=== PATIENT | male | born 1950 | race African-American/Black ===

== ENCOUNTER 2017-01-11 11:17 | Inpatient (IN) | payer OTHER ==
[2017-01-11 12:15] VITALS: BMI 34.7
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
[2017-01-11] MEDS ORDERED: diphenhydrAMINE HCL 50 MG CAPSULE PO PRN (15:31)
[2017-01-11] MEDS ORDERED: MAG HYDROX/AL HYDROX/SIMETH 30 ML UNIT-DOSE CUP PO PRN (15:31)
[2017-01-11] MEDS ORDERED: MAGNESIUM CITRATE 300 ML BOTTLE PO PRN (15:31)
[2017-01-11] MEDS ORDERED: MENTHOL/PHENOL 1 EACH UD MM PRN (15:31)
[2017-01-11] MEDS ORDERED: LOPERAMIDE HCL 2 MG CAPSULE PO PRN (15:31)
[2017-01-11] MEDS ORDERED: NICOTINE POLACRILEX 4 MG GUM BC PRN (15:31)
[2017-01-11] MEDS ORDERED: P-EPHED 60MG/TRIPROLIDI 2.5MG TABLET PO PRN (15:31)
[2017-01-11] MEDS ORDERED: METHADONE HCL 10 MG TABLET (FOR DETOX USE ONLY) PO ONE ×2 (15:39→23:00)
[2017-01-11] MEDS ORDERED: FUROSEMIDE 20 MG TABLET (FP) PO ONE (15:47)
[2017-01-11] MEDS ORDERED: INSULIN (NOVOLOG) ASPART 100 UNITS/ML 10ML VIAL ONE (16:39)
[2017-01-11] MEDS: diazePAM 5 MG TABLET PO PRN ×2 (17:03→22:46)
[2017-01-11] MEDS: INSULIN SLIDING SCALE (NOVOLOG) 1 VIAL SQ SCH (17:06)
[2017-01-11] MEDS: FLUOCINONIDE 0.05% GEL (15 GM) TP SCH ×2 (18:45→22:39)
[2017-01-11 19:57] LABS: URINE APPEARANCE CLEAR; URINE BILIRUBIN NEGATIVE (NEGATIVE); URINE BLOOD NEGATIVE (NEGATIVE); URINE COLOR YELLOW; URINE GLUCOSE (UA) 3+ (NEGATIVE); URINE KETONE NEGATIVE (NEGATIVE); URINE LEUK ESTERASE NEGATIVE (NEGATIVE); URINE NITRITE NEGATIVE (NEGATIVE); URINE UROBILINOGEN NEGATIVE E.U./dl (0.2-1.0)
[2017-01-11 20:02] LABS: URINE PROTEIN 2+ (NEGATIVE)
[2017-01-11 20:04] LABS: URINE HYALINE CAST 38 /lpf; URINE MUCUS RARE; URINE RBC 2 /hpf (0-3); URINE WBC 1 /hpf (3-5)
[2017-01-11] MEDS ORDERED: FUROSEMIDE 40 MG TABLET (FP) PO SCH (22:00)
[2017-01-11] MEDS: RALTEGRAVIR POTASSIUM 400 MG TAB PO SCH (22:37)
[2017-01-11] MEDS: DARUNAVIR ETHANOLATE 600 MG TAB PO SCH (22:37)
[2017-01-11] MEDS: CARVEDILOL 25 MG TABLET (FP) PO SCH (22:37)
[2017-01-11] MEDS: THIAMINE HCL 100 MG TABLET (FP) PO SCH (22:37)
[2017-01-11] MEDS: FERROUS SO4 325 MG TABLET (FP) PO SCH (22:37)
[2017-01-11] MEDS: BACITRACIN 0.9 GM PACKET TP SCH (22:37)
[2017-01-11] MEDS: RITONAVIR 100 MG TABLET PO SCH (22:38)
[2017-01-11] MEDS: INSULIN DETEMIR 100 UNITS/ML MDV SQ SCH (22:46)
[2017-01-12] MEDS: IBUPROFEN 400 MG TABLET (FP) PO PRN (05:15)
[2017-01-12] MEDS: diazePAM 5 MG TABLET PO PRN ×2 (05:17→22:22)
[2017-01-12] MEDS: FUROSEMIDE 20 MG TABLET (FP) PO SCH ×2 (06:47→14:35)
[2017-01-12] MEDS ORDERED: METHADONE HCL 10 MG TABLET (FOR DETOX USE ONLY) PO ONE (10:00)
[2017-01-12 10:04] LABS: MCHC 28.6 g/dl (32.0-35.9); MEAN CELL VOLUME 65.4 fl (80-96); MEAN PLT VOLUME 9.3 fl (7.5-11.1); PLATELET COUNT 263 K/MM3 (134-434); RDW 21.5 % (11.9-15.9); WHITE BLOOD COUNT 9.8 K/mm3 (4.0-10.0)
[2017-01-12 10:24] LABS: MCH 18.7 pg (25.7-33.7)
[2017-01-12] MEDS: PRENATAL VITAMINS W/ FOLIC ACID TABLET (FP) PO SCH (10:52)
[2017-01-12] MEDS: ASPIRIN 81 MG CHEWABLE TABLETS PO SCH (10:52)
[2017-01-12] MEDS: RANITIDINE HCL 150 MG TABLET (FP) PO SCH (10:52)
[2017-01-12] MEDS: POTASSIUM CHLORIDE TABS 20 MEQ TABLET.ER (FP) PO SCH (10:53)
[2017-01-12] MEDS: FERROUS SO4 325 MG TABLET (FP) PO SCH ×2 (10:53→22:13)
[2017-01-12] MEDS: RALTEGRAVIR POTASSIUM 400 MG TAB PO SCH ×2 (10:53→22:13)
[2017-01-12] MEDS: CLOPIDOGREL BISULFATE 75 MG TABLET (FP) PO SCH (10:53)
[2017-01-12 10:54] LABS: ALBUMIN 3.3 g/dl (3.4-5.0); BILIRUBIN,TOTAL 0.7 mg/dL (0.2-1.0); CALCIUM 8.8 mg/dL (8.5-10.1); CREATININE 2.1 mg/dL (0.7-1.3); TOT PROT 7.1 g/dl (6.4-8.2)
[2017-01-12] MEDS: CARVEDILOL 25 MG TABLET (FP) PO SCH ×2 (10:54→22:13)
[2017-01-12] MEDS: FLUOCINONIDE 0.05% GEL (15 GM) TP SCH ×4 (10:55→22:24)
[2017-01-12] MEDS: BACITRACIN 0.9 GM PACKET TP SCH ×2 (10:55→22:14)
[2017-01-12] MEDS: RITONAVIR 100 MG TABLET PO SCH ×2 (10:55→22:18)
[2017-01-12] MEDS: FLUCONAZOLE 100 MG TABLET (UD) PO SCH (10:55)
[2017-01-12] MEDS: NICOTINE 21 MG/24 HOURS TOPICAL PATCH TD SCH (10:56)
[2017-01-12] MEDS: DARUNAVIR ETHANOLATE 600 MG TAB PO SCH ×2 (10:56→22:13)
[2017-01-12] MEDS: MARAVIROC 150 MG TAB PO SCH (10:56)
[2017-01-12] MEDS: CHOLECALCIFEROL (VITAMIN D3) 1,000 UNIT TABLET (FP) PO SCH (10:57)
--- NOTE | 2017-01-12 11:07 | PN ---
BHS COWS - Scale Resting Pulse: 0= [place] 80 or Below Sweatin=Flushed/Facial Moisture Restless Observation: 1= Difficult to Sit Still Pupil Size: 0= Normal to Room Light Bone or Joint Aches: 2= Severe Diffuse Aches Runny Nose/ Eye Tearin= Nasal Congestion GI Upset > 30mins: 0= None Tremor Observation of Outstretched Hands: 0= None Yawning Observation: 2= >3x During Session Anxiety or Irritability: 1=Feels Anxious/Irritable Goose Flesh Skin: 3=Piloerection COWS Score: 12 BHS Progress Note (SOAP) Subjective: anxiety sweats sleepy Objective: 01/12/17 11:05 Vital Signs Temperature 98.2 F 01/12/17 09:44 Pulse Rate 74 01/12/17 09:44 Respiratory Rate 20 01/12/17 09:44 Blood Pressure 139/60 01/12/17 09:44 O2 Sat by Pulse Oximetry (%) Laboratory Tests 01/11/17 01/11/17 01/11/17 16:49 19:00 22:42 WBC RBC Hgb Hct MCV MCHC RDW Plt Count MPV POC Glucometer 466 246 Urine Color Yellow Urine Appearance Clear Urine pH 5.0 Ur Specific [place] 1.020 Urine Protein 2+ H Urine Glucose (UA) 3+ H Urine Ketones Negative Urine Blood Negative Urine Nitrite Negative Urine Bilirubin Negative Urine Urobilinogen Negative Ur Leukocyte Esterase Negative Urine RBC 2 Urine WBC 1 Ur Epithelial Cells Rare Hyaline Casts 38 Urine Mucus Rare 01/12/17 06:10 WBC 9.8 RBC 4.36 Hgb 8.1 L Hct 28.5 L MCV 65.4 L MCHC 28.6 L RDW 21.5 H D Plt Count 263 D MPV 9.3 POC Glucometer Urine Color Urine Appearance Urine pH Ur Specific [place] Urine Protein Urine Glucose (UA) Urine Ketones Urine Blood Urine Nitrite Urine Bilirubin Urine Urobilinogen Ur Leukocyte Esterase Urine RBC Urine WBC Ur Epithelial Cells Hyaline Casts Urine Mucus labs pending awake/alert ambulating no acute distress Assessment: 01/12/17 11:06 withdrawal sx Plan: hold am detox increase fluids labs pending
[2017-01-12] MEDS ORDERED: INSULIN (NOVOLOG) ASPART 100 UNITS/ML 10ML VIAL ONE ×2 (11:26→17:03)
[2017-01-12] MEDS: INSULIN SLIDING SCALE (NOVOLOG) 1 VIAL SQ SCH ×2 (11:32→17:22)
--- NOTE | 2017-01-12 12:15 | CONSULT ---
[facility] Psychiatric Consult - Data Date of interview: 01/12/17 Admission source: [facility] Identifying data: This is 66 years old male with no psychiatric hospitalization history, with multiple medical problems, intoxictaed with : Alcohol, Heroin and Nicotine Substance Abuse History: Smoking Cessation. Smoking history: Current every day smoker. Have you smoked in the past 12 months: Yes. Aproximately how many cigarettes per day: 10. Hx Chewing Tobacco Use: No. Initiated information on smoking cessation: Yes. 'Breaking Loose' booklet given: 01/11/17. - Substance & Tx. History. Hx Alcohol Use: Yes. Hx Substance Use: Yes. Substance Use Type : Alcohol, Heroin. Hx Substance Use Treatment: Yes. - Substances Abused. Heroin. Route: Inhalation. Frequency: Daily. Amount used: 10 bags. Age of first use: 15. Date of Last Use: 01/11/17. Alcohol-whisky. Route: Oral. Frequency: 1-2 times per week. Amount used: 1/4 pt. Age of first use: 27. Date of Last Use: 01/10/17 Medical History: CHF, HIV, HepC+, HTN, Hyperlipiodemia, Psoroasis, DM-2, Defibrillator in place, Obesity Psychiatric History: Patient denies past psychiatric history Physical/Sexual Abuse/Trauma History: Denies Additional Comment: Observation. Detox Unit Care Protocol Mental Status Exam - Mental Status Exam Alert and Oriented to: Person Cognitive Function: Fair Patient Appearance: Unkempt Mood: Angry, Sad Affect: Mood Congruent Patient Behavior: Cooperative Speech Pattern: Delayed Voice Loudness: Mildly Soft/Quiet Thought Process: Circumstantial, Goal Oriented Thought Disorder: Being Controlled Hallucinations: Denies Suicidal Ideation: Denies Homicidal Ideation: Denies Insight/Judgement: Fair Sleep: Difficulty falling asleep Appetite: Weight gain Muscle strength/Tone: Mild Hypotonicity Gait/Station: Shuffling Additional Comments: Observation. Detox Unit Care Protocol Psychiatric Findings - Problem List ([place] 1, 2,3) (1) CHF (congestive heart failure) Current Visit: Yes Status: Chronic Qualifiers: Congestive heart failure type: unspecified congestive heart failure type Congestive heart failure chronicity: chronic Qualified Code(s): I50.9 - Heart failure, unspecified (2) Nicotine dependence Current Visit: Yes Status: Chronic Qualifiers: Nicotine product type: cigarettes Substance use status: uncomplicated Qualified Code(s): F17.210 - Nicotine dependence, cigarettes, uncomplicated (3) Opioid dependence with withdrawal Current Visit: Yes Status: Chronic (4) Substance induced mood disorder Current Visit: No Status: Acute (5) Substance-induced sleep disorder Current Visit: No Status: Acute - Initial Treatment Plan Initial Treatment Plan: Observation. Detox Unit Care Protocol
[2017-01-12] MEDS: MAGNESIUM HYDROX 2400MG/30ML ORAL SUSPENSION 30 ML CUP PO PRN (14:48)
--- NOTE | 2017-01-12 15:08 | EKG ---
Test Reason : Blood Pressure : / mmHG Vent. Rate : 076 BPM Atrial Rate : 076 BPM P-R Int : 158 ms QRS Dur : 088 ms QT Int : 424 ms P-R-T Axes : 057 014 249 degrees QTc Int : 477 ms NORMAL SINUS RHYTHM WITH SINUS ARRHYTHMIA T WAVE ABNORMALITY, CONSIDER INFERIOR ISCHEMIA PROLONGED QT ABNORMAL ECG WHEN COMPARED WITH ECG OF 05-JUN-2015 08:45, NONSPECIFIC T WAVE ABNORMALITY, WORSE IN LATERAL LEADS Confirmed by ABRAHAM GALLEGOS MD ([id number]) on 01/12/2017 3:08:31 PM Referred By: Confirmed By:ABRAHAM GALLEGOS MD
[2017-01-12] MEDS ORDERED: AMMONIUM LACTATE 12% LOTION 225 GM BOTTLE TP PRN (15:12)
[2017-01-12] MEDS ORDERED: COLLOIDAL OATMEAL 1 BAR EACH TP PRN (15:12)
[2017-01-12 15:15] LABS: ANISOCYTOSIS 2+; HYPOCHROMIA 3+; MICROCYTOSIS 1+; OVALOCYTES 1+; POIKILOCYTOSIS 4+; SCHISTOCYTES 1+; TEAR DROP CELLS 1+
[2017-01-12 15:16] LABS: ACANTHOCYTES 1+; BURR CELLS 4+
[2017-01-12] MEDS: THIAMINE HCL 100 MG TABLET (FP) PO SCH (22:13)
[2017-01-12] MEDS: INSULIN DETEMIR 100 UNITS/ML MDV SQ SCH (22:24)
[2017-01-13] MEDS: IBUPROFEN 400 MG TABLET (FP) PO PRN ×3 (00:27→14:58)
[2017-01-13] MEDS: guaiFENesin/D-METHORPHAN HB 10 ML UNIT-DOSE CUPS PO PRN ×2 (02:51→14:52)
[2017-01-13] MEDS: diazePAM 5 MG TABLET PO PRN ×3 (06:02→22:20)
[2017-01-13] MEDS: FUROSEMIDE 20 MG TABLET (FP) PO SCH ×2 (06:03→14:47)
[2017-01-13] MEDS ORDERED: INSULIN (NOVOLOG) ASPART 100 UNITS/ML 10ML VIAL ONE ×3 (06:32→18:11)
[2017-01-13] MEDS: INSULIN SLIDING SCALE (NOVOLOG) 1 VIAL SQ SCH ×3 (06:36→18:13)
--- NOTE | 2017-01-13 09:58 | PN ---
S COWS - Scale Resting Pulse: 0= [place] 80 or Below Sweatin= Chills/Flushing Restless Observation: 3= Extraneous Movement Pupil Size: 1= Pupils >than Normal Bone or Joint Aches: 2= Severe Diffuse Aches Runny Nose/ Eye Tearin= Runny Nose/Eyes GI Upset > 30mins: 2= Nausea/Diarrhea Tremor Observation of Outstretched Hands: 2= Slight Tremor Visible Yawning Observation: 1= 1-2x During Session Anxiety or Irritability: 2=Irritable/Anxious Goose Flesh Skin: 0=Smooth Skin COWS Score: 16 S Progress Note (SOAP) Subjective: ALERT,IRRITABLE,ANXIOUS,INTERRUPTED SLEEP,PAIN IN THE BODY AND BACK Objective: 01/13/17 09:53 Vital Signs Temperature 98.1 F 01/13/17 09:52 Pulse Rate 98 H 01/13/17 09:52 Respiratory Rate 18 01/13/17 09:52 Blood Pressure 139/75 01/13/17 09:52 O2 Sat by Pulse Oximetry (%) Laboratory Last Values WBC 9.8 K/mm3 (4.0-10.0) 01/12/17 06:10 RBC 4.36 M/mm3 (4.00-5.60) 01/12/17 06:10 Hgb 8.1 GM/dL (11.7-16.9) L 01/12/17 06:10 Hct 28.5 % (35.4-49) L 01/12/17 06:10 MCV 65.4 fl (80-96) L 01/12/17 06:10 MCHC 28.6 g/dl (32.0-35.9) L 01/12/17 06:10 RDW 21.5 % (11.9-15.9) H D 01/12/17 06:10 Plt Count 263 K/MM3 (134-434) D 01/12/17 06:10 MPV 9.3 fl (7.5-11.1) 01/12/17 06:10 Hypochromic-Microcytic 3+ 01/12/17 06:10 Poikilocytosis 4+ 01/12/17 06:10 Anisocytosis 2+ 01/12/17 06:10 Microcytosis 1+ 01/12/17 06:10 Macrocytosis 2+ 01/12/17 06:10 Tear Drop Cells 1+ 01/12/17 06:10 Ovalocytes 1+ 01/12/17 06:10 Kinza Cells 4+ 01/12/17 06:10 Acanthocytes (Spur) 1+ 01/12/17 06:10 Schistocytes 1+ 01/12/17 06:10 Morphology Comment Slide scanned 01/12/17 06:10 Sodium 135 mmol/L (136-145) L 01/12/17 06:10 Potassium 5.1 mmol/L (3.5-5.1) 01/12/17 06:10 Chloride 101 mmol/L (98-107) 01/12/17 06:10 Carbon Dioxide 21 mmol/L (21-32) D 01/12/17 06:10 Anion Gap 13 (8-16) 01/12/17 06:10 BUN 24 mg/dL (7-18) H D 01/12/17 06:10 Creatinine 2.1 mg/dL (0.7-1.3) H D 01/12/17 06:10 Creat Clearance w eGFR 31.96 (>60) 01/12/17 06:10 POC Glucometer 213 UNITS (()) 01/13/17 05:59 Random Glucose 315 mg/dL (74-106) H* D 01/12/17 06:10 Calcium 8.8 mg/dL (8.5-10.1) 01/12/17 06:10 Total Bilirubin 0.7 mg/dL (0.2-1.0) D 01/12/17 06:10 AST 34 U/L (15-37) D 01/12/17 06:10 ALT 30 U/L (12-78) D 01/12/17 06:10 Alkaline Phosphatase 192 U/L (45-117) H D 01/12/17 06:10 Total Protein 7.1 g/dl (6.4-8.2) 01/12/17 06:10 Albumin 3.3 g/dl (3.4-5.0) L 01/12/17 06:10 Urine Color Yellow 01/11/17 19:00 Urine Appearance Clear 01/11/17 19:00 Urine pH 5.0 (5.0-8.0) 01/11/17 19:00 Ur Specific [place] 1.020 (1.001-1.035) 01/11/17 19:00 Urine Protein 2+ (NEGATIVE) H 01/11/17 19:00 Urine Glucose (UA) 3+ (NEGATIVE) H 01/11/17 19:00 Urine Ketones Negative (NEGATIVE) 01/11/17 19:00 Urine Blood Negative (NEGATIVE) 01/11/17 19:00 Urine Nitrite Negative (NEGATIVE) 01/11/17 19:00 Urine Bilirubin Negative (NEGATIVE) 01/11/17 19:00 Urine Urobilinogen Negative E.U./dl (0.2-1.0) 01/11/17 19:00 Ur Leukocyte Esterase Negative (NEGATIVE) 01/11/17 19:00 Urine RBC 2 /hpf (0-3) 01/11/17 19:00 Urine WBC 1 /hpf (3-5) 01/11/17 19:00 Ur Epithelial Cells Rare /hpf (FEW) 01/11/17 19:00 Hyaline Casts 38 /lpf 01/11/17 19:00 Urine Mucus Rare 01/11/17 19:00 RPR Titer Nonreactive (NONREACTIVE) 01/12/17 06:10 Hepatitis C Antibody 10.6 s/co ratio (0.0-0.9) H 01/12/17 06:10 Assessment: 01/13/17 09:56 WITHDRAWAL SYMPTOM Plan: CONTINUE DETOX,PATIENT IS KNOWN CASE OF ANEMIA,SUPPOSED TO TAKE IRON TWICE A DAY AND KNOWN CASE OF HEPATITS C,FOLLOWED UP BY PMD
[2017-01-13] MEDS ORDERED: METHADONE HCL 5 MG TABLET (FOR DETOX USE ONLY) PO ONE (10:00)
[2017-01-13] MEDS: RANITIDINE HCL 150 MG TABLET (FP) PO SCH (10:36)
[2017-01-13] MEDS: FLUCONAZOLE 100 MG TABLET (UD) PO SCH (10:36)
[2017-01-13] MEDS: FERROUS SO4 325 MG TABLET (FP) PO SCH ×2 (10:36→22:10)
[2017-01-13] MEDS: POTASSIUM CHLORIDE TABS 20 MEQ TABLET.ER (FP) PO SCH (10:36)
[2017-01-13] MEDS: CLOPIDOGREL BISULFATE 75 MG TABLET (FP) PO SCH (10:36)
[2017-01-13] MEDS: CARVEDILOL 25 MG TABLET (FP) PO SCH ×2 (10:36→22:10)
[2017-01-13] MEDS: PRENATAL VITAMINS W/ FOLIC ACID TABLET (FP) PO SCH (10:36)
[2017-01-13] MEDS: CHOLECALCIFEROL (VITAMIN D3) 1,000 UNIT TABLET (FP) PO SCH (10:37)
[2017-01-13] MEDS: DARUNAVIR ETHANOLATE 600 MG TAB PO SCH ×2 (10:37→22:10)
[2017-01-13] MEDS: NICOTINE 21 MG/24 HOURS TOPICAL PATCH TD SCH (10:38)
[2017-01-13] MEDS: RITONAVIR 100 MG TABLET PO SCH ×2 (10:38→22:10)
[2017-01-13] MEDS: RALTEGRAVIR POTASSIUM 400 MG TAB PO SCH ×2 (10:38→22:10)
[2017-01-13] MEDS: MARAVIROC 150 MG TAB PO SCH (10:38)
[2017-01-13] MEDS: ASPIRIN 81 MG CHEWABLE TABLETS PO SCH (10:41)
[2017-01-13] MEDS: BACITRACIN 0.9 GM PACKET TP SCH ×2 (10:41→22:10)
[2017-01-13] MEDS: CARBAMIDE PEROXIDE 6.5% OTIC 15 ML BOTTLE AD SCH ×3 (10:50→22:13)
[2017-01-13] MEDS: MAGNESIUM HYDROX 2400MG/30ML ORAL SUSPENSION 30 ML CUP PO PRN (10:55)
[2017-01-13] MEDS: FLUOCINONIDE 0.05% CREAM (60 GM TUBE) TP SCH ×2 (10:58→22:11)
[2017-01-13] MEDS: ARTIFICIAL TEARS (POLYVINYL ALCOHOL 1.4%) OPTH DROPS OU SCH ×2 (14:48→22:13)
[2017-01-13] MEDS: INSULIN DETEMIR 100 UNITS/ML MDV SQ SCH (22:20)
[2017-01-13] MEDS: THIAMINE HCL 100 MG TABLET (FP) PO SCH (22:55)
[2017-01-14] MEDS: IBUPROFEN 400 MG TABLET (FP) PO PRN (01:37)
[2017-01-14] MEDS: ACETAMINOPHEN 325 MG TABLET (FP) PO PRN ×2 (01:37→20:06)
[2017-01-14] MEDS: guaiFENesin/D-METHORPHAN HB 10 ML UNIT-DOSE CUPS PO PRN (01:39)
[2017-01-14] MEDS: diazePAM 5 MG TABLET PO PRN ×2 (02:36→10:48)
[2017-01-14] MEDS ORDERED: FUROSEMIDE 20 MG TABLET (FP) PO ONE (03:46)
--- NOTE | 2017-01-14 04:00 | PN ---
S Progress Note Note: ASKED TO SEE PT FOR C/O SOB. PT STATES "I HAVE FLUID IN MY STOMACH AND IN MY HEART" REQUESTING COMPRESSION STOCKINGS AND TRANSFER TO ER FOR SOB, ABD PAIN/ DISTENTION, SWOLLEN HANDS AND FEET. DENIES C.P, COUGH, FEVER CLIENT SEEN SEATED AT NURSING STATION AWAKE, ALERT, APPEARS DEPRESSED CRYING ABOUT HIS MEDS AND COMPRESSION STOCKINGS AND WANTING TO GO TO REHAB AFTER DETOX. CV RRR LUNGS CTA B/L O SAT RA 99% AHN/SPEAKING NOTED ABD- OBESE SOFT/ NT +BS X4 EXTREMITES: SWOLLEN HANDS NON PITTING L >R ( PER NURSING STAFF THIS IS NOT NEW) LOWER EXTREMITIES RAISED CRUSTY PATCHES NOTED (H/O PSORIASIS ) RLE PITTING EDEMA 1-2+ V/S 152/87 P-72-R-22 T 97.1 O2 SAT RA 99% A-H/O COPD/ CHF CURRENTLY ON LASIX 20 MG BID P- LASIX 20 MG PO X 1 DOSE NOW FLUID RESTRICTION LOW SODIUM DIET ELEVATE HOB AND BLE WHEN IN BED COMPRESSION STOCKING WILL REEVALUATE IN AM NEED FOR TRANSFER. PRESENTLY APPEARS STABLE. DUO NEB PRN
[2017-01-14] MEDS ORDERED: ALBUTEROL SO4 2.5/IPRATROPIUM 0.5 INH SOL 3 ML VIAL.NEB. NEB PRN (04:12)
[2017-01-14] MEDS ORDERED: IBUPROFEN 400 MG TABLET (FP) PO ONE (04:18)
[2017-01-14] MEDS: FUROSEMIDE 20 MG TABLET (FP) PO SCH ×2 (05:39→13:17)
[2017-01-14] MEDS: ARTIFICIAL TEARS (POLYVINYL ALCOHOL 1.4%) OPTH DROPS OU SCH ×3 (05:41→23:11)
[2017-01-14] MEDS: INSULIN SLIDING SCALE (NOVOLOG) 1 VIAL SQ SCH ×3 (06:55→17:15)
[2017-01-14] MEDS ORDERED: METHADONE HCL 5 MG TABLET (FOR DETOX USE ONLY) PO ONE (10:00)
[2017-01-14] MEDS: ASPIRIN 81 MG CHEWABLE TABLETS PO SCH (10:38)
[2017-01-14] MEDS: RITONAVIR 100 MG TABLET PO SCH ×2 (10:38→23:12)
[2017-01-14] MEDS: BACITRACIN 0.9 GM PACKET TP SCH ×2 (10:38→23:11)
[2017-01-14] MEDS: MARAVIROC 150 MG TAB PO SCH (10:39)
[2017-01-14] MEDS: RALTEGRAVIR POTASSIUM 400 MG TAB PO SCH ×2 (10:39→22:26)
[2017-01-14] MEDS: FERROUS SO4 325 MG TABLET (FP) PO SCH ×2 (10:39→22:29)
[2017-01-14] MEDS: CLOPIDOGREL BISULFATE 75 MG TABLET (FP) PO SCH (10:39)
[2017-01-14] MEDS: CARVEDILOL 25 MG TABLET (FP) PO SCH ×2 (10:39→22:25)
[2017-01-14] MEDS: CHOLECALCIFEROL (VITAMIN D3) 1,000 UNIT TABLET (FP) PO SCH (10:39)
[2017-01-14] MEDS: DARUNAVIR ETHANOLATE 600 MG TAB PO SCH ×2 (10:39→23:12)
[2017-01-14] MEDS: NICOTINE 21 MG/24 HOURS TOPICAL PATCH TD SCH (10:40)
[2017-01-14] MEDS: POTASSIUM CHLORIDE TABS 20 MEQ TABLET.ER (FP) PO SCH (10:40)
[2017-01-14] MEDS: FLUOCINONIDE 0.05% CREAM (60 GM TUBE) TP SCH ×2 (10:40→23:12)
[2017-01-14] MEDS: PRENATAL VITAMINS W/ FOLIC ACID TABLET (FP) PO SCH (10:41)
[2017-01-14] MEDS: RANITIDINE HCL 150 MG TABLET (FP) PO SCH (10:41)
[2017-01-14] MEDS: FLUCONAZOLE 100 MG TABLET (UD) PO SCH (10:42)
[2017-01-14] MEDS: CARBAMIDE PEROXIDE 6.5% OTIC 15 ML BOTTLE AD SCH ×2 (10:47→23:11)
--- NOTE | 2017-01-14 11:50 | PN ---
S Progress Note (SOAP) Subjective: Irritability, anxiety, sleeplessness, generalized pain Objective: 01/14/17 11:47 Vital Signs - 8 hr 01/14/17 01/14/17 06:00 11:09 Temperature 97.1 F L 97.7 F Pulse Rate 72 70 Respiratory 22 18 Rate Blood Pressure 152/87 139/66 Laboratory Last Values WBC 9.8 K/mm3 (4.0-10.0) 01/12/17 06:10 RBC 4.36 M/mm3 (4.00-5.60) 01/12/17 06:10 Hgb 8.1 GM/dL (11.7-16.9) L 01/12/17 06:10 Hct 28.5 % (35.4-49) L 01/12/17 06:10 MCV 65.4 fl (80-96) L 01/12/17 06:10 MCHC 28.6 g/dl (32.0-35.9) L 01/12/17 06:10 RDW 21.5 % (11.9-15.9) H D 01/12/17 06:10 Plt Count 263 K/MM3 (134-434) D 01/12/17 06:10 MPV 9.3 fl (7.5-11.1) 01/12/17 06:10 Hypochromic-Microcytic 3+ 01/12/17 06:10 Poikilocytosis 4+ 01/12/17 06:10 Anisocytosis 2+ 01/12/17 06:10 Microcytosis 1+ 01/12/17 06:10 Macrocytosis 2+ 01/12/17 06:10 Tear Drop Cells 1+ 01/12/17 06:10 Ovalocytes 1+ 01/12/17 06:10 [place] Cells 4+ 01/12/17 06:10 Acanthocytes (Spur) 1+ 01/12/17 06:10 Schistocytes 1+ 01/12/17 06:10 Morphology Comment Slide scanned 01/12/17 06:10 Sodium 135 mmol/L (136-145) L 01/12/17 06:10 Potassium 5.1 mmol/L (3.5-5.1) 01/12/17 06:10 Chloride 101 mmol/L (98-107) 01/12/17 06:10 Carbon Dioxide 21 mmol/L (21-32) D 01/12/17 06:10 Anion Gap 13 (8-16) 01/12/17 06:10 BUN 24 mg/dL (7-18) H D 01/12/17 06:10 Creatinine 2.1 mg/dL (0.7-1.3) H D 01/12/17 06:10 Creat Clearance w eGFR 31.96 (>60) 01/12/17 06:10 POC Glucometer 115 UNITS (()) 01/14/17 05:40 Random Glucose 315 mg/dL (74-106) H* D 01/12/17 06:10 Calcium 8.8 mg/dL (8.5-10.1) 01/12/17 06:10 Total Bilirubin 0.7 mg/dL (0.2-1.0) D 01/12/17 06:10 AST 34 U/L (15-37) D 01/12/17 06:10 ALT 30 U/L (12-78) D 01/12/17 06:10 Alkaline Phosphatase 192 U/L (45-117) H D 01/12/17 06:10 Total Protein 7.1 g/dl (6.4-8.2) 01/12/17 06:10 Albumin 3.3 g/dl (3.4-5.0) L 01/12/17 06:10 Urine Color Yellow 01/11/17 19:00 Urine Appearance Clear 01/11/17 19:00 Urine pH 5.0 (5.0-8.0) 01/11/17 19:00 Ur Specific [place] 1.020 (1.001-1.035) 01/11/17 19:00 Urine Protein 2+ (NEGATIVE) H 01/11/17 19:00 Urine Glucose (UA) 3+ (NEGATIVE) H 01/11/17 19:00 Urine Ketones Negative (NEGATIVE) 01/11/17 19:00 Urine Blood Negative (NEGATIVE) 01/11/17 19:00 Urine Nitrite Negative (NEGATIVE) 01/11/17 19:00 Urine Bilirubin Negative (NEGATIVE) 01/11/17 19:00 Urine Urobilinogen Negative E.U./dl (0.2-1.0) 01/11/17 19:00 Ur Leukocyte Esterase Negative (NEGATIVE) 01/11/17 19:00 Urine RBC 2 /hpf (0-3) 01/11/17 19:00 Urine WBC 1 /hpf (3-5) 01/11/17 19:00 Ur Epithelial Cells Rare /hpf (FEW) 01/11/17 19:00 Hyaline Casts 38 /lpf 01/11/17 19:00 Urine Mucus Rare 01/11/17 19:00 RPR Titer Nonreactive (NONREACTIVE) 01/12/17 06:10 Hepatitis C Antibody 10.6 s/co ratio (0.0-0.9) H 01/12/17 06:10 Labs noted, BL LE extreme dryness with stasis changes Assessment: 01/14/17 11:48 withdrawal sx dry skin Plan: continue detox continue topical skin treatment, apply pierre wrap
[2017-01-14] MEDS ORDERED: INSULIN (NOVOLOG) ASPART 100 UNITS/ML 10ML VIAL ONE ×2 (12:44→17:30)
[2017-01-14] MEDS: hydrOXYzine PAMOATE 50 MG CAPSULE (FP) PO PRN ×2 (12:51→22:29)
[2017-01-14] MEDS: CYCLOBENZAPRINE HCL 10 MG TABLET (FP) PO PRN ×2 (13:52→22:29)
[2017-01-14] MEDS: THIAMINE HCL 100 MG TABLET (FP) PO SCH (22:23)
[2017-01-14] MEDS: INSULIN DETEMIR 100 UNITS/ML MDV SQ SCH (23:11)
[2017-01-15] MEDS: guaiFENesin/D-METHORPHAN HB 10 ML UNIT-DOSE CUPS PO PRN (01:15)
[2017-01-15] MEDS: IBUPROFEN 400 MG TABLET (FP) PO PRN ×2 (01:16→11:39)
[2017-01-15] MEDS: ALBUTEROL SO4 6.7 GM HFA INHALER IH PRN ×2 (01:17→11:39)
[2017-01-15] MEDS: hydrOXYzine PAMOATE 50 MG CAPSULE (FP) PO PRN ×2 (05:55→17:27)
[2017-01-15] MEDS ORDERED: CYCLOBENZAPRINE HCL 10 MG TABLET (FP) ONE (05:55)
[2017-01-15] MEDS: CYCLOBENZAPRINE HCL 10 MG TABLET (FP) PO PRN ×2 (05:56→17:27)
[2017-01-15] MEDS: ARTIFICIAL TEARS (POLYVINYL ALCOHOL 1.4%) OPTH DROPS OU SCH ×3 (07:28→22:22)
[2017-01-15] MEDS: FUROSEMIDE 20 MG TABLET (FP) PO SCH ×2 (07:28→14:03)
[2017-01-15] MEDS: INSULIN SLIDING SCALE (NOVOLOG) 1 VIAL SQ SCH ×3 (08:00→17:45)
[2017-01-15] MEDS ORDERED: METHADONE HCL 10 MG TABLET (FOR DETOX USE ONLY) PO ONE (10:00)
[2017-01-15] MEDS: FLUOCINONIDE 0.05% CREAM (60 GM TUBE) TP SCH ×3 (10:30→22:23)
[2017-01-15] MEDS: FLUCONAZOLE 100 MG TABLET (UD) PO SCH (11:07)
[2017-01-15] MEDS: POTASSIUM CHLORIDE TABS 20 MEQ TABLET.ER (FP) PO SCH (11:07)
[2017-01-15] MEDS: CARVEDILOL 25 MG TABLET (FP) PO SCH ×2 (11:08→22:22)
[2017-01-15] MEDS: BACITRACIN 0.9 GM PACKET TP SCH ×2 (11:09→22:22)
[2017-01-15] MEDS: ASPIRIN 81 MG CHEWABLE TABLETS PO SCH (11:09)
[2017-01-15] MEDS: CARBAMIDE PEROXIDE 6.5% OTIC 15 ML BOTTLE AD SCH ×2 (11:09→22:22)
[2017-01-15] MEDS: RANITIDINE HCL 150 MG TABLET (FP) PO SCH (11:10)
[2017-01-15] MEDS: FERROUS SO4 325 MG TABLET (FP) PO SCH ×2 (11:10→22:22)
[2017-01-15] MEDS: MARAVIROC 150 MG TAB PO SCH (11:10)
[2017-01-15] MEDS: RALTEGRAVIR POTASSIUM 400 MG TAB PO SCH ×2 (11:10→22:22)
[2017-01-15] MEDS: RITONAVIR 100 MG TABLET PO SCH ×2 (11:11→22:23)
[2017-01-15] MEDS: NICOTINE 21 MG/24 HOURS TOPICAL PATCH TD SCH ×2 (11:11→11:15)
[2017-01-15] MEDS: CLOPIDOGREL BISULFATE 75 MG TABLET (FP) PO SCH (11:11)
[2017-01-15] MEDS: PRENATAL VITAMINS W/ FOLIC ACID TABLET (FP) PO SCH (11:12)
[2017-01-15] MEDS: DARUNAVIR ETHANOLATE 600 MG TAB PO SCH ×2 (11:12→22:23)
[2017-01-15] MEDS: CHOLECALCIFEROL (VITAMIN D3) 1,000 UNIT TABLET (FP) PO SCH (11:12)
--- NOTE | 2017-01-15 11:12 | PN ---
S Progress Note (SOAP) Subjective: Body Aches, Restlessness, Interrupted Sleep, Anxiety Objective: Vital Signs Temperature 96.6 F L 01/15/17 10:00 Pulse Rate 73 01/15/17 10:00 Respiratory Rate 20 01/15/17 10:00 Blood Pressure 141/71 01/15/17 10:00 O2 Sat by Pulse Oximetry (%) Laboratory Last Values WBC 9.8 K/mm3 (4.0-10.0) 01/12/17 06:10 RBC 4.36 M/mm3 (4.00-5.60) 01/12/17 06:10 Hgb 8.1 GM/dL (11.7-16.9) L 01/12/17 06:10 Hct 28.5 % (35.4-49) L 01/12/17 06:10 MCV 65.4 fl (80-96) L 01/12/17 06:10 MCHC 28.6 g/dl (32.0-35.9) L 01/12/17 06:10 RDW 21.5 % (11.9-15.9) H D 01/12/17 06:10 Plt Count 263 K/MM3 (134-434) D 01/12/17 06:10 MPV 9.3 fl (7.5-11.1) 01/12/17 06:10 Hypochromic-Microcytic 3+ 01/12/17 06:10 Poikilocytosis 4+ 01/12/17 06:10 Anisocytosis 2+ 01/12/17 06:10 Microcytosis 1+ 01/12/17 06:10 Macrocytosis 2+ 01/12/17 06:10 Tear Drop Cells 1+ 01/12/17 06:10 Ovalocytes 1+ 01/12/17 06:10 Kinza Cells 4+ 01/12/17 06:10 Acanthocytes (Spur) 1+ 01/12/17 06:10 Schistocytes 1+ 01/12/17 06:10 Morphology Comment Slide scanned 01/12/17 06:10 Sodium 135 mmol/L (136-145) L 01/12/17 06:10 Potassium 5.1 mmol/L (3.5-5.1) 01/12/17 06:10 Chloride 101 mmol/L (98-107) 01/12/17 06:10 Carbon Dioxide 21 mmol/L (21-32) D 01/12/17 06:10 Anion Gap 13 (8-16) 01/12/17 06:10 BUN 24 mg/dL (7-18) H D 01/12/17 06:10 Creatinine 2.1 mg/dL (0.7-1.3) H D 01/12/17 06:10 Creat Clearance w eGFR 31.96 (>60) 01/12/17 06:10 POC Glucometer 77 UNITS (()) 01/15/17 07:43 Random Glucose 315 mg/dL (74-106) H* D 01/12/17 06:10 Calcium 8.8 mg/dL (8.5-10.1) 01/12/17 06:10 Total Bilirubin 0.7 mg/dL (0.2-1.0) D 01/12/17 06:10 AST 34 U/L (15-37) D 01/12/17 06:10 ALT 30 U/L (12-78) D 01/12/17 06:10 Alkaline Phosphatase 192 U/L (45-117) H D 01/12/17 06:10 Total Protein 7.1 g/dl (6.4-8.2) 01/12/17 06:10 Albumin 3.3 g/dl (3.4-5.0) L 01/12/17 06:10 Urine Color Yellow 01/11/17 19:00 Urine Appearance Clear 01/11/17 19:00 Urine pH 5.0 (5.0-8.0) 01/11/17 19:00 Ur Specific [place] 1.020 (1.001-1.035) 01/11/17 19:00 Urine Protein 2+ (NEGATIVE) H 01/11/17 19:00 Urine Glucose (UA) 3+ (NEGATIVE) H 01/11/17 19:00 Urine Ketones Negative (NEGATIVE) 01/11/17 19:00 Urine Blood Negative (NEGATIVE) 01/11/17 19:00 Urine Nitrite Negative (NEGATIVE) 01/11/17 19:00 Urine Bilirubin Negative (NEGATIVE) 01/11/17 19:00 Urine Urobilinogen Negative E.U./dl (0.2-1.0) 01/11/17 19:00 Ur Leukocyte Esterase Negative (NEGATIVE) 01/11/17 19:00 Urine RBC 2 /hpf (0-3) 01/11/17 19:00 Urine WBC 1 /hpf (3-5) 01/11/17 19:00 Ur Epithelial Cells Rare /hpf (FEW) 01/11/17 19:00 Hyaline Casts 38 /lpf 01/11/17 19:00 Urine Mucus Rare 01/11/17 19:00 RPR Titer Nonreactive (NONREACTIVE) 01/12/17 06:10 Hepatitis C Antibody 10.6 s/co ratio (0.0-0.9) H 01/12/17 06:10 Assessment: Withdrawal Symptoms Plan: Continue Detox
[2017-01-15] MEDS: ACETAMINOPHEN 325 MG TABLET (FP) PO PRN (14:03)
[2017-01-15] MEDS: THIAMINE HCL 100 MG TABLET (FP) PO SCH (22:22)
[2017-01-15] MEDS: INSULIN DETEMIR 100 UNITS/ML MDV SQ SCH (22:23)
[2017-01-16] MEDS: IBUPROFEN 400 MG TABLET (FP) PO PRN (00:54)
[2017-01-16] MEDS: hydrOXYzine PAMOATE 50 MG CAPSULE (FP) PO PRN ×2 (00:54→05:47)
[2017-01-16] MEDS: CYCLOBENZAPRINE HCL 10 MG TABLET (FP) PO PRN ×2 (00:54→10:35)
[2017-01-16] MEDS: FUROSEMIDE 20 MG TABLET (FP) PO SCH (05:45)
[2017-01-16] MEDS ORDERED: METHADONE HCL 5 MG TABLET (FOR DETOX USE ONLY) PO ONE (06:00)
[2017-01-16] MEDS: ARTIFICIAL TEARS (POLYVINYL ALCOHOL 1.4%) OPTH DROPS OU SCH (06:42)
[2017-01-16] MEDS: INSULIN SLIDING SCALE (NOVOLOG) 1 VIAL SQ SCH ×2 (07:33→11:19)
[2017-01-16] MEDS ORDERED: INSULIN (NOVOLOG) ASPART 100 UNITS/ML 10ML VIAL ONE ×2 (08:33→11:19)
--- NOTE | 2017-01-16 09:35 | DS ---
[facility] Detox Discharge Summary Admission Date: 01/11/17 - History Present History: Alcohol Dependence, Opioid Dependence - Physical Exam Results Vital Signs: Vital Signs Temperature 97.7 F 01/16/17 06:45 Pulse Rate 80 01/16/17 06:45 Respiratory Rate 18 01/16/17 06:45 Blood Pressure 121/76 01/16/17 06:45 O2 Sat by Pulse Oximetry (%) - Treatment Hospital Course: Detox Protocol Followed, Detoxed Safely, Responded well, Discharged Condition Good - Medication Discharge Medications: Ambulatory Orders Insulin Glargine,Hum.rec.anlog [Lantus Solostar PEN -] 65 units SQ HS 12/04/15 Betamethasone Valerate [Valisone 0.1% Cream -] 1 applic TP BID 08/18/16 Duloxetine HCl [Cymbalta -] 20 mg PO DAILY 08/18/16 Albuterol Sulfate Inhaler - [Ventolin HFA Inhaler -] 2 inh PO Q4H PRN #1 inhaler 09/07/16 Aspirin [ASA -] 81 mg PO DAILY #30 tab.chew 09/07/16 Carvedilol [Coreg -] 25 mg PO BID #60 tablet 09/07/16 Cholecalciferol (Vitamin D3) [Vitamin D3 -] 1,000 unit PO DAILY #30 tab Clopidogrel Bisulfate [Plavix -] 75 mg PO DAILY #30 tablet 09/07/16 Darunavir Ethanolate [Prezista -] 600 mg PO BID #60 tab 09/07/16 Ferrous Sulfate [Feosol] 325 mg PO BID #60 ud 09/07/16 Folic Acid - 1 mg PO DAILY #30 tablet 09/07/16 Furosemide [Lasix -] 20 mg PO BID #30 tablet 09/07/16 Fluconazole [Diflucan -] 200 mg PO DAILY 01/11/17 Insulin Lispro [Humalog] 0 unit SQ TID PRN 01/11/17 Maraviroc [Selzentry] 300 mg PO BID 01/11/17 Potassium Chloride [Klor-Con M20] 20 meq PO DAILY 01/11/17 Raltegravir [Isentress -] 400 mg PO BID 01/11/17 Ranitidine [Zantac -] 150 mg PO DAILY 01/11/17 Ritonavir [Norvir -] 100 mg PO BID 01/11/17 Rosuvastatin [Crestor -] 10 mg PO HS 01/11/17 - Diagnosis (1) CHF (congestive heart failure) Current Visit: Yes Status: Chronic Qualifiers: Congestive heart failure type: unspecified congestive heart failure type Congestive heart failure chronicity: chronic Qualified Code(s): I50.9 - Heart failure, unspecified (2) HIV (human immunodeficiency virus infection) Current Visit: Yes Status: Chronic (3) Hepatitis C Current Visit: Yes Status: Chronic Qualifiers: Viral hepatitis chronicity: chronic Hepatic coma status: without hepatic coma Qualified Code(s): B18.2 - Chronic viral hepatitis C (4) Hyperlipidemia Current Visit: Yes Status: Chronic Qualifiers: Hyperlipidemia type: unspecified Qualified Code(s): E78.5 - Hyperlipidemia, unspecified (5) Hypertension Current Visit: Yes Status: Chronic Qualifiers: Hypertension type: essential hypertension Qualified Code(s): I10 - Essential (primary) hypertension (6) Nicotine dependence Current Visit: Yes Status: Chronic Qualifiers: Nicotine product type: cigarettes Substance use status: uncomplicated Qualified Code(s): F17.210 - Nicotine dependence, cigarettes, uncomplicated (7) Opioid dependence with withdrawal Current Visit: Yes Status: Chronic (8) Psoriasis Current Visit: Yes Status: Chronic (9) Type 2 diabetes mellitus Current Visit: Yes Status: Chronic Qualifiers: Diabetes mellitus complication status: without complication Diabetes mellitus rodent exterminator insulin use: without rodent exterminator use Qualified Code(s): E11.9 - Type 2 diabetes mellitus without complications (10) Cardiac defibrillator in place Current Visit: No Status: Chronic - AMA Did Patient Leave Against Medical Advice: No
--- NOTE | 2017-01-16 10:12 | PN ---
Psychiatric Progress Note Vital Signs: Vital Signs Period Temp Pulse Resp BP Sys/Pandya Pulse Ox Last 24 Hr 97.3 F-98.8 F 77-86 17-18 121-159/74-82 Date of Session: 01/16/17 Chief Complaint:: Anxity HPI: Patient approached MD at [facility] and asking for help to release his anxiety, patient asking for steady border of Vistaril 50mg po tid, currently on Vistati, 50mg po prn q4 for anxiety Current Medications: Active Medications Generic Name Dose Route Start Last Admin Trade Name Freq PRN Reason Stop Dose Admin Acetaminophen 650 mg 01/11/17 15:31 01/15/17 14:03 Tylenol - PO 650 mg Q4H PRN Administration FEVER OR PAIN Al Hydroxide/Mg Hydroxide 30 ml 01/11/17 15:31 Mylanta Oral Suspension - PO Q6H PRN DYSPEPSIA Albuterol Sulfate 2 puff 01/11/17 15:33 01/15/17 11:39 Ventolin Hfa Inhaler - IH 2 puff Q4H PRN Administration WHEEZING Albuterol/Ipratropium 1 amp 01/14/17 04:12 Duoneb - NEB Q4H PRN SHORTNESS OF BREATH Artificial Tears 1 drop 01/13/17 14:00 01/16/17 06:42 Artificial Tears OU 1 drop TID MIRTHA Administration Aspirin 81 mg 01/12/17 10:00 01/15/17 11:09 Asa - PO 81 mg DAILY MIRTHA Administration Bacitracin 0.9 gm 01/11/17 22:00 01/15/17 22:22 Bacitracin - TP 0.9 gm BID MIRTHA Administration Carbamide Perox/Anhydrous Glycerin 5 drop 01/13/17 10:00 01/15/17 22:22 Debrox - AD Not Given BID MIRTHA Carvedilol 25 mg 01/11/17 22:00 01/15/17 22:22 Coreg - PO 25 mg BID MIRTHA Administration Cholecalciferol 1,000 unit 01/12/17 10:00 01/15/17 11:12 Vitamin D3 - PO 1,000 unit DAILY MIRTHA Administration Clopidogrel Bisulfate 75 mg 01/12/17 10:00 01/15/17 11:11 Plavix - PO 75 mg DAILY MIRTHA Administration Colloidal Oatmeal 1 applic 01/12/17 15:12 Aveeno Soap - TP DAILY PRN HYGEINE Cyclobenzaprine HCl 10 mg 01/14/17 13:41 01/16/17 00:54 Flexeril - PO 10 mg TID PRN Administration MUSCLE SPASMS Darunavir 600 mg 01/11/17 22:00 01/15/17 22:23 Prezista - PO 600 mg BID MIRTHA Administration Eucalyptus/Menthol/Phenol/Sorbitol 1 each 01/11/17 15:31 Cepastat Lozenge - MM Q4H PRN SORE THROAT Ferrous Sulfate 325 mg 01/11/17 22:00 01/15/17 22:22 Feosol - PO 325 mg BID MIRTHA Administration Fluconazole 200 mg 01/12/17 10:00 01/15/17 11:07 Diflucan - PO 200 mg DAILY MIRTHA Administration Fluocinonide 1 applic 01/13/17 10:00 01/15/17 22:23 Lidex 0.05% Cream - TP 1 applic BID MIRTHA Administration Furosemide 20 mg 01/12/17 06:00 01/16/17 05:45 Lasix - PO 20 mg BIDLASIX MIRTHA Administration Guaifenesin 10 ml 01/11/17 15:31 01/15/17 01:15 Robitussin Dm - PO 10 ml Q6H PRN Administration COUGH Hydroxyzine Pamoate 50 mg 01/16/17 14:00 Vistaril - PO TID MIRTHA Ibuprofen 400 mg 01/11/17 15:31 01/16/17 00:54 Motrin - PO 400 mg Q6H PRN Administration SEVERE PAIN Insulin Aspart 1 vial 01/11/17 16:30 01/16/17 07:33 Novolog Vial Sliding Scale - SQ 4 units TIDAC MIRTHA Administration Protocol Insulin Detemir 65 units 01/11/17 22:00 01/15/17 22:23 Levemir Vial SQ 65 units HS MIRTHA Administration Lactic Acid 1 applic 01/12/17 15:12 Lac-Hydrin 12 TP BID PRN DRY SKIN Loperamide HCl 4 mg 01/11/17 15:31 Imodium - PO Q6H PRN DIARRHEA Magnesium Citrate 300 ml 01/11/17 15:31 Citroma - PO Q48H PRN CONSTIPATION Magnesium Hydroxide 30 ml 01/11/17 15:31 01/13/17 10:55 Milk Of Magnesia - PO 30 ml DAILY PRN Administration CONSTIPATION Maraviroc 300 mg 01/12/17 10:00 01/15/17 11:10 Selzentry - PO 300 mg DAILY MIRTHA Administration Nicotine 21 mg 01/12/17 10:00 01/15/17 11:15 Nicoderm Patch - TD Not Given DAILY MIRTHA Nicotine Polacrilex 4 mg 01/11/17 15:31 Nicorette Gum - BC Q2H PRN NICOTINE REPLACEMENT RX Potassium Chloride 20 meq 01/12/17 10:00 01/15/17 11:07 K-Dur - PO 20 meq DAILY MIRTHA Administration Multivit/Folic Acid/Iron 1 tab 01/12/17 10:00 01/15/17 11:12 Vitamins (Sjr) - PO 1 tab DAILY MIRTHA Administration Pseudoephedrine/Triprolidine 1 combo 01/11/17 15:31 Actifed - PO TID PRN NASAL CONGESTION Raltegravir 400 mg 01/11/17 22:00 01/15/17 22:22 Isentress - PO 400 mg BID MIRTHA Administration Ranitidine HCl 150 mg 01/12/17 10:00 01/15/17 11:10 Zantac - PO 150 mg DAILY MIRTHA Administration Ritonavir 100 mg 01/11/17 22:00 01/15/17 22:23 Norvir - PO 100 mg BID MIRTHA Administration Thiamine HCl 100 mg 01/11/17 22:00 01/15/17 22:22 Vitamin B1 - PO 100 mg HS MIRTHA Administration Medication(s) Change(s): Vistaril 50mg po tid Mental Status Exam - Mental Status Exam Alert and Oriented to: Person Cognitive Function: Fair Patient Appearance: Unkempt Mood: Anxious Affect: Mood Congruent Patient Behavior: Cooperative Speech Pattern: Appropriate Voice Loudness: Mildly Soft/Quiet Thought Process: Goal Oriented Thought Disorder: Being Controlled Hallucinations: Denies Suicidal Ideation: Denies Homicidal Ideation: Denies Insight/Judgement: Fair Sleep: Difficulty falling asleep Appetite: Weight gain Muscle strength/Tone: Mild Hypotonicity Gait/Station: Shuffling Additional Comments: Vistaril 50mg po tid Psychiatric Treatment Plan - Problem List (1) CHF (congestive heart failure) Current Visit: Yes Qualifiers: Congestive heart failure type: unspecified congestive heart failure type Congestive heart failure chronicity: chronic Qualified Code(s): I50.9 - Heart failure, unspecified (2) Nicotine dependence Current Visit: Yes Qualifiers: Nicotine product type: cigarettes Substance use status: uncomplicated Qualified Code(s): F17.210 - Nicotine dependence, cigarettes, uncomplicated (3) Opioid dependence with withdrawal Current Visit: Yes (4) Substance induced mood disorder Current Visit: No (5) Substance-induced sleep disorder Current Visit: No Initial treatment plan: Vistaril 50mg po tid
[2017-01-16 10:13] VITALS: BP 144/83; PULSE 79; TEMP 98.6
[2017-01-16] MEDS: ASPIRIN 81 MG CHEWABLE TABLETS PO SCH (10:24)
[2017-01-16] MEDS: PRENATAL VITAMINS W/ FOLIC ACID TABLET (FP) PO SCH (10:24)
[2017-01-16] MEDS: BACITRACIN 0.9 GM PACKET TP SCH (10:24)
[2017-01-16] MEDS: FERROUS SO4 325 MG TABLET (FP) PO SCH (10:25)
[2017-01-16] MEDS: MARAVIROC 150 MG TAB PO SCH (10:25)
[2017-01-16] MEDS: FLUCONAZOLE 100 MG TABLET (UD) PO SCH (10:26)
[2017-01-16] MEDS: RANITIDINE HCL 150 MG TABLET (FP) PO SCH (10:26)
[2017-01-16] MEDS: POTASSIUM CHLORIDE TABS 20 MEQ TABLET.ER (FP) PO SCH (10:26)
[2017-01-16] MEDS: DARUNAVIR ETHANOLATE 600 MG TAB PO SCH (10:27)
[2017-01-16] MEDS: CHOLECALCIFEROL (VITAMIN D3) 1,000 UNIT TABLET (FP) PO SCH (10:27)
[2017-01-16] MEDS: CARVEDILOL 25 MG TABLET (FP) PO SCH (10:28)
[2017-01-16] MEDS: CLOPIDOGREL BISULFATE 75 MG TABLET (FP) PO SCH (10:28)
[2017-01-16] MEDS: RALTEGRAVIR POTASSIUM 400 MG TAB PO SCH (10:28)
[2017-01-16] MEDS: NICOTINE 21 MG/24 HOURS TOPICAL PATCH TD SCH (10:31)
[2017-01-16] MEDS: RITONAVIR 100 MG TABLET PO SCH (10:36)
[2017-01-16] MEDS: CARBAMIDE PEROXIDE 6.5% OTIC 15 ML BOTTLE AD SCH (10:36)
[2017-01-16] MEDS: FLUOCINONIDE 0.05% CREAM (60 GM TUBE) TP SCH (10:46)
[2017-01-16] MEDS ORDERED: hydrOXYzine PAMOATE 50 MG CAPSULE (FP) PO SCH (14:00)
[2017-01-17 00:06] LABS: HCV LOG 10 6.529 (.)
== END 2017-01-16 13:40 | disposition other institution (70) | DRG 773 ==
LOC: YASAS 11:17 → Y6N 14:39
PROVIDERS: ADMIT Internal Medicine Addiction Medicine; ATTEND Internal Medicine Addiction Medicine
PROC: HZ2ZZZZ Detoxification Services for Substance Abuse Treatment (ICD-10-PCS; principal; 2017-01-16)
DX: F11.23 Opioid dependence with withdrawal (principal); F19.24 Other psychoactive substance dependence with psychoactive substance-induced mood disorder; F19.282 Other psychoactive substance dependence with psychoactive substance-induced sleep disorder; I50.9 Heart failure, unspecified; I10 Essential (primary) hypertension; E11.9 Type 2 diabetes mellitus without complications; Z79.84 Long term (current) use of oral hypoglycemic drugs; E78.5 Hyperlipidemia, unspecified; B18.2 Chronic viral hepatitis C; Z21 Asymptomatic human immunodeficiency virus [HIV] infection status; L40.9 Psoriasis, unspecified
CPT/HCPCS: 36415; 80053; 81003; 81015; 85027; 86593; 87522; 93005; 93010

== ENCOUNTER 2017-01-16 13:49 | Inpatient (IN) | payer OTHER ==
[2017-01-16] MEDS ORDERED: IBUPROFEN 400 MG TABLET (FP) PO PRN (15:10)
[2017-01-16] MEDS ORDERED: MENTHOL/PHENOL 1 EACH UD MM PRN (15:10)
[2017-01-16] MEDS ORDERED: guaiFENesin/D-METHORPHAN HB 10 ML UNIT-DOSE CUPS PO PRN (15:10)
[2017-01-16] MEDS ORDERED: LOPERAMIDE HCL 2 MG CAPSULE PO PRN (15:10)
[2017-01-16] MEDS ORDERED: MAG HYDROX/AL HYDROX/SIMETH 30 ML UNIT-DOSE CUP PO PRN (15:10)
[2017-01-16] MEDS ORDERED: NICOTINE POLACRILEX 4 MG GUM BUC PRN (15:10)
[2017-01-16] MEDS ORDERED: MAGNESIUM CITRATE 300 ML BOTTLE PO PRN (15:10)
[2017-01-16] MEDS ORDERED: P-EPHED 60MG/TRIPROLIDI 2.5MG TABLET PO PRN (15:10)
[2017-01-16] MEDS ORDERED: PT OWN MED DRAWER 7, Y5N ONE (16:04)
--- NOTE | 2017-01-16 16:24 | HP ---
[facility] Assess/Revision - Admission History Admitted to Rehab from: [facility] [place] Date of Admission to Rehab: 01/16/17 - Findings Detox History & Physical reviewed: Yes Concur with findings: Yes Comments/Additional Findings: transferred from detox to rehab admission as per protocol
[2017-01-16] MEDS: CYCLOBENZAPRINE HCL 10 MG TABLET (FP) PO PRN (16:49)
[2017-01-16] MEDS: hydrOXYzine PAMOATE 25 MG CAPSULE (FP) PO PRN (16:49)
[2017-01-16] MEDS: ACETAMINOPHEN 325 MG TABLET (FP) PO PRN (16:49)
[2017-01-16] MEDS ORDERED: INSULIN SLIDING SCALE (NOVOLOG) 1 VIAL SQ ONE (18:15)
[2017-01-16] MEDS: FLUTICASONE PROP 0.05% 16 GM NASAL SPRAY NS SCH (21:28)
[2017-01-16] MEDS: INSULIN SLIDING SCALE (NOVOLOG) 1 VIAL SQ SCH (21:29)
[2017-01-16] MEDS: THIAMINE HCL 100 MG TABLET (FP) PO SCH (21:31)
[2017-01-16] MEDS: FUROSEMIDE 20 MG TABLET (FP) PO SCH (21:31)
[2017-01-16] MEDS: CARVEDILOL 25 MG TABLET (FP) PO SCH (21:31)
[2017-01-16] MEDS: DARUNAVIR ETHANOLATE 600 MG TAB PO SCH (21:31)
[2017-01-16] MEDS: RALTEGRAVIR POTASSIUM 400 MG TAB PO SCH (21:31)
[2017-01-16] MEDS: BETAMETHASONE VALERATE 0.1% CREAM 15 GM TUBE TP SCH (21:31)
[2017-01-16] MEDS: ROSUVASTATIN CA 10 MG TABLET (FP) PO SCH (21:31)
[2017-01-16] MEDS: ARTIFICIAL TEARS (POLYVINYL ALCOHOL 1.4%) OPTH DROPS OU SCH (21:33)
[2017-01-16] MEDS: FLUOCINONIDE 0.05% CREAM (60 GM TUBE) TP SCH (21:34)
[2017-01-16] MEDS: RITONAVIR 100 MG TABLET PO SCH (21:35)
[2017-01-16] MEDS ORDERED: INSULIN DETEMIR 100 UNITS/ML MDV SQ SCH (22:00)
[2017-01-16] MEDS ORDERED: INSULIN (NOVOLOG) ASPART 100 UNITS/ML 10ML VIAL ONE (22:19)
[2017-01-17] MEDS: hydrOXYzine PAMOATE 25 MG CAPSULE (FP) PO PRN ×3 (00:24→21:09)
[2017-01-17] MEDS: ACETAMINOPHEN 325 MG TABLET (FP) PO PRN ×3 (00:24→20:27)
[2017-01-17] MEDS: CYCLOBENZAPRINE HCL 10 MG TABLET (FP) PO PRN ×3 (00:24→21:09)
--- NOTE | 2017-01-17 07:42 | PN ---
[facility] Progress Note Note: PATIENT FOUND SWEATING,ALTER MENTAL STATUS BGM 37 ATTEMPTING TO GIVE ORANGE JUICE ATTEMPTING IV UNABLE GLUCOSE IS 76 ALERT,ORIENTED X 3 EATING WILL CMP BGM MONITORING ACHS
[2017-01-17] MEDS: ARTIFICIAL TEARS (POLYVINYL ALCOHOL 1.4%) OPTH DROPS OU SCH ×3 (07:49→21:49)
[2017-01-17] MEDS: INSULIN SLIDING SCALE (NOVOLOG) 1 VIAL SQ SCH ×4 (07:49→21:11)
[2017-01-17 10:05] LABS: CALCIUM 8.5 mg/dL (8.5-10.1)
[2017-01-17 10:11] LABS: BILIRUBIN,TOTAL 0.5 mg/dL (0.2-1.0); CREATININE 1.6 mg/dL (0.7-1.3); TOT PROT 6.7 g/dl (6.4-8.2)
[2017-01-17] MEDS: RANITIDINE HCL 150 MG TABLET (FP) PO SCH (10:25)
[2017-01-17] MEDS: ASPIRIN 81 MG CHEWABLE TABLETS PO SCH (10:25)
[2017-01-17] MEDS: CLOPIDOGREL BISULFATE 75 MG TABLET (FP) PO SCH (10:25)
[2017-01-17] MEDS: CHOLECALCIFEROL (VITAMIN D3) 1,000 UNIT TABLET (FP) PO SCH (10:25)
[2017-01-17] MEDS: FUROSEMIDE 20 MG TABLET (FP) PO SCH ×2 (10:25→21:08)
[2017-01-17] MEDS: FLUCONAZOLE 100 MG TABLET (UD) PO SCH (10:25)
[2017-01-17] MEDS: RALTEGRAVIR POTASSIUM 400 MG TAB PO SCH ×2 (10:25→21:07)
[2017-01-17] MEDS: MARAVIROC 150 MG TAB PO SCH (10:26)
[2017-01-17] MEDS: DARUNAVIR ETHANOLATE 600 MG TAB PO SCH ×2 (10:27→21:07)
[2017-01-17] MEDS: CARVEDILOL 25 MG TABLET (FP) PO SCH ×2 (10:27→21:07)
[2017-01-17] MEDS: FLUTICASONE PROP 0.05% 16 GM NASAL SPRAY NS SCH ×2 (10:28→21:07)
[2017-01-17] MEDS: RITONAVIR 100 MG TABLET PO SCH ×2 (10:28→21:06)
[2017-01-17] MEDS: PRENATAL VITAMINS W/ FOLIC ACID TABLET (FP) PO SCH (10:29)
[2017-01-17] MEDS: BETAMETHASONE VALERATE 0.1% CREAM 15 GM TUBE TP SCH ×2 (10:42→21:49)
[2017-01-17] MEDS: FLUOCINONIDE 0.05% CREAM (60 GM TUBE) TP SCH ×2 (10:42→21:08)
[2017-01-17] MEDS ORDERED: INSULIN (NOVOLOG) ASPART 100 UNITS/ML 10ML VIAL ONE ×2 (12:08→17:15)
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
[2017-01-17] MEDS: ROSUVASTATIN CA 10 MG TABLET (FP) PO SCH (21:07)
[2017-01-17] MEDS: INSULIN DETEMIR 100 UNITS/ML MDV SQ SCH (21:08)
[2017-01-17] MEDS: THIAMINE HCL 100 MG TABLET (FP) PO SCH (21:49)
--- NOTE | 2017-01-17 23:12 | PN ---
[facility] Progress Note Note: change lasix 20 mg bid to 6 am and 6 pm continue detox
[2017-01-18] MEDS: ARTIFICIAL TEARS (POLYVINYL ALCOHOL 1.4%) OPTH DROPS OU SCH ×3 (06:00→22:30)
[2017-01-18] MEDS: FUROSEMIDE 20 MG TABLET (FP) PO SCH ×2 (06:12→17:40)
[2017-01-18] MEDS: hydrOXYzine PAMOATE 25 MG CAPSULE (FP) PO PRN (06:13)
[2017-01-18] MEDS: CYCLOBENZAPRINE HCL 10 MG TABLET (FP) PO PRN ×3 (06:13→22:38)
[2017-01-18] MEDS: ALBUTEROL SO4 6.7 GM HFA INHALER IH PRN (06:14)
[2017-01-18] MEDS: INSULIN SLIDING SCALE (NOVOLOG) 1 VIAL SQ SCH ×4 (07:28→22:32)
[2017-01-18] MEDS: RITONAVIR 100 MG TABLET PO SCH ×2 (10:05→22:28)
[2017-01-18] MEDS: MARAVIROC 150 MG TAB PO SCH (10:05)
[2017-01-18] MEDS: PRENATAL VITAMINS W/ FOLIC ACID TABLET (FP) PO SCH (10:05)
[2017-01-18] MEDS: BETAMETHASONE VALERATE 0.1% CREAM 15 GM TUBE TP SCH ×2 (10:05→22:34)
[2017-01-18] MEDS: CARVEDILOL 25 MG TABLET (FP) PO SCH ×2 (10:06→22:29)
[2017-01-18] MEDS: RALTEGRAVIR POTASSIUM 400 MG TAB PO SCH ×2 (10:06→22:28)
[2017-01-18] MEDS: CHOLECALCIFEROL (VITAMIN D3) 1,000 UNIT TABLET (FP) PO SCH (10:06)
[2017-01-18] MEDS: RANITIDINE HCL 150 MG TABLET (FP) PO SCH (10:06)
[2017-01-18] MEDS: FLUOCINONIDE 0.05% CREAM (60 GM TUBE) TP SCH ×2 (10:06→22:32)
[2017-01-18] MEDS: ASPIRIN 81 MG CHEWABLE TABLETS PO SCH (10:06)
[2017-01-18] MEDS: CLOPIDOGREL BISULFATE 75 MG TABLET (FP) PO SCH (10:06)
[2017-01-18] MEDS: FLUCONAZOLE 100 MG TABLET (UD) PO SCH (10:06)
[2017-01-18] MEDS: FLUTICASONE PROP 0.05% 16 GM NASAL SPRAY NS SCH ×2 (10:07→22:29)
[2017-01-18] MEDS: DARUNAVIR ETHANOLATE 600 MG TAB PO SCH ×2 (10:07→22:29)
[2017-01-18 10:10] LABS: MCHC 29.4 g/dl (32.0-35.9); MEAN CELL VOLUME 63.8 fl (80-96); MEAN PLT VOLUME 8.8 fl (7.5-11.1); PLATELET COUNT 402 K/MM3 (134-434); RDW 22.3 % (11.9-15.9); WHITE BLOOD COUNT 21.8 K/mm3 (4.0-10.0)
[2017-01-18] MEDS: MAGNESIUM HYDROX 2400MG/30ML ORAL SUSPENSION 30 ML CUP PO PRN (10:10)
[2017-01-18 10:16] LABS: MCH 18.8 pg (25.7-33.7)
--- NOTE | 2017-01-18 10:32 | PN ---
Psychiatric Progress Note Vital Signs: Vital Signs Period Temp Pulse Resp BP Sys/Pandya Pulse Ox Last 24 Hr 98.6 F-99.3 F 84-88 18-18 136-144/71-82 Date of Session: 01/18/17 Chief Complaint:: Anxiety HPI: Patient addressing Opoid Dependence, Alcohol Abuse comorbid with Nicotine Dependence and Substance-Induced Mood Disorder ROS: HTN, HLD, CHF, type II DM, Hep C Current Medications: Active Medications Generic Name Dose Route Start Last Admin Trade Name Freq PRN Reason Stop Dose Admin Acetaminophen 650 mg 01/16/17 15:10 01/17/17 20:27 Tylenol - PO 650 mg Q4H PRN Administration FEVER OR PAIN Al Hydroxide/Mg Hydroxide 30 ml 01/16/17 15:10 Mylanta Oral Suspension - PO Q6H PRN DYSPEPSIA Albuterol Sulfate 2 puff 01/16/17 17:34 01/18/17 06:14 Ventolin Hfa Inhaler - IH 2 inhaler Q4H PRN Administration WHEEZING Artificial Tears 1 drop 01/16/17 22:00 01/18/17 06:00 Artificial Tears OU 1 drop TID MIRTHA Administration Aspirin 81 mg 01/17/17 10:00 01/18/17 10:06 Asa - PO 81 mg DAILY MIRTHA Administration Betamethasone Valerate 1 applic 01/16/17 22:00 01/18/17 10:05 Valisone 0.1% Cream - TP 1 applic BID MIRTHA Administration Carvedilol 25 mg 01/16/17 22:00 01/18/17 10:06 Coreg - PO 25 mg BID MIRTHA Administration Cholecalciferol 1,000 unit 01/17/17 10:00 01/18/17 10:06 Vitamin D3 - PO 1,000 unit DAILY MIRTHA Administration Clopidogrel Bisulfate 75 mg 01/17/17 10:00 01/18/17 10:06 Plavix - PO 75 mg DAILY MIRTHA Administration Cyclobenzaprine HCl 10 mg 01/16/17 15:11 01/18/17 06:13 Flexeril - PO 10 mg TID PRN Administration MUSCLE SPASMS Darunavir 600 mg 01/16/17 22:00 01/18/17 10:07 Prezista - PO 600 mg BID MIRTHA Administration Diphenhydramine HCl 50 mg 01/16/17 15:10 Benadryl - PO HSMR1 PRN FOR ITCHING Eucalyptus/Menthol/Phenol/Sorbitol 1 each 01/16/17 15:10 Cepastat Lozenge - MM Q4H PRN SORE THROAT Fluconazole 100 mg 01/17/17 10:00 01/18/17 10:06 Diflucan - PO 100 mg DAILY MIRTHA Administration Fluocinonide 1 applic 01/16/17 22:00 01/18/17 10:06 Lidex 0.05% Cream - TP 1 applic BID MIRTHA Administration Fluticasone Propionate 1 spray 01/16/17 22:00 01/18/17 10:07 Flonase - NS 1 spray BID [facility] Administration Furosemide 20 mg 01/18/17 06:00 01/18/17 06:12 Lasix - PO 20 mg 0600,1800 [facility] Administration Guaifenesin 10 ml 01/16/17 15:10 Robitussin Dm - PO Q6H PRN COUGH Insulin Aspart 1 vial 01/16/17 22:00 01/18/17 07:28 Novolog Vial Sliding Scale - SQ Not Given ACHS [facility] Protocol Insulin Detemir 60 units 01/17/17 22:00 01/17/17 21:08 Levemir Vial SQ Not Given [facility] Loperamide HCl 4 mg 01/16/17 15:10 Imodium - PO Q6H PRN DIARRHEA Magnesium Citrate 300 ml 01/16/17 15:10 Citroma - PO 01/18/17 15:11 Q48H PRN CONSTIPATION Magnesium Hydroxide 30 ml 01/16/17 15:10 01/18/17 10:10 Milk Of Magnesia - PO 30 ml DAILY PRN Administration CONSTIPATION Maraviroc 300 mg 01/17/17 10:00 01/18/17 10:05 Selzentry - PO 300 mg DAILY [facility] Administration Nicotine Polacrilex 4 mg 01/16/17 15:10 Nicorette Gum - BUC Q2H PRN NICOTINE REPLACEMENT RX Multivit/Folic Acid/Iron 1 tab 01/17/17 10:00 01/18/17 10:05 Vitamins (Sjr) - PO 1 tab DAILY [facility] Administration Pseudoephedrine/Triprolidine 1 combo 01/16/17 15:10 Actifed - PO TID PRN NASAL CONGESTION Raltegravir 400 mg 01/16/17 22:00 01/18/17 10:06 Isentress - PO 400 mg BID MIRTHA Administration Ranitidine HCl 150 mg 01/17/17 10:00 01/18/17 10:06 Zantac - PO 150 mg DAILY MIRTHA Administration Ritonavir 100 mg 01/16/17 22:00 01/18/17 10:05 Norvir - PO 100 mg BID MIRTHA Administration Rosuvastatin Calcium 10 mg 01/16/17 22:00 01/17/17 21:07 Crestor - PO 10 mg HS MIRTHA Administration Thiamine HCl 100 mg 01/16/17 22:00 01/17/17 21:49 Vitamin B1 - PO 100 mg HS MRITHA Administration Medication(s) Change(s): Increase Vistaril dosage to 50 mg po Q 4hrs prn for anxiety Provider note:: Patient reports that he has been feeling anxious despite taking Vistaril 25 mg po Q 4hrs prn. Requests that medication dosage be increased Total face to face time:: 25 Mental Status Exam - Mental Status Exam Alert and Oriented to: Time, Place, Person Cognitive Function: Fair Patient Appearance: Well Groomed Mood: Anxious Affect: Appropriate Patient Behavior: Cooperative Speech Pattern: Clear Voice Loudness: Normal Thought Process: Intact Thought Disorder: Not Present Hallucinations: Denies Suicidal Ideation: Denies Homicidal Ideation: Denies Insight/Judgement: Fair Sleep: Fair Appetite: Good Muscle strength/Tone: Normal Gait/Station: Normal Psychiatric Treatment Plan - Problem List (1) Opioid dependence with withdrawal Current Visit: No (2) Alcohol abuse Current Visit: Yes (3) Nicotine dependence Current Visit: No Qualifiers: Nicotine product type: cigarettes Substance use status: uncomplicated Qualified Code(s): F17.210 - Nicotine dependence, cigarettes, uncomplicated (4) Substance induced mood disorder Current Visit: No (5) CHF (congestive heart failure) Current Visit: No Qualifiers: Congestive heart failure type: unspecified congestive heart failure type Congestive heart failure chronicity: chronic Qualified Code(s): I50.9 - Heart failure, unspecified (6) Cardiac defibrillator in place Current Visit: No (7) HIV (human immunodeficiency virus infection) Current Visit: No (8) Hepatitis C Current Visit: No Qualifiers: Viral hepatitis chronicity: chronic Hepatic coma status: without hepatic coma Qualified Code(s): B18.2 - Chronic viral hepatitis C (9) Hyperlipidemia Current Visit: No Qualifiers: Hyperlipidemia type: unspecified Qualified Code(s): E78.5 - Hyperlipidemia, unspecified (10) Hypertension Current Visit: No Qualifiers: Hypertension type: essential hypertension Qualified Code(s): I10 - Essential (primary) hypertension (11) Psoriasis Current Visit: No (12) Type 2 diabetes mellitus Current Visit: No Qualifiers: Diabetes mellitus complication status: without complication Diabetes mellitus fci insulin use: without exhibitions curator use Qualified Code(s): E11.9 - Type 2 diabetes mellitus without complications Comment: last BGM 317 Initial treatment plan: 1) Discontinue Vistaril 25 mg po Q 4hrs prn. 2) Start Vistaril 50 mg po Q 4hrs prn for anxiety. 3) Monitor progress
[2017-01-18 11:02] LABS: HYPOCHROMIA 1+
[2017-01-18 11:03] LABS: ANISOCYTOSIS 4+; MICROCYTOSIS 1+
[2017-01-18] MEDS ORDERED: INSULIN (NOVOLOG) ASPART 100 UNITS/ML 10ML VIAL ONE ×4 (11:35→23:06)
[2017-01-18] MEDS: hydrOXYzine PAMOATE 50 MG CAPSULE (FP) PO PRN ×2 (11:40→22:38)
[2017-01-18 20:12] LABS: BASOPHIL 0.7 % (0-2.0); EOSINOPHIL 0.4 % (0-4.5); MCHC 28.9 g/dl (32.0-35.9); MEAN CELL VOLUME 64.1 fl (80-96); MEAN PLT VOLUME 8.3 fl (7.5-11.1); NEUTROPHILS 77.9 % (42.8-82.8); PLATELET COUNT 425 K/MM3 (134-434); RDW 23.2 % (11.9-15.9); WHITE BLOOD COUNT 17.9 K/mm3 (4.0-10.0)
[2017-01-18 20:40] LABS: MCH 18.5 pg (25.7-33.7)
[2017-01-18] MEDS ORDERED: INSULIN DETEMIR 100 UNITS/ML MDV SQ ONE (20:59)
[2017-01-18 21:47] LABS: ANISOCYTOSIS 2+; HYPOCHROMIA 2+; PLATELET ESTIMATE SLT INCREASED (NORMAL); POIKILOCYTOSIS 2+; POLYCHROMASIA 1+; TARGET CELLS 1+
[2017-01-18] MEDS: THIAMINE HCL 100 MG TABLET (FP) PO SCH (22:28)
[2017-01-18] MEDS: ROSUVASTATIN CA 10 MG TABLET (FP) PO SCH (22:29)
[2017-01-18] MEDS: INSULIN DETEMIR 100 UNITS/ML MDV SQ SCH (22:31)
[2017-01-19] MEDS: FUROSEMIDE 20 MG TABLET (FP) PO SCH ×2 (06:14→17:15)
[2017-01-19] MEDS: hydrOXYzine PAMOATE 50 MG CAPSULE (FP) PO PRN ×3 (06:18→21:27)
[2017-01-19] MEDS: CYCLOBENZAPRINE HCL 10 MG TABLET (FP) PO PRN ×2 (06:18→21:27)
[2017-01-19] MEDS: INSULIN SLIDING SCALE (NOVOLOG) 1 VIAL SQ SCH ×4 (06:19→21:30)
[2017-01-19] MEDS: ARTIFICIAL TEARS (POLYVINYL ALCOHOL 1.4%) OPTH DROPS OU SCH ×3 (06:45→21:26)
[2017-01-19] MEDS: ACETAMINOPHEN 325 MG TABLET (FP) PO PRN (06:46)
[2017-01-19] MEDS: PRENATAL VITAMINS W/ FOLIC ACID TABLET (FP) PO SCH (10:21)
[2017-01-19] MEDS: CARVEDILOL 25 MG TABLET (FP) PO SCH ×2 (10:21→21:27)
[2017-01-19] MEDS: DARUNAVIR ETHANOLATE 600 MG TAB PO SCH ×2 (10:21→21:27)
[2017-01-19] MEDS: MARAVIROC 150 MG TAB PO SCH (10:22)
[2017-01-19] MEDS: RITONAVIR 100 MG TABLET PO SCH ×2 (10:22→21:30)
[2017-01-19] MEDS: FLUTICASONE PROP 0.05% 16 GM NASAL SPRAY NS SCH ×2 (10:22→21:31)
[2017-01-19] MEDS: CLOPIDOGREL BISULFATE 75 MG TABLET (FP) PO SCH (10:24)
[2017-01-19] MEDS: FLUCONAZOLE 100 MG TABLET (UD) PO SCH (10:24)
[2017-01-19] MEDS: CHOLECALCIFEROL (VITAMIN D3) 1,000 UNIT TABLET (FP) PO SCH (10:24)
[2017-01-19] MEDS: ASPIRIN 81 MG CHEWABLE TABLETS PO SCH (10:24)
[2017-01-19] MEDS: RALTEGRAVIR POTASSIUM 400 MG TAB PO SCH ×2 (10:25→21:27)
[2017-01-19] MEDS: FLUOCINONIDE 0.05% CREAM (60 GM TUBE) TP SCH ×2 (10:25→21:30)
[2017-01-19] MEDS: NICOTINE 21 MG/24 HOURS TOPICAL PATCH TD SCH (10:25)
[2017-01-19] MEDS: RANITIDINE HCL 150 MG TABLET (FP) PO SCH (10:26)
[2017-01-19] MEDS: BETAMETHASONE VALERATE 0.1% CREAM 15 GM TUBE TP SCH ×2 (10:26→21:29)
[2017-01-19] MEDS: ALBUTEROL SO4 6.7 GM HFA INHALER IH PRN (10:30)
[2017-01-19] MEDS ORDERED: INSULIN (NOVOLOG) ASPART 100 UNITS/ML 10ML VIAL ONE ×3 (11:46→20:43)
--- NOTE | 2017-01-19 12:31 | PN ---
[facility] Progress Note (SOAP) Subjective: elevated wbc Objective: 01/19/17 12:28 Vital Signs Temperature 98.2 F 01/19/17 06:36 Pulse Rate 83 01/19/17 10:13 Respiratory Rate 18 01/19/17 10:13 Blood Pressure 157/76 01/19/17 10:13 O2 Sat by Pulse Oximetry (%) CBC WBC 17.9 K/mm3 (4.0-10.0) H 01/18/17 14:00 RBC 4.29 M/mm3 (4.00-5.60) 01/18/17 14:00 Hgb 7.9 GM/dL (11.7-16.9) L 01/18/17 14:00 Hct 27.5 % (35.4-49) L 01/18/17 14:00 MCV 64.1 fl (80-96) L 01/18/17 14:00 MCHC 28.9 g/dl (32.0-35.9) L 01/18/17 14:00 RDW 23.2 % (11.9-15.9) H 01/18/17 14:00 Plt Count 425 K/MM3 (134-434) 01/18/17 14:00 MPV 8.3 fl (7.5-11.1) 01/18/17 14:00 Neutrophils % 77.9 % (42.8-82.8) 01/18/17 14:00 Lymphocytes % 9.5 % (8-40) 01/18/17 14:00 Monocytes % 11.5 % (3.8-10.2) H 01/18/17 14:00 Eosinophils % 0.4 % (0-4.5) 01/18/17 14:00 Basophils % 0.7 % (0-2.0) 01/18/17 14:00 Platelet Estimate Slt increased (NORMAL) 01/18/17 14:00 Platelet Comment Few large plts 01/18/17 14:00 Polychromasia 1+ 01/18/17 14:00 Hypochromic-Microcytic 2+ 01/18/17 14:00 Poikilocytosis 2+ 01/18/17 14:00 Basophilic Stippling Few 01/18/17 14:00 Anisocytosis 2+ 01/18/17 14:00 Microcytosis 1+ 01/18/17 07:00 Macrocytosis 2+ 01/18/17 14:00 Target Cells 1+ 01/18/17 14:00 Laboratory Tests 01/16/17 01/16/17 01/17/17 18:10 21:25 06:36 WBC RBC Hgb Hct MCV MCHC RDW Plt Count MPV Neutrophils % Lymphocytes % Monocytes % Eosinophils % Basophils % Platelet Estimate Platelet Comment Polychromasia Hypochromic-Microcytic Poikilocytosis Basophilic Stippling Anisocytosis Microcytosis Macrocytosis Target Cells Sodium Potassium Chloride Carbon Dioxide Anion Gap BUN Creatinine Creat Clearance w eGFR POC Glucometer 190 386 37 Random Glucose Calcium Total Bilirubin AST ALT Alkaline Phosphatase Total Protein Albumin 01/17/17 01/17/17 01/17/17 06:50 07:10 07:25 WBC RBC Hgb Hct MCV MCHC RDW Plt Count MPV Neutrophils % Lymphocytes % Monocytes % Eosinophils % Basophils % Platelet Estimate Platelet Comment Polychromasia Hypochromic-Microcytic Poikilocytosis Basophilic Stippling Anisocytosis Microcytosis Macrocytosis Target Cells Sodium Potassium Chloride Carbon Dioxide Anion Gap BUN Creatinine Creat Clearance w eGFR POC Glucometer 37 48 76 Random Glucose Calcium Total Bilirubin AST ALT Alkaline Phosphatase Total Protein Albumin 01/17/17 01/17/17 01/17/17 07:57 09:00 11:52 WBC RBC Hgb Hct MCV MCHC RDW Plt Count MPV Neutrophils % Lymphocytes % Monocytes % Eosinophils % Basophils % Platelet Estimate Platelet Comment Polychromasia Hypochromic-Microcytic Poikilocytosis Basophilic Stippling Anisocytosis Microcytosis Macrocytosis Target Cells Sodium 135 L Potassium 4.9 Chloride 103 Carbon Dioxide 23 Anion Gap 9 BUN 25 H Creatinine 1.6 H D Creat Clearance w eGFR 43.74 POC Glucometer 119 380 Random Glucose 296 H Calcium 8.5 Total Bilirubin 0.5 D AST 45 H D ALT 29 Alkaline Phosphatase 182 H Total Protein 6.7 Albumin 3.0 L 01/17/17 01/17/17 01/18/17 16:44 21:03 07:00 WBC 21.8 H D RBC 4.34 Hgb 8.1 L Hct 27.6 L MCV 63.8 L MCHC 29.4 L RDW 22.3 H Plt Count 402 D MPV 8.8 Neutrophils % 78.0 D Lymphocytes % 10.0 D Monocytes % 10.0 Eosinophils % 1.0 D Basophils % 1.0 Platelet Estimate Platelet Comment Polychromasia Hypochromic-Microcytic 1+ Poikilocytosis Basophilic Stippling Anisocytosis 4+ Microcytosis 1+ Macrocytosis Few Target Cells Sodium Potassium Chloride Carbon Dioxide Anion Gap BUN Creatinine Creat Clearance w eGFR POC Glucometer 277 321 Random Glucose Calcium Total Bilirubin AST ALT Alkaline Phosphatase Total Protein Albumin 01/18/17 14:00 WBC 17.9 H RBC 4.29 Hgb 7.9 L Hct 27.5 L MCV 64.1 L MCHC 28.9 L RDW 23.2 H Plt Count 425 MPV 8.3 Neutrophils % 77.9 Lymphocytes % 9.5 Monocytes % 11.5 H Eosinophils % 0.4 Basophils % 0.7 Platelet Estimate Slt increased Platelet Comment Few large plts Polychromasia 1+ Hypochromic-Microcytic 2+ Poikilocytosis 2+ Basophilic Stippling Few Anisocytosis 2+ Microcytosis Macrocytosis 2+ Target Cells 1+ Sodium Potassium Chloride Carbon Dioxide Anion Gap BUN Creatinine Creat Clearance w eGFR POC Glucometer Random Glucose Calcium Total Bilirubin AST ALT Alkaline Phosphatase Total Protein Albumin pt aox3 in nad ,ambulating appearing well 01/19/17 12:29 Assessment: 01/19/17 12:29 elvated wbc was 21k now 17k , no fever cough sob Plan: cont. rehab cbc cxr
[2017-01-19] MEDS: ROSUVASTATIN CA 10 MG TABLET (FP) PO SCH (21:27)
[2017-01-19] MEDS: THIAMINE HCL 100 MG TABLET (FP) PO SCH (21:29)
[2017-01-19] MEDS: AMMONIUM LACTATE 12% LOTION 225 GM BOTTLE TP PRN (21:30)
[2017-01-19] MEDS: INSULIN DETEMIR 100 UNITS/ML MDV SQ SCH (21:30)
[2017-01-19] MEDS: CARBAMIDE PEROXIDE 6.5% OTIC 15 ML BOTTLE AU SCH (21:31)
[2017-01-20] MEDS: FUROSEMIDE 20 MG TABLET (FP) PO SCH ×2 (06:08→17:38)
[2017-01-20] MEDS: CYCLOBENZAPRINE HCL 10 MG TABLET (FP) PO PRN ×2 (06:09→21:23)
[2017-01-20] MEDS: hydrOXYzine PAMOATE 50 MG CAPSULE (FP) PO PRN ×3 (06:09→21:23)
[2017-01-20] MEDS: MAGNESIUM HYDROX 2400MG/30ML ORAL SUSPENSION 30 ML CUP PO PRN (06:09)
[2017-01-20] MEDS: ACETAMINOPHEN 325 MG TABLET (FP) PO PRN (06:09)
[2017-01-20] MEDS: ARTIFICIAL TEARS (POLYVINYL ALCOHOL 1.4%) OPTH DROPS OU SCH ×3 (06:11→21:18)
[2017-01-20] MEDS: INSULIN SLIDING SCALE (NOVOLOG) 1 VIAL SQ SCH ×4 (07:39→21:16)
[2017-01-20 10:06] LABS: BASOPHIL 0.4 % (0-2.0); EOSINOPHIL 0.9 % (0-4.5); MCHC 29.4 g/dl (32.0-35.9); MEAN CELL VOLUME 63.8 fl (80-96); MEAN PLT VOLUME 8.6 fl (7.5-11.1); PLATELET COUNT 482 K/MM3 (134-434); RDW 22.3 % (11.9-15.9)
[2017-01-20] MEDS: CARVEDILOL 25 MG TABLET (FP) PO SCH ×2 (10:08→21:15)
[2017-01-20] MEDS: ASPIRIN 81 MG CHEWABLE TABLETS PO SCH (10:08)
[2017-01-20] MEDS: PRENATAL VITAMINS W/ FOLIC ACID TABLET (FP) PO SCH (10:08)
[2017-01-20] MEDS: RALTEGRAVIR POTASSIUM 400 MG TAB PO SCH ×2 (10:09→21:15)
[2017-01-20] MEDS: FLUTICASONE PROP 0.05% 16 GM NASAL SPRAY NS SCH ×2 (10:09→21:18)
[2017-01-20] MEDS: CARBAMIDE PEROXIDE 6.5% OTIC 15 ML BOTTLE AU SCH ×2 (10:09→21:18)
[2017-01-20] MEDS: FLUCONAZOLE 100 MG TABLET (UD) PO SCH (10:09)
[2017-01-20] MEDS: FLUOCINONIDE 0.05% CREAM (60 GM TUBE) TP SCH ×2 (10:10→21:16)
[2017-01-20] MEDS: NICOTINE 21 MG/24 HOURS TOPICAL PATCH TD SCH (10:10)
[2017-01-20] MEDS: RITONAVIR 100 MG TABLET PO SCH ×2 (10:11→21:19)
[2017-01-20] MEDS: CLOPIDOGREL BISULFATE 75 MG TABLET (FP) PO SCH (10:11)
[2017-01-20] MEDS: MARAVIROC 150 MG TAB PO SCH (10:12)
[2017-01-20] MEDS: DARUNAVIR ETHANOLATE 600 MG TAB PO SCH ×2 (10:12→21:15)
[2017-01-20] MEDS: RANITIDINE HCL 150 MG TABLET (FP) PO SCH (10:13)
[2017-01-20] MEDS: BETAMETHASONE VALERATE 0.1% CREAM 15 GM TUBE TP SCH ×2 (10:13→21:23)
[2017-01-20] MEDS: CHOLECALCIFEROL (VITAMIN D3) 1,000 UNIT TABLET (FP) PO SCH (10:13)
[2017-01-20] MEDS: ALBUTEROL SO4 6.7 GM HFA INHALER IH PRN (10:14)
[2017-01-20 10:17] LABS: MCH 18.8 pg (25.7-33.7)
[2017-01-20 11:31] LABS: ANISOCYTOSIS 3+; HYPOCHROMIA 3+; MICROCYTOSIS 2+; PLATELET COMMENT2 NO CLUMPING NOTED; PLATELET ESTIMATE INCREASED (NORMAL); POIKILOCYTOSIS 1+; POLYCHROMASIA 1+; TARGET CELLS 1+
[2017-01-20 11:32] LABS: BURR CELLS 1+
[2017-01-20] MEDS: COLLOIDAL OATMEAL 1 BAR EACH TP PRN (11:50)
[2017-01-20] MEDS ORDERED: PT OWN MED DRAWER 7, Y5N ONE ×3 (13:30→21:23)
--- NOTE | 2017-01-20 14:34 | PN ---
[facility] Progress Note Note: Laboratory Results - last 24 hr 01/18/17 01/18/17 01/18/17 06:11 11:33 16:54 WBC RBC Hgb Hct MCV MCHC RDW Plt Count MPV Neutrophils % Lymphocytes % Monocytes % Eosinophils % Basophils % Platelet Estimate Platelet Comment Polychromasia Hypochromic-Microcytic Poikilocytosis Basophilic Stippling Anisocytosis Microcytosis Target Cells [place] Cells POC Glucometer 174 303 360 01/18/17 01/19/17 01/19/17 20:55 06:16 11:44 WBC RBC Hgb Hct MCV MCHC RDW Plt Count MPV Neutrophils % Lymphocytes % Monocytes % Eosinophils % Basophils % Platelet Estimate Platelet Comment Polychromasia Hypochromic-Microcytic Poikilocytosis Basophilic Stippling Anisocytosis Microcytosis Target Cells Kinza Cells POC Glucometer 435 308 216 01/19/17 01/20/17 16:43 07:30 WBC 18.0 H RBC 4.61 Hgb 8.7 L D Hct 29.4 L MCV 63.8 L MCHC 29.4 L RDW 22.3 H Plt Count 482 H MPV 8.6 Neutrophils % 73.0 Lymphocytes % 15.8 D Monocytes % 9.9 Eosinophils % 0.9 D Basophils % 0.4 Platelet Estimate Increased Platelet Comment No clumping noted Polychromasia 1+ Hypochromic-Microcytic 3+ Poikilocytosis 1+ Basophilic Stippling 1+ Anisocytosis 3+ Microcytosis 2+ Target Cells 1+ Kinza Cells 1+ POC Glucometer 363 CHEST X RAY NOTED OTER LAS PENDING WILL START PATIENT ON ZITHROMAX
[2017-01-20] MEDS ORDERED: AZITHROMYCIN 250 MG TABLET (FP) PO ONE (15:34)
[2017-01-20] MEDS: THIAMINE HCL 100 MG TABLET (FP) PO SCH (21:15)
[2017-01-20] MEDS: ROSUVASTATIN CA 10 MG TABLET (FP) PO SCH (21:15)
[2017-01-20] MEDS: INSULIN DETEMIR 100 UNITS/ML MDV SQ SCH (21:16)
[2017-01-21] MEDS: FUROSEMIDE 20 MG TABLET (FP) PO SCH ×2 (06:06→17:30)
[2017-01-21] MEDS: hydrOXYzine PAMOATE 50 MG CAPSULE (FP) PO PRN ×3 (06:06→21:42)
[2017-01-21] MEDS: CYCLOBENZAPRINE HCL 10 MG TABLET (FP) PO PRN ×3 (06:06→21:42)
[2017-01-21] MEDS: ARTIFICIAL TEARS (POLYVINYL ALCOHOL 1.4%) OPTH DROPS OU SCH ×3 (06:09→21:38)
[2017-01-21] MEDS ORDERED: INSULIN (NOVOLOG) ASPART 100 UNITS/ML 10ML VIAL ONE ×2 (07:13→12:00)
[2017-01-21] MEDS: INSULIN SLIDING SCALE (NOVOLOG) 1 VIAL SQ SCH ×4 (07:14→21:39)
[2017-01-21] MEDS: PRENATAL VITAMINS W/ FOLIC ACID TABLET (FP) PO SCH (10:30)
[2017-01-21] MEDS: RALTEGRAVIR POTASSIUM 400 MG TAB PO SCH ×2 (10:30→21:40)
[2017-01-21] MEDS: MAGNESIUM HYDROX 2400MG/30ML ORAL SUSPENSION 30 ML CUP PO PRN (10:30)
[2017-01-21] MEDS: RANITIDINE HCL 150 MG TABLET (FP) PO SCH (10:31)
[2017-01-21] MEDS: CHOLECALCIFEROL (VITAMIN D3) 1,000 UNIT TABLET (FP) PO SCH (10:31)
[2017-01-21] MEDS: ASPIRIN 81 MG CHEWABLE TABLETS PO SCH (10:31)
[2017-01-21] MEDS: DARUNAVIR ETHANOLATE 600 MG TAB PO SCH ×2 (10:31→21:40)
[2017-01-21] MEDS: FLUCONAZOLE 100 MG TABLET (UD) PO SCH (10:31)
[2017-01-21] MEDS: AZITHROMYCIN 250 MG TABLET (FP) PO SCH (10:31)
[2017-01-21] MEDS: CLOPIDOGREL BISULFATE 75 MG TABLET (FP) PO SCH (10:31)
[2017-01-21] MEDS: CARVEDILOL 25 MG TABLET (FP) PO SCH ×2 (10:31→21:40)
[2017-01-21] MEDS: NICOTINE 21 MG/24 HOURS TOPICAL PATCH TD SCH (10:34)
[2017-01-21] MEDS: CARBAMIDE PEROXIDE 6.5% OTIC 15 ML BOTTLE AU SCH ×2 (10:34→21:46)
[2017-01-21] MEDS: BETAMETHASONE VALERATE 0.1% CREAM 15 GM TUBE TP SCH ×2 (10:36→21:44)
[2017-01-21] MEDS: FLUOCINONIDE 0.05% CREAM (60 GM TUBE) TP SCH ×2 (10:36→21:45)
[2017-01-21] MEDS ORDERED: PT OWN MED DRAWER 7, Y5N ONE ×4 (10:44→22:31)
[2017-01-21] MEDS: RITONAVIR 100 MG TABLET PO SCH ×2 (11:07→21:45)
[2017-01-21] MEDS: FLUTICASONE PROP 0.05% 16 GM NASAL SPRAY NS SCH ×2 (11:07→21:46)
[2017-01-21] MEDS: MARAVIROC 150 MG TAB PO SCH (11:08)
[2017-01-21] MEDS: ROSUVASTATIN CA 10 MG TABLET (FP) PO SCH (21:40)
[2017-01-21] MEDS: INSULIN DETEMIR 100 UNITS/ML MDV SQ SCH (21:40)
[2017-01-21] MEDS: ACETAMINOPHEN 325 MG TABLET (FP) PO PRN (21:41)
[2017-01-21] MEDS: THIAMINE HCL 100 MG TABLET (FP) PO SCH (21:45)
[2017-01-22] MEDS: FUROSEMIDE 20 MG TABLET (FP) PO SCH ×2 (05:59→17:19)
[2017-01-22] MEDS: ARTIFICIAL TEARS (POLYVINYL ALCOHOL 1.4%) OPTH DROPS OU SCH ×5 (05:59→21:17)
[2017-01-22] MEDS: hydrOXYzine PAMOATE 50 MG CAPSULE (FP) PO PRN ×4 (06:04→21:19)
[2017-01-22] MEDS: CYCLOBENZAPRINE HCL 10 MG TABLET (FP) PO PRN ×3 (06:04→21:19)
[2017-01-22] MEDS: INSULIN SLIDING SCALE (NOVOLOG) 1 VIAL SQ SCH ×4 (07:31→21:22)
[2017-01-22] MEDS ORDERED: INSULIN (NOVOLOG) ASPART 100 UNITS/ML 10ML VIAL ONE ×2 (07:31→16:59)
[2017-01-22] MEDS ORDERED: PT OWN MED DRAWER 7, Y5N ONE ×4 (09:14→21:19)
[2017-01-22] MEDS: PRENATAL VITAMINS W/ FOLIC ACID TABLET (FP) PO SCH (10:26)
[2017-01-22] MEDS: AZITHROMYCIN 250 MG TABLET (FP) PO SCH (10:26)
[2017-01-22] MEDS: RALTEGRAVIR POTASSIUM 400 MG TAB PO SCH ×2 (10:26→21:20)
[2017-01-22] MEDS: FLUCONAZOLE 100 MG TABLET (UD) PO SCH (10:26)
[2017-01-22] MEDS: CARVEDILOL 25 MG TABLET (FP) PO SCH ×2 (10:26→21:20)
[2017-01-22] MEDS: RANITIDINE HCL 150 MG TABLET (FP) PO SCH (10:26)
[2017-01-22] MEDS: CLOPIDOGREL BISULFATE 75 MG TABLET (FP) PO SCH (10:26)
[2017-01-22] MEDS: CHOLECALCIFEROL (VITAMIN D3) 1,000 UNIT TABLET (FP) PO SCH (10:26)
[2017-01-22] MEDS: BETAMETHASONE VALERATE 0.1% CREAM 15 GM TUBE TP SCH ×2 (10:27→21:21)
[2017-01-22] MEDS: DARUNAVIR ETHANOLATE 600 MG TAB PO SCH ×2 (10:27→21:20)
[2017-01-22] MEDS: RITONAVIR 100 MG TABLET PO SCH ×2 (10:27→21:22)
[2017-01-22] MEDS: NICOTINE 21 MG/24 HOURS TOPICAL PATCH TD SCH (10:27)
[2017-01-22] MEDS: FLUOCINONIDE 0.05% CREAM (60 GM TUBE) TP SCH ×2 (10:27→21:22)
[2017-01-22] MEDS: MARAVIROC 150 MG TAB PO SCH (10:27)
[2017-01-22] MEDS: FLUTICASONE PROP 0.05% 16 GM NASAL SPRAY NS SCH ×2 (10:28→21:22)
[2017-01-22] MEDS: CARBAMIDE PEROXIDE 6.5% OTIC 15 ML BOTTLE AU SCH ×2 (10:28→21:22)
[2017-01-22] MEDS: ASPIRIN 81 MG CHEWABLE TABLETS PO SCH (10:29)
[2017-01-22] MEDS: MAGNESIUM HYDROX 2400MG/30ML ORAL SUSPENSION 30 ML CUP PO PRN (10:32)
[2017-01-22] MEDS: ALBUTEROL SO4 6.7 GM HFA INHALER IH PRN (10:33)
[2017-01-22] MEDS: ACETAMINOPHEN 325 MG TABLET (FP) PO PRN (21:19)
[2017-01-22] MEDS: ROSUVASTATIN CA 10 MG TABLET (FP) PO SCH (21:20)
[2017-01-22] MEDS: THIAMINE HCL 100 MG TABLET (FP) PO SCH (21:20)
[2017-01-22] MEDS: INSULIN DETEMIR 100 UNITS/ML MDV SQ SCH (21:22)
[2017-01-23] MEDS ORDERED: PT OWN MED DRAWER 7, Y5N ONE ×5 (05:39→22:05)
[2017-01-23] MEDS: FUROSEMIDE 20 MG TABLET (FP) PO SCH ×2 (06:15→17:43)
[2017-01-23] MEDS: ARTIFICIAL TEARS (POLYVINYL ALCOHOL 1.4%) OPTH DROPS OU SCH ×3 (06:15→21:44)
[2017-01-23] MEDS: CYCLOBENZAPRINE HCL 10 MG TABLET (FP) PO PRN ×3 (06:16→21:40)
[2017-01-23] MEDS: hydrOXYzine PAMOATE 50 MG CAPSULE (FP) PO PRN ×3 (06:16→21:39)
[2017-01-23] MEDS: ACETAMINOPHEN 325 MG TABLET (FP) PO PRN ×2 (06:16→21:39)
[2017-01-23] MEDS: INSULIN SLIDING SCALE (NOVOLOG) 1 VIAL SQ SCH ×4 (06:20→21:42)
[2017-01-23] MEDS: FLUOCINONIDE 0.05% CREAM (60 GM TUBE) TP SCH ×2 (10:38→21:41)
[2017-01-23] MEDS: MARAVIROC 150 MG TAB PO SCH (10:38)
[2017-01-23] MEDS: RITONAVIR 100 MG TABLET PO SCH ×2 (10:38→21:41)
[2017-01-23] MEDS: BETAMETHASONE VALERATE 0.1% CREAM 15 GM TUBE TP SCH ×2 (10:39→21:42)
[2017-01-23] MEDS: DARUNAVIR ETHANOLATE 600 MG TAB PO SCH ×2 (10:39→21:40)
[2017-01-23] MEDS: FLUCONAZOLE 100 MG TABLET (UD) PO SCH (10:40)
[2017-01-23] MEDS: ASPIRIN 81 MG CHEWABLE TABLETS PO SCH (10:40)
[2017-01-23] MEDS: RALTEGRAVIR POTASSIUM 400 MG TAB PO SCH ×2 (10:40→21:38)
[2017-01-23] MEDS: AZITHROMYCIN 250 MG TABLET (FP) PO SCH (10:40)
[2017-01-23] MEDS: CLOPIDOGREL BISULFATE 75 MG TABLET (FP) PO SCH (10:40)
[2017-01-23] MEDS: PRENATAL VITAMINS W/ FOLIC ACID TABLET (FP) PO SCH (10:40)
[2017-01-23] MEDS: CARVEDILOL 25 MG TABLET (FP) PO SCH ×2 (10:40→21:39)
[2017-01-23] MEDS: CHOLECALCIFEROL (VITAMIN D3) 1,000 UNIT TABLET (FP) PO SCH (10:41)
[2017-01-23] MEDS: NICOTINE 21 MG/24 HOURS TOPICAL PATCH TD SCH (10:41)
[2017-01-23] MEDS: RANITIDINE HCL 150 MG TABLET (FP) PO SCH (10:41)
[2017-01-23] MEDS: CARBAMIDE PEROXIDE 6.5% OTIC 15 ML BOTTLE AU SCH ×2 (10:41→21:41)
[2017-01-23] MEDS: FLUTICASONE PROP 0.05% 16 GM NASAL SPRAY NS SCH ×2 (10:41→21:43)
[2017-01-23] MEDS ORDERED: INSULIN (NOVOLOG) ASPART 100 UNITS/ML 10ML VIAL ONE ×3 (11:25→22:04)
[2017-01-23] MEDS: COLLOIDAL OATMEAL 1 BAR EACH TP PRN (14:47)
[2017-01-23] MEDS: ROSUVASTATIN CA 10 MG TABLET (FP) PO SCH (21:41)
[2017-01-23] MEDS: INSULIN DETEMIR 100 UNITS/ML MDV SQ SCH (21:41)
[2017-01-23] MEDS: THIAMINE HCL 100 MG TABLET (FP) PO SCH (21:43)
[2017-01-24] MEDS: ACETAMINOPHEN 325 MG TABLET (FP) PO PRN ×2 (02:53→21:38)
[2017-01-24] MEDS: hydrOXYzine PAMOATE 50 MG CAPSULE (FP) PO PRN ×3 (02:53→17:02)
[2017-01-24] MEDS: ARTIFICIAL TEARS (POLYVINYL ALCOHOL 1.4%) OPTH DROPS OU SCH ×3 (06:00→21:36)
[2017-01-24] MEDS: CYCLOBENZAPRINE HCL 10 MG TABLET (FP) PO PRN ×3 (06:00→17:02)
[2017-01-24] MEDS: FUROSEMIDE 20 MG TABLET (FP) PO SCH ×2 (06:00→17:02)
[2017-01-24] MEDS: INSULIN SLIDING SCALE (NOVOLOG) 1 VIAL SQ SCH ×4 (07:32→23:23)
[2017-01-24] MEDS ORDERED: INSULIN (NOVOLOG) ASPART 100 UNITS/ML 10ML VIAL ONE ×3 (07:32→16:44)
[2017-01-24] MEDS ORDERED: PT OWN MED DRAWER 7, Y5N ONE ×4 (09:06→21:37)
[2017-01-24] MEDS: PRENATAL VITAMINS W/ FOLIC ACID TABLET (FP) PO SCH (10:26)
[2017-01-24] MEDS: CARVEDILOL 25 MG TABLET (FP) PO SCH ×2 (10:26→21:34)
[2017-01-24] MEDS: RANITIDINE HCL 150 MG TABLET (FP) PO SCH (10:26)
[2017-01-24] MEDS: ASPIRIN 81 MG CHEWABLE TABLETS PO SCH (10:26)
[2017-01-24] MEDS: DARUNAVIR ETHANOLATE 600 MG TAB PO SCH ×2 (10:26→21:34)
[2017-01-24] MEDS: CHOLECALCIFEROL (VITAMIN D3) 1,000 UNIT TABLET (FP) PO SCH (10:26)
[2017-01-24] MEDS: RALTEGRAVIR POTASSIUM 400 MG TAB PO SCH ×2 (10:26→21:35)
[2017-01-24] MEDS: FLUCONAZOLE 100 MG TABLET (UD) PO SCH (10:26)
[2017-01-24] MEDS: CLOPIDOGREL BISULFATE 75 MG TABLET (FP) PO SCH (10:26)
[2017-01-24] MEDS: MARAVIROC 150 MG TAB PO SCH (10:27)
[2017-01-24] MEDS: FLUTICASONE PROP 0.05% 16 GM NASAL SPRAY NS SCH ×2 (10:27→21:36)
[2017-01-24] MEDS: AZITHROMYCIN 250 MG TABLET (FP) PO SCH (10:27)
[2017-01-24] MEDS: RITONAVIR 100 MG TABLET PO SCH ×2 (10:27→21:37)
[2017-01-24] MEDS: BETAMETHASONE VALERATE 0.1% CREAM 15 GM TUBE TP SCH ×2 (10:30→21:37)
[2017-01-24] MEDS: FLUOCINONIDE 0.05% CREAM (60 GM TUBE) TP SCH ×2 (10:30→21:37)
[2017-01-24] MEDS: NICOTINE 21 MG/24 HOURS TOPICAL PATCH TD SCH (10:30)
[2017-01-24] MEDS: CARBAMIDE PEROXIDE 6.5% OTIC 15 ML BOTTLE AU SCH ×2 (10:31→21:36)
[2017-01-24] MEDS: MAGNESIUM HYDROX 2400MG/30ML ORAL SUSPENSION 30 ML CUP PO PRN (10:58)
[2017-01-24] MEDS: ROSUVASTATIN CA 10 MG TABLET (FP) PO SCH (21:34)
[2017-01-24] MEDS: THIAMINE HCL 100 MG TABLET (FP) PO SCH (21:34)
[2017-01-24] MEDS: diphenhydrAMINE HCL 50 MG CAPSULE PO PRN (21:35)
[2017-01-24] MEDS: INSULIN DETEMIR 100 UNITS/ML MDV SQ SCH (21:42)
--- NOTE | 2017-01-24 23:15 | PN ---
S Progress Note Note: left calf pain no swelling, no erythema, none tender, no limp on ambulation received flexeril + tylenal bp 160/89 received lasix + coreg, no chest pain no shortness of breath temp 98.3, o2sat 100%, band zimmerman + weight daily, fluid restriction 2000 L daily, resting elevation of left leg nurse reports that the patient wants augmentin health teaching on adverse reactions on augmentin nurse reports that the patient wants lidocaine patch now warren zimmerman + lidocaine patch begin today, lidocaine patch should be removed in 12 hours of application. 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
[2017-01-24] MEDS: LIDOCAINE 5% TOPICAL PATCH TP SCH (23:35)
[2017-01-24] MEDS: METHYL SALICYLATE/MENTHOL OINT 30 GM TUBE TP SCH (23:45)
[2017-01-25] MEDS: CYCLOBENZAPRINE HCL 10 MG TABLET (FP) PO PRN ×2 (06:35→16:41)
[2017-01-25] MEDS: ACETAMINOPHEN 325 MG TABLET (FP) PO PRN ×2 (06:35→21:35)
[2017-01-25] MEDS: hydrOXYzine PAMOATE 50 MG CAPSULE (FP) PO PRN ×3 (06:35→16:42)
[2017-01-25] MEDS: FUROSEMIDE 20 MG TABLET (FP) PO SCH ×2 (06:36→17:02)
[2017-01-25] MEDS: ARTIFICIAL TEARS (POLYVINYL ALCOHOL 1.4%) OPTH DROPS OU SCH ×3 (06:36→21:38)
[2017-01-25] MEDS ORDERED: INSULIN (NOVOLOG) ASPART 100 UNITS/ML 10ML VIAL ONE ×4 (07:16→21:32)
[2017-01-25] MEDS: INSULIN SLIDING SCALE (NOVOLOG) 1 VIAL SQ SCH ×4 (07:17→21:37)
[2017-01-25] MEDS: CARVEDILOL 25 MG TABLET (FP) PO SCH ×2 (10:24→21:31)
[2017-01-25] MEDS: DARUNAVIR ETHANOLATE 600 MG TAB PO SCH ×2 (10:24→21:31)
[2017-01-25] MEDS: ASPIRIN 81 MG CHEWABLE TABLETS PO SCH (10:24)
[2017-01-25] MEDS: RITONAVIR 100 MG TABLET PO SCH ×2 (10:24→21:34)
[2017-01-25] MEDS: LIDOCAINE 5% TOPICAL PATCH TP SCH (10:24)
[2017-01-25] MEDS: RALTEGRAVIR POTASSIUM 400 MG TAB PO SCH ×2 (10:24→21:33)
[2017-01-25] MEDS: CLOPIDOGREL BISULFATE 75 MG TABLET (FP) PO SCH (10:24)
[2017-01-25] MEDS: FLUCONAZOLE 100 MG TABLET (UD) PO SCH (10:24)
[2017-01-25] MEDS: RANITIDINE HCL 150 MG TABLET (FP) PO SCH (10:24)
[2017-01-25] MEDS: CHOLECALCIFEROL (VITAMIN D3) 1,000 UNIT TABLET (FP) PO SCH (10:24)
[2017-01-25] MEDS: MARAVIROC 150 MG TAB PO SCH (10:25)
[2017-01-25] MEDS: NICOTINE 21 MG/24 HOURS TOPICAL PATCH TD SCH (10:25)
[2017-01-25] MEDS: FLUOCINONIDE 0.05% CREAM (60 GM TUBE) TP SCH ×2 (10:25→22:41)
[2017-01-25] MEDS: BETAMETHASONE VALERATE 0.1% CREAM 15 GM TUBE TP SCH ×2 (10:25→21:37)
[2017-01-25] MEDS: PRENATAL VITAMINS W/ FOLIC ACID TABLET (FP) PO SCH (10:25)
[2017-01-25] MEDS: FLUTICASONE PROP 0.05% 16 GM NASAL SPRAY NS SCH ×2 (10:26→21:38)
[2017-01-25] MEDS: CARBAMIDE PEROXIDE 6.5% OTIC 15 ML BOTTLE AU SCH ×2 (10:26→21:38)
[2017-01-25] MEDS: METHYL SALICYLATE/MENTHOL OINT 30 GM TUBE TP SCH ×2 (10:26→21:38)
[2017-01-25 14:32] LABS: MCHC 29.3 g/dl (32.0-35.9); MEAN CELL VOLUME 64.2 fl (80-96); MEAN PLT VOLUME 8.4 fl (7.5-11.1); PLATELET COUNT 402 K/MM3 (134-434); RDW 22.4 % (11.9-15.9); WHITE BLOOD COUNT 17.1 K/mm3 (4.0-10.0)
[2017-01-25 14:41] LABS: MCH 18.8 pg (25.7-33.7)
[2017-01-25] MEDS ORDERED: PT OWN MED DRAWER 7, Y5N ONE ×2 (14:41→21:34)
[2017-01-25] MEDS: THIAMINE HCL 100 MG TABLET (FP) PO SCH (21:31)
[2017-01-25] MEDS: ROSUVASTATIN CA 10 MG TABLET (FP) PO SCH (21:32)
[2017-01-25] MEDS: diphenhydrAMINE HCL 50 MG CAPSULE PO PRN (21:34)
[2017-01-25] MEDS: INSULIN DETEMIR 100 UNITS/ML MDV SQ SCH (21:38)
[2017-01-26] MEDS: hydrOXYzine PAMOATE 50 MG CAPSULE (FP) PO PRN ×3 (05:53→21:51)
[2017-01-26] MEDS: CYCLOBENZAPRINE HCL 10 MG TABLET (FP) PO PRN ×3 (05:53→21:51)
[2017-01-26] MEDS: FUROSEMIDE 20 MG TABLET (FP) PO SCH ×2 (05:53→19:56)
[2017-01-26] MEDS: ARTIFICIAL TEARS (POLYVINYL ALCOHOL 1.4%) OPTH DROPS OU SCH ×3 (05:56→23:18)
[2017-01-26] MEDS ORDERED: INSULIN (NOVOLOG) ASPART 100 UNITS/ML 10ML VIAL ONE ×4 (07:37→21:56)
[2017-01-26] MEDS: INSULIN SLIDING SCALE (NOVOLOG) 1 VIAL SQ SCH ×4 (07:38→21:59)
[2017-01-26] MEDS: LIDOCAINE 5% TOPICAL PATCH TP SCH (10:47)
[2017-01-26] MEDS: NICOTINE 21 MG/24 HOURS TOPICAL PATCH TD SCH (10:48)
[2017-01-26] MEDS: CLOPIDOGREL BISULFATE 75 MG TABLET (FP) PO SCH (10:49)
[2017-01-26] MEDS: RALTEGRAVIR POTASSIUM 400 MG TAB PO SCH ×2 (10:49→21:52)
[2017-01-26] MEDS: CARVEDILOL 25 MG TABLET (FP) PO SCH ×2 (10:49→21:51)
[2017-01-26] MEDS: RANITIDINE HCL 150 MG TABLET (FP) PO SCH (10:49)
[2017-01-26] MEDS: CHOLECALCIFEROL (VITAMIN D3) 1,000 UNIT TABLET (FP) PO SCH (10:49)
[2017-01-26] MEDS: ASPIRIN 81 MG CHEWABLE TABLETS PO SCH (10:50)
[2017-01-26] MEDS: FLUCONAZOLE 100 MG TABLET (UD) PO SCH (10:50)
[2017-01-26] MEDS: PRENATAL VITAMINS W/ FOLIC ACID TABLET (FP) PO SCH (10:50)
[2017-01-26] MEDS: METHYL SALICYLATE/MENTHOL OINT 30 GM TUBE TP SCH ×2 (10:53→23:18)
[2017-01-26] MEDS: CARBAMIDE PEROXIDE 6.5% OTIC 15 ML BOTTLE AU SCH ×2 (10:53→23:18)
[2017-01-26] MEDS: FLUOCINONIDE 0.05% CREAM (60 GM TUBE) TP SCH ×2 (10:53→21:59)
[2017-01-26] MEDS: FLUTICASONE PROP 0.05% 16 GM NASAL SPRAY NS SCH ×2 (10:53→21:52)
[2017-01-26] MEDS ORDERED: PT OWN MED DRAWER 7, Y5N ONE ×4 (10:54→21:53)
[2017-01-26] MEDS: BETAMETHASONE VALERATE 0.1% CREAM 15 GM TUBE TP SCH ×2 (10:56→21:59)
[2017-01-26] MEDS: RITONAVIR 100 MG TABLET PO SCH ×2 (10:57→21:52)
[2017-01-26] MEDS: DARUNAVIR ETHANOLATE 600 MG TAB PO SCH ×2 (10:59→21:51)
[2017-01-26] MEDS: MARAVIROC 150 MG TAB PO SCH (10:59)
[2017-01-26] MEDS: ACETAMINOPHEN 325 MG TABLET (FP) PO PRN ×2 (14:49→21:53)
[2017-01-26] MEDS: ROSUVASTATIN CA 10 MG TABLET (FP) PO SCH (21:52)
[2017-01-26] MEDS: THIAMINE HCL 100 MG TABLET (FP) PO SCH (21:59)
[2017-01-26] MEDS: INSULIN DETEMIR 100 UNITS/ML MDV SQ SCH (21:59)
[2017-01-27] MEDS: FUROSEMIDE 20 MG TABLET (FP) PO SCH ×2 (06:00→17:34)
[2017-01-27] MEDS: CYCLOBENZAPRINE HCL 10 MG TABLET (FP) PO PRN ×3 (06:00→21:46)
[2017-01-27] MEDS: hydrOXYzine PAMOATE 50 MG CAPSULE (FP) PO PRN ×3 (06:00→21:46)
[2017-01-27] MEDS: ARTIFICIAL TEARS (POLYVINYL ALCOHOL 1.4%) OPTH DROPS OU SCH ×3 (06:00→22:19)
[2017-01-27] MEDS ORDERED: INSULIN (NOVOLOG) ASPART 100 UNITS/ML 10ML VIAL ONE ×3 (07:36→22:30)
[2017-01-27] MEDS: INSULIN SLIDING SCALE (NOVOLOG) 1 VIAL SQ SCH ×4 (07:36→21:51)
[2017-01-27] MEDS ORDERED: PT OWN MED DRAWER 7, Y5N ONE ×3 (10:32→22:36)
[2017-01-27] MEDS: RITONAVIR 100 MG TABLET PO SCH ×2 (10:33→21:51)
[2017-01-27] MEDS: FLUOCINONIDE 0.05% CREAM (60 GM TUBE) TP SCH ×2 (10:34→21:50)
[2017-01-27] MEDS: CHOLECALCIFEROL (VITAMIN D3) 1,000 UNIT TABLET (FP) PO SCH (10:34)
[2017-01-27] MEDS: FLUTICASONE PROP 0.05% 16 GM NASAL SPRAY NS SCH ×2 (10:34→21:50)
[2017-01-27] MEDS: CARVEDILOL 25 MG TABLET (FP) PO SCH ×2 (10:34→21:46)
[2017-01-27] MEDS: DARUNAVIR ETHANOLATE 600 MG TAB PO SCH ×2 (10:34→21:46)
[2017-01-27] MEDS: PRENATAL VITAMINS W/ FOLIC ACID TABLET (FP) PO SCH (10:35)
[2017-01-27] MEDS: RANITIDINE HCL 150 MG TABLET (FP) PO SCH (10:35)
[2017-01-27] MEDS: CLOPIDOGREL BISULFATE 75 MG TABLET (FP) PO SCH (10:35)
[2017-01-27] MEDS: RALTEGRAVIR POTASSIUM 400 MG TAB PO SCH ×2 (10:35→21:46)
[2017-01-27] MEDS: FLUCONAZOLE 100 MG TABLET (UD) PO SCH (10:35)
[2017-01-27] MEDS: NICOTINE 21 MG/24 HOURS TOPICAL PATCH TD SCH (10:36)
[2017-01-27] MEDS: BETAMETHASONE VALERATE 0.1% CREAM 15 GM TUBE TP SCH ×2 (10:36→21:45)
[2017-01-27] MEDS: MARAVIROC 150 MG TAB PO SCH (10:36)
[2017-01-27] MEDS: CARBAMIDE PEROXIDE 6.5% OTIC 15 ML BOTTLE AU SCH ×2 (10:42→21:50)
[2017-01-27] MEDS: METHYL SALICYLATE/MENTHOL OINT 30 GM TUBE TP SCH ×2 (10:42→21:50)
[2017-01-27] MEDS: LIDOCAINE 5% TOPICAL PATCH TP SCH (10:44)
[2017-01-27] MEDS: ASPIRIN 81 MG CHEWABLE TABLETS PO SCH (10:44)
[2017-01-27] MEDS: ALBUTEROL SO4 6.7 GM HFA INHALER IH PRN (10:48)
[2017-01-27] MEDS: THIAMINE HCL 100 MG TABLET (FP) PO SCH (21:46)
[2017-01-27] MEDS: ROSUVASTATIN CA 10 MG TABLET (FP) PO SCH (21:46)
[2017-01-27] MEDS: ACETAMINOPHEN 325 MG TABLET (FP) PO PRN (21:47)
[2017-01-27] MEDS: COLLOIDAL OATMEAL 1 BAR EACH TP PRN (21:49)
[2017-01-27] MEDS: INSULIN DETEMIR 100 UNITS/ML MDV SQ SCH (21:50)
[2017-01-28] MEDS ORDERED: PT OWN MED DRAWER 7, Y5N ONE ×3 (05:05→21:57)
[2017-01-28] MEDS: ARTIFICIAL TEARS (POLYVINYL ALCOHOL 1.4%) OPTH DROPS OU SCH ×3 (06:02→23:25)
[2017-01-28] MEDS: hydrOXYzine PAMOATE 50 MG CAPSULE (FP) PO PRN ×4 (06:03→21:53)
[2017-01-28] MEDS: CYCLOBENZAPRINE HCL 10 MG TABLET (FP) PO PRN ×2 (06:03→14:59)
[2017-01-28] MEDS: FUROSEMIDE 20 MG TABLET (FP) PO SCH ×2 (06:03→17:02)
[2017-01-28] MEDS: INSULIN SLIDING SCALE (NOVOLOG) 1 VIAL SQ SCH ×4 (06:57→22:00)
[2017-01-28] MEDS: NICOTINE 21 MG/24 HOURS TOPICAL PATCH TD SCH (10:18)
[2017-01-28] MEDS: CHOLECALCIFEROL (VITAMIN D3) 1,000 UNIT TABLET (FP) PO SCH (10:19)
[2017-01-28] MEDS: RANITIDINE HCL 150 MG TABLET (FP) PO SCH (10:19)
[2017-01-28] MEDS: RITONAVIR 100 MG TABLET PO SCH ×2 (10:19→21:56)
[2017-01-28] MEDS: ASPIRIN 81 MG CHEWABLE TABLETS PO SCH (10:20)
[2017-01-28] MEDS: CLOPIDOGREL BISULFATE 75 MG TABLET (FP) PO SCH (10:20)
[2017-01-28] MEDS: MARAVIROC 150 MG TAB PO SCH (10:20)
[2017-01-28] MEDS: DARUNAVIR ETHANOLATE 600 MG TAB PO SCH ×2 (10:20→21:53)
[2017-01-28] MEDS: PRENATAL VITAMINS W/ FOLIC ACID TABLET (FP) PO SCH (10:20)
[2017-01-28] MEDS: RALTEGRAVIR POTASSIUM 400 MG TAB PO SCH ×2 (10:20→21:56)
[2017-01-28] MEDS: FLUCONAZOLE 100 MG TABLET (UD) PO SCH (10:20)
[2017-01-28] MEDS: CARVEDILOL 25 MG TABLET (FP) PO SCH ×2 (10:20→21:54)
[2017-01-28] MEDS: CARBAMIDE PEROXIDE 6.5% OTIC 15 ML BOTTLE AU SCH ×2 (10:21→23:25)
[2017-01-28] MEDS: FLUTICASONE PROP 0.05% 16 GM NASAL SPRAY NS SCH ×2 (10:21→23:25)
[2017-01-28] MEDS: FLUOCINONIDE 0.05% CREAM (60 GM TUBE) TP SCH ×2 (10:21→22:00)
[2017-01-28] MEDS: LIDOCAINE 5% TOPICAL PATCH TP SCH (10:21)
[2017-01-28] MEDS: BETAMETHASONE VALERATE 0.1% CREAM 15 GM TUBE TP SCH ×2 (10:21→22:00)
[2017-01-28] MEDS: METHYL SALICYLATE/MENTHOL OINT 30 GM TUBE TP SCH ×2 (10:49→23:25)
[2017-01-28] MEDS ORDERED: INSULIN (NOVOLOG) ASPART 100 UNITS/ML 10ML VIAL ONE ×3 (11:43→21:54)
[2017-01-28] MEDS: ALBUTEROL SO4 6.7 GM HFA INHALER IH PRN (15:19)
[2017-01-28] MEDS: MAGNESIUM HYDROX 2400MG/30ML ORAL SUSPENSION 30 ML CUP PO PRN (15:32)
[2017-01-28] MEDS: THIAMINE HCL 100 MG TABLET (FP) PO SCH (21:53)
[2017-01-28] MEDS: ROSUVASTATIN CA 10 MG TABLET (FP) PO SCH (21:55)
[2017-01-28] MEDS: ACETAMINOPHEN 325 MG TABLET (FP) PO PRN (21:57)
[2017-01-28] MEDS: INSULIN DETEMIR 100 UNITS/ML MDV SQ SCH (22:00)
[2017-01-29] MEDS: ARTIFICIAL TEARS (POLYVINYL ALCOHOL 1.4%) OPTH DROPS OU SCH ×3 (06:45→22:29)
[2017-01-29] MEDS: ACETAMINOPHEN 325 MG TABLET (FP) PO PRN ×2 (06:46→21:49)
[2017-01-29] MEDS: CYCLOBENZAPRINE HCL 10 MG TABLET (FP) PO PRN ×2 (06:46→17:01)
[2017-01-29] MEDS: hydrOXYzine PAMOATE 50 MG CAPSULE (FP) PO PRN ×3 (06:46→17:02)
[2017-01-29] MEDS: FUROSEMIDE 20 MG TABLET (FP) PO SCH ×2 (06:46→17:00)
[2017-01-29] MEDS: INSULIN SLIDING SCALE (NOVOLOG) 1 VIAL SQ SCH ×4 (06:49→22:01)
[2017-01-29] MEDS ORDERED: PT OWN MED DRAWER 7, Y5N ONE ×3 (09:07→21:47)
[2017-01-29] MEDS: DARUNAVIR ETHANOLATE 600 MG TAB PO SCH ×2 (10:15→21:49)
[2017-01-29] MEDS: CLOPIDOGREL BISULFATE 75 MG TABLET (FP) PO SCH (10:15)
[2017-01-29] MEDS: FLUTICASONE PROP 0.05% 16 GM NASAL SPRAY NS SCH ×2 (10:15→21:49)
[2017-01-29] MEDS: PRENATAL VITAMINS W/ FOLIC ACID TABLET (FP) PO SCH (10:15)
[2017-01-29] MEDS: CARVEDILOL 25 MG TABLET (FP) PO SCH ×2 (10:16→21:49)
[2017-01-29] MEDS: RANITIDINE HCL 150 MG TABLET (FP) PO SCH (10:16)
[2017-01-29] MEDS: ASPIRIN 81 MG CHEWABLE TABLETS PO SCH (10:16)
[2017-01-29] MEDS: RITONAVIR 100 MG TABLET PO SCH ×2 (10:16→22:01)
[2017-01-29] MEDS: FLUCONAZOLE 100 MG TABLET (UD) PO SCH (10:16)
[2017-01-29] MEDS: MARAVIROC 150 MG TAB PO SCH (10:16)
[2017-01-29] MEDS: CHOLECALCIFEROL (VITAMIN D3) 1,000 UNIT TABLET (FP) PO SCH (10:16)
[2017-01-29] MEDS: RALTEGRAVIR POTASSIUM 400 MG TAB PO SCH ×2 (10:16→21:48)
[2017-01-29] MEDS: NICOTINE 21 MG/24 HOURS TOPICAL PATCH TD SCH (10:17)
[2017-01-29] MEDS: METHYL SALICYLATE/MENTHOL OINT 30 GM TUBE TP SCH ×2 (10:19→22:29)
[2017-01-29] MEDS: CARBAMIDE PEROXIDE 6.5% OTIC 15 ML BOTTLE AU SCH ×2 (10:19→22:30)
[2017-01-29] MEDS: FLUOCINONIDE 0.05% CREAM (60 GM TUBE) TP SCH ×2 (10:19→22:01)
[2017-01-29] MEDS: BETAMETHASONE VALERATE 0.1% CREAM 15 GM TUBE TP SCH ×2 (10:20→22:30)
[2017-01-29] MEDS: LIDOCAINE 5% TOPICAL PATCH TP SCH (10:20)
[2017-01-29] MEDS ORDERED: INSULIN (NOVOLOG) ASPART 100 UNITS/ML 10ML VIAL ONE ×3 (11:41→21:54)
[2017-01-29] MEDS: THIAMINE HCL 100 MG TABLET (FP) PO SCH (21:48)
[2017-01-29] MEDS: ROSUVASTATIN CA 10 MG TABLET (FP) PO SCH (21:49)
[2017-01-29] MEDS: INSULIN DETEMIR 100 UNITS/ML MDV SQ SCH (22:01)
[2017-01-30] MEDS: FUROSEMIDE 20 MG TABLET (FP) PO SCH ×2 (06:16→17:12)
[2017-01-30] MEDS: CYCLOBENZAPRINE HCL 10 MG TABLET (FP) PO PRN ×3 (06:16→22:13)
[2017-01-30] MEDS: hydrOXYzine PAMOATE 50 MG CAPSULE (FP) PO PRN ×3 (06:16→22:13)
[2017-01-30] MEDS: ARTIFICIAL TEARS (POLYVINYL ALCOHOL 1.4%) OPTH DROPS OU SCH ×3 (06:17→22:17)
[2017-01-30] MEDS: INSULIN SLIDING SCALE (NOVOLOG) 1 VIAL SQ SCH ×4 (06:20→22:16)
[2017-01-30] MEDS ORDERED: PT OWN MED DRAWER 7, Y5N ONE ×3 (08:56→22:39)
[2017-01-30] MEDS: BETAMETHASONE VALERATE 0.1% CREAM 15 GM TUBE TP SCH ×2 (10:32→22:16)
[2017-01-30] MEDS: AMMONIUM LACTATE 12% LOTION 225 GM BOTTLE TP PRN (10:33)
[2017-01-30] MEDS: FLUOCINONIDE 0.05% CREAM (60 GM TUBE) TP SCH ×2 (10:33→22:17)
[2017-01-30] MEDS: NICOTINE 21 MG/24 HOURS TOPICAL PATCH TD SCH (10:33)
[2017-01-30] MEDS: FLUTICASONE PROP 0.05% 16 GM NASAL SPRAY NS SCH ×2 (10:34→22:11)
[2017-01-30] MEDS: DARUNAVIR ETHANOLATE 600 MG TAB PO SCH ×2 (10:34→22:13)
[2017-01-30] MEDS: PRENATAL VITAMINS W/ FOLIC ACID TABLET (FP) PO SCH (10:34)
[2017-01-30] MEDS: CHOLECALCIFEROL (VITAMIN D3) 1,000 UNIT TABLET (FP) PO SCH (10:34)
[2017-01-30] MEDS: CLOPIDOGREL BISULFATE 75 MG TABLET (FP) PO SCH (10:34)
[2017-01-30] MEDS: ASPIRIN 81 MG CHEWABLE TABLETS PO SCH (10:34)
[2017-01-30] MEDS: RALTEGRAVIR POTASSIUM 400 MG TAB PO SCH ×2 (10:35→22:14)
[2017-01-30] MEDS: RANITIDINE HCL 150 MG TABLET (FP) PO SCH (10:35)
[2017-01-30] MEDS: FLUCONAZOLE 100 MG TABLET (UD) PO SCH (10:35)
[2017-01-30] MEDS: CARVEDILOL 25 MG TABLET (FP) PO SCH ×2 (10:35→22:13)
[2017-01-30] MEDS: CARBAMIDE PEROXIDE 6.5% OTIC 15 ML BOTTLE AU SCH ×2 (10:36→22:17)
[2017-01-30] MEDS: METHYL SALICYLATE/MENTHOL OINT 30 GM TUBE TP SCH ×2 (10:36→22:17)
[2017-01-30] MEDS: LIDOCAINE 5% TOPICAL PATCH TP SCH (10:39)
[2017-01-30] MEDS: MARAVIROC 150 MG TAB PO SCH (10:42)
[2017-01-30] MEDS: RITONAVIR 100 MG TABLET PO SCH ×2 (10:45→22:17)
[2017-01-30] MEDS: FERROUS SO4 325 MG TABLET (FP) PO SCH (16:57)
[2017-01-30] MEDS: INSULIN DETEMIR 100 UNITS/ML MDV SQ SCH (22:09)
[2017-01-30] MEDS: ARTIFICIAL TEARS (POLYVINYL ALCOHOL 1.4%) OPTH DROPS OU PRN (22:11)
[2017-01-30] MEDS: THIAMINE HCL 100 MG TABLET (FP) PO SCH (22:13)
[2017-01-30] MEDS: ROSUVASTATIN CA 10 MG TABLET (FP) PO SCH (22:13)
[2017-01-30] MEDS: ACETAMINOPHEN 325 MG TABLET (FP) PO PRN (22:14)
[2017-01-30] MEDS ORDERED: INSULIN (NOVOLOG) ASPART 100 UNITS/ML 10ML VIAL ONE (22:35)
[2017-01-31] MEDS: FUROSEMIDE 20 MG TABLET (FP) PO SCH ×2 (06:06→17:19)
[2017-01-31] MEDS: CYCLOBENZAPRINE HCL 10 MG TABLET (FP) PO PRN (06:06)
[2017-01-31] MEDS: hydrOXYzine PAMOATE 50 MG CAPSULE (FP) PO PRN (06:06)
[2017-01-31] MEDS: ACETAMINOPHEN 325 MG TABLET (FP) PO PRN ×2 (06:06→11:59)
[2017-01-31] MEDS: ARTIFICIAL TEARS (POLYVINYL ALCOHOL 1.4%) OPTH DROPS OU SCH ×3 (06:07→23:27)
[2017-01-31] MEDS: FERROUS SO4 325 MG TABLET (FP) PO SCH ×2 (07:49→17:19)
[2017-01-31] MEDS: INSULIN SLIDING SCALE (NOVOLOG) 1 VIAL SQ SCH ×4 (07:50→22:00)
[2017-01-31] MEDS ORDERED: INSULIN (NOVOLOG) ASPART 100 UNITS/ML 10ML VIAL ONE ×3 (07:52→21:57)
[2017-01-31] MEDS ORDERED: PT OWN MED DRAWER 7, Y5N ONE ×4 (09:29→21:56)
[2017-01-31] MEDS: KETOCONAZOLE 2% CREAM - 60GM TUBE TP SCH (10:25)
[2017-01-31] MEDS: PRENATAL VITAMINS W/ FOLIC ACID TABLET (FP) PO SCH (10:42)
[2017-01-31] MEDS: FLUCONAZOLE 100 MG TABLET (UD) PO SCH (10:42)
[2017-01-31] MEDS: RITONAVIR 100 MG TABLET PO SCH ×2 (10:42→21:56)
[2017-01-31] MEDS: ASPIRIN 81 MG CHEWABLE TABLETS PO SCH (10:42)
[2017-01-31] MEDS: RANITIDINE HCL 150 MG TABLET (FP) PO SCH (10:42)
[2017-01-31] MEDS: RALTEGRAVIR POTASSIUM 400 MG TAB PO SCH ×2 (10:42→21:55)
[2017-01-31] MEDS: CLOPIDOGREL BISULFATE 75 MG TABLET (FP) PO SCH (10:43)
[2017-01-31] MEDS: DARUNAVIR ETHANOLATE 600 MG TAB PO SCH ×2 (10:43→21:54)
[2017-01-31] MEDS: CARBAMIDE PEROXIDE 6.5% OTIC 15 ML BOTTLE AU SCH ×2 (10:43→23:27)
[2017-01-31] MEDS: FLUTICASONE PROP 0.05% 16 GM NASAL SPRAY NS SCH ×2 (10:43→23:28)
[2017-01-31] MEDS: CARVEDILOL 25 MG TABLET (FP) PO SCH ×2 (10:43→21:54)
[2017-01-31] MEDS: CHOLECALCIFEROL (VITAMIN D3) 1,000 UNIT TABLET (FP) PO SCH (10:43)
[2017-01-31] MEDS: METHYL SALICYLATE/MENTHOL OINT 30 GM TUBE TP SCH ×2 (10:44→23:27)
[2017-01-31] MEDS: BETAMETHASONE VALERATE 0.1% CREAM 15 GM TUBE TP SCH ×2 (10:44→23:28)
[2017-01-31] MEDS: FLUOCINONIDE 0.05% CREAM (60 GM TUBE) TP SCH ×2 (10:44→23:28)
[2017-01-31] MEDS: LIDOCAINE 5% TOPICAL PATCH TP SCH (10:45)
[2017-01-31] MEDS: NICOTINE 21 MG/24 HOURS TOPICAL PATCH TD SCH (10:45)
[2017-01-31] MEDS: AMMONIUM LACTATE 12% LOTION 225 GM BOTTLE TP PRN (10:49)
[2017-01-31] MEDS: MARAVIROC 150 MG TAB PO SCH (10:49)
[2017-01-31] MEDS: THIAMINE HCL 100 MG TABLET (FP) PO SCH (21:54)
[2017-01-31] MEDS: ROSUVASTATIN CA 10 MG TABLET (FP) PO SCH (21:54)
[2017-01-31] MEDS: INSULIN DETEMIR 100 UNITS/ML MDV SQ SCH (22:00)
[2017-02-01] MEDS: hydrOXYzine PAMOATE 50 MG CAPSULE (FP) PO PRN ×3 (00:30→12:07)
[2017-02-01] MEDS: CYCLOBENZAPRINE HCL 10 MG TABLET (FP) PO PRN ×3 (00:30→21:57)
[2017-02-01] MEDS: ACETAMINOPHEN 325 MG TABLET (FP) PO PRN ×4 (00:30→21:56)
[2017-02-01] MEDS: FUROSEMIDE 20 MG TABLET (FP) PO SCH ×2 (06:37→17:05)
[2017-02-01] MEDS: ARTIFICIAL TEARS (POLYVINYL ALCOHOL 1.4%) OPTH DROPS OU SCH ×3 (06:37→21:55)
[2017-02-01] MEDS: INSULIN SLIDING SCALE (NOVOLOG) 1 VIAL SQ SCH ×4 (06:49→22:02)
[2017-02-01] MEDS: FERROUS SO4 325 MG TABLET (FP) PO SCH ×2 (07:23→16:54)
[2017-02-01] MEDS ORDERED: PT OWN MED DRAWER 7, Y5N ONE (09:29)
[2017-02-01] MEDS: FLUTICASONE PROP 0.05% 16 GM NASAL SPRAY NS SCH ×2 (10:11→22:00)
[2017-02-01] MEDS: PRENATAL VITAMINS W/ FOLIC ACID TABLET (FP) PO SCH (10:11)
[2017-02-01] MEDS: ASPIRIN 81 MG CHEWABLE TABLETS PO SCH (10:11)
[2017-02-01] MEDS: FLUCONAZOLE 100 MG TABLET (UD) PO SCH (10:11)
[2017-02-01] MEDS: METHYL SALICYLATE/MENTHOL OINT 30 GM TUBE TP SCH ×2 (10:12→21:59)
[2017-02-01] MEDS: CARVEDILOL 25 MG TABLET (FP) PO SCH ×2 (10:12→21:57)
[2017-02-01] MEDS: RANITIDINE HCL 150 MG TABLET (FP) PO SCH (10:12)
[2017-02-01] MEDS: RALTEGRAVIR POTASSIUM 400 MG TAB PO SCH ×2 (10:12→21:57)
[2017-02-01] MEDS: FLUOCINONIDE 0.05% CREAM (60 GM TUBE) TP SCH ×2 (10:12→22:01)
[2017-02-01] MEDS: LIDOCAINE 5% TOPICAL PATCH TP SCH (10:12)
[2017-02-01] MEDS: DARUNAVIR ETHANOLATE 600 MG TAB PO SCH ×2 (10:12→21:57)
[2017-02-01] MEDS: CHOLECALCIFEROL (VITAMIN D3) 1,000 UNIT TABLET (FP) PO SCH (10:12)
[2017-02-01] MEDS: CARBAMIDE PEROXIDE 6.5% OTIC 15 ML BOTTLE AU SCH ×2 (10:12→22:00)
[2017-02-01] MEDS: RITONAVIR 100 MG TABLET PO SCH ×2 (10:13→22:02)
[2017-02-01] MEDS: KETOCONAZOLE 2% CREAM - 60GM TUBE TP SCH (10:13)
[2017-02-01] MEDS: CLOPIDOGREL BISULFATE 75 MG TABLET (FP) PO SCH (10:13)
[2017-02-01] MEDS: NICOTINE 21 MG/24 HOURS TOPICAL PATCH TD SCH (10:13)
[2017-02-01] MEDS: MARAVIROC 150 MG TAB PO SCH (10:13)
[2017-02-01] MEDS: BETAMETHASONE VALERATE 0.1% CREAM 15 GM TUBE TP SCH ×2 (10:14→22:02)
[2017-02-01] MEDS ORDERED: INSULIN (NOVOLOG) ASPART 100 UNITS/ML 10ML VIAL ONE ×2 (11:37→22:14)
[2017-02-01] MEDS: ROSUVASTATIN CA 10 MG TABLET (FP) PO SCH (21:57)
[2017-02-01] MEDS: THIAMINE HCL 100 MG TABLET (FP) PO SCH (21:57)
[2017-02-01] MEDS: diphenhydrAMINE HCL 50 MG CAPSULE PO PRN (21:57)
[2017-02-01] MEDS: INSULIN DETEMIR 100 UNITS/ML MDV SQ SCH (22:00)
[2017-02-02] MEDS: hydrOXYzine PAMOATE 50 MG CAPSULE (FP) PO PRN ×4 (01:45→18:13)
[2017-02-02] MEDS: diphenhydrAMINE HCL 50 MG CAPSULE PO PRN ×2 (01:45→21:54)
[2017-02-02] MEDS ORDERED: PT OWN MED DRAWER 7, Y5N ONE ×2 (06:35→21:53)
[2017-02-02] MEDS: ACETAMINOPHEN 325 MG TABLET (FP) PO PRN ×2 (06:37→18:13)
[2017-02-02] MEDS: FUROSEMIDE 20 MG TABLET (FP) PO SCH ×2 (06:37→18:22)
[2017-02-02] MEDS: CYCLOBENZAPRINE HCL 10 MG TABLET (FP) PO PRN ×3 (06:37→18:13)
[2017-02-02] MEDS: ARTIFICIAL TEARS (POLYVINYL ALCOHOL 1.4%) OPTH DROPS OU SCH ×2 (06:39→14:02)
[2017-02-02] MEDS: FERROUS SO4 325 MG TABLET (FP) PO SCH ×2 (07:00→18:10)
[2017-02-02] MEDS: INSULIN SLIDING SCALE (NOVOLOG) 1 VIAL SQ SCH ×4 (07:00→23:09)
[2017-02-02] MEDS: NICOTINE 21 MG/24 HOURS TOPICAL PATCH TD SCH (10:13)
[2017-02-02] MEDS: FLUCONAZOLE 100 MG TABLET (UD) PO SCH (10:23)
[2017-02-02] MEDS: DARUNAVIR ETHANOLATE 600 MG TAB PO SCH ×2 (10:23→21:50)
[2017-02-02] MEDS: CHOLECALCIFEROL (VITAMIN D3) 1,000 UNIT TABLET (FP) PO SCH (10:23)
[2017-02-02] MEDS: PRENATAL VITAMINS W/ FOLIC ACID TABLET (FP) PO SCH (10:23)
[2017-02-02] MEDS: CLOPIDOGREL BISULFATE 75 MG TABLET (FP) PO SCH (10:23)
[2017-02-02] MEDS: RALTEGRAVIR POTASSIUM 400 MG TAB PO SCH ×2 (10:24→21:52)
[2017-02-02] MEDS: ASPIRIN 81 MG CHEWABLE TABLETS PO SCH (10:24)
[2017-02-02] MEDS: RANITIDINE HCL 150 MG TABLET (FP) PO SCH (10:24)
[2017-02-02] MEDS: CARVEDILOL 25 MG TABLET (FP) PO SCH ×2 (10:24→21:50)
[2017-02-02] MEDS: FLUTICASONE PROP 0.05% 16 GM NASAL SPRAY NS SCH ×2 (10:24→23:08)
[2017-02-02] MEDS: CARBAMIDE PEROXIDE 6.5% OTIC 15 ML BOTTLE AU SCH ×2 (10:25→23:08)
[2017-02-02] MEDS: METHYL SALICYLATE/MENTHOL OINT 30 GM TUBE TP SCH ×2 (10:25→23:08)
[2017-02-02] MEDS: FLUOCINONIDE 0.05% CREAM (60 GM TUBE) TP SCH ×2 (10:25→23:09)
[2017-02-02] MEDS: BETAMETHASONE VALERATE 0.1% CREAM 15 GM TUBE TP SCH ×2 (10:26→23:09)
[2017-02-02] MEDS: KETOCONAZOLE 2% CREAM - 60GM TUBE TP SCH (10:26)
[2017-02-02] MEDS: MARAVIROC 150 MG TAB PO SCH (10:27)
[2017-02-02] MEDS: LIDOCAINE 5% TOPICAL PATCH TP SCH (10:33)
[2017-02-02] MEDS: RITONAVIR 100 MG TABLET PO SCH ×2 (10:37→21:53)
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
[2017-02-02] MEDS ORDERED: INSULIN (NOVOLOG) ASPART 100 UNITS/ML 10ML VIAL ONE ×2 (18:10→21:51)
[2017-02-02] MEDS: INSULIN DETEMIR 100 UNITS/ML MDV SQ SCH (21:50)
[2017-02-02] MEDS: THIAMINE HCL 100 MG TABLET (FP) PO SCH (21:50)
[2017-02-02] MEDS: ROSUVASTATIN CA 10 MG TABLET (FP) PO SCH (21:51)
[2017-02-03] MEDS: CYCLOBENZAPRINE HCL 10 MG TABLET (FP) PO PRN ×3 (01:55→16:58)
[2017-02-03] MEDS: NAPROXEN 500 MG TABLET (FP) PO SCH ×3 (01:55→21:54)
[2017-02-03] MEDS: hydrOXYzine PAMOATE 50 MG CAPSULE (FP) PO PRN ×3 (01:57→16:58)
[2017-02-03] MEDS: FUROSEMIDE 20 MG TABLET (FP) PO SCH ×2 (06:57→17:19)
[2017-02-03] MEDS: INSULIN SLIDING SCALE (NOVOLOG) 1 VIAL SQ SCH ×4 (07:30→22:03)
[2017-02-03] MEDS: FERROUS SO4 325 MG TABLET (FP) PO SCH ×2 (08:28→17:19)
[2017-02-03] MEDS ORDERED: INSULIN (NOVOLOG) ASPART 100 UNITS/ML 10ML VIAL ONE ×4 (08:29→21:56)
[2017-02-03] MEDS ORDERED: PT OWN MED DRAWER 7, Y5N ONE ×3 (09:21→21:59)
[2017-02-03] MEDS: CHOLECALCIFEROL (VITAMIN D3) 1,000 UNIT TABLET (FP) PO SCH (10:37)
[2017-02-03] MEDS: DARUNAVIR ETHANOLATE 600 MG TAB PO SCH ×2 (10:37→21:55)
[2017-02-03] MEDS: RITONAVIR 100 MG TABLET PO SCH ×2 (10:38→21:59)
[2017-02-03] MEDS: METHYL SALICYLATE/MENTHOL OINT 30 GM TUBE TP SCH ×2 (10:38→22:03)
[2017-02-03] MEDS: NICOTINE 21 MG/24 HOURS TOPICAL PATCH TD SCH (10:38)
[2017-02-03] MEDS: FLUCONAZOLE 100 MG TABLET (UD) PO SCH (10:38)
[2017-02-03] MEDS: PRENATAL VITAMINS W/ FOLIC ACID TABLET (FP) PO SCH (10:38)
[2017-02-03] MEDS: RALTEGRAVIR POTASSIUM 400 MG TAB PO SCH ×2 (10:38→21:59)
[2017-02-03] MEDS: RANITIDINE HCL 150 MG TABLET (FP) PO SCH (10:38)
[2017-02-03] MEDS: CLOPIDOGREL BISULFATE 75 MG TABLET (FP) PO SCH (10:38)
[2017-02-03] MEDS: CARVEDILOL 25 MG TABLET (FP) PO SCH ×2 (10:38→21:55)
[2017-02-03] MEDS: FLUOCINONIDE 0.05% CREAM (60 GM TUBE) TP SCH ×2 (10:39→22:03)
[2017-02-03] MEDS: BETAMETHASONE VALERATE 0.1% CREAM 15 GM TUBE TP SCH ×2 (10:39→23:14)
[2017-02-03] MEDS: FLUTICASONE PROP 0.05% 16 GM NASAL SPRAY NS SCH ×2 (10:39→22:03)
[2017-02-03] MEDS: KETOCONAZOLE 2% CREAM - 60GM TUBE TP SCH (10:39)
[2017-02-03] MEDS: CARBAMIDE PEROXIDE 6.5% OTIC 15 ML BOTTLE AU SCH ×2 (10:40→22:03)
[2017-02-03] MEDS: LIDOCAINE 5% TOPICAL PATCH TP SCH (10:40)
[2017-02-03] MEDS: MARAVIROC 150 MG TAB PO SCH (10:41)
[2017-02-03] MEDS: ASPIRIN 81 MG CHEWABLE TABLETS PO SCH (11:00)
[2017-02-03] MEDS: ACETAMINOPHEN 325 MG TABLET (FP) PO PRN (16:59)
[2017-02-03] MEDS: THIAMINE HCL 100 MG TABLET (FP) PO SCH (21:54)
[2017-02-03] MEDS: ROSUVASTATIN CA 10 MG TABLET (FP) PO SCH (21:56)
[2017-02-03] MEDS: INSULIN DETEMIR 100 UNITS/ML MDV SQ SCH (22:03)
[2017-02-04] MEDS: CYCLOBENZAPRINE HCL 10 MG TABLET (FP) PO PRN ×4 (00:56→21:21)
[2017-02-04] MEDS: ACETAMINOPHEN 325 MG TABLET (FP) PO PRN ×3 (00:56→21:21)
[2017-02-04] MEDS: diphenhydrAMINE HCL 50 MG CAPSULE PO PRN (01:01)
[2017-02-04] MEDS: hydrOXYzine PAMOATE 50 MG CAPSULE (FP) PO PRN ×4 (02:33→21:21)
[2017-02-04] MEDS: FUROSEMIDE 20 MG TABLET (FP) PO SCH ×2 (06:03→17:07)
[2017-02-04] MEDS ORDERED: INSULIN (NOVOLOG) ASPART 100 UNITS/ML 10ML VIAL ONE ×2 (07:25→11:43)
[2017-02-04] MEDS: INSULIN SLIDING SCALE (NOVOLOG) 1 VIAL SQ SCH ×4 (07:33→21:19)
[2017-02-04] MEDS: FERROUS SO4 325 MG TABLET (FP) PO SCH ×2 (07:53→16:52)
[2017-02-04] MEDS ORDERED: PT OWN MED DRAWER 7, Y5N ONE ×4 (08:57→22:12)
[2017-02-04] MEDS: RALTEGRAVIR POTASSIUM 400 MG TAB PO SCH ×2 (09:18→21:17)
[2017-02-04] MEDS: CARVEDILOL 25 MG TABLET (FP) PO SCH ×2 (09:18→21:17)
[2017-02-04] MEDS: ASPIRIN 81 MG CHEWABLE TABLETS PO SCH (09:18)
[2017-02-04] MEDS: NAPROXEN 500 MG TABLET (FP) PO SCH ×2 (09:18→21:17)
[2017-02-04] MEDS: CLOPIDOGREL BISULFATE 75 MG TABLET (FP) PO SCH (09:18)
[2017-02-04] MEDS: CHOLECALCIFEROL (VITAMIN D3) 1,000 UNIT TABLET (FP) PO SCH (09:18)
[2017-02-04] MEDS: RITONAVIR 100 MG TABLET PO SCH ×2 (09:18→21:19)
[2017-02-04] MEDS: FLUCONAZOLE 100 MG TABLET (UD) PO SCH (09:18)
[2017-02-04] MEDS: DARUNAVIR ETHANOLATE 600 MG TAB PO SCH ×2 (09:18→21:17)
[2017-02-04] MEDS: PRENATAL VITAMINS W/ FOLIC ACID TABLET (FP) PO SCH (09:18)
[2017-02-04] MEDS: RANITIDINE HCL 150 MG TABLET (FP) PO SCH (09:18)
[2017-02-04] MEDS: MARAVIROC 150 MG TAB PO SCH (09:19)
[2017-02-04] MEDS: ARTIFICIAL TEARS (POLYVINYL ALCOHOL 1.4%) OPTH DROPS OU PRN (09:22)
[2017-02-04] MEDS: FLUOCINONIDE 0.05% CREAM (60 GM TUBE) TP SCH ×2 (09:22→21:18)
[2017-02-04] MEDS: NICOTINE 21 MG/24 HOURS TOPICAL PATCH TD SCH (09:23)
[2017-02-04] MEDS: KETOCONAZOLE 2% CREAM - 60GM TUBE TP SCH (09:23)
[2017-02-04] MEDS: LIDOCAINE 5% TOPICAL PATCH TP SCH (09:23)
[2017-02-04] MEDS: CARBAMIDE PEROXIDE 6.5% OTIC 15 ML BOTTLE AU SCH ×2 (09:30→21:18)
[2017-02-04] MEDS: BETAMETHASONE VALERATE 0.1% CREAM 15 GM TUBE TP SCH ×2 (09:30→21:19)
[2017-02-04] MEDS: METHYL SALICYLATE/MENTHOL OINT 30 GM TUBE TP SCH ×2 (09:30→21:18)
[2017-02-04] MEDS: FLUTICASONE PROP 0.05% 16 GM NASAL SPRAY NS SCH ×2 (09:30→21:18)
[2017-02-04] MEDS: ROSUVASTATIN CA 10 MG TABLET (FP) PO SCH (21:17)
[2017-02-04] MEDS: INSULIN DETEMIR 100 UNITS/ML MDV SQ SCH (21:18)
[2017-02-04] MEDS: THIAMINE HCL 100 MG TABLET (FP) PO SCH (21:19)
[2017-02-05] MEDS: FUROSEMIDE 20 MG TABLET (FP) PO SCH ×2 (06:04→17:00)
--- NOTE | 2017-02-05 07:06 | PN ---
[facility] Progress Note Note: PT.HAS AN UNSTEADY GAIT AND USES A CANE TO AMBULATE. THE PT. WAS GOING TO THE NURSES STATION TO HAVE HIS VITAL TAKEN WHEN HE FELL ONTO HIS KNEES. HE WAS NOT USING HIS CANE. NO BRUISING NOTED, MILD TENDERNESS ON PALPATION TO RIGHT KNEE. PT. COMPLAINED OF PAIN (7/10) TO THE RIGHT KNEE.
[2017-02-05] MEDS: FERROUS SO4 325 MG TABLET (FP) PO SCH ×2 (07:13→17:00)
[2017-02-05] MEDS: INSULIN SLIDING SCALE (NOVOLOG) 1 VIAL SQ SCH ×4 (07:13→22:05)
[2017-02-05] MEDS ORDERED: PT OWN MED DRAWER 7, Y5N ONE ×4 (08:50→22:26)
[2017-02-05] MEDS: hydrOXYzine PAMOATE 50 MG CAPSULE (FP) PO PRN ×3 (09:16→21:58)
[2017-02-05] MEDS: PRENATAL VITAMINS W/ FOLIC ACID TABLET (FP) PO SCH (09:16)
[2017-02-05] MEDS: NAPROXEN 500 MG TABLET (FP) PO SCH ×2 (09:16→21:58)
[2017-02-05] MEDS: RALTEGRAVIR POTASSIUM 400 MG TAB PO SCH ×2 (09:16→21:58)
[2017-02-05] MEDS: DARUNAVIR ETHANOLATE 600 MG TAB PO SCH ×2 (09:16→21:58)
[2017-02-05] MEDS: CYCLOBENZAPRINE HCL 10 MG TABLET (FP) PO PRN ×2 (09:16→17:01)
[2017-02-05] MEDS: ASPIRIN 81 MG CHEWABLE TABLETS PO SCH (09:16)
[2017-02-05] MEDS: CLOPIDOGREL BISULFATE 75 MG TABLET (FP) PO SCH (09:16)
[2017-02-05] MEDS: RANITIDINE HCL 150 MG TABLET (FP) PO SCH (09:17)
[2017-02-05] MEDS: CARVEDILOL 25 MG TABLET (FP) PO SCH ×2 (09:17→21:58)
[2017-02-05] MEDS: CHOLECALCIFEROL (VITAMIN D3) 1,000 UNIT TABLET (FP) PO SCH (09:17)
[2017-02-05] MEDS: LIDOCAINE 5% TOPICAL PATCH TP SCH (09:17)
[2017-02-05] MEDS: MARAVIROC 150 MG TAB PO SCH (09:17)
[2017-02-05] MEDS: FLUCONAZOLE 100 MG TABLET (UD) PO SCH (09:17)
[2017-02-05] MEDS: RITONAVIR 100 MG TABLET PO SCH ×2 (09:18→22:05)
[2017-02-05] MEDS: NICOTINE 21 MG/24 HOURS TOPICAL PATCH TD SCH (09:18)
[2017-02-05] MEDS: FLUTICASONE PROP 0.05% 16 GM NASAL SPRAY NS SCH ×2 (09:23→22:06)
[2017-02-05] MEDS: METHYL SALICYLATE/MENTHOL OINT 30 GM TUBE TP SCH ×2 (09:23→22:07)
[2017-02-05] MEDS: CARBAMIDE PEROXIDE 6.5% OTIC 15 ML BOTTLE AU SCH ×2 (09:23→22:06)
[2017-02-05] MEDS: FLUOCINONIDE 0.05% CREAM (60 GM TUBE) TP SCH ×2 (09:23→22:05)
[2017-02-05] MEDS: BETAMETHASONE VALERATE 0.1% CREAM 15 GM TUBE TP SCH ×2 (09:24→21:58)
[2017-02-05] MEDS: KETOCONAZOLE 2% CREAM - 60GM TUBE TP SCH (09:24)
[2017-02-05] MEDS ORDERED: INSULIN (NOVOLOG) ASPART 100 UNITS/ML 10ML VIAL ONE (11:19)
[2017-02-05] MEDS: ACETAMINOPHEN 325 MG TABLET (FP) PO PRN ×2 (15:01→21:59)
[2017-02-05] MEDS: ROSUVASTATIN CA 10 MG TABLET (FP) PO SCH (21:58)
[2017-02-05] MEDS: THIAMINE HCL 100 MG TABLET (FP) PO SCH (21:58)
[2017-02-05] MEDS: INSULIN DETEMIR 100 UNITS/ML MDV SQ SCH (22:05)
[2017-02-06] MEDS: hydrOXYzine PAMOATE 50 MG CAPSULE (FP) PO PRN (06:44)
[2017-02-06] MEDS: FUROSEMIDE 20 MG TABLET (FP) PO SCH ×2 (06:44→17:13)
[2017-02-06] MEDS: ACETAMINOPHEN 325 MG TABLET (FP) PO PRN (06:44)
[2017-02-06] MEDS: CYCLOBENZAPRINE HCL 10 MG TABLET (FP) PO PRN (06:44)
[2017-02-06] MEDS: FERROUS SO4 325 MG TABLET (FP) PO SCH ×2 (07:02→16:58)
[2017-02-06] MEDS: INSULIN SLIDING SCALE (NOVOLOG) 1 VIAL SQ SCH ×4 (07:51→22:00)
[2017-02-06] MEDS: PRENATAL VITAMINS W/ FOLIC ACID TABLET (FP) PO SCH (09:35)
[2017-02-06] MEDS: DARUNAVIR ETHANOLATE 600 MG TAB PO SCH ×2 (09:35→22:00)
[2017-02-06] MEDS: CHOLECALCIFEROL (VITAMIN D3) 1,000 UNIT TABLET (FP) PO SCH (09:36)
[2017-02-06] MEDS: RALTEGRAVIR POTASSIUM 400 MG TAB PO SCH ×2 (09:36→22:00)
[2017-02-06] MEDS: NAPROXEN 500 MG TABLET (FP) PO SCH ×2 (09:36→22:00)
[2017-02-06] MEDS: NICOTINE 21 MG/24 HOURS TOPICAL PATCH TD SCH (09:36)
[2017-02-06] MEDS: ASPIRIN 81 MG CHEWABLE TABLETS PO SCH (09:36)
[2017-02-06] MEDS: CARVEDILOL 25 MG TABLET (FP) PO SCH ×2 (09:36→22:00)
[2017-02-06] MEDS: CLOPIDOGREL BISULFATE 75 MG TABLET (FP) PO SCH (09:36)
[2017-02-06] MEDS: LIDOCAINE 5% TOPICAL PATCH TP SCH (09:36)
[2017-02-06] MEDS: RANITIDINE HCL 150 MG TABLET (FP) PO SCH (09:36)
[2017-02-06] MEDS: KETOCONAZOLE 2% CREAM - 60GM TUBE TP SCH (09:38)
[2017-02-06] MEDS: RITONAVIR 100 MG TABLET PO SCH ×2 (09:38→22:00)
[2017-02-06] MEDS: BETAMETHASONE VALERATE 0.1% CREAM 15 GM TUBE TP SCH ×2 (09:39→22:00)
[2017-02-06] MEDS: MARAVIROC 150 MG TAB PO SCH (09:39)
[2017-02-06] MEDS: METHYL SALICYLATE/MENTHOL OINT 30 GM TUBE TP SCH ×2 (09:39→22:00)
[2017-02-06] MEDS: CARBAMIDE PEROXIDE 6.5% OTIC 15 ML BOTTLE AU SCH ×2 (09:40→22:00)
[2017-02-06] MEDS: FLUCONAZOLE 100 MG TABLET (UD) PO SCH (09:42)
[2017-02-06] MEDS ORDERED: PT OWN MED DRAWER 7, Y5N ONE ×2 (09:42→09:49)
[2017-02-06] MEDS: FLUOCINONIDE 0.05% CREAM (60 GM TUBE) TP SCH ×2 (09:49→22:00)
[2017-02-06 10:09] LABS: MCHC 29.8 g/dl (32.0-35.9); MEAN CELL VOLUME 64.9 fl (80-96); MEAN PLT VOLUME 9.1 fl (7.5-11.1); RDW 24.2 % (11.9-15.9)
[2017-02-06 10:29] LABS: MCH 19.3 pg (25.7-33.7)
[2017-02-06 10:30] LABS: WHITE BLOOD COUNT 25.6 K/mm3 (4.0-10.0)
[2017-02-06 10:36] LABS: ALBUMIN 2.9 g/dl (3.4-5.0); BILIRUBIN,TOTAL 0.6 mg/dL (0.2-1.0); CALCIUM 9.6 mg/dL (8.5-10.1); CREATININE 1.8 mg/dL (0.7-1.3); TOT PROT 6.9 g/dl (6.4-8.2)
[2017-02-06] MEDS: FLUTICASONE PROP 0.05% 16 GM NASAL SPRAY NS SCH ×2 (11:02→22:00)
[2017-02-06 11:24] VITALS: TEMP 97
[2017-02-06] MEDS ORDERED: INSULIN (NOVOLOG) ASPART 100 UNITS/ML 10ML VIAL ONE (11:33)
[2017-02-06 13:09] LABS: POLYCHROMASIA 1+
[2017-02-06 13:11] LABS: ACANTHOCYTES 1+; FRAGMENTED CELL 1+; HYPOCHROMIA 1+; OVALOCYTES 1+; TARGET CELLS 2+; TEAR DROP CELLS 1+
[2017-02-06 14:38] LABS: PLATELET COUNT 262 K/MM3 (134-434); PLATELET ESTIMATE ADEQUATE (NORMAL)
[2017-02-06 20:36] VITALS: BP 150/73; PULSE 84
[2017-02-06] MEDS: ROSUVASTATIN CA 10 MG TABLET (FP) PO SCH (22:00)
[2017-02-06] MEDS: INSULIN DETEMIR 100 UNITS/ML MDV SQ SCH (22:00)
[2017-02-06] MEDS: THIAMINE HCL 100 MG TABLET (FP) PO SCH (22:00)
== END 2017-02-06 22:50 | disposition left against medical advice (07) | DRG 770 ==
LOC: YASAS 13:49 → Y3W 13:51
PROVIDERS: ADMIT Psychiatry & Neurology Psychiatry; ATTEND Psychiatry & Neurology Psychiatry
PROC: HZ42ZZZ Group Counseling for Substance Abuse Treatment, Cognitive-Behavioral (ICD-10-PCS; principal; 2017-02-06)
DX: F11.23 Opioid dependence with withdrawal (principal); F10.10 Alcohol abuse, uncomplicated; F17.210 Nicotine dependence, cigarettes, uncomplicated; F19.24 Other psychoactive substance dependence with psychoactive substance-induced mood disorder; I50.9 Heart failure, unspecified; I10 Essential (primary) hypertension; E11.9 Type 2 diabetes mellitus without complications; E78.5 Hyperlipidemia, unspecified; Z21 Asymptomatic human immunodeficiency virus [HIV] infection status; Z95.810 Presence of automatic (implantable) cardiac defibrillator
CPT/HCPCS: 36415; 71020-TC; 73590-TC-LT; 73590-TC-RT; 80053; 85025; 85027

== ENCOUNTER 2017-02-02 14:34 | Emergency (ER) | payer OTHER ==
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
[2017-02-02 14:50] VITALS: TEMP 98.5; BMI 33.3
[2017-02-02 17:13] VITALS: BP 140/64; PULSE 80
== END 2017-02-02 17:18 | disposition home or self-care (01) ==
LOC: JER 14:34
DX: M79.662 Pain in left lower leg (principal); D64.9 Anemia, unspecified; J45.909 Unspecified asthma, uncomplicated; J44.9 Chronic obstructive pulmonary disease, unspecified; I50.9 Heart failure, unspecified; I10 Essential (primary) hypertension; E78.00 Pure hypercholesterolemia, unspecified; Z95.810 Presence of automatic (implantable) cardiac defibrillator; Z95.0 Presence of cardiac pacemaker; F11.23 Opioid dependence with withdrawal; F10.230 Alcohol dependence with withdrawal, uncomplicated
CPT/HCPCS: 73590-TC-LT; 93971-TC; 99282-25

== ENCOUNTER 2017-07-11 18:01 | Inpatient (IN) | payer OTHER ==
[2017-07-11 20:56] VITALS: BMI 29.9
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
[2017-07-11] MEDS ORDERED: diphenhydrAMINE HCL 50 MG CAPSULE PO PRN (22:28)
[2017-07-11] MEDS ORDERED: IBUPROFEN 400 MG TABLET (FP) PO PRN (22:28)
[2017-07-11] MEDS ORDERED: P-EPHED 60MG/TRIPROLIDI 2.5MG TABLET PO PRN (22:28)
[2017-07-11] MEDS ORDERED: MAG HYDROX/AL HYDROX/SIMETH 30 ML UNIT-DOSE CUP PO PRN (22:28)
[2017-07-11] MEDS ORDERED: ACETAMINOPHEN 325 MG TABLET (FP) PO PRN (22:28)
[2017-07-11] MEDS ORDERED: MAGNESIUM CITRATE 300 ML BOTTLE PO PRN (22:28)
[2017-07-11] MEDS ORDERED: METHADONE HCL 10 MG TABLET (FOR DETOX USE ONLY) PO ONE ×2 (22:28→23:00)
[2017-07-11] MEDS ORDERED: MAGNESIUM HYDROX 2400MG/30ML ORAL SUSPENSION 30 ML CUP PO PRN (22:28)
[2017-07-11] MEDS ORDERED: guaiFENesin/D-METHORPHAN HB 10 ML UNIT-DOSE CUPS PO PRN (22:28)
[2017-07-11] MEDS ORDERED: LOPERAMIDE HCL 2 MG CAPSULE PO PRN (22:28)
[2017-07-11] MEDS ORDERED: MENTHOL/PHENOL 1 EACH UD MM PRN (22:28)
[2017-07-11] MEDS ORDERED: ALBUTEROL SO4 6.7 GM HFA INHALER IH PRN (22:34)
[2017-07-12] MEDS: FUROSEMIDE 20 MG TABLET (FP) PO SCH ×2 (07:51→13:00)
[2017-07-12] MEDS ORDERED: METHADONE HCL 10 MG TABLET (FOR DETOX USE ONLY) PO ONE (10:00)
[2017-07-12 10:20] LABS: MCH 23.1 pg (25.7-33.7); MCHC 30.8 g/dl (32.0-35.9); MEAN PLT VOLUME 8.6 fl (7.5-11.1); PLATELET COUNT 280 K/MM3 (134-434); RDW 19.1 % (11.9-15.9); WHITE BLOOD COUNT 6.6 K/mm3 (4.0-10.0)
[2017-07-12 10:31] LABS: ALBUMIN 2.5 g/dl (3.4-5.0); ANION GAP 6 (8-16); BILIRUBIN,TOTAL 0.5 mg/dL (0.2-1.0); CALCIUM 8.8 mg/dL (8.5-10.1); CO2 28 mmol/L (21-32); CREATININE 1.5 mg/dL (0.7-1.3); GLUCOSE,RANDOM 145 mg/dL (74-106); SGOT/AST 20 U/L (15-37); SGPT/ALT 18 U/L (12-78); TOT PROT 6.4 g/dl (6.4-8.2)
[2017-07-12 10:32] LABS: ALK PHOS 133 U/L (45-117)
--- NOTE | 2017-07-12 10:46 | PN ---
[facility] CIWA - CIWA Score Nausea/Vomitin-No Nausea/No Vomiting Muscle Tremors: 4-Moderate,w/Arms Extend Anxiety: 4-Mod. Anxious/Guarded Agitation: 4-Moderately Restless Paroxysmal Sweats: 1-Minimal Palms Moist Orientation: 0-Oriented Tacttile Disturbances: 3-Moderate Itch/Numb/Burn Auditory Disturbances: 0-None Visual Disturbances: 0-None Headache: 0-None Present CIWA-Ar Total Score: 16 S COWS - Scale Resting Pulse: 0= [place] 80 or Below Sweatin= Chills/Flushing Restless Observation: 3= Extraneous Movement Pupil Size: 0= Normal to Room Light Bone or Joint Aches: 4=Acute Joint/Muscle Pain Runny Nose/ Eye Tearin= Nasal Congestion GI Upset > 30mins: 1= Stomach Cramp Tremor Observation of Outstretched Hands: 1= Tremor [place], Not Seen Yawning Observation: 2= >3x During Session Anxiety or Irritability: 2=Irritable/Anxious Goose Flesh Skin: 0=Smooth Skin COWS Score: 15 [facility] Progress Note (SOAP) Subjective: ANXIETY,IRRITABILITY,SWEATS/COLD CHILLS,TREMORS,INTERMITTENT SLEEP. Objective: 07/12/17 10:45 Vital Signs Temperature 96.6 F L 07/12/17 09:30 Pulse Rate 68 07/12/17 09:30 Respiratory Rate 18 07/12/17 09:30 Blood Pressure 130/71 07/12/17 09:30 O2 Sat by Pulse Oximetry (%) Laboratory Last Values WBC 6.6 K/mm3 (4.0-10.0) D 07/12/17 07:00 RBC 3.93 M/mm3 (4.00-5.60) L 07/12/17 07:00 Hgb 9.1 GM/dL (11.7-16.9) L 07/12/17 07:00 Hct 29.5 % (35.4-49) L 07/12/17 07:00 MCV 75.0 fl (80-96) L 07/12/17 07:00 MCH 23.1 pg (25.7-33.7) L 07/12/17 07:00 MCHC 30.8 g/dl (32.0-35.9) L 07/12/17 07:00 RDW 19.1 % (11.9-15.9) H D 07/12/17 07:00 Plt Count 280 K/MM3 (134-434) 07/12/17 07:00 MPV 8.6 fl (7.5-11.1) 07/12/17 07:00 POC Glucometer 153 UNITS (()) 07/11/17 21:13 LABS NOTED. LOW HBG/HCT Assessment: 07/12/17 10:46 WITHDRAWAL SX HX ANEMIA Plan: CONTINUE DETOX CONTINUE FEOSOL DIRECTED
[2017-07-12] MEDS: RANITIDINE HCL 150 MG TABLET (FP) PO SCH (10:52)
[2017-07-12] MEDS: CLOPIDOGREL BISULFATE 75 MG TABLET (FP) PO SCH (10:52)
[2017-07-12] MEDS: RITONAVIR 100 MG TABLET PO SCH ×2 (10:52→22:50)
[2017-07-12] MEDS: ASPIRIN 81 MG CHEWABLE TABLETS PO SCH (10:52)
[2017-07-12] MEDS: CARVEDILOL 25 MG TABLET (FP) PO SCH ×2 (10:52→22:48)
[2017-07-12] MEDS: diazePAM 5 MG TABLET PO PRN ×3 (10:52→22:49)
[2017-07-12] MEDS ORDERED: COLLOIDAL OATMEAL 1 BAR EACH TP ONE (10:52)
[2017-07-12] MEDS: PRENATAL VITAMINS W/ FOLIC ACID TABLET (FP) PO SCH (10:53)
[2017-07-12] MEDS: RALTEGRAVIR POTASSIUM 400 MG TAB PO SCH ×2 (10:53→22:50)
[2017-07-12] MEDS: NICOTINE 21 MG/24 HOURS TOPICAL PATCH TD SCH (10:53)
[2017-07-12] MEDS: FERROUS SO4 325 MG TABLET (FP) PO SCH ×2 (10:53→22:50)
[2017-07-12] MEDS: FLUOCINONIDE 0.05% CREAM (60 GM TUBE) TP SCH ×2 (10:54→23:48)
--- NOTE | 2017-07-12 12:58 | EKG ---
Test Reason : Blood Pressure : / mmHG Vent. Rate : 063 BPM Atrial Rate : 063 BPM P-R Int : 182 ms QRS Dur : 094 ms QT Int : 454 ms P-R-T Axes : 080 024 -58 degrees QTc Int : 464 ms SINUS RHYTHM WITH PREMATURE ATRIAL COMPLEXES T WAVE ABNORMALITY, CONSIDER INFERIOR ISCHEMIA PROLONGED QT ABNORMAL ECG WHEN COMPARED WITH ECG OF 11-JAN-2017 16:53, PREMATURE ATRIAL COMPLEXES ARE NOW PRESENT Confirmed by GANGA PRITCHETT, JOHN ([id number]) on 07/12/2017 12:58:29 PM Referred By: Confirmed By:JOHN SCHULER MD
[2017-07-12] MEDS: DARUNAVIR ETHANOLATE 600 MG TAB PO SCH ×2 (12:59→22:49)
[2017-07-12] MEDS: AMMONIUM LACTATE 12% LOTION 225 GM BOTTLE TP SCH (13:02)
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
[2017-07-12] MEDS: INSULIN DETEMIR 100 UNITS/ML MDV SQ SCH (22:46)
[2017-07-12] MEDS: THIAMINE HCL 100 MG TABLET (FP) PO SCH (22:46)
[2017-07-12] MEDS: ROSUVASTATIN CA 10 MG TABLET (FP) PO SCH (22:50)
[2017-07-13] MEDS: FLUOCINONIDE 0.05% CREAM (60 GM TUBE) TP SCH ×3 (00:06→22:44)
[2017-07-13] MEDS: diazePAM 5 MG TABLET PO PRN ×3 (02:35→22:46)
[2017-07-13] MEDS: FUROSEMIDE 20 MG TABLET (FP) PO SCH ×2 (05:36→14:14)
[2017-07-13] MEDS ORDERED: METHADONE HCL 5 MG TABLET (FOR DETOX USE ONLY) PO ONE (10:00)
[2017-07-13] MEDS: RANITIDINE HCL 150 MG TABLET (FP) PO SCH (10:42)
[2017-07-13] MEDS: PRENATAL VITAMINS W/ FOLIC ACID TABLET (FP) PO SCH (10:42)
[2017-07-13] MEDS: CLOPIDOGREL BISULFATE 75 MG TABLET (FP) PO SCH (10:42)
[2017-07-13] MEDS: FERROUS SO4 325 MG TABLET (FP) PO SCH ×2 (10:42→22:42)
[2017-07-13] MEDS: RALTEGRAVIR POTASSIUM 400 MG TAB PO SCH ×2 (10:42→22:43)
[2017-07-13] MEDS: CARVEDILOL 25 MG TABLET (FP) PO SCH ×2 (10:42→22:42)
[2017-07-13] MEDS: AMMONIUM LACTATE 12% LOTION 225 GM BOTTLE TP SCH (10:42)
[2017-07-13] MEDS: RITONAVIR 100 MG TABLET PO SCH ×2 (10:42→22:42)
[2017-07-13] MEDS: NICOTINE 21 MG/24 HOURS TOPICAL PATCH TD SCH (10:43)
[2017-07-13] MEDS: DARUNAVIR ETHANOLATE 600 MG TAB PO SCH ×2 (10:43→22:42)
[2017-07-13] MEDS: ASPIRIN 81 MG CHEWABLE TABLETS PO SCH (10:45)
--- NOTE | 2017-07-13 12:21 | PN ---
[facility] CIWA - CIWA Score Nausea/Vomitin-No Nausea/No Vomiting Muscle Tremors: 4-Moderate,w/Arms Extend Anxiety: 4-Mod. Anxious/Guarded Agitation: 4-Moderately Restless Paroxysmal Sweats: 1-Minimal Palms Moist Orientation: 0-Oriented Tacttile Disturbances: 3-Moderate Itch/Numb/Burn Auditory Disturbances: 0-None Visual Disturbances: 0-None Headache: 0-None Present CIWA-Ar Total Score: 16 S COWS - Scale Resting Pulse: 1= [place] 81-100 Sweatin= Chills/Flushing Restless Observation: 3= Extraneous Movement Pupil Size: 2= Moderately Dilated Bone or Joint Aches: 4=Acute Joint/Muscle Pain Runny Nose/ Eye Tearin= Nasal Congestion GI Upset > 30mins: 1= Stomach Cramp Tremor Observation of Outstretched Hands: 2= Slight Tremor Visible Yawning Observation: 1= 1-2x During Session Anxiety or Irritability: 2=Irritable/Anxious Goose Flesh Skin: 0=Smooth Skin COWS Score: 18 S Progress Note (SOAP) Subjective: ANXIETY,SWEATS, SLIGHT TREMORS. Objective: 07/13/17 12:18 Vital Signs Temperature 97.1 F L 07/13/17 10:23 Pulse Rate 84 07/13/17 10:23 Respiratory Rate 18 07/13/17 10:23 Blood Pressure 114/62 07/13/17 10:23 O2 Sat by Pulse Oximetry (%) Laboratory Last Values WBC 6.6 K/mm3 (4.0-10.0) D 07/12/17 07:00 RBC 3.93 M/mm3 (4.00-5.60) L 07/12/17 07:00 Hgb 9.1 GM/dL (11.7-16.9) L 07/12/17 07:00 Hct 29.5 % (35.4-49) L 07/12/17 07:00 MCV 75.0 fl (80-96) L 07/12/17 07:00 MCH 23.1 pg (25.7-33.7) L 07/12/17 07:00 MCHC 30.8 g/dl (32.0-35.9) L 07/12/17 07:00 RDW 19.1 % (11.9-15.9) H D 07/12/17 07:00 Plt Count 280 K/MM3 (134-434) 07/12/17 07:00 MPV 8.6 fl (7.5-11.1) 07/12/17 07:00 Sodium 141 mmol/L (136-145) 07/12/17 07:00 Potassium 4.4 mmol/L (3.5-5.1) 07/12/17 07:00 Chloride 107 mmol/L (98-107) 07/12/17 07:00 Carbon Dioxide 28 mmol/L (21-32) D 07/12/17 07:00 Anion Gap 6 (8-16) L 07/12/17 07:00 BUN 20 mg/dL (7-18) H D 07/12/17 07:00 Creatinine 1.5 mg/dL (0.7-1.3) H 07/12/17 07:00 Creat Clearance w eGFR 46.97 (>60) 07/12/17 07:00 POC Glucometer 68 UNITS (()) 07/13/17 06:38 Random Glucose 145 mg/dL (74-106) H D 07/12/17 07:00 Calcium 8.8 mg/dL (8.5-10.1) 07/12/17 07:00 Total Bilirubin 0.5 mg/dL (0.2-1.0) 07/12/17 07:00 AST 20 U/L (15-37) D 07/12/17 07:00 ALT 18 U/L (12-78) D 07/12/17 07:00 Alkaline Phosphatase 133 U/L (45-117) H D 07/12/17 07:00 Total Protein 6.4 g/dl (6.4-8.2) 07/12/17 07:00 Albumin 2.5 g/dl (3.4-5.0) L 07/12/17 07:00 LABS NOTED Assessment: 07/13/17 12:21 WITHDRAWAL SX Plan: CONTINUE DETOX REPEAT CBC IN AM
[2017-07-13] MEDS: THIAMINE HCL 100 MG TABLET (FP) PO SCH (22:41)
[2017-07-13] MEDS: ROSUVASTATIN CA 10 MG TABLET (FP) PO SCH (22:42)
[2017-07-13] MEDS: INSULIN DETEMIR 100 UNITS/ML MDV SQ SCH (22:43)
[2017-07-14] MEDS: FUROSEMIDE 20 MG TABLET (FP) PO SCH ×2 (06:17→14:14)
[2017-07-14] MEDS: diazePAM 5 MG TABLET PO PRN ×3 (06:17→19:51)
[2017-07-14] MEDS ORDERED: COLLOIDAL OATMEAL 1 BAR EACH TP ONE (08:51)
[2017-07-14 09:42] LABS: MCH 23.2 pg (25.7-33.7); MCHC 30.9 g/dl (32.0-35.9); MEAN PLT VOLUME 8.9 fl (7.5-11.1); PLATELET COUNT 243 K/MM3 (134-434); RDW 19.2 % (11.9-15.9); WHITE BLOOD COUNT 7.5 K/mm3 (4.0-10.0)
[2017-07-14] MEDS ORDERED: METHADONE HCL 5 MG TABLET (FOR DETOX USE ONLY) PO ONE (10:00)
[2017-07-14] MEDS: FERROUS SO4 325 MG TABLET (FP) PO SCH ×2 (10:45→22:52)
[2017-07-14] MEDS: RALTEGRAVIR POTASSIUM 400 MG TAB PO SCH ×2 (10:45→22:53)
[2017-07-14] MEDS: ASPIRIN 81 MG CHEWABLE TABLETS PO SCH (10:45)
[2017-07-14] MEDS: CLOPIDOGREL BISULFATE 75 MG TABLET (FP) PO SCH (10:45)
[2017-07-14] MEDS: RANITIDINE HCL 150 MG TABLET (FP) PO SCH (10:45)
[2017-07-14] MEDS: RITONAVIR 100 MG TABLET PO SCH ×2 (10:51→22:53)
[2017-07-14] MEDS: DARUNAVIR ETHANOLATE 600 MG TAB PO SCH ×2 (10:51→22:52)
[2017-07-14] MEDS: FLUOCINONIDE 0.05% CREAM (60 GM TUBE) TP SCH ×2 (10:51→22:54)
[2017-07-14] MEDS: PRENATAL VITAMINS W/ FOLIC ACID TABLET (FP) PO SCH (10:51)
[2017-07-14] MEDS: NICOTINE 21 MG/24 HOURS TOPICAL PATCH TD SCH (10:51)
[2017-07-14] MEDS: CARVEDILOL 25 MG TABLET (FP) PO SCH ×2 (10:51→22:52)
[2017-07-14] MEDS: AMMONIUM LACTATE 12% LOTION 225 GM BOTTLE TP SCH (10:51)
--- NOTE | 2017-07-14 12:35 | PN ---
[facility] Progress Note (SOAP) Subjective: ANXIETY,IRRITABILITY, SLIGHTLY RESTLESS,OOB ON HALLWAYS AMBULATING, INTERMITTENT SLEEP. Objective: 07/14/17 12:31 Vital Signs Temperature 96.4 F L 07/14/17 10:42 Pulse Rate 63 07/14/17 10:42 Respiratory Rate 18 07/14/17 10:42 Blood Pressure 125/71 07/14/17 10:42 O2 Sat by Pulse Oximetry (%) Laboratory Last Values WBC 7.5 K/mm3 (4.0-10.0) 07/14/17 07:00 RBC 3.86 M/mm3 (4.00-5.60) L 07/14/17 07:00 Hgb 8.9 GM/dL (11.7-16.9) L 07/14/17 07:00 Hct 28.9 % (35.4-49) L 07/14/17 07:00 MCV 75.0 fl (80-96) L 07/14/17 07:00 MCH 23.2 pg (25.7-33.7) L 07/14/17 07:00 MCHC 30.9 g/dl (32.0-35.9) L 07/14/17 07:00 RDW 19.2 % (11.9-15.9) H 07/14/17 07:00 Plt Count 243 K/MM3 (134-434) 07/14/17 07:00 MPV 8.9 fl (7.5-11.1) 07/14/17 07:00 Sodium 141 mmol/L (136-145) 07/12/17 07:00 Potassium 4.4 mmol/L (3.5-5.1) 07/12/17 07:00 Chloride 107 mmol/L (98-107) 07/12/17 07:00 Carbon Dioxide 28 mmol/L (21-32) D 07/12/17 07:00 Anion Gap 6 (8-16) L 07/12/17 07:00 BUN 20 mg/dL (7-18) H D 07/12/17 07:00 Creatinine 1.5 mg/dL (0.7-1.3) H 07/12/17 07:00 Creat Clearance w eGFR 46.97 (>60) 07/12/17 07:00 POC Glucometer 119 UNITS (()) 07/14/17 06:22 Random Glucose 145 mg/dL (74-106) H D 07/12/17 07:00 Calcium 8.8 mg/dL (8.5-10.1) 07/12/17 07:00 Total Bilirubin 0.5 mg/dL (0.2-1.0) 07/12/17 07:00 AST 20 U/L (15-37) D 07/12/17 07:00 ALT 18 U/L (12-78) D 07/12/17 07:00 Alkaline Phosphatase 133 U/L (45-117) H D 07/12/17 07:00 Total Protein 6.4 g/dl (6.4-8.2) 07/12/17 07:00 Albumin 2.5 g/dl (3.4-5.0) L 07/12/17 07:00 RPR Titer Nonreactive (NONREACTIVE) 07/12/17 07:00 Assessment: 07/14/17 12:32 WITHDRAWAL SX ABNORMAL LABS. PT TO FOLLOW UP WITH HISPMD AFTER DISCHARGE FOR MEDICAL MANAGEMENT. Plan: CONTINUE DETOX
[2017-07-14 15:21] LABS: ALBUMIN 2.7 g/dl (3.4-5.0); ANION GAP 7 (8-16); CALCIUM 8.9 mg/dL (8.5-10.1); CO2 30 mmol/L (21-32); CREATININE 1.4 mg/dL (0.7-1.3); GLUCOSE,RANDOM 91 mg/dL (74-106); SGOT/AST 20 U/L (15-37); SGPT/ALT 17 U/L (12-78)
[2017-07-14 15:22] LABS: ALK PHOS 139 U/L (45-117); BILIRUBIN,TOTAL 0.5 mg/dL (0.2-1.0); TOT PROT 6.4 g/dl (6.4-8.2)
[2017-07-14] MEDS: THIAMINE HCL 100 MG TABLET (FP) PO SCH (22:51)
[2017-07-14] MEDS: ROSUVASTATIN CA 10 MG TABLET (FP) PO SCH (22:52)
[2017-07-14] MEDS: INSULIN DETEMIR 100 UNITS/ML MDV SQ SCH (22:58)
[2017-07-15] MEDS: FUROSEMIDE 20 MG TABLET (FP) PO SCH ×2 (07:31→14:27)
[2017-07-15] MEDS ORDERED: METHADONE HCL 10 MG TABLET (FOR DETOX USE ONLY) PO ONE (10:00)
[2017-07-15] MEDS: ASPIRIN 81 MG CHEWABLE TABLETS PO SCH (10:36)
[2017-07-15] MEDS: PRENATAL VITAMINS W/ FOLIC ACID TABLET (FP) PO SCH (10:36)
[2017-07-15] MEDS: RITONAVIR 100 MG TABLET PO SCH ×2 (10:36→22:39)
[2017-07-15] MEDS: FLUOCINONIDE 0.05% CREAM (60 GM TUBE) TP SCH ×2 (10:36→22:43)
[2017-07-15] MEDS: FERROUS SO4 325 MG TABLET (FP) PO SCH ×2 (10:36→22:38)
[2017-07-15] MEDS: CARVEDILOL 25 MG TABLET (FP) PO SCH ×2 (10:36→22:38)
[2017-07-15] MEDS: RANITIDINE HCL 150 MG TABLET (FP) PO SCH (10:36)
[2017-07-15] MEDS: AMMONIUM LACTATE 12% LOTION 225 GM BOTTLE TP SCH (10:36)
[2017-07-15] MEDS: RALTEGRAVIR POTASSIUM 400 MG TAB PO SCH ×2 (10:36→22:38)
[2017-07-15] MEDS: CLOPIDOGREL BISULFATE 75 MG TABLET (FP) PO SCH (10:36)
[2017-07-15] MEDS: DARUNAVIR ETHANOLATE 600 MG TAB PO SCH ×2 (10:37→22:38)
[2017-07-15] MEDS: NICOTINE 21 MG/24 HOURS TOPICAL PATCH TD SCH (10:37)
--- NOTE | 2017-07-15 14:31 | PN ---
S Progress Note (SOAP) Subjective: Sweating, Anxious, Stomach Cramping,Vomiting, Body Aches. Objective: PT. A & O X 3, OBSERVED AMBULATING ON UNIT. NO ACUTE DISTRESS. PT. DENIES CHEST PAIN. 07/15/17 14:28 Vital Signs Temperature 99.0 F 07/15/17 09:34 Pulse Rate 66 07/15/17 09:34 Respiratory Rate 20 07/15/17 09:34 Blood Pressure 131/75 07/15/17 09:34 O2 Sat by Pulse Oximetry (%) Laboratory Tests 07/11/17 07/12/17 07/12/17 21:13 07:00 07:00 WBC 6.6 D RBC 3.93 L Hgb 9.1 L Hct 29.5 L MCV 75.0 L MCH 23.1 L MCHC 30.8 L RDW 19.1 H D Plt Count 280 MPV 8.6 Sodium 141 Potassium 4.4 Chloride 107 Carbon Dioxide 28 D Anion Gap 6 L BUN 20 H D Creatinine 1.5 H Creat Clearance w eGFR 46.97 POC Glucometer 153 Random Glucose 145 H D Calcium 8.8 Total Bilirubin 0.5 AST 20 D ALT 18 D Alkaline Phosphatase 133 H D Total Protein 6.4 Albumin 2.5 L RPR Titer 07/12/17 07/12/17 07/12/17 07:00 16:27 21:22 WBC RBC Hgb Hct MCV MCH MCHC RDW Plt Count MPV Sodium Potassium Chloride Carbon Dioxide Anion Gap BUN Creatinine Creat Clearance w eGFR POC Glucometer 234 221 Random Glucose Calcium Total Bilirubin AST ALT Alkaline Phosphatase Total Protein Albumin RPR Titer Nonreactive 07/13/17 07/13/17 07/13/17 06:38 16:23 16:48 WBC RBC Hgb Hct MCV MCH MCHC RDW Plt Count MPV Sodium Potassium Chloride Carbon Dioxide Anion Gap BUN Creatinine Creat Clearance w eGFR POC Glucometer 68 61 64 Random Glucose Calcium Total Bilirubin AST ALT Alkaline Phosphatase Total Protein Albumin RPR Titer 07/13/17 07/14/17 07/14/17 22:06 06:22 07:00 WBC 7.5 RBC 3.86 L Hgb 8.9 L Hct 28.9 L MCV 75.0 L MCH 23.2 L MCHC 30.9 L RDW 19.2 H Plt Count 243 MPV 8.9 Sodium Potassium Chloride Carbon Dioxide Anion Gap BUN Creatinine Creat Clearance w eGFR POC Glucometer 168 119 Random Glucose Calcium Total Bilirubin AST ALT Alkaline Phosphatase Total Protein Albumin RPR Titer 07/14/17 07/14/17 07/14/17 12:20 16:21 21:16 WBC RBC Hgb Hct MCV MCH MCHC RDW Plt Count MPV Sodium 140 Potassium 4.6 Chloride 103 Carbon Dioxide 30 Anion Gap 7 L BUN 14 D Creatinine 1.4 H Creat Clearance w eGFR 50.86 POC Glucometer 203 202 Random Glucose 91 D Calcium 8.9 Total Bilirubin 0.5 AST 20 ALT 17 Alkaline Phosphatase 139 H Total Protein 6.4 Albumin 2.7 L RPR Titer LABS NOTED. Assessment: 07/15/17 14:29 WITHDRAWAL SYMPTOMS. Plan: CONTINUE DETOX.
[2017-07-15 20:28] LABS: URINE APPEARANCE CLEAR; URINE BILIRUBIN NEGATIVE (NEGATIVE); URINE BLOOD NEGATIVE (NEGATIVE); URINE COLOR LTYELLOW; URINE GLUCOSE (UA) NEGATIVE (NEGATIVE); URINE KETONE NEGATIVE (NEGATIVE); URINE LEUK ESTERASE NEGATIVE (NEGATIVE); URINE NITRITE NEGATIVE (NEGATIVE); URINE UROBILINOGEN NEGATIVE mg/dL (0.2-1.0)
[2017-07-15 20:55] LABS: URINE PROTEIN 1+ (NEGATIVE)
[2017-07-15 21:08] LABS: URINE RBC <1 /hpf (0-3)
[2017-07-15] MEDS: ROSUVASTATIN CA 10 MG TABLET (FP) PO SCH (22:38)
[2017-07-15] MEDS: THIAMINE HCL 100 MG TABLET (FP) PO SCH (22:39)
[2017-07-15] MEDS: INSULIN DETEMIR 100 UNITS/ML MDV SQ SCH (22:43)
[2017-07-16] MEDS: FUROSEMIDE 20 MG TABLET (FP) PO SCH ×2 (05:51→14:22)
[2017-07-16] MEDS ORDERED: METHADONE HCL 5 MG TABLET (FOR DETOX USE ONLY) PO ONE (06:00)
[2017-07-16] MEDS: PRENATAL VITAMINS W/ FOLIC ACID TABLET (FP) PO SCH (11:02)
[2017-07-16] MEDS: RALTEGRAVIR POTASSIUM 400 MG TAB PO SCH ×2 (11:02→21:08)
[2017-07-16] MEDS: CARVEDILOL 25 MG TABLET (FP) PO SCH ×2 (11:02→21:08)
[2017-07-16] MEDS: FERROUS SO4 325 MG TABLET (FP) PO SCH ×2 (11:02→21:08)
[2017-07-16] MEDS: DARUNAVIR ETHANOLATE 600 MG TAB PO SCH ×2 (11:02→21:09)
[2017-07-16] MEDS: RITONAVIR 100 MG TABLET PO SCH ×2 (11:02→21:09)
[2017-07-16] MEDS: CLOPIDOGREL BISULFATE 75 MG TABLET (FP) PO SCH (11:03)
[2017-07-16] MEDS: RANITIDINE HCL 150 MG TABLET (FP) PO SCH (11:03)
[2017-07-16] MEDS: ASPIRIN 81 MG CHEWABLE TABLETS PO SCH (11:03)
[2017-07-16] MEDS: NICOTINE 21 MG/24 HOURS TOPICAL PATCH TD SCH (11:04)
[2017-07-16] MEDS: FLUOCINONIDE 0.05% CREAM (60 GM TUBE) TP SCH ×2 (11:05→21:10)
[2017-07-16] MEDS: AMMONIUM LACTATE 12% LOTION 225 GM BOTTLE TP SCH (11:05)
[2017-07-16] MEDS ORDERED: hydrOXYzine PAMOATE 50 MG CAPSULE (FP) PO PRN (15:01)
--- NOTE | 2017-07-16 18:23 | DS ---
[facility] Detox Discharge Summary Admission Date: 07/11/17 Discharge Date: 07/16/17 - History Present History: Opioid Dependence, Sedative Dependence Pertinent Past History: Iron deficiency anemia Asthma Old IN CHF HTN HLD DMT2 HIV Hepatitis C - Physical Exam Results Vital Signs: Vital Signs Temperature 97.4 F L 07/16/17 09:32 Pulse Rate 65 07/16/17 09:32 Respiratory Rate 18 07/16/17 09:32 Blood Pressure 133/65 07/16/17 09:32 O2 Sat by Pulse Oximetry (%) Pertinent Admission Physical Exam Findings: Withdrawal symptoms Laboratory Tests 07/11/17 07/12/17 07/12/17 21:13 07:00 07:00 WBC 6.6 D RBC 3.93 L Hgb 9.1 L Hct 29.5 L MCV 75.0 L MCH 23.1 L MCHC 30.8 L RDW 19.1 H D Plt Count 280 MPV 8.6 Sodium 141 Potassium 4.4 Chloride 107 Carbon Dioxide 28 D Anion Gap 6 L BUN 20 H D Creatinine 1.5 H Creat Clearance w eGFR 46.97 POC Glucometer 153 Random Glucose 145 H D Calcium 8.8 Total Bilirubin 0.5 AST 20 D ALT 18 D Alkaline Phosphatase 133 H D Total Protein 6.4 Albumin 2.5 L Urine Color Urine Appearance Urine pH Ur Specific Tell Urine Protein Urine Glucose (UA) Urine Ketones Urine Blood Urine Nitrite Urine Bilirubin Urine Urobilinogen Ur Leukocyte Esterase Urine RBC Urine WBC Ur Epithelial Cells RPR Titer 07/12/17 07/12/17 07/12/17 07:00 16:27 21:22 WBC RBC Hgb Hct MCV MCH MCHC RDW Plt Count MPV Sodium Potassium Chloride Carbon Dioxide Anion Gap BUN Creatinine Creat Clearance w eGFR POC Glucometer 234 221 Random Glucose Calcium Total Bilirubin AST ALT Alkaline Phosphatase Total Protein Albumin Urine Color Urine Appearance Urine pH Ur Specific Tell Urine Protein Urine Glucose (UA) Urine Ketones Urine Blood Urine Nitrite Urine Bilirubin Urine Urobilinogen Ur Leukocyte Esterase Urine RBC Urine WBC Ur Epithelial Cells RPR Titer Nonreactive 07/13/17 07/13/17 07/13/17 06:38 16:23 16:48 WBC RBC Hgb Hct MCV MCH MCHC RDW Plt Count MPV Sodium Potassium Chloride Carbon Dioxide Anion Gap BUN Creatinine Creat Clearance w eGFR POC Glucometer 68 61 64 Random Glucose Calcium Total Bilirubin AST ALT Alkaline Phosphatase Total Protein Albumin Urine Color Urine Appearance Urine pH Ur Specific Tell Urine Protein Urine Glucose (UA) Urine Ketones Urine Blood Urine Nitrite Urine Bilirubin Urine Urobilinogen Ur Leukocyte Esterase Urine RBC Urine WBC Ur Epithelial Cells RPR Titer 07/13/17 07/14/17 07/14/17 22:06 06:22 07:00 WBC 7.5 RBC 3.86 L Hgb 8.9 L Hct 28.9 L MCV 75.0 L MCH 23.2 L MCHC 30.9 L RDW 19.2 H Plt Count 243 MPV 8.9 Sodium Potassium Chloride Carbon Dioxide Anion Gap BUN Creatinine Creat Clearance w eGFR POC Glucometer 168 119 Random Glucose Calcium Total Bilirubin AST ALT Alkaline Phosphatase Total Protein Albumin Urine Color Urine Appearance Urine pH Ur Specific Tell Urine Protein Urine Glucose (UA) Urine Ketones Urine Blood Urine Nitrite Urine Bilirubin Urine Urobilinogen Ur Leukocyte Esterase Urine RBC Urine WBC Ur Epithelial Cells RPR Titer 07/14/17 07/14/17 07/14/17 12:20 16:21 21:16 WBC RBC Hgb Hct MCV MCH MCHC RDW Plt Count MPV Sodium 140 Potassium 4.6 Chloride 103 Carbon Dioxide 30 Anion Gap 7 L BUN 14 D Creatinine 1.4 H Creat Clearance w eGFR 50.86 POC Glucometer 203 202 Random Glucose 91 D Calcium 8.9 Total Bilirubin 0.5 AST 20 ALT 17 Alkaline Phosphatase 139 H Total Protein 6.4 Albumin 2.7 L Urine Color Urine Appearance Urine pH Ur Specific Tell Urine Protein Urine Glucose (UA) Urine Ketones Urine Blood Urine Nitrite Urine Bilirubin Urine Urobilinogen Ur Leukocyte Esterase Urine RBC Urine WBC Ur Epithelial Cells RPR Titer 07/15/17 07/15/17 07/15/17 16:31 16:53 22:36 WBC RBC Hgb Hct MCV MCH MCHC RDW Plt Count MPV Sodium Potassium Chloride Carbon Dioxide Anion Gap BUN Creatinine Creat Clearance w eGFR POC Glucometer 175 121 Random Glucose Calcium Total Bilirubin AST ALT Alkaline Phosphatase Total Protein Albumin Urine Color Ltyellow Urine Appearance Clear Urine pH 6.0 Ur Specific Tell 1.015 Urine Protein 1+ H Urine Glucose (UA) Negative Urine Ketones Negative Urine Blood Negative Urine Nitrite Negative Urine Bilirubin Negative Urine Urobilinogen Negative Ur Leukocyte Esterase Negative Urine RBC <1 Urine WBC None Ur Epithelial Cells Rare RPR Titer 07/16/17 06:12 WBC RBC Hgb Hct MCV MCH MCHC RDW Plt Count MPV Sodium Potassium Chloride Carbon Dioxide Anion Gap BUN Creatinine Creat Clearance w eGFR POC Glucometer 137 Random Glucose Calcium Total Bilirubin AST ALT Alkaline Phosphatase Total Protein Albumin Urine Color Urine Appearance Urine pH Ur Specific Tell Urine Protein Urine Glucose (UA) Urine Ketones Urine Blood Urine Nitrite Urine Bilirubin Urine Urobilinogen Ur Leukocyte Esterase Urine RBC Urine WBC Ur Epithelial Cells RPR Titer Labs noted - Treatment Hospital Course: Detox Protocol Followed, Detoxed Safely, Responded well, Discharged Condition Good - Medication Discharge Medications: Ambulatory Orders Duloxetine HCl [Cymbalta -] 20 mg PO DAILY 08/18/16 Cholecalciferol (Vitamin D3) [Vitamin D3 -] 1,000 unit PO DAILY #30 tab Folic Acid - 1 mg PO DAILY #30 tablet 09/07/16 Furosemide [Lasix -] 20 mg PO BID #30 tablet 09/07/16 Potassium Chloride [Klor-Con M20] 20 meq PO DAILY 01/11/17 Albuterol Sulfate Inhaler - [Ventolin HFA Inhaler -] 2 inh PO Q4H PRN #1 inhaler 01/16/17 Aspirin [ASA -] 81 mg PO DAILY tab.chew 01/16/17 Betamethasone Valerate [Valisone 0.1% Cream -] 1 applic TP BID #1 01/16/17 Carvedilol [Coreg -] 25 mg PO BID #0 tablet 01/16/17 Clopidogrel Bisulfate [Plavix -] 75 mg PO DAILY #30 tablet 01/16/17 Darunavir Ethanolate [Prezista -] 600 mg PO BID tab 01/16/17 Ferrous Sulfate [Feosol] 325 mg PO BID #0 ud 01/16/17 Fluconazole [Diflucan -] 200 mg PO DAILY #0 tablet 01/16/17 Fluocinonide 0.05% Cream [Lidex 0.05% Cream -] 1 applic TP BID #1 tube 01/16/17 Maraviroc [Selzentry] 300 mg PO BID #60 tablet 01/16/17 Polyvinyl Alcohol [Artificial Tears] 1 drop OU TID drops 01/16/17 Raltegravir [Isentress] 400 mg PO BID #0 tab 01/16/17 Ranitidine [Zantac -] 150 mg PO DAILY #60 tablet 01/16/17 Ritonavir [Norvir -] 100 mg PO BID #0 tab 01/16/17 Rosuvastatin [Crestor -] 10 mg PO HS #30 tablet 01/16/17 Insulin (Levemir) [Levemir Vial] 60 units SQ HS 02/02/17 Insulin Aspart [Novolog] 0 unit SQ ACHS 02/02/17 - Diagnosis (1) Nicotine dependence Current Visit: Yes Status: Chronic Qualifiers: Nicotine product type: cigarettes Substance use status: in withdrawal Qualified Code(s): F17.213 - Nicotine dependence, cigarettes, with withdrawal (2) Opioid dependence with withdrawal Current Visit: Yes Status: Acute (3) Sedative, hypnotic or anxiolytic dependence with withdrawal, uncomplicated Current Visit: Yes Status: Acute (4) CHF (congestive heart failure) Current Visit: Yes Status: Chronic Qualifiers: Congestive heart failure type: unspecified congestive heart failure type Congestive heart failure chronicity: chronic Qualified Code(s): I50.9 - Heart failure, unspecified (5) HIV (human immunodeficiency virus infection) Current Visit: Yes Status: Chronic (6) Hepatitis C Current Visit: Yes Status: Chronic Qualifiers: Viral hepatitis chronicity: chronic Hepatic coma status: without hepatic coma Qualified Code(s): B18.2 - Chronic viral hepatitis C (7) Hyperlipidemia Current Visit: Yes Status: Chronic Qualifiers: Hyperlipidemia type: unspecified Qualified Code(s): E78.5 - Hyperlipidemia, unspecified (8) Hypertension Current Visit: Yes Status: Chronic Qualifiers: Hypertension type: essential hypertension Qualified Code(s): I10 - Essential (primary) hypertension (9) Type 2 diabetes mellitus Current Visit: Yes Status: Chronic Qualifiers: Diabetes mellitus complication status: without complication Diabetes mellitus fpc insulin use: without fpc use Qualified Code(s): E11.9 - Type 2 diabetes mellitus without complications (10) Anemia, iron deficiency Current Visit: Yes Status: Chronic (11) Myocardial infarct, old Current Visit: Yes Status: Chronic (12) Asthma Current Visit: Yes Status: Chronic - AMA Did Patient Leave Against Medical Advice: No
[2017-07-16] MEDS: THIAMINE HCL 100 MG TABLET (FP) PO SCH (21:08)
[2017-07-16] MEDS: INSULIN DETEMIR 100 UNITS/ML MDV SQ SCH (21:10)
[2017-07-16] MEDS: ROSUVASTATIN CA 10 MG TABLET (FP) PO SCH (21:11)
[2017-07-17] MEDS: FUROSEMIDE 20 MG TABLET (FP) PO SCH ×2 (06:37→14:12)
[2017-07-17 06:58] VITALS: PULSE 75
[2017-07-17] MEDS: ASPIRIN 81 MG CHEWABLE TABLETS PO SCH (11:00)
[2017-07-17] MEDS: FERROUS SO4 325 MG TABLET (FP) PO SCH ×2 (11:00→21:24)
[2017-07-17] MEDS: CARVEDILOL 25 MG TABLET (FP) PO SCH ×2 (11:25→21:24)
[2017-07-17] MEDS: RALTEGRAVIR POTASSIUM 400 MG TAB PO SCH ×2 (11:26→21:23)
[2017-07-17] MEDS: NICOTINE 21 MG/24 HOURS TOPICAL PATCH TD SCH (11:27)
[2017-07-17] MEDS: CLOPIDOGREL BISULFATE 75 MG TABLET (FP) PO SCH (11:27)
[2017-07-17] MEDS: RITONAVIR 100 MG TABLET PO SCH ×2 (11:27→21:23)
[2017-07-17] MEDS ORDERED: hydrOXYzine PAMOATE 50 MG CAPSULE (FP) PO PRN (12:26)
[2017-07-17] MEDS: FLUOCINONIDE 0.05% CREAM (60 GM TUBE) TP SCH ×2 (12:26→21:24)
[2017-07-17] MEDS: AMMONIUM LACTATE 12% LOTION 225 GM BOTTLE TP SCH (12:26)
[2017-07-17] MEDS: RANITIDINE HCL 150 MG TABLET (FP) PO SCH (12:28)
[2017-07-17] MEDS: DARUNAVIR ETHANOLATE 600 MG TAB PO SCH ×2 (12:28→21:24)
[2017-07-17] MEDS: PRENATAL VITAMINS W/ FOLIC ACID TABLET (FP) PO SCH (12:28)
--- NOTE | 2017-07-17 12:30 | PN ---
S Progress Note Note: bgm 53 this morning will reduce levemir from 60 unit to 50 unit hs anxiety vistaril 50 mgs po q 4 hrs prn bgm monitoring
--- NOTE | 2017-07-17 12:59 | HP ---
Psychiatrist Admission - Data Date of interview: 07/17/17 Admission source: 3N Identifying data: This is the one of the several inpatient rehabilitation admissions for this 67 year old [place] male, he is a afther of 2, unedomciled, unemployed and supported on 's benefits. Medical History: Anemia,HTN, CHF with defibrilator/pacemacer, cardic stents, DM , HepC, eczema, GERD, hypercholesterolemia, HIV since 1988. Smokes cigarettes 20 a day. Psychiatric History: patient denies. Physical/Sexual Abuse/Trauma History: patient denies Vital Signs: Vital Signs - 24 hr 07/17/17 07/17/17 07/17/17 00:30 03:30 06:58 Temperature 98.7 F Pulse Rate 75 Respiratory 18 18 18 Rate Blood Pressure 125/59 Allergies/Adverse Reactions: Allergies Allergy/AdvReac Type Severity Reaction Status Date / Time morphine Allergy Severe Nausea Verified 07/16/17 14:31 Date of last physical exam: 07/12/17 Concur with the findings of this exam: Yes - Substance Abuse/Tx History Hx Alcohol Use: Yes Hx Substance Use: Yes Substance Use Type: Cocaine (age at first use 16, uses 1-2 times a week), Heroin (age of first use 15, daily 6 bags), Tranquilizers (started at age of 22 , xanax 3-6 times a week, 2 mg) Hx Substance Use Treatment: Yes (several [facility] rehabilitation tx.) - Admission Criteria Previous failed treatment: Yes Poor recovery environment: Yes Comorbidities: No Lacks judgement: Yes Mental Status Exam - Mental Status Exam Alert and Oriented to: Time, Place, Person Cognitive Function: Fair Patient Appearance: Well Groomed Mood: Irritable Affect: Appropriate, Mood Congruent Patient Behavior: Appropriate, Cooperative Speech Pattern: Clear, Appropriate Voice Loudness: Normal Thought Process: Intact, Goal Oriented Thought Disorder: Not Present Hallucinations: Denies Suicidal Ideation: Denies Homicidal Ideation: Denies Insight/Judgement: Fair Sleep: Fair Appetite: Good Muscle strength/Tone: Normal Gait/Station: Normal Psychiatric Findings - Problem List ([place] 1, 2,3) (1) Cocaine dependence Current Visit: Yes Status: Acute (2) Substance induced mood disorder Current Visit: Yes Status: Acute (3) Nicotine dependence Current Visit: Yes Status: Chronic Qualifiers: Nicotine product type: cigarettes Substance use status: in withdrawal Qualified Code(s): F17.213 - Nicotine dependence, cigarettes, with withdrawal (4) Opioid dependence Current Visit: Yes Status: Acute (5) Sedative hypnotic or anxiolytic dependence Current Visit: Yes Status: Acute - Initial Treatment Plan Initial Treatment Plan: monitor progress as needed.
[2017-07-17] MEDS: THIAMINE HCL 100 MG TABLET (FP) PO SCH (21:24)
[2017-07-17] MEDS: ROSUVASTATIN CA 10 MG TABLET (FP) PO SCH (21:24)
[2017-07-17] MEDS ORDERED: INSULIN DETEMIR 100 UNITS/ML MDV SQ SCH (22:00)
[2017-07-18 06:37] VITALS: BP 135/67; TEMP 98.9
[2017-07-18] MEDS: FUROSEMIDE 20 MG TABLET (FP) PO SCH (07:35)
[2017-07-18] MEDS: ASPIRIN 81 MG CHEWABLE TABLETS PO SCH (09:08)
[2017-07-18] MEDS: CARVEDILOL 25 MG TABLET (FP) PO SCH (09:09)
[2017-07-18] MEDS: FERROUS SO4 325 MG TABLET (FP) PO SCH (09:09)
[2017-07-18] MEDS: RALTEGRAVIR POTASSIUM 400 MG TAB PO SCH (09:09)
[2017-07-18] MEDS: AMMONIUM LACTATE 12% LOTION 225 GM BOTTLE TP SCH (09:10)
[2017-07-18] MEDS: FLUOCINONIDE 0.05% CREAM (60 GM TUBE) TP SCH (09:10)
[2017-07-18] MEDS: RITONAVIR 100 MG TABLET PO SCH (09:11)
[2017-07-18] MEDS: NICOTINE 21 MG/24 HOURS TOPICAL PATCH TD SCH (09:11)
[2017-07-18] MEDS: PRENATAL VITAMINS W/ FOLIC ACID TABLET (FP) PO SCH (09:13)
[2017-07-18] MEDS: CLOPIDOGREL BISULFATE 75 MG TABLET (FP) PO SCH (09:13)
[2017-07-18] MEDS: DARUNAVIR ETHANOLATE 600 MG TAB PO SCH (09:13)
[2017-07-18] MEDS: RANITIDINE HCL 150 MG TABLET (FP) PO SCH (09:14)
--- NOTE | 2017-07-18 11:06 | PN ---
S Progress Note Note: Due to the patient's threatening remarks toward the staff the team decided to discharge patient . Security was called and patient was discharged. Please see the medical staff notes.
== END 2017-07-18 10:00 | disposition home or self-care (01) | DRG 895 ==
LOC: YASAS 18:01 → Y3N 21:08 → Y5N 07-16 13:21
PROVIDERS: ADMIT Internal Medicine; ATTEND Psychiatry & Neurology Psychiatry
PROC: HZ2ZZZZ Detoxification Services for Substance Abuse Treatment (ICD-10-PCS; 2017-07-16)
PROC: HZ42ZZZ Group Counseling for Substance Abuse Treatment, Cognitive-Behavioral (ICD-10-PCS; principal; 2017-07-18)
DX: F11.20 Opioid dependence, uncomplicated (principal); F13.20 Sedative, hypnotic or anxiolytic dependence, uncomplicated; F14.20 Cocaine dependence, uncomplicated; F17.213 Nicotine dependence, cigarettes, with withdrawal; F19.282 Other psychoactive substance dependence with psychoactive substance-induced sleep disorder; F19.24 Other psychoactive substance dependence with psychoactive substance-induced mood disorder; E11.9 Type 2 diabetes mellitus without complications; I10 Essential (primary) hypertension; I50.9 Heart failure, unspecified; B18.2 Chronic viral hepatitis C; G47.00 Insomnia, unspecified; L40.9 Psoriasis, unspecified; Z21 Asymptomatic human immunodeficiency virus [HIV] infection status; Z95.810 Presence of automatic (implantable) cardiac defibrillator
CPT/HCPCS: 36415; 80053; 81003; 81015; 85027; 86593; 93005; 93010

== ENCOUNTER 2018-01-11 11:27 | Inpatient (IN) | payer OTHER ==
[2018-01-11 16:37] VITALS: BMI 30.4
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
[2018-01-11] MEDS ORDERED: IBUPROFEN 400 MG TABLET (FP) PO PRN (18:54)
[2018-01-11] MEDS ORDERED: METHADONE HCL 10 MG TABLET (FOR DETOX USE ONLY) PO ONE ×2 (18:54→23:00)
[2018-01-11] MEDS ORDERED: MAGNESIUM HYDROX 2400MG/30ML ORAL SUSPENSION 30 ML CUP PO PRN (18:54)
[2018-01-11] MEDS ORDERED: LOPERAMIDE HCL 2 MG CAPSULE PO PRN (18:54)
[2018-01-11] MEDS ORDERED: P-EPHED 60MG/TRIPROLIDI 2.5MG TABLET PO PRN (18:54)
[2018-01-11] MEDS ORDERED: diazePAM 5 MG TABLET PO ONE (18:54)
[2018-01-11] MEDS ORDERED: MAGNESIUM CITRATE 300 ML BOTTLE PO PRN (18:54)
[2018-01-11] MEDS ORDERED: MAG HYDROX/AL HYDROX/SIMETH 30 ML UNIT-DOSE CUP PO PRN (18:54)
[2018-01-11] MEDS ORDERED: guaiFENesin/D-METHORPHAN HB 10 ML UNIT-DOSE CUPS PO PRN (18:54)
[2018-01-11] MEDS ORDERED: MENTHOL/PHENOL 1 EACH UD MM PRN (18:54)
[2018-01-11] MEDS ORDERED: NICOTINE POLACRILEX 2 MG GUM BUC PRN (18:54)
[2018-01-11] MEDS ORDERED: INSULIN (NOVOLOG) ASPART 100 UNITS/ML 10ML VIAL ONE (20:02)
[2018-01-11] MEDS: INSULIN SLIDING SCALE (NOVOLOG) 1 VIAL SQ SCH (20:02)
[2018-01-11] MEDS ORDERED: MARAVIROC 150 MG TAB PO SCH (22:00)
[2018-01-11] MEDS ORDERED: [UNRECOGNIZED DRUG - OTHER] SQ SCH (22:00)
[2018-01-11] MEDS ORDERED: INSULIN GLARGINE HUM REC ANLOG 35 UNIT SQ SCH (22:00)
[2018-01-11] MEDS: ARTIFICIAL TEARS (POLYVINYL ALCOHOL 1.4%) OPTH DROPS OU SCH (22:12)
[2018-01-11] MEDS: diazePAM 5 MG TABLET PO SCH (22:13)
[2018-01-11] MEDS: ROSUVASTATIN CA 10 MG TABLET (FP) PO SCH (22:13)
[2018-01-11] MEDS: THIAMINE HCL 100 MG TABLET (FP) PO SCH (22:13)
[2018-01-11] MEDS: DARUNAVIR ETHANOLATE 600 MG TAB PO SCH (22:13)
[2018-01-11] MEDS: CARVEDILOL 25 MG TABLET (FP) PO SCH (22:13)
[2018-01-11] MEDS: RALTEGRAVIR POTASSIUM 400 MG TAB PO SCH (22:13)
[2018-01-11] MEDS: RITONAVIR 100 MG TABLET PO SCH (22:18)
[2018-01-11 22:52] LABS: URINE APPEARANCE CLEAR; URINE BILIRUBIN NEGATIVE (NEGATIVE); URINE BLOOD NEGATIVE (NEGATIVE); URINE COLOR YELLOW; URINE GLUCOSE (UA) 3+ (NEGATIVE); URINE KETONE NEGATIVE (NEGATIVE); URINE LEUK ESTERASE NEGATIVE (NEGATIVE); URINE NITRITE NEGATIVE (NEGATIVE); URINE PROTEIN 3+ (NEGATIVE); URINE UROBILINOGEN NEGATIVE mg/dL (0.2-1.0)
[2018-01-11 23:01] LABS: URINE HYALINE CAST 13 /lpf
[2018-01-12] MEDS: ARTIFICIAL TEARS (POLYVINYL ALCOHOL 1.4%) OPTH DROPS OU SCH ×4 (00:01→22:05)
[2018-01-12] MEDS: diazePAM 5 MG TABLET PO SCH ×3 (05:58→22:06)
[2018-01-12] MEDS: FUROSEMIDE 40 MG TABLET (FP) PO SCH ×2 (06:02→16:15)
[2018-01-12] MEDS ORDERED: INSULIN (NOVOLOG) ASPART 100 UNITS/ML 10ML VIAL ONE ×3 (06:22→17:07)
[2018-01-12] MEDS: INSULIN SLIDING SCALE (NOVOLOG) 1 VIAL SQ SCH ×3 (07:22→17:59)
[2018-01-12] MEDS: FERROUS SO4 325 MG TABLET (FP) PO SCH ×2 (07:23→17:58)
[2018-01-12] MEDS ORDERED: METHADONE HCL 10 MG TABLET (FOR DETOX USE ONLY) PO SCH (10:00)
[2018-01-12 10:14] LABS: HEMATOCRIT 33.6 % (35.4-49); HEMOGLOBIN 10.7 GM/dL (11.7-16.9); MCH 26.4 pg (25.7-33.7); MCHC 31.7 g/dl (32.0-35.9); MEAN CELL VOLUME 83.3 fl (80-96); MEAN PLT VOLUME 9.9 fl (7.5-11.1); PLATELET COUNT 209 K/MM3 (134-434); RBC 4.04 M/mm3 (4.00-5.60); RDW 16.5 % (11.9-15.9); WHITE BLOOD COUNT 7.9 K/mm3 (4.0-10.0)
[2018-01-12] MEDS: PRENATAL VITAMINS W/ FOLIC ACID TABLET (FP) PO SCH (10:31)
[2018-01-12] MEDS: diazePAM 5 MG TABLET PO PRN (10:31)
[2018-01-12] MEDS: RALTEGRAVIR POTASSIUM 400 MG TAB PO SCH ×2 (10:31→22:06)
[2018-01-12] MEDS: RANITIDINE HCL 150 MG TABLET (FP) PO SCH (10:31)
[2018-01-12] MEDS: ASPIRIN 81 MG CHEWABLE TABLETS PO SCH (10:31)
[2018-01-12] MEDS: POTASSIUM CHLORIDE TABS 20 MEQ TABLET.ER (FP) PO SCH (10:31)
[2018-01-12] MEDS: CLOPIDOGREL BISULFATE 75 MG TABLET (FP) PO SCH (10:31)
[2018-01-12 10:32] LABS: CHLORIDE 103 mmol/L (98-107); POTASSIUM 4.5 mmol/L (3.5-5.1); SODIUM 139 mmol/L (136-145)
[2018-01-12] MEDS: RITONAVIR 100 MG TABLET PO SCH ×2 (10:32→22:05)
[2018-01-12] MEDS: DARUNAVIR ETHANOLATE 600 MG TAB PO SCH ×2 (10:33→22:08)
[2018-01-12] MEDS: MARAVIROC 150 MG TAB PO SCH ×2 (10:33→22:08)
[2018-01-12] MEDS: CHOLECALCIFEROL (VITAMIN D3) 1,000 UNIT TABLET (FP) PO SCH (10:34)
[2018-01-12 10:58] LABS: ALBUMIN 2.5 g/dl (3.4-5.0); ALK PHOS 268 U/L (45-117); ANION GAP 12 (8-16); BILIRUBIN,TOTAL 0.2 mg/dL (0.2-1.0); BLOOD UREA NITROGEN 26 mg/dL (7-18); CALCIUM 8.3 mg/dL (8.5-10.1); CO2 24 mmol/L (21-32); CREATININE 1.8 mg/dL (0.7-1.3); SGOT/AST 33 U/L (15-37); SGPT/ALT 35 U/L (12-78); TOT PROT 6.3 g/dl (6.4-8.2)
--- NOTE | 2018-01-12 11:47 | PN ---
S CIWA - CIWA Score Nausea/Vomitin-No Nausea/No Vomiting Muscle Tremors: 4-Moderate,w/Arms Extend Anxiety: 4-Mod. Anxious/Guarded Agitation: 4-Moderately Restless Paroxysmal Sweats: 1-Minimal Palms Moist Orientation: 0-Oriented Tacttile Disturbances: 3-Moderate Itch/Numb/Burn Auditory Disturbances: 0-None Visual Disturbances: 0-None Headache: 0-None Present CIWA-Ar Total Score: 16 [facility] COWS - Scale Resting Pulse: 0= [place] 80 or Below Sweatin= Chills/Flushing Restless Observation: 3= Extraneous Movement Pupil Size: 2= Moderately Dilated Bone or Joint Aches: 4=Acute Joint/Muscle Pain Runny Nose/ Eye Tearin= Nasal Congestion GI Upset > 30mins: 1= Stomach Cramp Tremor Observation of Outstretched Hands: 2= Slight Tremor Visible Yawning Observation: 1= 1-2x During Session Anxiety or Irritability: 2=Irritable/Anxious Goose Flesh Skin: 0=Smooth Skin COWS Score: 17 S Progress Note (SOAP) Subjective: ANXIETY, SWEATS, TREMORS, Objective: 01/12/18 11:46 Vital Signs Temperature 97.6 F 01/12/18 09:45 Pulse Rate 63 01/12/18 09:45 Respiratory Rate 18 01/12/18 09:45 Blood Pressure 129/69 01/12/18 09:45 O2 Sat by Pulse Oximetry (%) Laboratory Last Values WBC 7.9 K/mm3 (4.0-10.0) 01/12/18 07:40 RBC 4.04 M/mm3 (4.00-5.60) 01/12/18 07:40 Hgb 10.7 GM/dL (11.7-16.9) L D 01/12/18 07:40 Hct 33.6 % (35.4-49) L D 01/12/18 07:40 MCV 83.3 fl (80-96) 01/12/18 07:40 MCH 26.4 pg (25.7-33.7) D 01/12/18 07:40 MCHC 31.7 g/dl (32.0-35.9) L 01/12/18 07:40 RDW 16.5 % (11.9-15.9) H D 01/12/18 07:40 Plt Count 209 K/MM3 (134-434) 01/12/18 07:40 MPV 9.9 fl (7.5-11.1) D 01/12/18 07:40 POC Glucometer 274 UNITS (80-120) 01/12/18 06:01 Urine Color Yellow 01/11/18 Unknown Urine Appearance Clear 01/11/18 Unknown Urine pH 5.0 (5.0-8.0) 01/11/18 Unknown Ur Specific [place] 1.022 (1.001-1.035) 01/11/18 Unknown Urine Protein 3+ (NEGATIVE) H D 01/11/18 Unknown Urine Glucose (UA) 3+ (NEGATIVE) H 01/11/18 Unknown Urine Ketones Negative (NEGATIVE) 01/11/18 Unknown Urine Blood Negative (NEGATIVE) 01/11/18 Unknown Urine Nitrite Negative (NEGATIVE) 01/11/18 Unknown Urine Bilirubin Negative (NEGATIVE) 01/11/18 Unknown Urine Urobilinogen Negative mg/dL (0.2-1.0) 01/11/18 Unknown Ur Leukocyte Esterase Negative (NEGATIVE) 01/11/18 Unknown Urine WBC (Auto) 2 /hpf (3-5) 01/11/18 Unknown Urine RBC (Auto) 2 /hpf (0-3) 01/11/18 Unknown Hyaline Casts 13 /lpf 01/11/18 Unknown Assessment: 01/12/18 11:46 WITHDRAWAL SX Plan: CONTINUE DETOX
[2018-01-12] MEDS: CARVEDILOL 25 MG TABLET (FP) PO SCH ×2 (11:58→22:07)
[2018-01-12] MEDS: NICOTINE 14 MG/24 HOURS TOPICAL PATCH TD SCH (11:58)
[2018-01-12 12:24] LABS: GLUCOSE,RANDOM 302 mg/dL (74-106)
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
[2018-01-12] MEDS: FLUOCINONIDE 0.05% CREAM (15 GM TUBE) TP SCH ×2 (16:16→22:03)
[2018-01-12] MEDS: FLUOCINONIDE 0.05% TP SCH (16:26)
[2018-01-12] MEDS: BETAMETHASONE VALERATE TP SCH (16:26)
[2018-01-12] MEDS: INSULIN ASPART SQ SCH (16:27)
[2018-01-12] MEDS: FLUCONAZOLE 100 MG TABLET (UD) PO SCH (18:03)
[2018-01-12] MEDS: AMMONIUM LACTATE 12% LOTION 225 GM BOTTLE TP SCH (22:03)
[2018-01-12] MEDS: ROSUVASTATIN CA 10 MG TABLET (FP) PO SCH (22:06)
[2018-01-12] MEDS: THIAMINE HCL 100 MG TABLET (FP) PO SCH (22:07)
[2018-01-12] MEDS: INSULIN DETEMIR 100 UNITS/ML MDV SQ SCH (22:11)
[2018-01-13] MEDS: ALBUTEROL SO4 18 GM HFA INHALER IH PRN (02:02)
[2018-01-13] MEDS: diazePAM 5 MG TABLET PO PRN ×3 (02:34→15:44)
[2018-01-13] MEDS ORDERED: ALBUTEROL SO4 2.5/IPRATROPIUM 0.5 INH SOL 3 ML VIAL.NEB. NEB PRN (03:40)
[2018-01-13] MEDS: ARTIFICIAL TEARS (POLYVINYL ALCOHOL 1.4%) OPTH DROPS OU SCH ×3 (05:41→22:33)
[2018-01-13] MEDS: FUROSEMIDE 40 MG TABLET (FP) PO SCH ×2 (07:42→13:36)
[2018-01-13] MEDS: INSULIN SLIDING SCALE (NOVOLOG) 1 VIAL SQ SCH ×3 (07:44→17:52)
[2018-01-13] MEDS: FERROUS SO4 325 MG TABLET (FP) PO SCH ×2 (08:22→17:52)
[2018-01-13] MEDS: METHADONE HCL 5 MG TABLET (FOR DETOX USE ONLY) PO SCH (10:23)
[2018-01-13] MEDS: NICOTINE 14 MG/24 HOURS TOPICAL PATCH TD SCH (10:23)
[2018-01-13] MEDS: ASPIRIN 81 MG CHEWABLE TABLETS PO SCH (10:23)
[2018-01-13] MEDS: PRENATAL VITAMINS W/ FOLIC ACID TABLET (FP) PO SCH (10:23)
[2018-01-13] MEDS: POTASSIUM CHLORIDE TABS 20 MEQ TABLET.ER (FP) PO SCH (10:23)
[2018-01-13] MEDS: FLUCONAZOLE 100 MG TABLET (UD) PO SCH (10:23)
[2018-01-13] MEDS: RANITIDINE HCL 150 MG TABLET (FP) PO SCH (10:23)
[2018-01-13] MEDS: diazePAM 5 MG TABLET PO SCH ×2 (10:23→22:32)
[2018-01-13] MEDS: RALTEGRAVIR POTASSIUM 400 MG TAB PO SCH ×2 (10:23→22:33)
[2018-01-13] MEDS: CARVEDILOL 25 MG TABLET (FP) PO SCH ×2 (10:24→22:33)
[2018-01-13] MEDS: DARUNAVIR ETHANOLATE 600 MG TAB PO SCH ×2 (10:24→22:32)
[2018-01-13] MEDS: RITONAVIR 100 MG TABLET PO SCH ×2 (10:25→22:35)
[2018-01-13] MEDS: AMMONIUM LACTATE 12% LOTION 225 GM BOTTLE TP SCH ×2 (10:25→22:36)
[2018-01-13] MEDS: CLOPIDOGREL BISULFATE 75 MG TABLET (FP) PO SCH (10:25)
[2018-01-13] MEDS: FLUOCINONIDE 0.05% CREAM (15 GM TUBE) TP SCH ×2 (10:25→22:35)
[2018-01-13] MEDS: MARAVIROC 150 MG TAB PO SCH ×2 (10:26→22:35)
[2018-01-13] MEDS: CHOLECALCIFEROL (VITAMIN D3) 1,000 UNIT TABLET (FP) PO SCH (10:27)
[2018-01-13] MEDS ORDERED: diphenhydrAMINE HCL 25 MG CAPSULE (FP) PO PRN (10:35)
[2018-01-13] MEDS ORDERED: INSULIN (NOVOLOG) ASPART 100 UNITS/ML 10ML VIAL ONE ×2 (11:09→17:51)
--- NOTE | 2018-01-13 17:52 | PN ---
[facility] CIWA - CIWA Score Nausea/Vomitin-No Nausea/No Vomiting Muscle Tremors: 3 Anxiety: 4-Mod. Anxious/Guarded Agitation: 3 Paroxysmal Sweats: No Perspiration Orientation: 0-Oriented Tacttile Disturbances: 2-Mild Itch/Numbness/Burn Auditory Disturbances: 0-None Visual Disturbances: 3-Moderate Sensitivity Headache: 0-None Present CIWA-Ar Total Score: 15 S COWS - Scale Resting Pulse: 0= [place] 80 or Below Sweatin= Chills/Flushing Restless Observation: 1= Difficult to Sit Still Pupil Size: 0= Normal to Room Light Bone or Joint Aches: 2= Severe Diffuse Aches Runny Nose/ Eye Tearin= None GI Upset > 30mins: 0= None Tremor Observation of Outstretched Hands: 2= Slight Tremor Visible Yawning Observation: 1= 1-2x During Session Anxiety or Irritability: 2=Irritable/Anxious Goose Flesh Skin: 3=Piloerection COWS Score: 12 S Progress Note (SOAP) Subjective: Body Aches, Fatigue, Anxious, Interrupted Sleep. Objective: PT. A & O X 3, OBSERVED AMBULATING ON UNIT. NO ACUTE DISTRESS. PATIENT DENIES CHEST PAIN. 01/13/18 17:48 Vital Signs Temperature 98.4 F 01/13/18 14:21 Pulse Rate 73 01/13/18 14:21 Respiratory Rate 18 01/13/18 14:21 Blood Pressure 126/70 01/13/18 14:21 O2 Sat by Pulse Oximetry (%) Laboratory Tests 01/11/18 01/11/18 01/11/18 17:28 19:58 Unknown WBC RBC Hgb Hct MCV MCH MCHC RDW Plt Count MPV Sodium Potassium Chloride Carbon Dioxide Anion Gap BUN Creatinine Creat Clearance w eGFR POC Glucometer 388 296 Random Glucose Calcium Total Bilirubin AST ALT Alkaline Phosphatase Total Protein Albumin Urine Color Yellow Urine Appearance Clear Urine pH 5.0 Ur Specific [place] 1.022 Urine Protein 3+ H D Urine Glucose (UA) 3+ H Urine Ketones Negative Urine Blood Negative Urine Nitrite Negative Urine Bilirubin Negative Urine Urobilinogen Negative Ur Leukocyte Esterase Negative Urine WBC (Auto) 2 Urine RBC (Auto) 2 Hyaline Casts 13 RPR Titer 01/12/18 01/12/18 01/12/18 06:01 07:40 07:40 WBC 7.9 RBC 4.04 Hgb 10.7 L D Hct 33.6 L D MCV 83.3 MCH 26.4 D MCHC 31.7 L RDW 16.5 H D Plt Count 209 MPV 9.9 D Sodium 139 Potassium 4.5 Chloride 103 Carbon Dioxide 24 Anion Gap 12 BUN 26 H D Creatinine 1.8 H D Creat Clearance w eGFR 38.06 POC Glucometer 274 Random Glucose 302 H* D Calcium 8.3 L Total Bilirubin 0.2 D AST 33 D ALT 35 D Alkaline Phosphatase 268 H D Total Protein 6.3 L Albumin 2.5 L Urine Color Urine Appearance Urine pH Ur Specific [place] Urine Protein Urine Glucose (UA) Urine Ketones Urine Blood Urine Nitrite Urine Bilirubin Urine Urobilinogen Ur Leukocyte Esterase Urine WBC (Auto) Urine RBC (Auto) Hyaline Casts RPR Titer 01/12/18 01/12/18 01/12/18 07:40 11:54 16:28 WBC RBC Hgb Hct MCV MCH MCHC RDW Plt Count MPV Sodium Potassium Chloride Carbon Dioxide Anion Gap BUN Creatinine Creat Clearance w eGFR POC Glucometer 206 223 Random Glucose Calcium Total Bilirubin AST ALT Alkaline Phosphatase Total Protein Albumin Urine Color Urine Appearance Urine pH Ur Specific [place] Urine Protein Urine Glucose (UA) Urine Ketones Urine Blood Urine Nitrite Urine Bilirubin Urine Urobilinogen Ur Leukocyte Esterase Urine WBC (Auto) Urine RBC (Auto) Hyaline Casts RPR Titer Nonreactive 01/12/18 01/13/18 01/13/18 20:47 05:39 11:05 WBC RBC Hgb Hct MCV MCH MCHC RDW Plt Count MPV Sodium Potassium Chloride Carbon Dioxide Anion Gap BUN Creatinine Creat Clearance w eGFR POC Glucometer 247 135 154 Random Glucose Calcium Total Bilirubin AST ALT Alkaline Phosphatase Total Protein Albumin Urine Color Urine Appearance Urine pH Ur Specific [place] Urine Protein Urine Glucose (UA) Urine Ketones Urine Blood Urine Nitrite Urine Bilirubin Urine Urobilinogen Ur Leukocyte Esterase Urine WBC (Auto) Urine RBC (Auto) Hyaline Casts RPR Titer LABS NOTED. Assessment: 01/13/18 17:48 WITHDRAWAL SYMPTOMS. Plan: CONTINUE DETOX. REPEAT BMP TOMORROW AM FOR ABNORMAL ADMISSION RENAL LAB VALUES. REPEAT ALK. PHOS TOMORROW AM FOR ELEVATED ADMISSION LEVEL. D/C MAGNESIUM-CONTAINING MEDS.
[2018-01-13] MEDS: COLLOIDAL OATMEAL 1 BAR EACH TP PRN (19:52)
[2018-01-13] MEDS: THIAMINE HCL 100 MG TABLET (FP) PO SCH (22:31)
[2018-01-13] MEDS: ROSUVASTATIN CA 10 MG TABLET (FP) PO SCH (22:34)
[2018-01-13] MEDS: INSULIN DETEMIR 100 UNITS/ML MDV SQ SCH (22:35)
[2018-01-14] MEDS: diazePAM 5 MG TABLET PO PRN ×4 (01:50→17:13)
[2018-01-14] MEDS: ARTIFICIAL TEARS (POLYVINYL ALCOHOL 1.4%) OPTH DROPS OU SCH ×3 (06:52→22:49)
[2018-01-14] MEDS: INSULIN SLIDING SCALE (NOVOLOG) 1 VIAL SQ SCH ×3 (07:16→17:13)
[2018-01-14] MEDS: FERROUS SO4 325 MG TABLET (FP) PO SCH ×2 (07:16→17:12)
[2018-01-14] MEDS: FUROSEMIDE 40 MG TABLET (FP) PO SCH ×2 (07:17→13:00)
[2018-01-14] MEDS: NICOTINE 14 MG/24 HOURS TOPICAL PATCH TD SCH (09:35)
[2018-01-14] MEDS: RITONAVIR 100 MG TABLET PO SCH ×2 (09:36→22:50)
[2018-01-14] MEDS: POTASSIUM CHLORIDE TABS 20 MEQ TABLET.ER (FP) PO SCH (09:36)
[2018-01-14] MEDS: DARUNAVIR ETHANOLATE 600 MG TAB PO SCH ×2 (09:36→22:48)
[2018-01-14] MEDS: diazePAM 5 MG TABLET PO SCH ×2 (09:36→22:49)
[2018-01-14] MEDS: RANITIDINE HCL 150 MG TABLET (FP) PO SCH (09:36)
[2018-01-14] MEDS: RALTEGRAVIR POTASSIUM 400 MG TAB PO SCH ×2 (09:36→22:48)
[2018-01-14] MEDS: MARAVIROC 150 MG TAB PO SCH ×2 (09:36→22:50)
[2018-01-14] MEDS: ASPIRIN 81 MG CHEWABLE TABLETS PO SCH (09:36)
[2018-01-14] MEDS: CLOPIDOGREL BISULFATE 75 MG TABLET (FP) PO SCH (09:36)
[2018-01-14] MEDS: CARVEDILOL 25 MG TABLET (FP) PO SCH ×2 (09:36→22:49)
[2018-01-14] MEDS: CHOLECALCIFEROL (VITAMIN D3) 1,000 UNIT TABLET (FP) PO SCH (09:36)
[2018-01-14] MEDS: FLUCONAZOLE 100 MG TABLET (UD) PO SCH (09:37)
[2018-01-14] MEDS: AMMONIUM LACTATE 12% LOTION 225 GM BOTTLE TP SCH ×2 (09:37→22:49)
[2018-01-14] MEDS: FLUOCINONIDE 0.05% CREAM (15 GM TUBE) TP SCH ×2 (09:37→22:50)
[2018-01-14] MEDS: METHADONE HCL 5 MG TABLET (FOR DETOX USE ONLY) PO SCH (09:37)
[2018-01-14] MEDS: PRENATAL VITAMINS W/ FOLIC ACID TABLET (FP) PO SCH (09:38)
[2018-01-14 10:04] LABS: ANION GAP 6 (8-16); BLOOD UREA NITROGEN 23 mg/dL (7-18); CALCIUM 7.8 mg/dL (8.5-10.1); CHLORIDE 107 mmol/L (98-107); CO2 27 mmol/L (21-32); SODIUM 140 mmol/L (136-145)
[2018-01-14 10:06] LABS: ALK PHOS 226 U/L (45-117); CREATININE 1.8 mg/dL (0.7-1.3)
[2018-01-14 10:07] LABS: POTASSIUM 4.4 mmol/L (3.5-5.1)
[2018-01-14 10:08] LABS: GLUCOSE,RANDOM 49 mg/dL (74-106)
--- NOTE | 2018-01-14 11:55 | PN ---
S Progress Note (SOAP) Subjective: sleep disturbance anxious tremors Objective: A & O x 3 steady ambulation Vital Signs Temperature 97.4 F L 01/14/18 09:29 Pulse Rate 64 01/14/18 09:29 Respiratory Rate 18 01/14/18 09:29 Blood Pressure 131/73 01/14/18 09:29 O2 Sat by Pulse Oximetry (%) WBC 7.9 K/mm3 (4.0-10.0) 01/12/18 07:40 RBC 4.04 M/mm3 (4.00-5.60) 01/12/18 07:40 Hgb 10.7 GM/dL (11.7-16.9) L D 01/12/18 07:40 Hct 33.6 % (35.4-49) L D 01/12/18 07:40 MCV 83.3 fl (80-96) 01/12/18 07:40 MCH 26.4 pg (25.7-33.7) D 01/12/18 07:40 MCHC 31.7 g/dl (32.0-35.9) L 01/12/18 07:40 RDW 16.5 % (11.9-15.9) H D 01/12/18 07:40 Plt Count 209 K/MM3 (134-434) 01/12/18 07:40 MPV 9.9 fl (7.5-11.1) D 01/12/18 07:40 Sodium 140 mmol/L (136-145) 01/14/18 07:20 Potassium 4.4 mmol/L (3.5-5.1) 01/14/18 07:20 Chloride 107 mmol/L (98-107) 01/14/18 07:20 Carbon Dioxide 27 mmol/L (21-32) 01/14/18 07:20 Anion Gap 6 (8-16) L 01/14/18 07:20 BUN 23 mg/dL (7-18) H 01/14/18 07:20 Creatinine 1.8 mg/dL (0.7-1.3) H 01/14/18 07:20 Creat Clearance w eGFR 38.06 (>60) 01/12/18 07:40 POC Glucometer 114 UNITS (80-120) 01/14/18 05:20 Random Glucose 49 mg/dL (74-106) L* D 01/14/18 07:20 Calcium 7.8 mg/dL (8.5-10.1) L 01/14/18 07:20 Total Bilirubin 0.2 mg/dL (0.2-1.0) D 01/12/18 07:40 AST 33 U/L (15-37) D 01/12/18 07:40 ALT 35 U/L (12-78) D 01/12/18 07:40 Alkaline Phosphatase 226 U/L (45-117) H 01/14/18 07:20 Total Protein 6.3 g/dl (6.4-8.2) L 01/12/18 07:40 Albumin 2.5 g/dl (3.4-5.0) L 01/12/18 07:40 labs noted, Random glucose 49 - pt Awake, A & O x3, denies complaints, given orange juice. Assessment: 01/14/18 11:55 withdrawal sx Plan: continue detox continue bgm
--- NOTE | 2018-01-14 12:26 | PN ---
[facility] Progress Note Note: RN told to hold insulin coverage s/p repeat FS @ 11am - 236mgdl Pt remains without new complaints
[2018-01-14] MEDS ORDERED: INSULIN (NOVOLOG) ASPART 100 UNITS/ML 10ML VIAL ONE (16:35)
[2018-01-14] MEDS: THIAMINE HCL 100 MG TABLET (FP) PO SCH (22:48)
[2018-01-14] MEDS: ROSUVASTATIN CA 10 MG TABLET (FP) PO SCH (22:49)
[2018-01-14] MEDS: INSULIN DETEMIR 100 UNITS/ML MDV SQ SCH (22:49)
[2018-01-15] MEDS: ARTIFICIAL TEARS (POLYVINYL ALCOHOL 1.4%) OPTH DROPS OU SCH ×3 (05:59→21:08)
[2018-01-15] MEDS: FUROSEMIDE 40 MG TABLET (FP) PO SCH ×2 (05:59→14:59)
[2018-01-15] MEDS: INSULIN SLIDING SCALE (NOVOLOG) 1 VIAL SQ SCH ×3 (07:31→17:03)
[2018-01-15] MEDS ORDERED: INSULIN (NOVOLOG) ASPART 100 UNITS/ML 10ML VIAL ONE ×2 (07:33→17:02)
[2018-01-15] MEDS: ASPIRIN 81 MG CHEWABLE TABLETS PO SCH (09:47)
[2018-01-15] MEDS: POTASSIUM CHLORIDE TABS 20 MEQ TABLET.ER (FP) PO SCH (09:49)
[2018-01-15] MEDS: PRENATAL VITAMINS W/ FOLIC ACID TABLET (FP) PO SCH (09:49)
[2018-01-15] MEDS: RALTEGRAVIR POTASSIUM 400 MG TAB PO SCH ×2 (09:49→21:10)
[2018-01-15] MEDS: CLOPIDOGREL BISULFATE 75 MG TABLET (FP) PO SCH (09:50)
[2018-01-15] MEDS: FLUCONAZOLE 100 MG TABLET (UD) PO SCH (09:50)
[2018-01-15] MEDS ORDERED: METHADONE HCL 10 MG TABLET (FOR DETOX USE ONLY) PO SCH (10:00)
[2018-01-15] MEDS ORDERED: diazePAM 5 MG TABLET PO SCH (10:00)
--- NOTE | 2018-01-15 11:11 | PN ---
[facility] Progress Note (SOAP) Subjective: ANXIETY,SWEATS,IRRITABILITY,INTERMITTENT SLEEP. Objective: 01/15/18 11:10 Vital Signs Temperature 97.0 F L 01/15/18 09:59 Pulse Rate 84 01/15/18 09:59 Respiratory Rate 20 01/15/18 09:59 Blood Pressure 153/76 01/15/18 09:59 O2 Sat by Pulse Oximetry (%) Laboratory Last Values WBC 7.9 K/mm3 (4.0-10.0) 01/12/18 07:40 RBC 4.04 M/mm3 (4.00-5.60) 01/12/18 07:40 Hgb 10.7 GM/dL (11.7-16.9) L D 01/12/18 07:40 Hct 33.6 % (35.4-49) L D 01/12/18 07:40 MCV 83.3 fl (80-96) 01/12/18 07:40 MCH 26.4 pg (25.7-33.7) D 01/12/18 07:40 MCHC 31.7 g/dl (32.0-35.9) L 01/12/18 07:40 RDW 16.5 % (11.9-15.9) H D 01/12/18 07:40 Plt Count 209 K/MM3 (134-434) 01/12/18 07:40 MPV 9.9 fl (7.5-11.1) D 01/12/18 07:40 Sodium 140 mmol/L (136-145) 01/14/18 07:20 Potassium 4.4 mmol/L (3.5-5.1) 01/14/18 07:20 Chloride 107 mmol/L (98-107) 01/14/18 07:20 Carbon Dioxide 27 mmol/L (21-32) 01/14/18 07:20 Anion Gap 6 (8-16) L 01/14/18 07:20 BUN 23 mg/dL (7-18) H 01/14/18 07:20 Creatinine 1.8 mg/dL (0.7-1.3) H 01/14/18 07:20 Creat Clearance w eGFR 38.06 (>60) 01/12/18 07:40 POC Glucometer 223 UNITS (80-120) 01/15/18 05:58 Random Glucose 49 mg/dL (74-106) L* D 01/14/18 07:20 Calcium 7.8 mg/dL (8.5-10.1) L 01/14/18 07:20 Total Bilirubin 0.2 mg/dL (0.2-1.0) D 01/12/18 07:40 AST 33 U/L (15-37) D 01/12/18 07:40 ALT 35 U/L (12-78) D 01/12/18 07:40 Alkaline Phosphatase 226 U/L (45-117) H 01/14/18 07:20 Total Protein 6.3 g/dl (6.4-8.2) L 01/12/18 07:40 Albumin 2.5 g/dl (3.4-5.0) L 01/12/18 07:40 Urine Color Yellow 01/11/18 Unknown Urine Appearance Clear 01/11/18 Unknown Urine pH 5.0 (5.0-8.0) 01/11/18 Unknown Ur Specific [place] 1.022 (1.001-1.035) 01/11/18 Unknown Urine Protein 3+ (NEGATIVE) H D 01/11/18 Unknown Urine Glucose (UA) 3+ (NEGATIVE) H 01/11/18 Unknown Urine Ketones Negative (NEGATIVE) 01/11/18 Unknown Urine Blood Negative (NEGATIVE) 01/11/18 Unknown Urine Nitrite Negative (NEGATIVE) 01/11/18 Unknown Urine Bilirubin Negative (NEGATIVE) 01/11/18 Unknown Urine Urobilinogen Negative mg/dL (0.2-1.0) 01/11/18 Unknown Ur Leukocyte Esterase Negative (NEGATIVE) 01/11/18 Unknown Urine WBC (Auto) 2 /hpf (3-5) 01/11/18 Unknown Urine RBC (Auto) 2 /hpf (0-3) 01/11/18 Unknown Hyaline Casts 13 /lpf 01/11/18 Unknown RPR Titer Nonreactive (NONREACTIVE) 01/12/18 07:40 Assessment: 01/15/18 11:11 WITHDRAWAL SX Plan: CONTINUE DETOX
[2018-01-15] MEDS: DARUNAVIR ETHANOLATE 600 MG TAB PO SCH ×2 (11:47→21:10)
[2018-01-15] MEDS: RITONAVIR 100 MG TABLET PO SCH ×2 (11:48→21:11)
[2018-01-15] MEDS: FERROUS SO4 325 MG TABLET (FP) PO SCH ×2 (11:48→17:03)
[2018-01-15] MEDS: CARVEDILOL 25 MG TABLET (FP) PO SCH ×2 (11:48→21:10)
[2018-01-15] MEDS: NICOTINE 14 MG/24 HOURS TOPICAL PATCH TD SCH (11:49)
[2018-01-15] MEDS: AMMONIUM LACTATE 12% LOTION 225 GM BOTTLE TP SCH ×2 (11:49→21:11)
[2018-01-15] MEDS: FLUOCINONIDE 0.05% CREAM (15 GM TUBE) TP SCH ×2 (11:49→21:11)
[2018-01-15] MEDS: RANITIDINE HCL 150 MG TABLET (FP) PO SCH (11:50)
[2018-01-15] MEDS: MARAVIROC 150 MG TAB PO SCH ×2 (11:50→21:12)
[2018-01-15] MEDS: CHOLECALCIFEROL (VITAMIN D3) 1,000 UNIT TABLET (FP) PO SCH (11:50)
--- NOTE | 2018-01-15 16:02 | PN ---
[facility] Progress Note Note: NURSE LAURA CALLED TO SEE THIS PATIENT WHO TOLD HER HIS LEG IS BROKEN. SAW PT AND PT DENIES ANY BROKEN LEG AND SAYS "YOU ALL ARE TAKING IT OUT OF CONTEST". HOWEVER, PT HAS CHRONIC BILATERAL LEG EDEMA. REQUESTING FOR COMPRESSION STOCKINGS. APPARENTLY, PT HAS BEEN GIVEN ONE OVER THE WEEKEND BUT HE DID NOT HAVE IT ON. EXPLAINED TO PT TO ELEVATE LEG WHILE IN BED. PT IS OOB AMBULATING WITH STEADY GAIT. PLAN: ELEVATE LEGS WHILE IN BED. TO WEAR STOCKINGS NEEDED.
[2018-01-15] MEDS: ROSUVASTATIN CA 10 MG TABLET (FP) PO SCH (21:10)
[2018-01-15] MEDS: INSULIN DETEMIR 100 UNITS/ML MDV SQ SCH (21:12)
[2018-01-15] MEDS: THIAMINE HCL 100 MG TABLET (FP) PO SCH (21:17)
[2018-01-16] MEDS: ARTIFICIAL TEARS (POLYVINYL ALCOHOL 1.4%) OPTH DROPS OU SCH ×3 (05:32→21:47)
[2018-01-16] MEDS: FUROSEMIDE 40 MG TABLET (FP) PO SCH ×2 (05:33→13:03)
[2018-01-16] MEDS ORDERED: METHADONE HCL 5 MG TABLET (FOR DETOX USE ONLY) PO SCH (06:00)
[2018-01-16] MEDS: INSULIN SLIDING SCALE (NOVOLOG) 1 VIAL SQ SCH ×3 (06:37→16:38)
[2018-01-16] MEDS: FERROUS SO4 325 MG TABLET (FP) PO SCH ×2 (07:49→16:39)
[2018-01-16] MEDS: RITONAVIR 100 MG TABLET PO SCH ×2 (10:30→21:49)
[2018-01-16] MEDS: NICOTINE 14 MG/24 HOURS TOPICAL PATCH TD SCH (10:30)
[2018-01-16] MEDS: CHOLECALCIFEROL (VITAMIN D3) 1,000 UNIT TABLET (FP) PO SCH (10:31)
[2018-01-16] MEDS: DARUNAVIR ETHANOLATE 600 MG TAB PO SCH ×2 (10:31→21:48)
[2018-01-16] MEDS: PRENATAL VITAMINS W/ FOLIC ACID TABLET (FP) PO SCH (10:31)
[2018-01-16] MEDS: ASPIRIN 81 MG CHEWABLE TABLETS PO SCH (10:31)
[2018-01-16] MEDS: POTASSIUM CHLORIDE TABS 20 MEQ TABLET.ER (FP) PO SCH (10:31)
[2018-01-16] MEDS: MARAVIROC 150 MG TAB PO SCH ×2 (10:31→21:48)
[2018-01-16] MEDS: FLUCONAZOLE 100 MG TABLET (UD) PO SCH (10:32)
[2018-01-16] MEDS: CLOPIDOGREL BISULFATE 75 MG TABLET (FP) PO SCH (10:33)
[2018-01-16] MEDS: RALTEGRAVIR POTASSIUM 400 MG TAB PO SCH ×2 (10:33→21:47)
[2018-01-16] MEDS: AMMONIUM LACTATE 12% LOTION 225 GM BOTTLE TP SCH ×2 (10:33→21:50)
[2018-01-16] MEDS: RANITIDINE HCL 150 MG TABLET (FP) PO SCH (10:34)
[2018-01-16] MEDS: FLUOCINONIDE 0.05% CREAM (15 GM TUBE) TP SCH ×2 (10:34→21:50)
[2018-01-16] MEDS ORDERED: INSULIN (NOVOLOG) ASPART 100 UNITS/ML 10ML VIAL ONE ×2 (11:07→17:05)
--- NOTE | 2018-01-16 12:03 | DS ---
[facility] Detox Discharge Summary Admission Date: 01/11/18 Discharge Date: 01/16/18 - History Present History: Opioid Dependence Additional Comments: DETOX COMPLETED. ALERT O X 3. NAD. LOOKING FORWARD TO GOING TO REHAB. DECREASED BILATERAL PERIPHERAL EDEMA. DENIES PAIN TO LOWER EXTREMITIES TODAY. Pertinent Past History: SEE DX BELOW - Physical Exam Results Vital Signs: Vital Signs Temperature 97.1 F L 01/16/18 10:03 Pulse Rate 70 01/16/18 10:03 Respiratory Rate 20 01/16/18 10:03 Blood Pressure 134/70 01/16/18 10:03 O2 Sat by Pulse Oximetry (%) Pertinent Admission Physical Exam Findings: WITHDRAWAL SX Laboratory Last Values WBC 7.9 K/mm3 (4.0-10.0) 01/12/18 07:40 RBC 4.04 M/mm3 (4.00-5.60) 01/12/18 07:40 Hgb 10.7 GM/dL (11.7-16.9) L D 01/12/18 07:40 Hct 33.6 % (35.4-49) L D 01/12/18 07:40 MCV 83.3 fl (80-96) 01/12/18 07:40 MCH 26.4 pg (25.7-33.7) D 01/12/18 07:40 MCHC 31.7 g/dl (32.0-35.9) L 01/12/18 07:40 RDW 16.5 % (11.9-15.9) H D 01/12/18 07:40 Plt Count 209 K/MM3 (134-434) 01/12/18 07:40 MPV 9.9 fl (7.5-11.1) D 01/12/18 07:40 Sodium 140 mmol/L (136-145) 01/14/18 07:20 Potassium 4.4 mmol/L (3.5-5.1) 01/14/18 07:20 Chloride 107 mmol/L (98-107) 01/14/18 07:20 Carbon Dioxide 27 mmol/L (21-32) 01/14/18 07:20 Anion Gap 6 (8-16) L 01/14/18 07:20 BUN 23 mg/dL (7-18) H 01/14/18 07:20 Creatinine 1.8 mg/dL (0.7-1.3) H 01/14/18 07:20 Creat Clearance w eGFR 38.06 (>60) 01/12/18 07:40 POC Glucometer 193 UNITS (80-120) 01/16/18 11:05 Random Glucose 49 mg/dL (74-106) L* D 01/14/18 07:20 Calcium 7.8 mg/dL (8.5-10.1) L 01/14/18 07:20 Total Bilirubin 0.2 mg/dL (0.2-1.0) D 01/12/18 07:40 AST 33 U/L (15-37) D 01/12/18 07:40 ALT 35 U/L (12-78) D 01/12/18 07:40 Alkaline Phosphatase 226 U/L (45-117) H 01/14/18 07:20 Total Protein 6.3 g/dl (6.4-8.2) L 01/12/18 07:40 Albumin 2.5 g/dl (3.4-5.0) L 01/12/18 07:40 Urine Color Yellow 01/11/18 Unknown Urine Appearance Clear 01/11/18 Unknown Urine pH 5.0 (5.0-8.0) 01/11/18 Unknown Ur Specific [place] 1.022 (1.001-1.035) 01/11/18 Unknown Urine Protein 3+ (NEGATIVE) H D 01/11/18 Unknown Urine Glucose (UA) 3+ (NEGATIVE) H 01/11/18 Unknown Urine Ketones Negative (NEGATIVE) 01/11/18 Unknown Urine Blood Negative (NEGATIVE) 01/11/18 Unknown Urine Nitrite Negative (NEGATIVE) 01/11/18 Unknown Urine Bilirubin Negative (NEGATIVE) 01/11/18 Unknown Urine Urobilinogen Negative mg/dL (0.2-1.0) 01/11/18 Unknown Ur Leukocyte Esterase Negative (NEGATIVE) 01/11/18 Unknown Urine WBC (Auto) 2 /hpf (3-5) 01/11/18 Unknown Urine RBC (Auto) 2 /hpf (0-3) 01/11/18 Unknown Hyaline Casts 13 /lpf 01/11/18 Unknown RPR Titer Nonreactive (NONREACTIVE) 01/12/18 07:40 - Treatment Hospital Course: Detox Protocol Followed, Detoxed Safely, Responded well, Discharged Condition Good, Rehab Referral Accepted Patient has Accepted a Rehab Referral to: [facility] - Medication Discharge Medications: Ambulatory Orders Duloxetine HCl [Cymbalta -] 20 mg PO HS 08/18/16 Cholecalciferol (Vitamin D3) [Vitamin D3 -] 1,000 unit PO DAILY #30 tab Folic Acid - 1 mg PO DAILY #30 tablet 09/07/16 Furosemide [Lasix -] 20 mg PO BID #30 tablet 09/07/16 Potassium Chloride [Klor-Con M20] 20 meq PO DAILY 01/11/17 Albuterol Sulfate Inhaler - [Ventolin HFA Inhaler -] 2 inh PO Q4H PRN #1 inhaler 01/16/17 Aspirin [ASA -] 81 mg PO DAILY tab.chew 01/16/17 Betamethasone Valerate [Valisone 0.1% Cream -] 1 applic TP BID #1 01/16/17 Carvedilol [Coreg -] 25 mg PO BID #0 tablet 01/16/17 Clopidogrel Bisulfate [Plavix -] 75 mg PO DAILY #30 tablet 01/16/17 Darunavir Ethanolate [Prezista -] 600 mg PO BID tab 01/16/17 Ferrous Sulfate [Feosol] 325 mg PO BID #0 ud 01/16/17 Fluconazole [Diflucan -] 200 mg PO DAILY #0 tablet 01/16/17 Fluocinonide 0.05% Cream [Lidex 0.05% Cream -] 1 applic TP BID #1 tube 01/16/17 Polyvinyl Alcohol [Artificial Tears] 1 drop OU TID drops 01/16/17 Raltegravir [Isentress] 400 mg PO BID #0 tab 01/16/17 Ranitidine [Zantac -] 150 mg PO DAILY #60 tablet 01/16/17 Ritonavir [Norvir -] 100 mg PO BID #0 tab 01/16/17 Rosuvastatin [Crestor -] 10 mg PO HS #30 tablet 01/16/17 Insulin Aspart [Novolog] 0 unit SQ ACHS 02/02/17 Insulin Glargine,Hum.rec.anlog [Lantus] 35 unit SQ HS 01/11/18 Maraviroc [Selzentry] 150 mg PO BID 01/11/18 - Diagnosis (1) Opioid dependence with withdrawal Current Visit: Yes Status: Acute (2) Anemia, iron deficiency Current Visit: Yes Status: Chronic (3) Asthma Current Visit: Yes Status: Chronic Qualifiers: Asthma severity: mild Asthma persistence: unspecified Asthma complication type: uncomplicated Qualified Code(s): J45.909 - Unspecified asthma, uncomplicated (4) CHF (congestive heart failure) Current Visit: Yes Status: Chronic (5) Cardiac defibrillator in place Current Visit: Yes Status: Chronic (6) HIV (human immunodeficiency virus infection) Current Visit: Yes Status: Chronic (7) Hepatitis C Current Visit: Yes Status: Chronic Qualifiers: Viral hepatitis chronicity: chronic Hepatic coma status: without hepatic coma Qualified Code(s): B18.2 - Chronic viral hepatitis C (8) Hyperlipidemia Current Visit: Yes Status: Chronic Qualifiers: Hyperlipidemia type: unspecified Qualified Code(s): E78.5 - Hyperlipidemia , unspecified (9) Neuropathy Current Visit: Yes Status: Chronic (10) Nicotine dependence Current Visit: Yes Status: Acute Qualifiers: Nicotine product type: cigarettes Substance use status: in withdrawal Qualified Code(s): F17.213 - Nicotine dependence, cigarettes, with withdrawal (11) Psoriasis Current Visit: Yes Status: Chronic (12) Type 2 diabetes mellitus Current Visit: Yes Status: Chronic Qualifiers: Diabetes mellitus complication status: without complication Diabetes mellitus half-way insulin use: without strawhat sizer use Qualified Code(s): E11.9 - Type 2 diabetes mellitus without complications (13) Bilateral leg edema Current Visit: Yes Status: Chronic - AMA Did Patient Leave Against Medical Advice: No
[2018-01-16] MEDS: CARVEDILOL 25 MG TABLET (FP) PO SCH ×2 (12:16→21:47)
--- NOTE | 2018-01-16 13:38 | EKG ---
Test Reason : Blood Pressure : / mmHG Vent. Rate : 065 BPM Atrial Rate : 065 BPM P-R Int : 128 ms QRS Dur : 104 ms QT Int : 462 ms P-R-T Axes : 074 020 -88 degrees QTc Int : 480 ms NORMAL SINUS RHYTHM T WAVE ABNORMALITY, CONSIDER INFERIOR ISCHEMIA PROLONGED QT ABNORMAL ECG WHEN COMPARED WITH ECG OF 11-JUL-2017 21:46, PREMATURE ATRIAL COMPLEXES ARE NO LONGER PRESENT Confirmed by MD Cuco, Eben ([id number]) on 01/16/2018 1:38:16 PM Referred By: Confirmed By:Eben Norwood MD
[2018-01-16] MEDS: INSULIN DETEMIR 100 UNITS/ML MDV SQ SCH (21:45)
[2018-01-16] MEDS: ROSUVASTATIN CA 10 MG TABLET (FP) PO SCH (21:48)
[2018-01-16] MEDS: THIAMINE HCL 100 MG TABLET (FP) PO SCH (21:48)
[2018-01-17] MEDS: ARTIFICIAL TEARS (POLYVINYL ALCOHOL 1.4%) OPTH DROPS OU SCH ×3 (06:42→21:29)
[2018-01-17] MEDS: FUROSEMIDE 40 MG TABLET (FP) PO SCH ×2 (06:43→15:12)
[2018-01-17] MEDS: INSULIN SLIDING SCALE (NOVOLOG) 1 VIAL SQ SCH ×3 (06:43→16:52)
[2018-01-17] MEDS: FERROUS SO4 325 MG TABLET (FP) PO SCH ×2 (07:02→16:49)
[2018-01-17] MEDS: RALTEGRAVIR POTASSIUM 400 MG TAB PO SCH ×2 (10:32→21:27)
[2018-01-17] MEDS: RANITIDINE HCL 150 MG TABLET (FP) PO SCH (10:32)
[2018-01-17] MEDS: POTASSIUM CHLORIDE TABS 20 MEQ TABLET.ER (FP) PO SCH (10:32)
[2018-01-17] MEDS: CLOPIDOGREL BISULFATE 75 MG TABLET (FP) PO SCH (10:32)
[2018-01-17] MEDS: CARVEDILOL 25 MG TABLET (FP) PO SCH ×2 (10:33→21:27)
[2018-01-17] MEDS: PRENATAL VITAMINS W/ FOLIC ACID TABLET (FP) PO SCH (10:33)
[2018-01-17] MEDS: ASPIRIN 81 MG CHEWABLE TABLETS PO SCH (10:33)
[2018-01-17] MEDS: FLUOCINONIDE 0.05% CREAM (15 GM TUBE) TP SCH ×2 (10:34→21:30)
[2018-01-17] MEDS: FLUCONAZOLE 100 MG TABLET (UD) PO SCH (10:34)
[2018-01-17] MEDS: NICOTINE 14 MG/24 HOURS TOPICAL PATCH TD SCH (10:35)
[2018-01-17] MEDS: MARAVIROC 150 MG TAB PO SCH ×2 (10:36→21:31)
[2018-01-17] MEDS: RITONAVIR 100 MG TABLET PO SCH ×2 (10:36→21:30)
[2018-01-17] MEDS: DARUNAVIR ETHANOLATE 600 MG TAB PO SCH ×2 (10:36→21:31)
[2018-01-17] MEDS: AMMONIUM LACTATE 12% LOTION 225 GM BOTTLE TP SCH ×2 (10:38→21:29)
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
[2018-01-17] MEDS ORDERED: INSULIN (NOVOLOG) ASPART 100 UNITS/ML 10ML VIAL ONE ×2 (12:02→16:50)
[2018-01-17] MEDS: hydrOXYzine PAMOATE 50 MG CAPSULE (FP) PO PRN ×2 (12:44→17:02)
[2018-01-17] MEDS: CHOLECALCIFEROL (VITAMIN D3) 1,000 UNIT TABLET (FP) PO SCH (15:12)
[2018-01-17] MEDS: THIAMINE HCL 100 MG TABLET (FP) PO SCH (21:27)
[2018-01-17] MEDS: ROSUVASTATIN CA 10 MG TABLET (FP) PO SCH (21:28)
[2018-01-17] MEDS: INSULIN DETEMIR 100 UNITS/ML MDV SQ SCH (21:32)
[2018-01-18] MEDS: FUROSEMIDE 40 MG TABLET (FP) PO SCH ×2 (06:24→13:59)
[2018-01-18] MEDS: INSULIN SLIDING SCALE (NOVOLOG) 1 VIAL SQ SCH ×3 (06:25→17:01)
[2018-01-18] MEDS: hydrOXYzine PAMOATE 50 MG CAPSULE (FP) PO PRN ×2 (06:27→12:09)
[2018-01-18] MEDS: ARTIFICIAL TEARS (POLYVINYL ALCOHOL 1.4%) OPTH DROPS OU SCH ×3 (06:35→21:55)
[2018-01-18] MEDS ORDERED: INSULIN (NOVOLOG) ASPART 100 UNITS/ML 10ML VIAL ONE ×2 (06:38→17:02)
[2018-01-18] MEDS: FERROUS SO4 325 MG TABLET (FP) PO SCH ×2 (07:28→17:04)
[2018-01-18] MEDS: BUDESONIDE/FORMETEROL FUMARATE 160/4.5 mcg INHALER IH SCH ×2 (10:00→21:55)
[2018-01-18] MEDS: CLOPIDOGREL BISULFATE 75 MG TABLET (FP) PO SCH (10:24)
[2018-01-18] MEDS: PRENATAL VITAMINS W/ FOLIC ACID TABLET (FP) PO SCH (10:24)
[2018-01-18] MEDS: RANITIDINE HCL 150 MG TABLET (FP) PO SCH (10:24)
[2018-01-18] MEDS: ASPIRIN 81 MG CHEWABLE TABLETS PO SCH (10:24)
[2018-01-18] MEDS: POTASSIUM CHLORIDE TABS 20 MEQ TABLET.ER (FP) PO SCH (10:24)
[2018-01-18] MEDS: RALTEGRAVIR POTASSIUM 400 MG TAB PO SCH ×2 (10:24→21:53)
[2018-01-18] MEDS: CARVEDILOL 25 MG TABLET (FP) PO SCH ×2 (10:24→21:53)
[2018-01-18] MEDS: FLUCONAZOLE 100 MG TABLET (UD) PO SCH (10:26)
[2018-01-18] MEDS: DARUNAVIR ETHANOLATE 600 MG TAB PO SCH ×2 (10:27→17:04)
[2018-01-18] MEDS: MARAVIROC 150 MG TAB PO SCH ×2 (10:27→21:54)
[2018-01-18] MEDS: RITONAVIR 100 MG TABLET PO SCH ×2 (10:28→17:04)
[2018-01-18] MEDS: NICOTINE 14 MG/24 HOURS TOPICAL PATCH TD SCH (10:30)
[2018-01-18] MEDS: FLUOCINONIDE 0.05% CREAM (15 GM TUBE) TP SCH ×2 (10:31→21:55)
[2018-01-18] MEDS: AMMONIUM LACTATE 12% LOTION 225 GM BOTTLE TP SCH ×2 (10:31→21:55)
[2018-01-18] MEDS: CHOLECALCIFEROL (VITAMIN D3) 1,000 UNIT TABLET (FP) PO SCH (12:10)
[2018-01-18] MEDS: THIAMINE HCL 100 MG TABLET (FP) PO SCH (21:53)
[2018-01-18] MEDS: ROSUVASTATIN CA 10 MG TABLET (FP) PO SCH (21:53)
[2018-01-18] MEDS: INSULIN DETEMIR 100 UNITS/ML MDV SQ SCH (21:56)
[2018-01-19] MEDS: ARTIFICIAL TEARS (POLYVINYL ALCOHOL 1.4%) OPTH DROPS OU SCH ×3 (06:45→21:41)
[2018-01-19] MEDS: COLLOIDAL OATMEAL 1 BAR EACH TP PRN (06:45)
[2018-01-19] MEDS: FUROSEMIDE 40 MG TABLET (FP) PO SCH ×2 (06:46→13:51)
[2018-01-19] MEDS: hydrOXYzine PAMOATE 50 MG CAPSULE (FP) PO PRN ×3 (06:47→18:03)
[2018-01-19] MEDS: INSULIN SLIDING SCALE (NOVOLOG) 1 VIAL SQ SCH ×3 (06:47→17:36)
[2018-01-19] MEDS: DARUNAVIR ETHANOLATE 600 MG TAB PO SCH ×2 (07:10→17:33)
[2018-01-19] MEDS: FERROUS SO4 325 MG TABLET (FP) PO SCH ×2 (07:10→17:33)
[2018-01-19] MEDS: RITONAVIR 100 MG TABLET PO SCH ×2 (07:11→17:34)
[2018-01-19] MEDS: RANITIDINE HCL 150 MG TABLET (FP) PO SCH (10:16)
[2018-01-19] MEDS: CHOLECALCIFEROL (VITAMIN D3) 1,000 UNIT TABLET (FP) PO SCH (10:16)
[2018-01-19] MEDS: POTASSIUM CHLORIDE TABS 20 MEQ TABLET.ER (FP) PO SCH (10:16)
[2018-01-19] MEDS: CARVEDILOL 25 MG TABLET (FP) PO SCH ×2 (10:16→21:39)
[2018-01-19] MEDS: RALTEGRAVIR POTASSIUM 400 MG TAB PO SCH ×2 (10:16→21:41)
[2018-01-19] MEDS: NICOTINE 14 MG/24 HOURS TOPICAL PATCH TD SCH (10:17)
[2018-01-19] MEDS: BUDESONIDE/FORMETEROL FUMARATE 160/4.5 mcg INHALER IH SCH ×2 (10:17→21:42)
[2018-01-19] MEDS: ASPIRIN 81 MG CHEWABLE TABLETS PO SCH (10:17)
[2018-01-19] MEDS: CLOPIDOGREL BISULFATE 75 MG TABLET (FP) PO SCH (10:17)
[2018-01-19] MEDS: PRENATAL VITAMINS W/ FOLIC ACID TABLET (FP) PO SCH (10:18)
[2018-01-19] MEDS: MARAVIROC 150 MG TAB PO SCH ×2 (10:18→21:40)
[2018-01-19] MEDS: FLUCONAZOLE 100 MG TABLET (UD) PO SCH (10:19)
[2018-01-19] MEDS: AMMONIUM LACTATE 12% LOTION 225 GM BOTTLE TP SCH ×2 (10:19→21:41)
[2018-01-19] MEDS: FLUOCINONIDE 0.05% CREAM (15 GM TUBE) TP SCH ×2 (10:24→21:42)
[2018-01-19] MEDS ORDERED: INSULIN (NOVOLOG) ASPART 100 UNITS/ML 10ML VIAL ONE (17:32)
[2018-01-19] MEDS: ROSUVASTATIN CA 10 MG TABLET (FP) PO SCH (21:39)
[2018-01-19] MEDS: THIAMINE HCL 100 MG TABLET (FP) PO SCH (21:39)
[2018-01-19] MEDS: INSULIN DETEMIR 100 UNITS/ML MDV SQ SCH (21:42)
[2018-01-20] MEDS: hydrOXYzine PAMOATE 50 MG CAPSULE (FP) PO PRN ×5 (00:37→20:30)
[2018-01-20] MEDS: ALBUTEROL SO4 18 GM HFA INHALER IH PRN (01:52)
[2018-01-20] MEDS: INSULIN SLIDING SCALE (NOVOLOG) 1 VIAL SQ SCH ×3 (06:26→16:42)
[2018-01-20] MEDS: ARTIFICIAL TEARS (POLYVINYL ALCOHOL 1.4%) OPTH DROPS OU SCH ×3 (06:27→21:31)
[2018-01-20] MEDS: FUROSEMIDE 40 MG TABLET (FP) PO SCH ×2 (06:27→15:48)
[2018-01-20] MEDS: FERROUS SO4 325 MG TABLET (FP) PO SCH ×2 (07:31→17:46)
[2018-01-20] MEDS: DARUNAVIR ETHANOLATE 600 MG TAB PO SCH ×2 (07:31→17:46)
[2018-01-20] MEDS: RITONAVIR 100 MG TABLET PO SCH ×2 (07:31→17:46)
[2018-01-20] MEDS: RANITIDINE HCL 150 MG TABLET (FP) PO SCH (10:21)
[2018-01-20] MEDS: ASPIRIN 81 MG CHEWABLE TABLETS PO SCH (10:21)
[2018-01-20] MEDS: CHOLECALCIFEROL (VITAMIN D3) 1,000 UNIT TABLET (FP) PO SCH (10:21)
[2018-01-20] MEDS: CARVEDILOL 25 MG TABLET (FP) PO SCH ×2 (10:22→21:31)
[2018-01-20] MEDS: PRENATAL VITAMINS W/ FOLIC ACID TABLET (FP) PO SCH (10:22)
[2018-01-20] MEDS: CLOPIDOGREL BISULFATE 75 MG TABLET (FP) PO SCH (10:22)
[2018-01-20] MEDS: FLUCONAZOLE 100 MG TABLET (UD) PO SCH (10:22)
[2018-01-20] MEDS: RALTEGRAVIR POTASSIUM 400 MG TAB PO SCH ×2 (10:23→21:31)
[2018-01-20] MEDS: BUDESONIDE/FORMETEROL FUMARATE 160/4.5 mcg INHALER IH SCH ×2 (10:23→21:32)
[2018-01-20] MEDS: NICOTINE 14 MG/24 HOURS TOPICAL PATCH TD SCH (10:24)
[2018-01-20] MEDS: FLUOCINONIDE 0.05% CREAM (15 GM TUBE) TP SCH ×2 (10:24→21:32)
[2018-01-20] MEDS: POTASSIUM CHLORIDE TABS 20 MEQ TABLET.ER (FP) PO SCH (10:24)
[2018-01-20] MEDS: MARAVIROC 150 MG TAB PO SCH ×2 (10:25→21:32)
[2018-01-20] MEDS: AMMONIUM LACTATE 12% LOTION 225 GM BOTTLE TP SCH ×2 (10:25→21:31)
[2018-01-20] MEDS: ACETAMINOPHEN 325 MG TABLET (FP) PO PRN ×2 (11:38→21:36)
[2018-01-20] MEDS: ROSUVASTATIN CA 10 MG TABLET (FP) PO SCH (21:31)
[2018-01-20] MEDS: THIAMINE HCL 100 MG TABLET (FP) PO SCH (21:32)
[2018-01-20] MEDS: INSULIN DETEMIR 100 UNITS/ML MDV SQ SCH (21:32)
[2018-01-21] MEDS: ACETAMINOPHEN 325 MG TABLET (FP) PO PRN (03:20)
[2018-01-21] MEDS: hydrOXYzine PAMOATE 50 MG CAPSULE (FP) PO PRN ×4 (03:20→21:53)
[2018-01-21] MEDS: ARTIFICIAL TEARS (POLYVINYL ALCOHOL 1.4%) OPTH DROPS OU SCH ×3 (06:51→21:50)
[2018-01-21] MEDS: FUROSEMIDE 40 MG TABLET (FP) PO SCH ×2 (06:51→15:00)
[2018-01-21] MEDS: INSULIN SLIDING SCALE (NOVOLOG) 1 VIAL SQ SCH ×3 (06:59→16:56)
[2018-01-21] MEDS: DARUNAVIR ETHANOLATE 600 MG TAB PO SCH ×2 (07:02→16:57)
[2018-01-21] MEDS: FERROUS SO4 325 MG TABLET (FP) PO SCH ×2 (07:02→16:57)
[2018-01-21] MEDS: RITONAVIR 100 MG TABLET PO SCH ×2 (07:03→16:57)
[2018-01-21] MEDS: ASPIRIN 81 MG CHEWABLE TABLETS PO SCH (10:50)
[2018-01-21] MEDS: RALTEGRAVIR POTASSIUM 400 MG TAB PO SCH ×2 (10:50→21:52)
[2018-01-21] MEDS: CARVEDILOL 25 MG TABLET (FP) PO SCH ×2 (10:50→21:52)
[2018-01-21] MEDS: RANITIDINE HCL 150 MG TABLET (FP) PO SCH (10:50)
[2018-01-21] MEDS: CLOPIDOGREL BISULFATE 75 MG TABLET (FP) PO SCH (10:50)
[2018-01-21] MEDS: PRENATAL VITAMINS W/ FOLIC ACID TABLET (FP) PO SCH (10:50)
[2018-01-21] MEDS: CHOLECALCIFEROL (VITAMIN D3) 1,000 UNIT TABLET (FP) PO SCH (10:50)
[2018-01-21] MEDS: FLUCONAZOLE 100 MG TABLET (UD) PO SCH (10:51)
[2018-01-21] MEDS: POTASSIUM CHLORIDE TABS 20 MEQ TABLET.ER (FP) PO SCH (10:53)
[2018-01-21] MEDS: FLUOCINONIDE 0.05% CREAM (15 GM TUBE) TP SCH ×2 (10:53→21:53)
[2018-01-21] MEDS: NICOTINE 14 MG/24 HOURS TOPICAL PATCH TD SCH (10:53)
[2018-01-21] MEDS: AMMONIUM LACTATE 12% LOTION 225 GM BOTTLE TP SCH ×2 (10:53→21:54)
[2018-01-21] MEDS: MARAVIROC 150 MG TAB PO SCH ×2 (10:54→21:52)
[2018-01-21] MEDS: BUDESONIDE/FORMETEROL FUMARATE 160/4.5 mcg INHALER IH SCH ×2 (10:55→21:52)
[2018-01-21] MEDS ORDERED: INSULIN (NOVOLOG) ASPART 100 UNITS/ML 10ML VIAL ONE (17:04)
[2018-01-21] MEDS: INSULIN DETEMIR 100 UNITS/ML MDV SQ SCH (21:51)
[2018-01-21] MEDS: ROSUVASTATIN CA 10 MG TABLET (FP) PO SCH (21:52)
[2018-01-21] MEDS: THIAMINE HCL 100 MG TABLET (FP) PO SCH (21:53)
[2018-01-22] MEDS ORDERED: ALBUTEROL SO4 2.5/IPRATROPIUM 0.5 INH SOL 3 ML VIAL.NEB. NEB ONE (03:39)
[2018-01-22] MEDS ORDERED: MAGNESIUM HYDROX 2400MG/30ML ORAL SUSPENSION 30 ML CUP PO ONE (03:40)
[2018-01-22] MEDS: hydrOXYzine PAMOATE 50 MG CAPSULE (FP) PO PRN ×4 (06:53→21:56)
[2018-01-22] MEDS: INSULIN SLIDING SCALE (NOVOLOG) 1 VIAL SQ SCH ×3 (06:54→16:35)
[2018-01-22] MEDS: ARTIFICIAL TEARS (POLYVINYL ALCOHOL 1.4%) OPTH DROPS OU SCH ×3 (06:54→21:54)
[2018-01-22] MEDS: FUROSEMIDE 40 MG TABLET (FP) PO SCH ×2 (06:54→14:12)
[2018-01-22] MEDS: FERROUS SO4 325 MG TABLET (FP) PO SCH ×2 (07:03→16:39)
[2018-01-22] MEDS: DARUNAVIR ETHANOLATE 600 MG TAB PO SCH ×2 (07:03→18:14)
[2018-01-22] MEDS: RITONAVIR 100 MG TABLET PO SCH ×2 (07:03→18:15)
[2018-01-22] MEDS: FLUCONAZOLE 100 MG TABLET (UD) PO SCH (10:50)
[2018-01-22] MEDS: AMMONIUM LACTATE 12% LOTION 225 GM BOTTLE TP SCH ×2 (10:50→21:55)
[2018-01-22] MEDS: FLUOCINONIDE 0.05% CREAM (15 GM TUBE) TP SCH ×2 (10:50→21:57)
[2018-01-22] MEDS: NICOTINE 14 MG/24 HOURS TOPICAL PATCH TD SCH (10:50)
[2018-01-22] MEDS: CARVEDILOL 25 MG TABLET (FP) PO SCH ×2 (10:51→21:54)
[2018-01-22] MEDS: ASPIRIN 81 MG CHEWABLE TABLETS PO SCH (10:51)
[2018-01-22] MEDS: CLOPIDOGREL BISULFATE 75 MG TABLET (FP) PO SCH (10:51)
[2018-01-22] MEDS: BUDESONIDE/FORMETEROL FUMARATE 160/4.5 mcg INHALER IH SCH ×2 (10:52→21:57)
[2018-01-22] MEDS: RALTEGRAVIR POTASSIUM 400 MG TAB PO SCH ×2 (10:52→21:54)
[2018-01-22] MEDS: CHOLECALCIFEROL (VITAMIN D3) 1,000 UNIT TABLET (FP) PO SCH (10:52)
[2018-01-22] MEDS: RANITIDINE HCL 150 MG TABLET (FP) PO SCH (10:52)
[2018-01-22] MEDS: PRENATAL VITAMINS W/ FOLIC ACID TABLET (FP) PO SCH (10:52)
[2018-01-22] MEDS: POTASSIUM CHLORIDE TABS 20 MEQ TABLET.ER (FP) PO SCH (10:52)
[2018-01-22] MEDS: MARAVIROC 150 MG TAB PO SCH ×2 (10:53→21:55)
[2018-01-22] MEDS: COLLOIDAL OATMEAL 1 BAR EACH TP PRN (10:57)
[2018-01-22] MEDS ORDERED: ALBUTEROL SO4 2.5/IPRATROPIUM 0.5 INH SOL 3 ML VIAL.NEB. NEB PRN (16:06)
[2018-01-22] MEDS ORDERED: INSULIN (NOVOLOG) ASPART 100 UNITS/ML 10ML VIAL ONE (16:36)
[2018-01-22] MEDS: INSULIN DETEMIR 100 UNITS/ML MDV SQ SCH (21:52)
[2018-01-22] MEDS: THIAMINE HCL 100 MG TABLET (FP) PO SCH (21:54)
[2018-01-22] MEDS: ROSUVASTATIN CA 10 MG TABLET (FP) PO SCH (21:54)
[2018-01-23] MEDS ORDERED: ALBUTEROL SO4 2.5/IPRATROPIUM 0.5 INH SOL 3 ML VIAL.NEB. NEB ONE (00:54)
[2018-01-23 03:00] VITALS: BP 142/72; PULSE 62; TEMP 97.8
--- NOTE | 2018-01-23 03:22 | PN ---
S Progress Note (SOAP) Subjective: Patient complained of shortness of breath and orthopnea. Rapid, shallow breathing noted Appears restless, very anxious and agitated Objective: 01/23/18 03:22 Vital Signs Temperature 97.8 F 01/23/18 02:59 Pulse Rate 62 01/23/18 02:59 Respiratory Rate 17 01/23/18 02:59 Blood Pressure 142/72 01/23/18 02:59 O2 Sat by Pulse Oximetry (%) 92% Increased SOB, non productive cough, bilateral leg swelling, restlessness and grunting sound Desaturation - Saturation was 97 % at room are and is now 92% Assessment: 01/23/18 03:24 Respiratory distress CHF exacerbation Plan: Duoneb nebulizer treatment given with minimal relief Deep breathing exercise encouraged Transfer patient to ER for evaluation Endorsed to Dr. Jain
[2018-01-23] MEDS: ARTIFICIAL TEARS (POLYVINYL ALCOHOL 1.4%) OPTH DROPS OU SCH (07:09)
[2018-01-23] MEDS: FUROSEMIDE 40 MG TABLET (FP) PO SCH (07:09)
[2018-01-23] MEDS: INSULIN SLIDING SCALE (NOVOLOG) 1 VIAL SQ SCH ×2 (07:09→12:02)
[2018-01-23] MEDS: DARUNAVIR ETHANOLATE 600 MG TAB PO SCH (07:10)
[2018-01-23] MEDS: FERROUS SO4 325 MG TABLET (FP) PO SCH (07:10)
[2018-01-23] MEDS: RITONAVIR 100 MG TABLET PO SCH (07:10)
[2018-01-23] MEDS: CARVEDILOL 25 MG TABLET (FP) PO SCH (09:59)
[2018-01-23] MEDS: ASPIRIN 81 MG CHEWABLE TABLETS PO SCH (09:59)
[2018-01-23] MEDS: AMMONIUM LACTATE 12% LOTION 225 GM BOTTLE TP SCH (10:00)
[2018-01-23] MEDS: FLUOCINONIDE 0.05% CREAM (15 GM TUBE) TP SCH (10:00)
[2018-01-23] MEDS: FLUCONAZOLE 100 MG TABLET (UD) PO SCH (10:00)
[2018-01-23] MEDS: CLOPIDOGREL BISULFATE 75 MG TABLET (FP) PO SCH (10:00)
[2018-01-23] MEDS: POTASSIUM CHLORIDE TABS 20 MEQ TABLET.ER (FP) PO SCH (10:00)
[2018-01-23] MEDS: RALTEGRAVIR POTASSIUM 400 MG TAB PO SCH (10:00)
[2018-01-23] MEDS: NICOTINE 14 MG/24 HOURS TOPICAL PATCH TD SCH (10:00)
[2018-01-23] MEDS: RANITIDINE HCL 150 MG TABLET (FP) PO SCH (10:01)
[2018-01-23] MEDS: PRENATAL VITAMINS W/ FOLIC ACID TABLET (FP) PO SCH (10:01)
[2018-01-23] MEDS: CHOLECALCIFEROL (VITAMIN D3) 1,000 UNIT TABLET (FP) PO SCH (10:01)
[2018-01-23] MEDS: BUDESONIDE/FORMETEROL FUMARATE 160/4.5 mcg INHALER IH SCH (10:01)
[2018-01-23] MEDS: MARAVIROC 150 MG TAB PO SCH (10:01)
== END 2018-01-23 13:45 | disposition short-term general hospital (02) | DRG 895 ==
LOC: YASAS 11:27 → Y3N 17:47 → Y5N 01-16 14:54
PROVIDERS: ADMIT Internal Medicine; ATTEND Psychiatry & Neurology Psychiatry
PROC: HZ2ZZZZ Detoxification Services for Substance Abuse Treatment (ICD-10-PCS; principal; 2018-01-11)
PROC: HZ42ZZZ Group Counseling for Substance Abuse Treatment, Cognitive-Behavioral (ICD-10-PCS; 2018-01-16)
DX: F11.23 Opioid dependence with withdrawal (principal); F14.20 Cocaine dependence, uncomplicated; F19.282 Other psychoactive substance dependence with psychoactive substance-induced sleep disorder; F13.20 Sedative, hypnotic or anxiolytic dependence, uncomplicated; R06.03 Acute respiratory distress; F10.10 Alcohol abuse, uncomplicated; F17.213 Nicotine dependence, cigarettes, with withdrawal; F19.24 Other psychoactive substance dependence with psychoactive substance-induced mood disorder; D50.9 Iron deficiency anemia, unspecified; I50.9 Heart failure, unspecified; Z95.810 Presence of automatic (implantable) cardiac defibrillator; Z21 Asymptomatic human immunodeficiency virus [HIV] infection status; B18.2 Chronic viral hepatitis C; E78.5 Hyperlipidemia, unspecified; G62.9 Polyneuropathy, unspecified; L40.9 Psoriasis, unspecified; E11.9 Type 2 diabetes mellitus without complications; Z79.4 Long term (current) use of insulin; Z79.82 Long term (current) use of aspirin; K21.9 Gastro-esophageal reflux disease without esophagitis; I25.2 Old myocardial infarction; J45.909 Unspecified asthma, uncomplicated; Z88.8 Allergy status to other drugs, medicaments and biological substances
CPT/HCPCS: 36415; 71045-TC-FY; 80048; 80053; 81003; 81015; 82550; 82553; 82803; 82962; 83605; 83735; 83880; 84075; 84439; 84443; 84484; 85025; 85027; 85610; 86593; 93005; 93010; 93306-TC; 93970-TC; 94640; 99283-25; 99285-25

== ENCOUNTER 2018-01-23 03:34 | Inpatient (IN) | payer OTHER ==
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
[2018-01-23] MEDS ORDERED: FUROSEMIDE 40 MG/4 ML INJECTABLE VIAL IVPUSH ONE ×2 (04:14→18:00)
[2018-01-23 04:59] LABS: VENOUS PC02 36.5 mmHg (38-52); VENOUS PH 7.41 (7.32-7.42); VENOUS PO2 70.4 mmHg (28-48)
[2018-01-23 05:01] LABS: HEMATOCRIT 30.2 % (35.4-49); HEMOGLOBIN 9.9 GM/dL (11.7-16.9); MCH 26.9 pg (25.7-33.7); MCHC 32.7 g/dl (32.0-35.9); MEAN CELL VOLUME 82.3 fl (80-96); MEAN PLT VOLUME 8.7 fl (7.5-11.1); PLATELET COUNT 201 K/MM3 (134-434); RBC 3.67 M/mm3 (4.00-5.60); RDW 17.5 % (11.9-15.9); WHITE BLOOD COUNT 7.5 K/mm3 (4.0-10.0)
[2018-01-23 05:09] LABS: URINE APPEARANCE CLEAR; URINE BILIRUBIN NEGATIVE (NEGATIVE); URINE BLOOD NEGATIVE (NEGATIVE); URINE COLOR LTYELLOW; URINE GLUCOSE (UA) NEGATIVE (NEGATIVE); URINE KETONE NEGATIVE (NEGATIVE); URINE LEUK ESTERASE NEGATIVE (NEGATIVE); URINE NITRITE NEGATIVE (NEGATIVE); URINE UROBILINOGEN NEGATIVE mg/dL (0.2-1.0)
[2018-01-23] MEDS ORDERED: FUROSEMIDE 40 MG TABLET (FP) PO ONE (05:15)
[2018-01-23] MEDS ORDERED: FUROSEMIDE 40 MG TABLET (FP) ONE (05:16)
[2018-01-23 05:35] LABS: URINE PROTEIN 3+ (NEGATIVE)
[2018-01-23 05:35] LABS: N-TERMINAL BNP 4577.98 pg/ml (5-125)
[2018-01-23 05:37] LABS: INR 1.09 (0.82-1.09); PROTHROMBIN TIME (PATIENT) 12.3 SEC (9.98-11.88)
[2018-01-23 05:37] LABS: URINE MUCUS RARE
--- NOTE | 2018-01-23 06:12 | PDOC ---
Attending Attestation - Resident Resident Name: Tuan Billson - ED Attending Attestation I have performed the following: I have examined & evaluated the patient, The case was reviewed & discussed with the resident, I agree w/resident's findings & plan, Exceptions are as noted - HPI HPI: 01/23/18 06:11 agree with resident note. 67yoM HIV, CHF presnets w/ resp distress x 1 hr from rehab facility. poor air movement lower 1/2 bilaterally. mild HTN. exam most c/w pulmonary edema. difficult IV access, will start with PO lasix while Iv access obtained. admit. - Physicial Exam PE: 01/23/18 06:12 as abofe - Medical Decision Making 01/23/18 06:12 asabove
[2018-01-23 08:40] LABS: ANISOCYTOSIS 0; MACROCYTOSIS 0; PLATELET ESTIMATE NORMAL
--- NOTE | 2018-01-23 09:14 | HP ---
CHIEF COMPLAINT: Shortness of breath at [facility] PCP: HISTORY OF PRESENT ILLNESS: Patient is a 67 year old male with a significant past medical history of hypertension, hyperlipidemia, diabetes, hepatitis C, HIV (on HAART), CHF, asthma , defib and pacemaker, etoh and polysubstance abuse. He presents from [facility] today when found to be hypoxic (90% on room air). Patient states he was short of breath upon awakening. BNP noted to be 4500 in ED. Trop 0.47. Patient allowed a limited exam, tired of everyone listening to his lungs. Anterior lungs sounds diminished, no rhonchi. He was laying flat, agitated. Denies coughing. Wants something to help him relax, does not want Xanax, but does not know name of anti anxiety medication. States that the [facility] has a current list of his medications. States he was at the [facility] 3 weeks ago. ER course was notable for: (1) bnp 4577 (2) trop 0.07 (3) chest xray with bilateral lobe congestive changes Recent Travel: PAST MEDICAL HISTORY: hypertension, hyperlipidemia, diabetes, hepatitis C, HIV (on HAART), CHF, asthma, defib and pacemaker, etoh and polysubstance abuse. PAST SURGICAL HISTORY: Social History: Smoking: denies Alcohol: ETOH abuse Drugs: polysubstance abuse Family History: Allergies morphine Allergy (Severe, Verified 01/23/18 03:42) Nausea Pork/Porcine Containing Products Allergy (Mild, Verified 01/23/18 03:42) Hives HOME MEDICATIONS: Home Medications Medication Instructions Recorded Duloxetine HCl [Cymbalta -] 20 mg PO HS 08/18/16 Cholecalciferol (Vitamin D3) 1,000 unit PO DAILY #30 tab 09/07/16 [Vitamin D3 -] Folic Acid - 1 mg PO DAILY #30 tablet 09/07/16 Furosemide [Lasix -] 20 mg PO BID #30 tablet 09/07/16 Potassium Chloride [Klor-Con M20] 20 meq PO DAILY 01/11/17 Albuterol Sulfate Inhaler - 2 inh PO Q4H PRN #1 inhaler 01/16/17 [Ventolin HFA Inhaler -] Aspirin [ASA -] 81 mg PO DAILY tab.chew 01/16/17 Betamethasone Valerate [Valisone 1 applic TP BID #1 01/16/17 0.1% Cream -] Carvedilol [Coreg -] 25 mg PO BID #0 tablet 01/16/17 Clopidogrel Bisulfate [Plavix -] 75 mg PO DAILY #30 tablet 01/16/17 Darunavir Ethanolate [Prezista -] 600 mg PO BID tab 01/16/17 Ferrous Sulfate [Feosol] 325 mg PO BID #0 ud 01/16/17 Fluconazole [Diflucan -] 200 mg PO DAILY #0 tablet 01/16/17 Fluocinonide 0.05% Cream [Lidex 1 applic TP BID #1 tube 01/16/17 0.05% Cream -] Polyvinyl Alcohol [Artificial 1 drop OU TID drops 01/16/17 Tears] Raltegravir [Isentress] 400 mg PO BID #0 tab 01/16/17 Ranitidine [Zantac -] 150 mg PO DAILY #60 tablet 01/16/17 Ritonavir [Norvir -] 100 mg PO BID #0 tab 01/16/17 Rosuvastatin [Crestor -] 10 mg PO HS #30 tablet 01/16/17 Insulin Aspart [Novolog] 0 unit SQ ACHS 02/02/17 Insulin Glargine,Hum.rec.anlog 35 unit SQ HS 01/11/18 [Lantus] Maraviroc [Selzentry] 150 mg PO BID 01/11/18 PHYSICAL EXAMINATION Vital Signs - 24 hr 01/23/18 01/23/18 03:43 06:34 Temperature 97.3 F L Pulse Rate 65 Pulse Rate [ 96 H Left Apical] Respiratory 16 22 Rate Blood Pressure 160/92 Blood Pressure 141/59 [Right Arm] O2 Sat by Pulse 100 97 Oximetry (%) GENERAL: Awake, alert, and fully oriented, in no acute distress, agitated HEAD: Normal with no signs of trauma. EYES: Pupils equal, round and reactive to light, extraocular movements intact, sclera anicteric, conjunctiva clear. No lid lag. EARS, NOSE, THROAT: Ears normal, nares patent, oropharynx clear without exudates. Moist mucous membranes. NECK: Normal range of motion, supple without lymphadenopathy, JVD, or masses. LUNGS: diminished anteriorly, on supplemental oxygen, congestive changes seen on chest xray HEART: Regular rate and rhythm, pacemaker ABDOMEN: Soft, nontender, not distended, normoactive bowel sounds, no guarding, no rebound, no masses. No hepatomegaly or splenomegaly. MUSCULOSKELETAL: Normal range of motion at all joints. No bony deformities or tenderness. No CVA tenderness. LOWER EXTREMITIES: bilateral non pitting edema NEUROLOGICAL: Normal speech. Normal gait. PSYCHIATRIC: Cooperative. Good eye contact. Appropriate mood and affect. SKIN: Warm, dry, normal turgor, no rashes or lesions noted, normal capillary refill. Laboratory Results - last 24 hr 01/23/18 01/23/18 01/23/18 04:35 04:35 04:35 WBC 7.5 RBC 3.67 L Hgb 9.9 L Hct 30.2 L MCV 82.3 MCH 26.9 MCHC 32.7 RDW 17.5 H Plt Count 201 MPV 8.7 D Neutrophils % No Result Required. Neutrophils % (Manual) 67.7 Band Neutrophils % 0.0 Lymphocytes % No Result Required. Lymphocytes % (Manual) 15.2 Monocytes % (Manual) 11 H Eosinophils % (Manual) 3.0 Basophils % (Manual) 1.0 Myelocytes % (Man) 0 Promyelocytes % (Man) 0 Blast Cells % (Manual) 0 Nucleated RBC % 0 Metamyelocytes 0 Hypochromia 0 Platelet Estimate Normal Polychromasia 0 Poikilocytosis 0 Anisocytosis 0 Microcytosis 0 Macrocytosis 0 PT with INR 12.30 H INR 1.09 VBG pH POC VBG pCO2 POC VBG pO2 Mixed VBG HCO3 Lactic Acid Creatine Kinase 241 Creatine Kinase Index 1.6 CK-MB (CK-2) 4.058 H Troponin I 0.07 H D B-Natriuretic Peptide 4577.98 H Urine Color Urine Appearance Urine pH Ur Specific [place] Urine Protein Urine Glucose (UA) Urine Ketones Urine Blood Urine Nitrite Urine Bilirubin Urine Urobilinogen Ur Leukocyte Esterase Urine WBC (Auto) Urine RBC (Auto) Urine Mucus 01/23/18 01/23/18 01/23/18 04:35 04:35 05:00 WBC RBC Hgb Hct MCV MCH MCHC RDW Plt Count MPV Neutrophils % Neutrophils % (Manual) Band Neutrophils % Lymphocytes % Lymphocytes % (Manual) Monocytes % (Manual) Eosinophils % (Manual) Basophils % (Manual) Myelocytes % (Man) Promyelocytes % (Man) Blast Cells % (Manual) Nucleated RBC % Metamyelocytes Hypochromia Platelet Estimate Polychromasia Poikilocytosis Anisocytosis Microcytosis Macrocytosis PT with INR INR VBG pH 7.41 POC VBG pCO2 36.5 L POC VBG pO2 70.4 H Mixed VBG HCO3 22.7 Lactic Acid 0.6 Creatine Kinase Creatine Kinase Index CK-MB (CK-2) Troponin I B-Natriuretic Peptide Urine Color Ltyellow Urine Appearance Clear Urine pH 8.0 D Ur Specific [place] 1.013 Urine Protein 3+ H Urine Glucose (UA) Negative Urine Ketones Negative Urine Blood Negative Urine Nitrite Negative Urine Bilirubin Negative Urine Urobilinogen Negative Ur Leukocyte Esterase Negative Urine WBC (Auto) 1 Urine RBC (Auto) 2 Urine Mucus Rare ASSESSMENT/PLAN: Patient is a 67 year old male with a significant past medical history of hypertension, hyperlipidemia, diabetes, hepatitis C, HIV (on HAART), CHF, asthma , defib and pacemaker, etoh and polysubstance abuse. He presents from [facility] today when found to be hypoxic (90% on room air). Patient states he was short of breath upon awakening. BNP noted to be 4500 in ED. Trop 0.47. Patient allowed a limited exam, tired of everyone listening to his lungs. Anterior lungs sounds diminished, no rhonchi. He was laying flat, agitated. Denies coughing. Wants something to help him relax, does not want Xanax, but does not know name of anti anxiety medication. States that the [facility] has a current list of his medications. States he was at the [facility] 3 weeks ago. EKG : NSR with non specific ST changes, unchanged EKG from 01/11/2018 Chest xray with bilateral lobe congestive changes Shortness of breath Acute on chronic systolic CHF Rule out ACS Still having chest pain EKG no changes since last admission Monitor on tele Trend troponins Echo ordered and pending interrogation of ICD initiated by cardiology Monitor intake and output On Carvedilol 25mg BID Lasix 40mg daily Pulmonary COPD/Asthma history Hypoxia on admission Supplement xygen prn Maintain oxygen sats above 90% Pulmonary consult Psyche Polysubstance abuse from [facility] Followed by Dr Meza Renal MJ, creat 1.7 on admission Creat. about same on previous visits Vascular Bilateral lower ext edema Elevated, no calf pain Doppler lower ext in a.m. as pt refusing further testing today Endocrine BGMs, Novolog, Levemir TSH ordered, Free T4 pending F.E.N. fluids: Po adequate Electrolyes: monitor Nutrition: diabetic Prophy: DVT: ambulation, SCDs GI: deferred. Disposition. full code. Visit type - Emergency Visit Emergency Visit: Yes ED Registration Date: 01/23/18 Care time: The patient presented to the Emergency Department on the above date and was hospitalized for further evaluation of their emergent condition. - New Patient This patient is new to me today: Yes Date on this admission: 01/23/18 - Critical Care Critical Care patient: No Hospitalist Screening - Colonoscopy Questionnaire Colonoscopy Questionnaire: Colonoscopy Questionnaire - Patient: 50 - 75 years old and never had a screening colonoscopy: Unknown History of colon or rectal polyps, or CA: Unknown History of IBD, Crohn's disease or UC: Unknown History of abdominal radiation therapy as a child: Unknown - Relative: 1 with colon or rectal CA, or polyps at age 60 or younger: Unknown Colon or rectal CA diagnosed at age 45 or younger: Unknown Multiple relatives with colon or rectal CA: Unknown - Outcome: Screening Result: Negative Screen
[2018-01-23] MEDS ORDERED: FUROSEMIDE 20 MG TABLET (FP) PO SCH (10:00)
--- NOTE | 2018-01-23 10:28 | CONSULT ---
Consult Detox [facility] Reason for Current Admission/Consult: substance use Referred by:: armin blancas MD - History History of Present Illness: 67 yo b [facility] completing detox from heorin and alcohol admitted c/o SOB for cardiac w/u. PMHX HTN, HLD, Hep C, HIV ( on HAART ), systolic CHF s/p ICD; on "amiodarone",(on Lasix) ,asthma, defib/ pacemaker ( 2010), EtoH, cocaine, and heroin dependence with multiple inpatient rehabilitation admissions BIBA with SOB. Per EMS pt. with O2 Sat of 90% RA per staff,however EMS reports 99% O2 RA on arrival. refusing MAT for opioid dependence - History Source History Provided By: Patient, Medical Record, Caregiver Limitations to Obtaining History: No Limitations - Alcohol/Substance Use Hx Alcohol Use: Yes Hx Substance Use: Yes (cocaine, heroin) Hx Substance Use Treatment: Yes (s/p detox [facility]) - Past Medical History Cardio/Vascular: Yes: CHF, HTN, Hyperlipdemia Endocrine: Yes: Diabetes Mellitus - Past Surgical History Past Surgical History: Yes: AICD (defibrillator), Cholecystectomy - Significant Medical Findings: 67 yo m recently detoxed from alcohol and hoeirn transferred with sob and admitted for w/u now stable c/o anxiety, refusing MAT for OUD COWS - Scale Resting Pulse: 0= [place] 80 or Below Sweatin= No chills or Flushing Restless Observation: 0= Sits Still Pupil Size: 0= Normal to Room Light Bone or Joint Aches: 0= None Runny Nose/ Eye Tearin= None GI Upset > 30mins: 0= None Tremor Observation: 0= None Yawning Observation: 0= None Anxiety or Irritability: 2=Irritable/Anxious Goose Flesh Skin: 0=Smooth Skin COWS Score: 2 CIWA Score - CIWA Score Nausea/Vomitin-No Nausea/No Vomiting Muscle Tremors: None Anxiety: 3 Agitation: 0-Normal Activity Paroxysmal Sweats: 4-Forehead w/Sweat Beads Orientation: 0-Oriented Tacttile Disturbances: 0-None Auditory Disturbances: 0-None Visual Disturbances: 0-None Headache: 0-None Present CIWA-Ar Total Score: 7 Assessment Plan - Diagnosis (1) Alcohol dependence Status: Chronic Qualifiers: Substance use status: uncomplicated Qualified Code(s): F10.20 - Alcohol dependence, uncomplicated (2) CHF (congestive heart failure) Status: Chronic (3) Cardiac defibrillator in place Status: Chronic (4) HIV (human immunodeficiency virus infection) Status: Chronic (5) Hypertension Status: Chronic Qualifiers: Hypertension type: essential hypertension Qualified Code(s): I10 - Essential (primary) hypertension (6) IDDM (insulin dependent diabetes mellitus) Status: Chronic (7) Nicotine dependence Status: Chronic (8) Opioid dependence Status: Chronic Qualifiers: Substance use status: uncomplicated Qualified Code(s): F11.20 - Opioid dependence, uncomplicated (9) Psoriasis Status: Chronic (10) Anxiety Status: Acute (11) Cocaine dependence Status: Acute (12) Nicotine dependence Status: Acute Qualifiers: Nicotine product type: cigarettes Substance use status: in withdrawal Qualified Code(s): F17.213 - Nicotine dependence, cigarettes, with withdrawal - Plan Plan: chart, imaging, labs reviewed. Patient examined, history taken, discussed care with medical team. Recommend: 1. brad love for sleep, vistaril for anxieyt 2. return to rehab when medically stable. Víctor Olivas MD [phone] - Medication Detox Regimen/Protocol: Not Applicable
[2018-01-23] MEDS: RANITIDINE HCL 150 MG TABLET (FP) PO SCH (12:48)
[2018-01-23] MEDS: RALTEGRAVIR POTASSIUM 400 MG TAB PO SCH ×2 (12:49→22:10)
[2018-01-23] MEDS: DARUNAVIR ETHANOLATE 600 MG TAB PO SCH ×2 (12:50→22:06)
[2018-01-23] MEDS: CLOPIDOGREL BISULFATE 75 MG TABLET (FP) PO SCH (12:50)
[2018-01-23] MEDS: FERROUS SO4 325 MG TABLET (FP) PO SCH ×2 (12:52→22:08)
[2018-01-23] MEDS: CARVEDILOL 25 MG TABLET (FP) PO SCH ×2 (12:52→22:07)
[2018-01-23] MEDS: CHOLECALCIFEROL (VITAMIN D3) 1,000 UNIT TABLET (FP) PO SCH (12:52)
[2018-01-23] MEDS: FOLIC ACID 1 MG TABLET (FP) PO SCH (12:52)
[2018-01-23] MEDS: POTASSIUM CHLORIDE TABS 20 MEQ TABLET.ER (FP) PO SCH (12:53)
[2018-01-23] MEDS: RITONAVIR 100 MG TABLET PO SCH ×2 (12:53→22:06)
[2018-01-23] MEDS: ASPIRIN 81 MG CHEWABLE TABLETS PO SCH (12:54)
[2018-01-23 12:55] VITALS: BMI 30.4
--- NOTE | 2018-01-23 14:14 | CON.CARD ---
Consult Consult Specialty:: cardiology Reason for Consultation:: hx CHF; SOB/bilateral LE swelling - History of Present Illness Chief Complaint: Tired; uncooperative. History of Present Illness: 67 yo black man with h/o HTN, HLD, Hep C, HIV ( on HAART ), systolic CHF s/p ICD; on "amiodarone",(on Lasix) ,asthma, defib/pacemaker ( 2010), EtoH, cocaine , and heroin dependence with multiple inpatient rehabilitation admissions BIBA with SOB. Per EMS pt. with O2 Sat of 90% RA per staff,however EMS reports 99% O2 RA on arrival. Patient was A&O x 3 and in NAD. Pt. reports acute onset SOB, while sleeping 1 hour ONION TIER, and development of non productive cough at around 600 PM. Reports that he has had increased bilateral leg swelling and shortness of breath for the past two weeks. Denies CP, N/V, F/C, lightheadedness, abdominal pain, urinary complaints, diarrhea, constipation, weakness. - History Source History Provided By: Patient, Medical Record Limitations to Obtaining History: Uncooperative - Past Medical History Cardio/Vascular: Yes: CHF, HTN, Hyperlipdemia Pulmonary: Yes: Asthma Hepatobiliary: Yes: Hepatitis C Heme/Onc: Yes: Anemia Infectious Disease: Yes: HIV Psych: Yes: Anxiety, Other (substance abuse) Endocrine: Yes: Diabetes Mellitus - Past Surgical History Past Surgical History: Yes: AICD (defibrillator), Cholecystectomy - Alcohol/Substance Use Hx Alcohol Use: Yes (01/10/18) History of Substance Use: reports: Cocaine, Heroin Date of Last Use: 05/29/15 - Smoking History Smoking history: Former smoker Have you smoked in the past 12 months: No Aproximately how many cigarettes per day: 3 - Social History ADL: Independent History of Recent Travel: No Home Medications - Allergies Allergies/Adverse Reactions: Allergies Allergy/AdvReac Type Severity Reaction Status Date / Time morphine Allergy Severe Nausea Verified 01/23/18 03:42 Pork/Porcine Containing Allergy Mild Hives Verified 01/23/18 03:42 Products - Home Medications Home Medications: Ambulatory Orders Duloxetine HCl [Cymbalta -] 20 mg PO HS 08/18/16 Cholecalciferol (Vitamin D3) [Vitamin D3 -] 1,000 unit PO DAILY #30 tab Folic Acid - 1 mg PO DAILY #30 tablet 09/07/16 Furosemide [Lasix -] 20 mg PO BID #30 tablet 09/07/16 Potassium Chloride [Klor-Con M20] 20 meq PO DAILY 01/11/17 Albuterol Sulfate Inhaler - [Ventolin HFA Inhaler -] 2 inh PO Q4H PRN #1 inhaler 01/16/17 Aspirin [ASA -] 81 mg PO DAILY tab.chew 01/16/17 Betamethasone Valerate [Valisone 0.1% Cream -] 1 applic TP BID #1 01/16/17 Carvedilol [Coreg -] 25 mg PO BID #0 tablet 01/16/17 Clopidogrel Bisulfate [Plavix -] 75 mg PO DAILY #30 tablet 01/16/17 Darunavir Ethanolate [Prezista -] 600 mg PO BID tab 01/16/17 Ferrous Sulfate [Feosol] 325 mg PO BID #0 ud 01/16/17 Fluconazole [Diflucan -] 200 mg PO DAILY #0 tablet 01/16/17 Fluocinonide 0.05% Cream [Lidex 0.05% Cream -] 1 applic TP BID #1 tube 01/16/17 Polyvinyl Alcohol [Artificial Tears] 1 drop OU TID drops 01/16/17 Raltegravir [Isentress] 400 mg PO BID #0 tab 01/16/17 Ranitidine [Zantac -] 150 mg PO DAILY #60 tablet 01/16/17 Ritonavir [Norvir -] 100 mg PO BID #0 tab 01/16/17 Rosuvastatin [Crestor -] 10 mg PO HS #30 tablet 01/16/17 Insulin Aspart [Novolog] 0 unit SQ ACHS 02/02/17 Insulin Glargine,Hum.rec.anlog [Lantus] 35 unit SQ HS 01/11/18 Maraviroc [Selzentry] 150 mg PO BID 01/11/18 Family Disease History - Family Disease History Family Disease History: Diabetes: Father (oct, 2000), Other: Father, Mother ( alive and well ) - Risk Factors Known Risk Factors: Yes: Age, Diabetes Mellitus, Family History, Gender, Hypercholesterolemia, Hypertension, Race, Other (systolic CHF; AICD;) Vital Signs: Vital Signs Temperature 97.5 F L 01/23/18 13:41 Pulse Rate 69 01/23/18 13:41 Respiratory Rate 18 01/23/18 13:41 Blood Pressure 162/89 01/23/18 13:41 O2 Sat by Pulse Oximetry (%) 97 01/23/18 13:41 Constitutional: Yes: Anxious Eyes: Yes: WNL HENT: Yes: WNL Neck: Yes: WNL Respiratory: Yes: Diminished Gastrointestinal: Yes: Soft Renal/: No: Anuria Cardiovascular: Yes: Regular Rate and Rhythm JVD: Yes Carotid Bruit: No PMI: Displaced Heart Sounds: Yes: S1, S2 (split), S4 Murmur: Yes: Systolic Murmur, Grade 2 Musculoskeletal: Yes: WNL, Other (ICD left subclavian area) Extremities: Yes: Cool Edema: Yes Edema: LLE: 2+, RLE: 2+ Peripheral Pulses WNL: Yes Integumentary: Yes: WNL Neurological: Yes: Alert, Oriented Psychiatric: Yes: Other (anxiety) - Other Data Labs, Other Data: CBC, BMP 01/23/18 04:35 INR, PTT INR 1.09 (0.82-1.09) 01/23/18 04:35 Troponin, BNP 01/23/18 04:35 Troponin I 0.07 H D B-Natriuretic Peptide 4577.98 H Troponin, BNP 01/23/18 04:35 Troponin I 0.07 H D B-Natriuretic Peptide 4577.98 H Abnormal Lab Results 01/23/18 01/23/18 01/23/18 04:35 04:35 04:35 RBC 3.67 L Hgb 9.9 L Hct 30.2 L RDW 17.5 H Monocytes % (Manual) 11 H PT with INR 12.30 H POC VBG pCO2 POC VBG pO2 CK-MB (CK-2) 4.058 H Troponin I 0.07 H D B-Natriuretic Peptide 4577.98 H Urine Protein 01/23/18 01/23/18 04:35 05:00 RBC Hgb Hct RDW Monocytes % (Manual) PT with INR POC VBG pCO2 36.5 L POC VBG pO2 70.4 H CK-MB (CK-2) Troponin I B-Natriuretic Peptide Urine Protein 3+ H Imaging - Results Chest X-ray: Image Reviewed (CHF) Problem List - Problems (1) Acute on chronic systolic CHF (congestive heart failure) Assessment/Plan: Pt is an uncooperative historian. ? SOB and bilateral leg swelling for the past 2 weeks; had admission here within the past two weeks for opiates. Pt mentions "amiodarone, the dangerous drug", but no list shows him being on it. He cannot remember his doctors' names (?in [place]); he was apparently recently admitted to [facility], though he is not a pt in the [facility] Heart Failure clinic. Pt thought his ICD was placed 2007, but a search shows it is a Medtronic single- chamber ICD installed at [facility] in 2010. Plan: Continue carvedilol 25 mg bid, unless pt is actively using cocaine. Change furosemide to IVP. Add ACEI if BUn/Cr and K+ allow. F/u Serial TNIs (initial is 0.07). EKG: NSR; nonspecific STT changes (rel unchanged from 01/11/2018). Is and Os, daily weight. TSH elevated; f/u TFTs. ECHO for LVEF, chamber sizes, valve status. Records of coronary artery evaluation (?hx [place]); ?on amiodarone. Code(s): I50.23 - ACUTE ON CHRONIC SYSTOLIC (CONGESTIVE) HEART FAILURE (2) Alcohol abuse Code(s): F10.10 - ALCOHOL ABUSE, UNCOMPLICATED (3) Cocaine abuse Assessment/Plan: If ongoing, will have to consider stopping beta blockers. Code(s): F14.10 - COCAINE ABUSE, UNCOMPLICATED (4) Nicotine dependence Code(s): F17.200 - NICOTINE DEPENDENCE, UNSPECIFIED, UNCOMPLICATED Qualifiers: Nicotine product type: cigarettes Substance use status: in withdrawal Qualified Code(s): F17.213 - Nicotine dependence, cigarettes, with withdrawal (5) Opioid dependence Assessment/Plan: though pt has ?morphine allergy. Code(s): F11.20 - OPIOID DEPENDENCE, UNCOMPLICATED (6) Cardiac defibrillator in place Assessment/Plan: Medtronic single chamber ICD; follow interrogation. Code(s): Z95.810 - PRESENCE OF AUTOMATIC (IMPLANTABLE) CARDIAC DEFIBRILLATOR (7) HIV (human immunodeficiency virus infection) Code(s): Z21 - ASYMPTOMATIC HUMAN IMMUNODEFICIENCY VIRUS INFECTION STATUS (8) Hepatitis C Code(s): B19.20 - UNSPECIFIED VIRAL HEPATITIS C WITHOUT HEPATIC COMA Qualifiers: Viral hepatitis chronicity: chronic Hepatic coma status: without hepatic coma Qualified Code(s): B18.2 - Chronic viral hepatitis C (9) Hyperlipidemia Code(s): E78.5 - HYPERLIPIDEMIA, UNSPECIFIED Qualifiers: Hyperlipidemia type: unspecified Qualified Code(s): E78.5 - Hyperlipidemia , unspecified (10) Hypertension Code(s): I10 - ESSENTIAL (PRIMARY) HYPERTENSION Qualifiers: Hypertension type: essential hypertension Qualified Code(s): I10 - Essential (primary) hypertension (11) Type 2 diabetes mellitus Code(s): E11.9 - TYPE 2 DIABETES MELLITUS WITHOUT COMPLICATIONS Qualifiers: Diabetes mellitus complication status: without complication Diabetes mellitus terminal press operator insulin use: without residential use Qualified Code(s): E11.9 - Type 2 diabetes mellitus without complications
--- NOTE | 2018-01-23 14:15 | EKG ---
Test Reason : Blood Pressure : / mmHG Vent. Rate : 065 BPM Atrial Rate : 065 BPM P-R Int : 142 ms QRS Dur : 112 ms QT Int : 512 ms P-R-T Axes : 051 -14 258 degrees QTc Int : 532 ms NORMAL SINUS RHYTHM NONSPECIFIC ST AND T WAVE ABNORMALITY PROLONGED QT ABNORMAL ECG WHEN COMPARED WITH ECG OF 11-JAN-2018 20:13, NO SIGNIFICANT CHANGE WAS FOUND Confirmed by MD Pari, Yogesh ([id number]) on 01/23/2018 2:15:26 PM Referred By: Confirmed By:Yogesh Yañez MD
[2018-01-23] MEDS: ARTIFICIAL TEARS (POLYVINYL ALCOHOL 1.4%) OPTH DROPS OU SCH ×2 (14:17→22:07)
[2018-01-23 14:37] LABS: ALBUMIN 2.7 g/dl (3.4-5.0); ALK PHOS 218 U/L (45-117); ANION GAP 9 (8-16); BLOOD UREA NITROGEN 28 mg/dL (7-18); CALCIUM 7.9 mg/dL (8.5-10.1); CHLORIDE 111 mmol/L (98-107); CO2 22 mmol/L (21-32); CREATININE 1.7 mg/dL (0.7-1.3); GLUCOSE,RANDOM 76 mg/dL (74-106); MAGNESIUM 2.4 mg/dL (1.8-2.4); POTASSIUM 4.3 mmol/L (3.5-5.1); SGOT/AST 23 U/L (15-37); SGPT/ALT 27 U/L (12-78); SODIUM 142 mmol/L (136-145); TOT PROT 6.4 g/dl (6.4-8.2)
[2018-01-23 14:45] LABS: BILIRUBIN,TOTAL 0.4 mg/dL (0.2-1.0)
[2018-01-23] MEDS ORDERED: LORazepam 1 MG TABLET PO ONE (15:27)
[2018-01-23] MEDS: LISINOPRIL 5 MG TABLET (FP) PO SCH (15:41)
[2018-01-23] MEDS: MARAVIROC 150 MG TAB PO SCH ×2 (15:44→22:09)
[2018-01-23] MEDS ORDERED: ACETAMINOPHEN 325 MG TABLET (FP) PO PRN (17:16)
[2018-01-23] MEDS: INSULIN SLIDING SCALE (NOVOLOG) 1 VIAL SQ SCH ×2 (17:17→22:13)
[2018-01-23] MEDS: FLUOCINONIDE 0.05% CREAM (60 GM TUBE) TP SCH ×2 (17:18→22:11)
[2018-01-23] MEDS: FLUCONAZOLE 100 MG TABLET (UD) PO SCH (17:18)
[2018-01-23] MEDS ORDERED: KETOROLAC TROMETHAMINE 10 MG TABLET PO ONE (17:40)
--- NOTE | 2018-01-23 17:59 | CONSULT ---
Consult Detox [facility] - Alcohol/Substance Use Hx Alcohol Use: Yes (01/10/18) - Past Medical History Cardio/Vascular: Yes: CHF, HTN, Hyperlipdemia Pulmonary: Yes: Asthma Hepatobiliary: Yes: Hepatitis C Infectious Disease: Yes: HIV Psych: Yes: Anxiety, Other (substance abuse) Endocrine: Yes: Diabetes Mellitus - Past Surgical History Past Surgical History: Yes: AICD (defibrillator), Cholecystectomy
[2018-01-23] MEDS ORDERED: hydrOXYzine PAMOATE 25 MG CAPSULE (FP) PO PRN (18:29)
[2018-01-23] MEDS ORDERED: diazePAM 5 MG TABLET PO ONE (18:29)
[2018-01-23] MEDS ORDERED: FUROSEMIDE 40 MG/4 ML INJECTABLE VIAL ONE (20:40)
[2018-01-23] MEDS: DULoxetine HCL 20 MG CAPSULE.DR (FP) PO SCH (22:00)
[2018-01-23] MEDS: THIAMINE HCL 100 MG TABLET (FP) PO SCH (22:08)
[2018-01-23] MEDS: ROSUVASTATIN CA 10 MG TABLET (FP) PO SCH (22:08)
[2018-01-23] MEDS: INSULIN DETEMIR 100 UNITS/ML MDV SQ SCH (22:12)
[2018-01-24] MEDS: INSULIN SLIDING SCALE (NOVOLOG) 1 VIAL SQ SCH ×3 (06:32→22:29)
[2018-01-24] MEDS: ARTIFICIAL TEARS (POLYVINYL ALCOHOL 1.4%) OPTH DROPS OU SCH ×2 (06:32→22:28)
[2018-01-24] MEDS: RITONAVIR 100 MG TABLET PO SCH ×2 (08:00→18:26)
[2018-01-24] MEDS: DARUNAVIR ETHANOLATE 600 MG TAB PO SCH ×2 (08:00→18:26)
[2018-01-24] MEDS: RANITIDINE HCL 150 MG TABLET (FP) PO SCH (10:00)
[2018-01-24] MEDS: MARAVIROC 150 MG TAB PO SCH ×2 (10:00→22:30)
[2018-01-24] MEDS: RALTEGRAVIR POTASSIUM 400 MG TAB PO SCH ×2 (10:00→22:21)
[2018-01-24] MEDS: FERROUS SO4 325 MG TABLET (FP) PO SCH ×2 (10:00→22:20)
[2018-01-24] MEDS: ASPIRIN 81 MG CHEWABLE TABLETS PO SCH (10:00)
[2018-01-24] MEDS: FLUOCINONIDE 0.05% CREAM (60 GM TUBE) TP SCH ×2 (10:00→22:30)
[2018-01-24] MEDS: CHOLECALCIFEROL (VITAMIN D3) 1,000 UNIT TABLET (FP) PO SCH (10:00)
[2018-01-24] MEDS: POTASSIUM CHLORIDE TABS 20 MEQ TABLET.ER (FP) PO SCH (10:00)
[2018-01-24] MEDS: PRENATAL VITAMINS W/ FOLIC ACID TABLET (FP) PO SCH (10:00)
[2018-01-24] MEDS: FOLIC ACID 1 MG TABLET (FP) PO SCH (10:00)
[2018-01-24] MEDS: CLOPIDOGREL BISULFATE 75 MG TABLET (FP) PO SCH (10:00)
[2018-01-24] MEDS ORDERED: FUROSEMIDE 40 MG/4 ML INJECTABLE VIAL IVPUSH SCH (10:00)
[2018-01-24] MEDS: CARVEDILOL 25 MG TABLET (FP) PO SCH ×2 (10:00→22:20)
[2018-01-24] MEDS: FLUCONAZOLE 100 MG TABLET (UD) PO SCH (10:00)
[2018-01-24] MEDS: LISINOPRIL 5 MG TABLET (FP) PO SCH (10:00)
--- NOTE | 2018-01-24 11:14 | CON.PULM ---
Consult Consult Specialty:: PULMONARY Referred by:: ROBIN Leahy Reason for Consultation:: shortness of breath - History of Present Illness Chief Complaint: shortness of breath History of Present Illness: 67yo male with h/o HTN, DM, hyperlipidemia, Hep C, HIV, CHF s/p ICD, COPD, Polysubstance Abuse who was sent from [facility] after being found to be hypoxic to 90% on room air. Does not have oxygen at home. He states he has been short of breath x 2 days. +nonproductive cough without wheezing. No chest pain or palpitations. Pt is a poor historian, perseverates about extra food. No fevers, chills or sweats. He states he is a light smoker. - History Source History Provided By: Patient, Medical Record Limitations to Obtaining History: Poor Historian - Past Medical History Cardio/Vascular: Yes: CHF, HTN, Hyperlipdemia Pulmonary: Yes: Asthma Hepatobiliary: Yes: Hepatitis C Infectious Disease: Yes: HIV Psych: Yes: Anxiety, Other (substance abuse) Endocrine: Yes: Diabetes Mellitus - Past Surgical History Past Surgical History: Yes: AICD (defibrillator), Cholecystectomy - Alcohol/Substance Use Hx Alcohol Use: Yes (01/10/18) History of Substance Use: reports: Cocaine, Heroin Date of Last Use: 05/29/15 - Smoking History Smoking history: Former smoker Have you smoked in the past 12 months: No Aproximately how many cigarettes per day: 3 - Social History ADL: Independent History of Recent Travel: No Home Medications - Allergies Allergies/Adverse Reactions: Allergies Allergy/AdvReac Type Severity Reaction Status Date / Time morphine Allergy Severe Nausea Verified 01/23/18 03:42 Pork/Porcine Containing Allergy Mild Hives Verified 01/23/18 03:42 Products - Home Medications Home Medications: Ambulatory Orders Duloxetine HCl [Cymbalta -] 20 mg PO HS 08/18/16 Cholecalciferol (Vitamin D3) [Vitamin D3 -] 1,000 unit PO DAILY #30 tab Folic Acid - 1 mg PO DAILY #30 tablet 09/07/16 Furosemide [Lasix -] 20 mg PO BID #30 tablet 09/07/16 Potassium Chloride [Klor-Con M20] 20 meq PO DAILY 01/11/17 Albuterol Sulfate Inhaler - [Ventolin HFA Inhaler -] 2 inh PO Q4H PRN #1 inhaler 01/16/17 Aspirin [ASA -] 81 mg PO DAILY tab.chew 01/16/17 Betamethasone Valerate [Valisone 0.1% Cream -] 1 applic TP BID #1 01/16/17 Carvedilol [Coreg -] 25 mg PO BID #0 tablet 01/16/17 Clopidogrel Bisulfate [Plavix -] 75 mg PO DAILY #30 tablet 01/16/17 Darunavir Ethanolate [Prezista -] 600 mg PO BID tab 01/16/17 Ferrous Sulfate [Feosol] 325 mg PO BID #0 ud 01/16/17 Fluconazole [Diflucan -] 200 mg PO DAILY #0 tablet 01/16/17 Fluocinonide 0.05% Cream [Lidex 0.05% Cream -] 1 applic TP BID #1 tube 01/16/17 Polyvinyl Alcohol [Artificial Tears] 1 drop OU TID drops 01/16/17 Raltegravir [Isentress] 400 mg PO BID #0 tab 01/16/17 Ranitidine [Zantac -] 150 mg PO DAILY #60 tablet 01/16/17 Ritonavir [Norvir -] 100 mg PO BID #0 tab 01/16/17 Rosuvastatin [Crestor -] 10 mg PO HS #30 tablet 01/16/17 Insulin Aspart [Novolog] 0 unit SQ ACHS 02/02/17 Insulin Glargine,Hum.rec.anlog [Lantus] 35 unit SQ HS 01/11/18 Maraviroc [Selzentry] 150 mg PO BID 01/11/18 Family Disease History - Family Disease History Family Disease History: Diabetes: Father (oct, 2000), Other: Father, Mother ( alive and well ) Review of Systems Unable to obtain ROS, reason: poor historian Physical Exam Vital Sings: Vital Signs Temperature 97.4 F L 01/24/18 06:00 Pulse Rate 62 01/24/18 06:00 Respiratory Rate 20 01/24/18 06:00 Blood Pressure 131/76 01/24/18 06:00 O2 Sat by Pulse Oximetry (%) 96 01/23/18 21:06 Constitutional: Yes: Mild Distress (mildly tachypneic at rest) Eyes: Yes: Conjunctiva Clear, EOM Intact HENT: Yes: Atraumatic, Normocephalic Neck: Yes: Supple, Trachea Midline Cardiovascular: Yes: Regular Rate and Rhythm Respiratory: Yes: Rales (bibasilar) ...Clubbing: No Gastrointestinal: Yes: Normal Bowel Sounds, Soft. No: Tenderness Edema: Yes Neurological: Yes: Alert, Oriented Labs: CBC, BMP 01/23/18 04:35 01/23/18 04:35 Imaging - Results Chest X-ray: Report Reviewed, Image Reviewed (pulmonary vascular congestion) Problem List - Problems (1) Acute on chronic systolic CHF (congestive heart failure) Code(s): I50.23 - ACUTE ON CHRONIC SYSTOLIC (CONGESTIVE) HEART FAILURE (2) Anxiety Code(s): F41.9 - ANXIETY DISORDER, UNSPECIFIED (3) Alcohol abuse Code(s): F10.10 - ALCOHOL ABUSE, UNCOMPLICATED (4) Cocaine dependence Code(s): F14.20 - COCAINE DEPENDENCE, UNCOMPLICATED (5) Nicotine dependence Code(s): F17.200 - NICOTINE DEPENDENCE, UNSPECIFIED, UNCOMPLICATED Qualifiers: Nicotine product type: cigarettes Substance use status: in withdrawal Qualified Code(s): F17.213 - Nicotine dependence, cigarettes, with withdrawal (6) Opioid dependence Code(s): F11.20 - OPIOID DEPENDENCE, UNCOMPLICATED (7) Cardiac defibrillator in place Code(s): Z95.810 - PRESENCE OF AUTOMATIC (IMPLANTABLE) CARDIAC DEFIBRILLATOR (8) HIV (human immunodeficiency virus infection) Code(s): Z21 - ASYMPTOMATIC HUMAN IMMUNODEFICIENCY VIRUS INFECTION STATUS (9) Hepatitis C Code(s): B19.20 - UNSPECIFIED VIRAL HEPATITIS C WITHOUT HEPATIC COMA Qualifiers: Viral hepatitis chronicity: chronic Hepatic coma status: without hepatic coma Qualified Code(s): B18.2 - Chronic viral hepatitis C (10) Hypertension Code(s): I10 - ESSENTIAL (PRIMARY) HYPERTENSION Qualifiers: Hypertension type: essential hypertension Qualified Code(s): I10 - Essential (primary) hypertension (11) IDDM (insulin dependent diabetes mellitus) Code(s): E11.9 - TYPE 2 DIABETES MELLITUS WITHOUT COMPLICATIONS; Z79.4 - CUSTODIAL (CURRENT) USE OF INSULIN (12) COPD (chronic obstructive pulmonary disease) Code(s): J44.9 - CHRONIC OBSTRUCTIVE PULMONARY DISEASE, UNSPECIFIED Assessment/Plan Acute on Chronic Systolic Heart Failure Polysubstance Abuse COPD HIV Hep C HTN DM CKD - IV lasix - monitor urine output, creatinine - daily weights, I/Os - monitor CXR with diuresis - echocardiogram - O2 to keep Spo2 >90% - inhaled bronchodilators - DVT prophylaxis Thank you for this consult Nando Lion MD
--- NOTE | 2018-01-24 12:11 | PN ---
Physical Exam: SUBJECTIVE: Patient seen and examined. He is aggravated he doesn't have more food. He feels sob, denies cp. OBJECTIVE: Vital Signs Period Temp Pulse Resp BP Sys/Pandya Pulse Ox Last 24 Hr 97.4 F-98.4 F 62-70 18-20 128-162/58-89 96-97 PE Neuro: alert, awake, cn 2-12intact Pulm: basilar rhonchi, diminished CV: s1 s2 rrr Abd: s nt nd + bs Ext: edema, + 2 pitting, LLE vascular changes Laboratory Results - last 24 hr 01/23/18 01/23/18 01/23/18 04:35 16:00 16:00 Sodium 142 Potassium 4.3 Chloride 111 H Carbon Dioxide 22 Anion Gap 9 BUN 28 H D Creatinine 1.7 H Creat Clearance w eGFR 40.65 POC Glucometer Random Glucose 76 D Calcium 7.9 L Magnesium 2.4 Total Bilirubin 0.4 D AST 23 D ALT 27 D Alkaline Phosphatase 218 H Creatine Kinase 241 Creatine Kinase Index 1.6 CK-MB (CK-2) 4.058 H Troponin I 0.07 H D 0.04 D B-Natriuretic Peptide 4577.98 H Total Protein 6.4 Albumin 2.7 L TSH 7.18 H Free T4 0.87 Active Medications Generic Name Dose Route Start Last Admin Trade Name Freq PRN Reason Stop Dose Admin Acetaminophen 650 mg 01/23/18 17:16 01/23/18 17:32 Tylenol - PO 650 mg Q6H PRN Administration fever Artificial Tears 1 drop 01/23/18 14:00 01/24/18 06:32 Artificial Tears OU 1 drop TID MIRTHA Administration Aspirin 81 mg 01/23/18 10:00 01/23/18 12:54 Asa - PO 81 mg DAILY MIRTHA Administration Carvedilol 25 mg 01/23/18 10:00 01/23/18 22:07 Coreg - PO 25 mg BID MIRTHA Administration Cholecalciferol 1,000 unit 01/23/18 10:00 01/23/18 12:52 Vitamin D3 - PO 1,000 unit DAILY MIRTHA Administration Clopidogrel Bisulfate 75 mg 01/23/18 10:00 01/23/18 12:50 Plavix - PO 75 mg DAILY MIRTHA Administration Darunavir 600 mg 01/23/18 10:00 01/23/18 22:06 Prezista - PO 600 mg BIDWM MIRTHA Administration Duloxetine HCl 20 mg 01/23/18 22:00 01/23/18 22:00 Cymbalta - PO 20 mg HS MIRTHA Administration Ferrous Sulfate 325 mg 01/23/18 10:00 01/23/18 22:08 Feosol - PO 325 mg BID MIRTHA Administration Fluconazole 200 mg 01/23/18 10:00 01/23/18 17:18 Diflucan - PO Not Given DAILY [facility] Fluocinonide 1 applic 01/23/18 10:00 01/23/18 22:11 Lidex 0.05% Cream - TP Not Given BID [facility] Folic Acid 1 mg 01/23/18 10:00 01/23/18 12:52 Folic Acid - PO 1 mg DAILY MIRTHA Administration Furosemide 40 mg 01/24/18 22:00 Lasix Injection - IVPUSH BID [facility] Hydroxyzine Pamoate 25 mg 01/23/18 18:29 Vistaril - PO Q6H PRN ANXIETY Insulin Aspart 1 vial 01/23/18 16:30 01/24/18 06:32 Novolog Vial Sliding Scale - SQ 8 unit ACHS MIRTHA Administration Protocol Insulin Detemir 10 units 01/23/18 22:00 01/23/18 22:12 Levemir Vial SQ 10 units HS [facility] Administration Lisinopril 5 mg 01/23/18 15:15 01/23/18 15:41 Prinivil PO 5 mg DAILY MIRTHA Administration Maraviroc 150 mg 01/23/18 10:00 01/23/18 22:09 Selzentry - PO 150 mg BID MIRTHA Administration Potassium Chloride 20 meq 01/23/18 10:00 01/23/18 12:53 K-Dur - PO 20 meq DAILY MIRTHA Administration Multivit/Folic Acid/Iron 1 tab 01/24/18 10:00 Vitamins (Sjr) - PO DAILY [facility] Raltegravir 400 mg 01/23/18 10:00 01/23/18 22:10 Isentress - PO 400 mg BID MIRTHA Administration Ranitidine HCl 150 mg 01/23/18 10:00 01/23/18 12:48 Zantac - PO 150 mg DAILY MIRTHA Administration Ritonavir 100 mg 01/23/18 10:00 01/23/18 22:06 Norvir - PO 100 mg BIDWM MIRTHA Administration Rosuvastatin Calcium 10 mg 01/23/18 22:00 01/23/18 22:08 Crestor - PO 10 mg HS MIRTHA Administration Thiamine HCl 100 mg 01/23/18 22:00 01/23/18 22:08 Vitamin B1 - PO 100 mg HS MIRTHA Administration Assessment: 67 year old male with pmhx of HTN, HLD, DM II, hepatitis C, HIV (on HAART), systolic CHF s/p ICD, asthma, Defib and pacemaker (2010), etoh and polysubstance abuse admitted from [facility] [place] with worsening shortness of breath. Plan: 1. Acute systolic CHF exacerbation - CXR noted with increased congestion - Increase IV lasix 40mg BID - ECHO ordered - Started lisinopril 5mg - Coreg 25mg BID - Cardiology seeing 2. SOB - Due to above - Diuresis as above - CXR tomorrow - Trop x2 down trended 3. CAD s/p defib and ppm - ASA - Plavix 75mg daily - Crestor 10mg HS 4. HIV - Cont HAART meds 5. DM II - Levemir 10units HS - ISS, BGM ACHS 6. Polysubstance abuse - Detox per Dr. Meza Visit type - Emergency Visit Emergency Visit: Yes ED Registration Date: 01/23/18 Care time: The patient presented to the Emergency Department on the above date and was hospitalized for further evaluation of their emergent condition. - New Patient This patient is new to me today: Yes Date on this admission: 01/24/18 - Critical Care Critical Care patient: No
[2018-01-24] MEDS: FUROSEMIDE 40 MG/4 ML INJECTABLE VIAL IVPUSH SCH (18:26)
--- NOTE | 2018-01-24 18:51 | HOSP ---
Subjective - Review of Symptoms Subjective: Pt is requesting valium claiming it is a home medication Istop checked and is no BZD is listed as ever been prescribed will not order at this time Reference #: [id number] Physical Examination Vital Signs: Vital Signs Temperature 97.6 F 01/24/18 17:00 Pulse Rate 71 01/24/18 17:00 Respiratory Rate 20 01/24/18 17:00 Blood Pressure 156/72 01/24/18 17:00 O2 Sat by Pulse Oximetry (%) 96 01/23/18 21:06 Labs: CBC, BMP 01/23/18 04:35 01/23/18 04:35
--- NOTE | 2018-01-24 20:22 | PN ---
Progress Note, Physician Chief Complaint: Pt denies chest pain or dyspnea; refuses to wear telemetry monitro. History of Present Illness: 67 yo black man with h/o HTN, HLD, Hep C, HIV ( on HAART ), systolic CHF s/p ICD; on "amiodarone",(on Lasix) ,asthma, defib/pacemaker ( 2010), EtoH, cocaine , and heroin dependence with multiple inpatient rehabilitation admissions BIBA with SOB. Per EMS pt. with O2 Sat of 90% RA per staff,however EMS reports 99% O2 RA on arrival. Patient was A&O x 3 and in NAD. Pt. 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 Reports that he has had increased bilateral leg swelling and shortness of breath for the past two weeks. Denies CP, N/V, F/C, lightheadedness, abdominal pain, urinary complaints, diarrhea, constipation, weakness. - Current Medication List Current Medications: Active Medications Acetaminophen (Tylenol -) 650 mg PO Q6H PRN PRN Reason: fever Last Admin: 01/23/18 17:32 Dose: 650 mg Artificial Tears (Artificial Tears) 1 drop OU TID [facility] Last Admin: 01/24/18 06:32 Dose: 1 drop Aspirin (Asa -) 81 mg PO DAILY [facility] Last Admin: 01/24/18 10:00 Dose: Not Given Carvedilol (Coreg -) 25 mg PO BID [facility] Last Admin: 01/24/18 10:00 Dose: Not Given Cholecalciferol (Vitamin D3 -) 1,000 unit PO DAILY [facility] Last Admin: 01/23/18 12:52 Dose: 1,000 unit Clopidogrel Bisulfate (Plavix -) 75 mg PO DAILY [facility] Last Admin: 01/23/18 12:50 Dose: 75 mg Darunavir (Prezista -) 600 mg PO BIDWM [facility] Last Admin: 01/24/18 18:26 Dose: 600 mg Duloxetine HCl (Cymbalta -) 20 mg PO HS [facility] Last Admin: 01/23/18 22:00 Dose: 20 mg Ferrous Sulfate (Feosol -) 325 mg PO BID [facility] Last Admin: 01/24/18 10:00 Dose: Not Given Fluconazole (Diflucan -) 200 mg PO DAILY [facility] Last Admin: 01/24/18 10:00 Dose: Not Given Fluocinonide (Lidex 0.05% Cream -) 1 applic TP BID [facility] Last Admin: 01/23/18 22:11 Dose: Not Given Folic Acid (Folic Acid -) 1 mg PO DAILY [facility] Last Admin: 01/24/18 10:00 Dose: Not Given Furosemide (Lasix Injection -) 40 mg IVPUSH BIDLASIX [facility] Last Admin: 01/24/18 18:26 Dose: 40 mg Hydroxyzine Pamoate (Vistaril -) 25 mg PO Q6H PRN PRN Reason: ANXIETY Insulin Aspart (Novolog Vial Sliding Scale -) 1 vial SQ [facility] PRN Reason: Protocol Last Admin: 01/24/18 18:33 Dose: 4 unit Insulin Detemir (Levemir Vial) 10 units SQ HS [facility] Last Admin: 01/23/18 22:12 Dose: 10 units Lisinopril (Prinivil) 5 mg PO DAILY [facility] Last Admin: 01/23/18 15:41 Dose: 5 mg Maraviroc (Selzentry -) 150 mg PO BID [facility] Last Admin: 01/23/18 22:09 Dose: 150 mg Potassium Chloride (K-Dur -) 20 meq PO DAILY [facility] Last Admin: 01/23/18 12:53 Dose: 20 meq Multivit/Folic Acid/Iron ( Vitamins (Sjr) -) 1 tab PO DAILY [facility] Raltegravir (Isentress -) 400 mg PO BID [facility] Last Admin: 01/24/18 10:00 Dose: Not Given Ranitidine HCl (Zantac -) 150 mg PO DAILY [facility] Last Admin: 01/23/18 12:48 Dose: 150 mg Ritonavir (Norvir -) 100 mg PO BIDWM [facility] Last Admin: 01/24/18 18:26 Dose: 100 mg Rosuvastatin Calcium (Crestor -) 10 mg PO HS [facility] Last Admin: 01/23/18 22:08 Dose: 10 mg Thiamine HCl (Vitamin B1 -) 100 mg PO HS [facility] Last Admin: 01/23/18 22:08 Dose: 100 mg - Objective Vital Signs: Vital Signs Temperature 97.6 F 01/24/18 17:00 Pulse Rate 71 01/24/18 17:00 Respiratory Rate 20 01/24/18 17:00 Blood Pressure 156/72 01/24/18 17:00 O2 Sat by Pulse Oximetry (%) 96 01/24/18 09:00 Labs: CBC, BMP 01/23/18 04:35 01/23/18 04:35 INR, PTT INR 1.09 (0.82-1.09) 01/23/18 04:35 Problem List - Problems (1) Acute on chronic systolic CHF (congestive heart failure) Assessment/Plan: Pt is an uncooperative historian. ? SOB and bilateral leg swelling for the past 2 weeks; had admission here within the past two weeks for opiates. Pt mentions "amiodarone, the dangerous drug", but no list shows him being on it. He cannot remember his doctors' names (?in [place]); he was apparently recently admitted to [facility], though he is not a pt in the [facility] Heart Failure clinic. Pt thought his ICD was placed 2007, but a search shows it is a [employer] single- chamber ICD installed at [facility] in 2010. Plan: Continue carvedilol 25 mg bid, unless pt is actively using cocaine. Change furosemide to IVP. Add ACEI if BUn/Cr and K+ allow. F/u Serial TNIs (initial is 0.07). EKG: NSR; nonspecific STT changes (rel unchanged from 01/11/2018). Is and Os, daily weight. TSH elevated; f/u TFTs. ECHO for LVEF, chamber sizes, valve status. Records of coronary artery evaluation (?hx [place]); ?on amiodarone. ICD interrogation: battery life Code(s): I50.23 - ACUTE ON CHRONIC SYSTOLIC (CONGESTIVE) HEART FAILURE (2) Alcohol abuse Code(s): F10.10 - ALCOHOL ABUSE, UNCOMPLICATED (3) Cocaine abuse Assessment/Plan: If ongoing, will have to consider stopping beta blockers. Code(s): F14.10 - COCAINE ABUSE, UNCOMPLICATED (4) Nicotine dependence Code(s): F17.200 - NICOTINE DEPENDENCE, UNSPECIFIED, UNCOMPLICATED Qualifiers: Nicotine product type: cigarettes Substance use status: in withdrawal Qualified Code(s): F17.213 - Nicotine dependence, cigarettes, with withdrawal (5) Opioid dependence Code(s): F11.20 - OPIOID DEPENDENCE, UNCOMPLICATED (6) Cardiac defibrillator in place Code(s): Z95.810 - PRESENCE OF AUTOMATIC (IMPLANTABLE) CARDIAC DEFIBRILLATOR (7) HIV (human immunodeficiency virus infection) Code(s): Z21 - ASYMPTOMATIC HUMAN IMMUNODEFICIENCY VIRUS INFECTION STATUS (8) Hepatitis C Code(s): B19.20 - UNSPECIFIED VIRAL HEPATITIS C WITHOUT HEPATIC COMA Qualifiers: Viral hepatitis chronicity: chronic Hepatic coma status: without hepatic coma Qualified Code(s): B18.2 - Chronic viral hepatitis C (9) Hyperlipidemia Code(s): E78.5 - HYPERLIPIDEMIA, UNSPECIFIED Qualifiers: Hyperlipidemia type: unspecified Qualified Code(s): E78.5 - Hyperlipidemia , unspecified (10) Hypertension Code(s): I10 - ESSENTIAL (PRIMARY) HYPERTENSION Qualifiers: Hypertension type: essential hypertension Qualified Code(s): I10 - Essential (primary) hypertension (11) Type 2 diabetes mellitus Code(s): E11.9 - TYPE 2 DIABETES MELLITUS WITHOUT COMPLICATIONS Qualifiers: Diabetes mellitus complication status: without complication Diabetes mellitus terminal gauger supervisor insulin use: without snf use Qualified Code(s): E11.9 - Type 2 diabetes mellitus without complications
[2018-01-24] MEDS: INSULIN DETEMIR 100 UNITS/ML MDV SQ SCH (22:17)
[2018-01-24] MEDS: DULoxetine HCL 20 MG CAPSULE.DR (FP) PO SCH (22:20)
[2018-01-24] MEDS: THIAMINE HCL 100 MG TABLET (FP) PO SCH (22:20)
[2018-01-24] MEDS: ROSUVASTATIN CA 10 MG TABLET (FP) PO SCH (22:28)
[2018-01-25] MEDS ORDERED: ALBUTEROL SO4 18 GM HFA INHALER IH PRN (04:23)
[2018-01-25] MEDS: ARTIFICIAL TEARS (POLYVINYL ALCOHOL 1.4%) OPTH DROPS OU SCH (06:00)
[2018-01-25] MEDS: FUROSEMIDE 40 MG/4 ML INJECTABLE VIAL IVPUSH SCH (06:00)
[2018-01-25] MEDS: INSULIN SLIDING SCALE (NOVOLOG) 1 VIAL SQ SCH (06:02)
[2018-01-25 06:32] VITALS: PULSE 63
[2018-01-25 08:00] LABS: CHLORIDE 109 mmol/L (98-107); POTASSIUM 4.5 mmol/L (3.5-5.1); SODIUM 142 mmol/L (136-145)
[2018-01-25 08:05] LABS: ANION GAP 9 (8-16); BLOOD UREA NITROGEN 29 mg/dL (7-18); CO2 24 mmol/L (21-32); CREATININE 1.7 mg/dL (0.7-1.3); GLUCOSE,RANDOM 152 mg/dL (74-106)
[2018-01-25] MEDS: CLOPIDOGREL BISULFATE 75 MG TABLET (FP) PO SCH (09:27)
[2018-01-25] MEDS: FLUOCINONIDE 0.05% CREAM (60 GM TUBE) TP SCH (09:27)
[2018-01-25] MEDS: POTASSIUM CHLORIDE TABS 20 MEQ TABLET.ER (FP) PO SCH (09:27)
[2018-01-25] MEDS: RANITIDINE HCL 150 MG TABLET (FP) PO SCH (09:30)
[2018-01-25] MEDS: CHOLECALCIFEROL (VITAMIN D3) 1,000 UNIT TABLET (FP) PO SCH (09:30)
[2018-01-25] MEDS: LISINOPRIL 5 MG TABLET (FP) PO SCH (09:31)
[2018-01-25] MEDS: PRENATAL VITAMINS W/ FOLIC ACID TABLET (FP) PO SCH (09:32)
[2018-01-25] MEDS: MARAVIROC 150 MG TAB PO SCH (09:32)
[2018-01-25] MEDS ORDERED: PT OWN MED DRAWER 7, Y5N ONE (09:35)
[2018-01-25] MEDS: FLUCONAZOLE 100 MG TABLET (UD) PO SCH (09:43)
[2018-01-25] MEDS: ASPIRIN 81 MG CHEWABLE TABLETS PO SCH (09:43)
[2018-01-25] MEDS: FOLIC ACID 1 MG TABLET (FP) PO SCH (09:43)
[2018-01-25] MEDS: CARVEDILOL 25 MG TABLET (FP) PO SCH (09:43)
[2018-01-25] MEDS: FERROUS SO4 325 MG TABLET (FP) PO SCH (09:43)
[2018-01-25] MEDS: RALTEGRAVIR POTASSIUM 400 MG TAB PO SCH (09:43)
[2018-01-25] MEDS: DARUNAVIR ETHANOLATE 600 MG TAB PO SCH (09:44)
[2018-01-25] MEDS: RITONAVIR 100 MG TABLET PO SCH (09:44)
[2018-01-25 10:21] VITALS: BP 159/82; TEMP 98
--- NOTE | 2018-01-25 12:10 | DS ---
Physical Exam: SUBJECTIVE: Patient seen and examined OBJECTIVE: Vital Signs Period Temp Pulse Resp BP Sys/Pandya Pulse Ox Last 24 Hr 97.6 F-99.1 F 63-71 18-20 137-159/69-89 94-96 PHYSICAL EXAM GENERAL: The patient is awake, alert, and fully oriented, in no acute distress. HEAD: Normal with no signs of trauma. EYES: PERRL, extraocular movements intact, sclera anicteric, conjunctiva clear. ENT: Ears normal, nares patent, oropharynx clear without exudates, moist mucous membranes. NECK: Trachea midline, full range of motion, supple. LUNGS: Breath sounds equal, clear to auscultation bilaterally, no wheezes, no crackles, no accessory muscle use. HEART: Regular rate and rhythm, S1, S2 without murmur, rub or gallop. ABDOMEN: Soft, nontender, nondistended, normoactive bowel sounds, no guarding, no rebound, no hepatosplenomegaly, no masses. EXTREMITIES: 2+ pulses, warm, well-perfused, no edema. NEUROLOGICAL: Cranial nerves II through XII grossly intact. Normal speech, gait not observed. PSYCH: Normal mood, normal affect. SKIN: Warm, dry, normal turgor, no rashes or lesions noted. LABS Laboratory Results - last 24 hr 01/24/18 01/24/18 01/25/18 18:01 22:17 05:05 Sodium 142 Potassium 4.5 Chloride 109 H Carbon Dioxide 24 Anion Gap 9 BUN 29 H Creatinine 1.7 H POC Glucometer 248 228 Random Glucose 152 H D Calcium 8.0 L 01/25/18 05:58 Sodium Potassium Chloride Carbon Dioxide Anion Gap BUN Creatinine POC Glucometer 157 Random Glucose Calcium HOSPITAL COURSE: Date of Admission:01/23/18 Date of Discharge: 01/25/18 Discharge Summary Reason For Visit: CHF Current Active Problems Acute on chronic systolic CHF (congestive heart failure) (Acute) Anxiety (Acute) COPD (chronic obstructive pulmonary disease) (Acute) Condition: Stable - Instructions Diet, Activity, Other Instructions: Please return to the ED for any new, persistent, or worsening symptoms. Continue medications as listed on home medication list You are not taking Amiodarone anymore Start new medication: Losartan 50mg daily When you complete rehab follow up with the cardiology group at [address] [place] [address] [phone] Mercedes [phone] when you complete rehab Continue follow up at [facility] Referrals: Frandy Mercedes MD [Non Staff, Medical] - ([phone]) OFELIA MURILLO [Primary Care Provider] - Disposition: TRANSFER ACUTE CARE/OTHER HOSP - Home Medications Comprehensive Discharge Medication List: Ambulatory Orders Duloxetine HCl [Cymbalta -] 20 mg PO HS 08/18/16 Cholecalciferol (Vitamin D3) [Vitamin D3 -] 1,000 unit PO DAILY #30 tab Folic Acid - 1 mg PO DAILY #30 tablet 09/07/16 Furosemide [Lasix -] 20 mg PO BID #30 tablet 09/07/16 Potassium Chloride [Klor-Con M20] 20 meq PO DAILY 01/11/17 Albuterol Sulfate Inhaler - [Ventolin HFA Inhaler -] 2 inh PO Q4H PRN #1 inhaler 01/16/17 Aspirin [ASA -] 81 mg PO DAILY tab.chew 01/16/17 Betamethasone Valerate [Valisone 0.1% Cream -] 1 applic TP BID #1 01/16/17 Carvedilol [Coreg -] 25 mg PO BID #0 tablet 01/16/17 Clopidogrel Bisulfate [Plavix -] 75 mg PO DAILY #30 tablet 01/16/17 Darunavir Ethanolate [Prezista -] 600 mg PO BID tab 01/16/17 Ferrous Sulfate [Feosol] 325 mg PO BID #0 ud 01/16/17 Fluconazole [Diflucan -] 200 mg PO DAILY #0 tablet 01/16/17 Fluocinonide 0.05% Cream [Lidex 0.05% Cream -] 1 applic TP BID #1 tube 01/16/17 Polyvinyl Alcohol [Artificial Tears] 1 drop OU TID drops 01/16/17 Raltegravir [Isentress] 400 mg PO BID #0 tab 01/16/17 Ranitidine [Zantac -] 150 mg PO DAILY #60 tablet 01/16/17 Ritonavir [Norvir -] 100 mg PO BID #0 tab 01/16/17 Rosuvastatin [Crestor -] 10 mg PO HS #30 tablet 01/16/17 Insulin Aspart [Novolog] 0 unit SQ ACHS 02/02/17 Insulin Glargine,Hum.rec.anlog [Lantus] 35 unit SQ HS 01/11/18 Maraviroc [Selzentry] 150 mg PO BID 01/11/18 Losartan Potassium 50 mg PO DAILY #30 tablet 01/25/18
== END 2018-01-25 13:05 | disposition short-term general hospital (02) | DRG 292 ==
LOC: JER 03:34 → JERBED 06:58 → J4W 12:16
PROVIDERS: ADMIT Hospitalist; ATTEND Nurse Practitioner Acute Care
DX: I11.0 Hypertensive heart disease with heart failure (principal); N17.9 Acute kidney failure, unspecified; F11.20 Opioid dependence, uncomplicated; I50.23 Acute on chronic systolic (congestive) heart failure; J44.9 Chronic obstructive pulmonary disease, unspecified; F41.9 Anxiety disorder, unspecified; Z21 Asymptomatic human immunodeficiency virus [HIV] infection status; E78.5 Hyperlipidemia, unspecified; F10.10 Alcohol abuse, uncomplicated; F14.10 Cocaine abuse, uncomplicated; B19.20 Unspecified viral hepatitis C without hepatic coma; E11.9 Type 2 diabetes mellitus without complications; I25.10 Atherosclerotic heart disease of native coronary artery without angina pectoris; Z87.891 Personal history of nicotine dependence; G62.9 Polyneuropathy, unspecified
CPT/HCPCS: 36415; 71045-TC-FY; 80048; 80053; 81003; 81015; 82550; 82553; 82803; 82962; 83605; 83735; 83880; 84439; 84443; 84484; 85025; 85610; 93005; 93010; 93306-TC; 93970-TC; 99283-25

== ENCOUNTER 2018-01-25 14:09 | Inpatient (IN) | payer OTHER ==
--- NOTE | 2018-01-25 14:20 | HP ---
[facility] Rehab Assess/Revision - Admission History Admitted to Rehab from: Medical/Surgical Date of Admission to Rehab: 01/25/18 - Findings Detox History & Physical reviewed: Yes Concur with findings: Yes Comments/Additional Findings: transferred from cardiac unit treated with systolic CHF, discharged to chemical rehab unit admission as per protocol Inpatient Rehab Admission - Initial Determination Are CD services needed?: Yes Free of communicable disease: Yes Not in need of hospitalization: Yes - Rehab Admission Criteria Previous failed treatment: Yes Poor recovery environment: Yes Comorbidities: Yes Lacks judgement: No Patient is meeting Inpatient Rehab admission criteria:: Yes
[2018-01-25] MEDS ORDERED: NICOTINE POLACRILEX 2 MG GUM BUC PRN (14:24)
[2018-01-25] MEDS ORDERED: ACETAMINOPHEN 325 MG TABLET (FP) PO PRN (14:24)
[2018-01-25] MEDS ORDERED: MAG HYDROX/AL HYDROX/SIMETH 30 ML UNIT-DOSE CUP PO PRN (14:24)
[2018-01-25] MEDS ORDERED: IBUPROFEN 400 MG TABLET (FP) PO PRN (14:24)
[2018-01-25] MEDS ORDERED: guaiFENesin/D-METHORPHAN HB 10 ML UNIT-DOSE CUPS PO PRN (14:24)
[2018-01-25] MEDS ORDERED: P-EPHED 60MG/TRIPROLIDI 2.5MG TABLET PO PRN (14:24)
[2018-01-25] MEDS ORDERED: LOPERAMIDE HCL 2 MG CAPSULE PO PRN (14:24)
[2018-01-25] MEDS ORDERED: MAGNESIUM CITRATE 300 ML BOTTLE PO PRN (14:24)
[2018-01-25 16:05] VITALS: BMI 32.4
[2018-01-25] MEDS: FUROSEMIDE 20 MG TABLET (FP) PO SCH (16:58)
[2018-01-25] MEDS: INSULIN SLIDING SCALE (NOVOLOG) 1 VIAL SQ SCH ×2 (16:59→21:28)
[2018-01-25] MEDS: DARUNAVIR ETHANOLATE 600 MG TAB PO SCH (17:48)
[2018-01-25] MEDS: RITONAVIR 100 MG TABLET PO SCH (17:48)
[2018-01-25] MEDS: ROSUVASTATIN CA 10 MG TABLET (FP) PO SCH (21:17)
[2018-01-25] MEDS: CARVEDILOL 25 MG TABLET (FP) PO SCH (21:17)
[2018-01-25] MEDS: THIAMINE HCL 100 MG TABLET (FP) PO SCH (21:17)
[2018-01-25] MEDS: MARAVIROC 150 MG TAB PO SCH (21:18)
[2018-01-25] MEDS: RALTEGRAVIR POTASSIUM 400 MG TAB PO SCH (21:19)
[2018-01-25] MEDS: BETAMETHASONE VALERATE 0.1% CREAM 15 GM TUBE TP SCH (21:19)
[2018-01-25] MEDS: BUDESONIDE/FORMETEROL FUMARATE 80/4.5 mcg INHALER IH SCH (21:19)
[2018-01-25] MEDS: ARTIFICIAL TEARS (POLYVINYL ALCOHOL 1.4%) OPTH DROPS OU SCH (21:20)
[2018-01-25] MEDS ORDERED: INSULIN DETEMIR 100 UNITS/ML MDV SQ ONE (21:27)
[2018-01-25] MEDS ORDERED: INSULIN DETEMIR 100 UNITS/ML MDV SQ SCH (22:00)
[2018-01-25] MEDS ORDERED: hydrOXYzine PAMOATE 50 MG CAPSULE (FP) PO ONE (22:15)
[2018-01-26] MEDS: INSULIN SLIDING SCALE (NOVOLOG) 1 VIAL SQ SCH ×4 (06:30→21:44)
[2018-01-26] MEDS: ARTIFICIAL TEARS (POLYVINYL ALCOHOL 1.4%) OPTH DROPS OU SCH ×3 (07:48→21:44)
[2018-01-26] MEDS: CLOPIDOGREL BISULFATE 75 MG TABLET (FP) PO SCH (07:49)
[2018-01-26] MEDS: FUROSEMIDE 20 MG TABLET (FP) PO SCH ×2 (07:49→16:48)
[2018-01-26] MEDS: DARUNAVIR ETHANOLATE 600 MG TAB PO SCH ×2 (07:49→16:48)
[2018-01-26] MEDS: RITONAVIR 100 MG TABLET PO SCH ×2 (07:49→17:02)
[2018-01-26] MEDS ORDERED: PT OWN MED DRAWER 7, Y5N ONE ×5 (09:14→21:46)
[2018-01-26] MEDS: PRENATAL VITAMINS W/ FOLIC ACID TABLET (FP) PO SCH (10:25)
[2018-01-26] MEDS: CHOLECALCIFEROL (VITAMIN D3) 1,000 UNIT TABLET (FP) PO SCH (10:26)
[2018-01-26] MEDS: POTASSIUM CHLORIDE TABS 20 MEQ TABLET.ER (FP) PO SCH (10:26)
[2018-01-26] MEDS: LOSARTAN POTASSIUM 50 MG TABLET (FP) PO SCH (10:26)
[2018-01-26] MEDS: CARVEDILOL 25 MG TABLET (FP) PO SCH ×2 (10:26→21:44)
[2018-01-26] MEDS: RANITIDINE HCL 150 MG TABLET (FP) PO SCH (10:26)
[2018-01-26] MEDS: NICOTINE 14 MG/24 HOURS TOPICAL PATCH TD SCH (10:26)
[2018-01-26] MEDS: MARAVIROC 150 MG TAB PO SCH ×2 (10:26→21:45)
[2018-01-26] MEDS: RALTEGRAVIR POTASSIUM 400 MG TAB PO SCH ×2 (10:26→21:44)
[2018-01-26] MEDS: BETAMETHASONE VALERATE 0.1% CREAM 15 GM TUBE TP SCH ×2 (10:27→21:45)
[2018-01-26] MEDS: ASPIRIN 81 MG CHEWABLE TABLETS PO SCH (10:27)
[2018-01-26] MEDS: BUDESONIDE/FORMETEROL FUMARATE 80/4.5 mcg INHALER IH SCH ×2 (10:31→21:45)
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
[2018-01-26] MEDS: hydrOXYzine PAMOATE 50 MG CAPSULE (FP) PO PRN ×3 (11:21→21:44)
[2018-01-26] MEDS ORDERED: INSULIN (NOVOLOG) ASPART 100 UNITS/ML 10ML VIAL ONE (12:01)
[2018-01-26] MEDS ORDERED: COLLOIDAL OATMEAL 1 BAR EACH TP PRN (14:29)
--- NOTE | 2018-01-26 14:39 | PN ---
[facility] Progress Note Note: Patient with low BGM ranging from 40 - 152. Patient reports feeling dizzy and weak and itchy / dry skin. Patient reports he was prescribed Amiodarone 200 mg QD d/t hx of open heart surgery. Reports he last took this medication on 01/16/18. Reports Maraviroc dosage was chaged to 150 mg BID the last time he saw his HIV specialist. Patient AOx3 ambulating in the unit. Patient in no apparent distress HR and Rhythm within normal limits No Adventitious breath sounds Plan: Medication dispense hx review : Amiodarone 200mg QD last dispense 12/29/17, continue Amiodarone Levemir 35 units qhs change to 30 units. Aveno soap and A & Oint for dry skin Continue to monitor Increase fluids
[2018-01-26] MEDS: VITAMINS A AND D TOPICAL OINTMENT 60 GM TUBE TP SCH ×2 (17:02→23:45)
[2018-01-26] MEDS: ROSUVASTATIN CA 10 MG TABLET (FP) PO SCH (21:44)
[2018-01-26] MEDS: THIAMINE HCL 100 MG TABLET (FP) PO SCH (21:44)
[2018-01-26] MEDS: INSULIN DETEMIR 100 UNITS/ML MDV SQ SCH (21:47)
[2018-01-27] MEDS: FUROSEMIDE 20 MG TABLET (FP) PO SCH ×2 (06:32→17:07)
[2018-01-27] MEDS: CLOPIDOGREL BISULFATE 75 MG TABLET (FP) PO SCH (06:32)
[2018-01-27] MEDS: hydrOXYzine PAMOATE 50 MG CAPSULE (FP) PO PRN ×4 (06:32→21:37)
[2018-01-27] MEDS: ARTIFICIAL TEARS (POLYVINYL ALCOHOL 1.4%) OPTH DROPS OU SCH ×3 (06:34→21:38)
[2018-01-27] MEDS: VITAMINS A AND D TOPICAL OINTMENT 60 GM TUBE TP SCH ×3 (06:34→17:12)
[2018-01-27] MEDS: INSULIN SLIDING SCALE (NOVOLOG) 1 VIAL SQ SCH ×4 (07:05→21:38)
[2018-01-27] MEDS: DARUNAVIR ETHANOLATE 600 MG TAB PO SCH ×2 (07:16→17:07)
[2018-01-27] MEDS: RITONAVIR 100 MG TABLET PO SCH ×2 (07:17→17:10)
[2018-01-27] MEDS ORDERED: PT OWN MED DRAWER 7, Y5N ONE ×4 (08:53→20:39)
[2018-01-27] MEDS: NICOTINE 14 MG/24 HOURS TOPICAL PATCH TD SCH (09:58)
[2018-01-27] MEDS: BETAMETHASONE VALERATE 0.1% CREAM 15 GM TUBE TP SCH ×2 (10:00→21:39)
[2018-01-27] MEDS: RALTEGRAVIR POTASSIUM 400 MG TAB PO SCH ×2 (10:01→21:37)
[2018-01-27] MEDS: POTASSIUM CHLORIDE TABS 20 MEQ TABLET.ER (FP) PO SCH (10:01)
[2018-01-27] MEDS: AMIODARONE HCL 200 MG TABLET (FP) PO SCH (10:01)
[2018-01-27] MEDS: MARAVIROC 150 MG TAB PO SCH ×2 (10:02→21:38)
[2018-01-27] MEDS: RANITIDINE HCL 150 MG TABLET (FP) PO SCH (10:02)
[2018-01-27] MEDS: LOSARTAN POTASSIUM 50 MG TABLET (FP) PO SCH (10:02)
[2018-01-27] MEDS: ASPIRIN 81 MG CHEWABLE TABLETS PO SCH (10:02)
[2018-01-27] MEDS: PRENATAL VITAMINS W/ FOLIC ACID TABLET (FP) PO SCH (10:02)
[2018-01-27] MEDS: CHOLECALCIFEROL (VITAMIN D3) 1,000 UNIT TABLET (FP) PO SCH (10:02)
[2018-01-27] MEDS: CARVEDILOL 25 MG TABLET (FP) PO SCH ×2 (10:02→21:37)
[2018-01-27] MEDS: BUDESONIDE/FORMETEROL FUMARATE 80/4.5 mcg INHALER IH SCH ×2 (10:03→21:39)
[2018-01-27] MEDS: ALBUTEROL SO4 18 GM HFA INHALER IH PRN (17:11)
[2018-01-27] MEDS: INSULIN DETEMIR 100 UNITS/ML MDV SQ SCH (21:36)
[2018-01-27] MEDS: THIAMINE HCL 100 MG TABLET (FP) PO SCH (21:37)
[2018-01-27] MEDS: ROSUVASTATIN CA 10 MG TABLET (FP) PO SCH (21:37)
[2018-01-28] MEDS: VITAMINS A AND D TOPICAL OINTMENT 60 GM TUBE TP SCH ×4 (00:20→17:13)
[2018-01-28] MEDS: ALBUTEROL SO4 18 GM HFA INHALER IH PRN ×3 (01:04→12:02)
[2018-01-28] MEDS: hydrOXYzine PAMOATE 50 MG CAPSULE (FP) PO PRN ×4 (01:05→21:42)
[2018-01-28] MEDS: ARTIFICIAL TEARS (POLYVINYL ALCOHOL 1.4%) OPTH DROPS OU SCH ×3 (05:57→21:52)
[2018-01-28] MEDS: ALBUTEROL SO4 0.083% IH SOL 2.5 MG/3 ML VIAL.NEB. NEB PRN ×2 (06:47→13:31)
[2018-01-28] MEDS: FUROSEMIDE 20 MG TABLET (FP) PO SCH ×3 (07:37→17:10)
[2018-01-28] MEDS: CLOPIDOGREL BISULFATE 75 MG TABLET (FP) PO SCH ×2 (07:37→09:03)
[2018-01-28] MEDS: INSULIN SLIDING SCALE (NOVOLOG) 1 VIAL SQ SCH ×4 (07:46→21:52)
[2018-01-28] MEDS ORDERED: PT OWN MED DRAWER 7, Y5N ONE ×5 (08:51→20:32)
[2018-01-28] MEDS: DARUNAVIR ETHANOLATE 600 MG TAB PO SCH ×2 (09:03→17:10)
[2018-01-28] MEDS: BUDESONIDE/FORMETEROL FUMARATE 80/4.5 mcg INHALER IH SCH ×2 (09:04→21:52)
[2018-01-28] MEDS: MARAVIROC 150 MG TAB PO SCH ×2 (09:04→21:42)
[2018-01-28] MEDS: RITONAVIR 100 MG TABLET PO SCH ×2 (09:04→17:10)
[2018-01-28] MEDS: NICOTINE 14 MG/24 HOURS TOPICAL PATCH TD SCH (09:04)
[2018-01-28] MEDS: BETAMETHASONE VALERATE 0.1% CREAM 15 GM TUBE TP SCH ×2 (09:05→21:53)
[2018-01-28] MEDS: CARVEDILOL 25 MG TABLET (FP) PO SCH ×2 (09:05→21:42)
[2018-01-28] MEDS: POTASSIUM CHLORIDE TABS 20 MEQ TABLET.ER (FP) PO SCH (09:05)
[2018-01-28] MEDS: LOSARTAN POTASSIUM 50 MG TABLET (FP) PO SCH (09:05)
[2018-01-28] MEDS: AMIODARONE HCL 200 MG TABLET (FP) PO SCH (09:05)
[2018-01-28] MEDS: RANITIDINE HCL 150 MG TABLET (FP) PO SCH (09:05)
[2018-01-28] MEDS: RALTEGRAVIR POTASSIUM 400 MG TAB PO SCH ×2 (09:05→21:41)
[2018-01-28] MEDS: ASPIRIN 81 MG CHEWABLE TABLETS PO SCH (09:05)
[2018-01-28] MEDS: PRENATAL VITAMINS W/ FOLIC ACID TABLET (FP) PO SCH (09:05)
[2018-01-28] MEDS: CHOLECALCIFEROL (VITAMIN D3) 1,000 UNIT TABLET (FP) PO SCH (09:05)
[2018-01-28] MEDS: MAGNESIUM HYDROX 2400MG/30ML ORAL SUSPENSION 30 ML CUP PO PRN (13:27)
[2018-01-28] MEDS ORDERED: INSULIN (NOVOLOG) ASPART 100 UNITS/ML 10ML VIAL ONE (20:33)
[2018-01-28] MEDS: ROSUVASTATIN CA 10 MG TABLET (FP) PO SCH (21:41)
[2018-01-28] MEDS: THIAMINE HCL 100 MG TABLET (FP) PO SCH (21:41)
[2018-01-28] MEDS: MENTHOL/PHENOL 1 EACH UD MM PRN (21:44)
[2018-01-28] MEDS: INSULIN DETEMIR 100 UNITS/ML MDV SQ SCH (21:52)
[2018-01-29] MEDS: MENTHOL/PHENOL 1 EACH UD MM PRN (02:51)
[2018-01-29] MEDS: VITAMINS A AND D TOPICAL OINTMENT 60 GM TUBE TP SCH ×4 (03:50→17:01)
[2018-01-29] MEDS: hydrOXYzine PAMOATE 50 MG CAPSULE (FP) PO PRN ×4 (04:46→21:42)
[2018-01-29] MEDS ORDERED: PT OWN MED DRAWER 7, Y5N ONE ×5 (04:57→21:42)
[2018-01-29] MEDS: INSULIN SLIDING SCALE (NOVOLOG) 1 VIAL SQ SCH ×4 (06:23→21:44)
[2018-01-29] MEDS: ARTIFICIAL TEARS (POLYVINYL ALCOHOL 1.4%) OPTH DROPS OU SCH ×3 (06:24→21:40)
[2018-01-29] MEDS: FUROSEMIDE 20 MG TABLET (FP) PO SCH ×2 (06:24→16:59)
[2018-01-29] MEDS: CLOPIDOGREL BISULFATE 75 MG TABLET (FP) PO SCH (06:24)
[2018-01-29] MEDS: RITONAVIR 100 MG TABLET PO SCH ×2 (07:01→17:30)
[2018-01-29] MEDS: DARUNAVIR ETHANOLATE 600 MG TAB PO SCH ×2 (07:09→16:59)
--- NOTE | 2018-01-29 10:24 | PN ---
Psychiatric Progress Note Vital Signs: Vital Signs Period Temp Pulse Resp BP Sys/Pandya Pulse Ox Last 24 Hr 97.9 F 66-71 17-20 148-161/72-80 Date of Session: 01/29/18 Chief Complaint:: Insomnia HPI: Patient addressing Alcohol, Opoid Dependence, Cocaine Abuse comorbid with Nicotine Dependence and Substance-induced Sleep Disorder ROS: Anemia, Asthma/COPD, CHF, HTN, HLD, HIV, Hep C,DM, Neuropathy, CAD/[place], Psoriasis Current Medications: Active Medications Generic Name Dose Route Start Last Admin Trade Name Freq PRN Reason Stop Dose Admin Acetaminophen 650 mg 01/25/18 14:24 Tylenol - PO Q4H PRN FEVER Al Hydroxide/Mg Hydroxide 30 ml 01/25/18 14:24 Mylanta Oral Suspension - PO Q6H PRN DYSPEPSIA Albuterol Sulfate 2 puff 01/25/18 14:25 01/28/18 12:02 Ventolin Hfa Inhaler - IH 2 puff Q4H PRN Administration WHEEZING Amiodarone HCl 200 mg 01/27/18 10:00 01/28/18 09:05 Cordarone - PO 200 mg DAILY MIRTHA Administration Artificial Tears 1 drop 01/25/18 22:00 01/29/18 06:24 Artificial Tears OU 1 drop TID MIRTHA Administration Aspirin 81 mg 01/26/18 10:00 01/28/18 09:05 Asa - PO 81 mg DAILY MIRTHA Administration Betamethasone Valerate 1 applic 01/25/18 22:00 01/28/18 21:53 Valisone 0.1% Cream - TP 1 applic BID MIRTHA Administration Budesonide/Formoterol Fumarate 2 puff 01/25/18 22:00 01/28/18 21:52 Symbicort 80/4.5mcg - IH 2 inh BID MIRTHA Administration Carvedilol 25 mg 01/25/18 22:00 01/28/18 21:42 Coreg - PO 25 mg BID MIRTHA Administration Cholecalciferol 1,000 unit 01/26/18 10:00 01/28/18 09:05 Vitamin D3 - PO 1,000 unit DAILY MIRTHA Administration Clopidogrel Bisulfate 75 mg 01/26/18 07:00 01/29/18 06:24 Plavix - PO 75 mg DAILY@0700 MIRTHA Administration Colloidal Oatmeal 1 applic 01/26/18 14:29 Aveeno Soap - TP DAILY PRN HYGEINE Darunavir 600 mg 01/25/18 17:30 01/29/18 07:09 Prezista - PO 600 mg BIDWM MIRTHA Administration Eucalyptus/Menthol/Phenol/Sorbitol 1 each 01/25/18 14:24 01/29/18 02:51 Cepastat Lozenge - MM 1 each Q4H PRN Administration SORE THROAT Furosemide 20 mg 01/25/18 16:30 01/29/18 06:24 Lasix - PO 20 mg BID@0700,1630 [facility] Administration Guaifenesin 10 ml 01/25/18 14:24 Robitussin Dm - PO Q6H PRN COUGH Hydroxyzine Pamoate 50 mg 01/26/18 10:52 01/29/18 04:46 Vistaril - PO 50 mg Q4H PRN Administration ANXIETY Insulin Aspart 1 vial 01/25/18 16:30 01/29/18 06:23 Novolog Vial Sliding Scale - SQ Not Given ACHS [facility] Protocol Insulin Detemir 30 units 01/26/18 22:00 01/28/18 21:52 Levemir Vial SQ 30 units HS [facility] Administration Loperamide HCl 4 mg 01/25/18 14:24 Imodium - PO Q6H PRN DIARRHEA Losartan Potassium 50 mg 01/26/18 10:00 01/28/18 09:05 Cozaar - PO 50 mg DAILY [facility] Administration Magnesium Citrate 300 ml 01/25/18 14:24 01/28/18 15:41 Citroma - PO 300 ml Q48H PRN Administration CONSTIPATION Magnesium Hydroxide 30 ml 01/25/18 14:24 01/28/18 13:27 Milk Of Magnesia - PO 30 ml DAILY PRN Administration CONSTIPATION Maraviroc 150 mg 01/25/18 22:00 01/28/18 21:42 Selzentry - PO 150 mg BID MIRTHA Administration Nicotine 14 mg 01/26/18 10:00 01/28/18 09:04 Nicoderm Patch - TD 14 mg DAILY [facility] Administration Nicotine Polacrilex 2 mg 01/25/18 14:24 Nicorette Gum - BUC Q2H PRN NICOTINE REPLACEMENT RX Potassium Chloride 20 meq 01/26/18 10:00 01/28/18 09:05 K-Dur - PO 20 meq DAILY [facility] Administration Multivit/Folic Acid/Iron 1 tab 03/09/18 10:00 01/28/18 09:05 Vitamins (Sjr) - PO 1 tab DAILY MIRTHA Administration Pseudoephedrine/Triprolidine 1 combo 01/25/18 14:24 Actifed - PO TID PRN NASAL CONGESTION Raltegravir 400 mg 01/25/18 22:00 01/28/18 21:41 Isentress - PO 400 mg BID MIRTHA Administration Ranitidine HCl 150 mg 01/26/18 10:00 01/28/18 09:05 Zantac - PO 150 mg DAILY MIRTHA Administration Ritonavir 100 mg 01/25/18 17:30 01/29/18 07:01 Norvir - PO 100 mg BIDWM MIRTHA Administration Rosuvastatin Calcium 10 mg 01/25/18 22:00 01/28/18 21:41 Crestor - PO 10 mg HS MIRTHA Administration Thiamine HCl 100 mg 01/25/18 22:00 01/28/18 21:41 Vitamin B1 - PO 100 mg HS MIRTHA Administration Vitamin A/Vitamin D 1 applic 01/26/18 18:00 01/29/18 06:40 Vitamin A & D Top Oint - TP Not Given Q6HPO [facility] Medication(s) Change(s): Start Belsomra 10 mg po HS prm for insomnia Current Side Effect: No Lab tests ordered: Yes Lab tests reviewed: Yes Provider note:: Patient reports experiencing difficulty to sleep despite taking Vistaril 50 mg po Q 4hrs prn for anxiety & insomnia. Told underwriter about experiencing nightmares interfering with his sleep. Hypnotic properties as well as adverse-effects of Belsomra discussed with patient and he agreed to takle it Total face to face time:: 15 Mental Status Exam - Mental Status Exam Alert and Oriented to: Time, Place, Person Cognitive Function: Fair Patient Appearance: Well Groomed Mood: Hopeful, Euthymic Affect: Appropriate Patient Behavior: Cooperative Speech Pattern: Clear Voice Loudness: Normal, Limited Variation Thought Process: Goal Oriented Thought Disorder: Not Present Hallucinations: Denies Suicidal Ideation: Denies Homicidal Ideation: Denies Insight/Judgement: Fair Sleep: Poorly Appetite: Good Muscle strength/Tone: Normal Gait/Station: Normal Psychiatric Treatment Plan - Problem List (1) Alcohol dependence Current Visit: Yes Qualifiers: Substance use status: uncomplicated Qualified Code(s): F10.20 - Alcohol dependence, uncomplicated (2) Opioid dependence Current Visit: Yes Qualifiers: Substance use status: uncomplicated Qualified Code(s): F11.20 - Opioid dependence, uncomplicated (3) Cocaine abuse Current Visit: Yes (4) Nicotine dependence Current Visit: Yes (5) Substance-induced sleep disorder Current Visit: No (6) Acute on chronic systolic CHF (congestive heart failure) Current Visit: No (7) COPD (chronic obstructive pulmonary disease) Current Visit: No Qualifiers: Emphysema type: unspecified (8) Pain of left calf Current Visit: No (9) Anemia, iron deficiency Current Visit: No (10) Asthma Current Visit: No Qualifiers: Asthma severity: mild Asthma persistence: unspecified Asthma complication type: uncomplicated Qualified Code(s): J45.909 - Unspecified asthma, uncomplicated (11) Cardiac defibrillator in place Current Visit: Yes (12) HIV (human immunodeficiency virus infection) Current Visit: Yes (13) Hepatitis C Current Visit: No Qualifiers: Viral hepatitis chronicity: chronic Hepatic coma status: without hepatic coma Qualified Code(s): B18.2 - Chronic viral hepatitis C (14) Hyperlipidemia Current Visit: No Qualifiers: Hyperlipidemia type: unspecified Qualified Code(s): E78.5 - Hyperlipidemia , unspecified (15) Hypertension Current Visit: Yes Qualifiers: Hypertension type: essential hypertension Qualified Code(s): I10 - Essential (primary) hypertension (16) IDDM (insulin dependent diabetes mellitus) Current Visit: Yes (17) Myocardial infarct, old Current Visit: No (18) Neuropathy Current Visit: No (19) Psoriasis Current Visit: Yes Initial treatment plan: 1) Start Belsomra 10 mg po HS Prn for insomnia. 2) Monitor progress
[2018-01-29] MEDS: PRENATAL VITAMINS W/ FOLIC ACID TABLET (FP) PO SCH (10:28)
[2018-01-29] MEDS: ASPIRIN 81 MG CHEWABLE TABLETS PO SCH (10:28)
[2018-01-29] MEDS: POTASSIUM CHLORIDE TABS 20 MEQ TABLET.ER (FP) PO SCH (10:28)
[2018-01-29] MEDS: NICOTINE 14 MG/24 HOURS TOPICAL PATCH TD SCH (10:28)
[2018-01-29] MEDS: AMIODARONE HCL 200 MG TABLET (FP) PO SCH (10:28)
[2018-01-29] MEDS: RANITIDINE HCL 150 MG TABLET (FP) PO SCH (10:29)
[2018-01-29] MEDS: BETAMETHASONE VALERATE 0.1% CREAM 15 GM TUBE TP SCH ×2 (10:29→21:45)
[2018-01-29] MEDS: CARVEDILOL 25 MG TABLET (FP) PO SCH ×2 (10:29→21:42)
[2018-01-29] MEDS: LOSARTAN POTASSIUM 50 MG TABLET (FP) PO SCH (10:29)
[2018-01-29] MEDS: RALTEGRAVIR POTASSIUM 400 MG TAB PO SCH ×2 (10:30→21:42)
[2018-01-29] MEDS: MARAVIROC 150 MG TAB PO SCH ×2 (10:30→21:45)
[2018-01-29] MEDS: BUDESONIDE/FORMETEROL FUMARATE 80/4.5 mcg INHALER IH SCH ×2 (10:31→21:42)
[2018-01-29] MEDS: CHOLECALCIFEROL (VITAMIN D3) 1,000 UNIT TABLET (FP) PO SCH (10:32)
[2018-01-29] MEDS: INSULIN DETEMIR 100 UNITS/ML MDV SQ SCH (21:40)
[2018-01-29] MEDS: THIAMINE HCL 100 MG TABLET (FP) PO SCH (21:42)
[2018-01-29] MEDS: ROSUVASTATIN CA 10 MG TABLET (FP) PO SCH (21:42)
[2018-01-29] MEDS ORDERED: SUVOREXANT 10 MG TABLET PO PRN (22:00)
[2018-01-30] MEDS: hydrOXYzine PAMOATE 50 MG CAPSULE (FP) PO PRN (02:50)
[2018-01-30] MEDS: MAGNESIUM HYDROX 2400MG/30ML ORAL SUSPENSION 30 ML CUP PO PRN (02:50)
[2018-01-30] MEDS ORDERED: PT OWN MED DRAWER 7, Y5N ONE ×2 (04:37→06:53)
[2018-01-30] MEDS ORDERED: ALBUTEROL SO4 0.083% IH SOL 2.5 MG/3 ML VIAL.NEB. NEB PRN (04:56)
[2018-01-30] MEDS: FUROSEMIDE 20 MG TABLET (FP) PO SCH ×2 (05:19→05:30)
[2018-01-30 05:27] VITALS: BP 150/85; PULSE 62; TEMP 97.5
--- NOTE | 2018-01-30 05:29 | PN ---
[facility] Progress Note Note: Patient complains of chest pain with SOB and reports, " I can't breathe.'' He also reports feeling bloated and demanded for additional laxative which was earlier given by the nurse. Albuterol nebulizer treatment given without relieve. Patient appears very anxious and uncomfortable, refusing lasix as ordered and any further treatment. Vital signs B/P 150/85, HR 62, RR20, T97.5F , Saturation 97% RA. Patient has a defibrallator and pacemaker. He is to be sent to ER for further evaluation. Endorsed to Dr. Collier
[2018-01-30] MEDS: ARTIFICIAL TEARS (POLYVINYL ALCOHOL 1.4%) OPTH DROPS OU SCH ×2 (06:00→14:59)
[2018-01-30] MEDS: VITAMINS A AND D TOPICAL OINTMENT 60 GM TUBE TP SCH ×3 (06:00→13:46)
[2018-01-30] MEDS: INSULIN SLIDING SCALE (NOVOLOG) 1 VIAL SQ SCH ×2 (07:00→11:45)
[2018-01-30] MEDS: CLOPIDOGREL BISULFATE 75 MG TABLET (FP) PO SCH (07:00)
[2018-01-30] MEDS: DARUNAVIR ETHANOLATE 600 MG TAB PO SCH (08:01)
[2018-01-30] MEDS: RITONAVIR 100 MG TABLET PO SCH (08:01)
--- NOTE | 2018-01-30 10:20 | CON.CARD ---
Consult Consult Specialty:: cardiology Reason for Consultation:: CHF; chest pain - History of Present Illness Chief Complaint: shortness of breath History of Present Illness: 67 yr old black man with PMHx systolic CHF-->ICD, ?CAD (medical/cardiac team reportedly in [place]), complains of SOB and reports, " I can't breathe.'' He also reports feeling bloated and laxative was earlier given by the nurse. Albuterol nebulizer treatment given without relieve. Patient appears very anxious, refusing lasix as ordered and any further treatment. Vital signs B/P 150/85, HR 62, RR20, T97.5F, Saturation 97% RA. He is to be sent to ER for further evaluation. - Past Medical History Cardio/Vascular: Yes: CHF, HTN, Hyperlipdemia Pulmonary: Yes: Asthma Hepatobiliary: Yes: Hepatitis C Infectious Disease: Yes: HIV Psych: Yes: Anxiety, Other (substance abuse) Endocrine: Yes: Diabetes Mellitus - Past Surgical History Past Surgical History: Yes: AICD (defibrillator), Cholecystectomy - Alcohol/Substance Use Hx Alcohol Use: No History of Substance Use: reports: Cocaine, Heroin Date of Last Use: 05/29/15 - Smoking History Smoking history: Former smoker Have you smoked in the past 12 months: No Aproximately how many cigarettes per day: 3 - Social History ADL: Independent History of Recent Travel: No Home Medications - Allergies Allergies/Adverse Reactions: Allergies Allergy/AdvReac Type Severity Reaction Status Date / Time morphine Allergy Severe Nausea Verified 01/30/18 06:44 Pork/Porcine Containing Allergy Mild Hives Verified 01/30/18 06:44 Products - Home Medications Home Medications: Ambulatory Orders Duloxetine HCl [Cymbalta -] 20 mg PO HS 08/18/16 Cholecalciferol (Vitamin D3) [Vitamin D3 -] 1,000 unit PO DAILY #30 tab Folic Acid - 1 mg PO DAILY #30 tablet 09/07/16 Furosemide [Lasix -] 20 mg PO BID #30 tablet 09/07/16 Potassium Chloride [Klor-Con M20] 20 meq PO DAILY 01/11/17 Albuterol Sulfate Inhaler - [Ventolin HFA Inhaler -] 2 inh PO Q4H PRN #1 inhaler 01/16/17 Aspirin [ASA -] 81 mg PO DAILY tab.chew 01/16/17 Betamethasone Valerate [Valisone 0.1% Cream -] 1 applic TP BID #1 01/16/17 Carvedilol [Coreg -] 25 mg PO BID #0 tablet 01/16/17 Clopidogrel Bisulfate [Plavix -] 75 mg PO DAILY #30 tablet 01/16/17 Darunavir Ethanolate [Prezista -] 600 mg PO BID tab 01/16/17 Ferrous Sulfate [Feosol] 325 mg PO BID #0 ud 01/16/17 Fluconazole [Diflucan -] 200 mg PO DAILY #0 tablet 01/16/17 Fluocinonide 0.05% Cream [Lidex 0.05% Cream -] 1 applic TP BID #1 tube 01/16/17 Polyvinyl Alcohol [Artificial Tears] 1 drop OU TID drops 01/16/17 Raltegravir [Isentress] 400 mg PO BID #0 tab 01/16/17 Ranitidine [Zantac -] 150 mg PO DAILY #60 tablet 01/16/17 Ritonavir [Norvir -] 100 mg PO BID #0 tab 01/16/17 Rosuvastatin [Crestor -] 10 mg PO HS #30 tablet 01/16/17 Insulin Aspart [Novolog] 0 unit SQ ACHS 02/02/17 Insulin Glargine,Hum.rec.anlog [Lantus] 30 unit SQ HS 01/11/18 Maraviroc [Selzentry] 150 mg PO BID 01/11/18 Losartan Potassium 50 mg PO DAILY #30 tablet 01/25/18 Amiodarone HCl [Amiodarone HCl] 200 mg PO DAILY 01/26/18 Budesonide/Formeterol Fumarate [SYMBICORT 160/4.5mcg -] 1 inh PO BID 01/30/18 Darunavir Ethanolate [Prezista -] 600 mg PO BID 01/30/18 Dextran 70/Hypromellose/Pf [Artificial Tears Drops] 1 each OU TID 01/30/18 Family Disease History - Family Disease History Family Disease History: Diabetes: Father (oct, 2000), Other: Father, Mother ( alive and well ) Vital Signs: Vital Signs Temperature 97.5 F L 01/30/18 06:37 Pulse Rate 62 01/30/18 06:37 Respiratory Rate 20 01/30/18 06:37 Blood Pressure 150/85 01/30/18 06:37 O2 Sat by Pulse Oximetry (%)
[2018-01-30] MEDS: CARVEDILOL 25 MG TABLET (FP) PO SCH (10:31)
[2018-01-30] MEDS: LOSARTAN POTASSIUM 50 MG TABLET (FP) PO SCH (10:31)
[2018-01-30] MEDS: ASPIRIN 81 MG CHEWABLE TABLETS PO SCH (10:31)
[2018-01-30] MEDS: AMIODARONE HCL 200 MG TABLET (FP) PO SCH (10:31)
[2018-01-30] MEDS: MARAVIROC 150 MG TAB PO SCH (10:32)
[2018-01-30] MEDS: NICOTINE 14 MG/24 HOURS TOPICAL PATCH TD SCH (10:32)
[2018-01-30] MEDS: PRENATAL VITAMINS W/ FOLIC ACID TABLET (FP) PO SCH (10:32)
[2018-01-30] MEDS: RALTEGRAVIR POTASSIUM 400 MG TAB PO SCH (10:32)
[2018-01-30] MEDS: POTASSIUM CHLORIDE TABS 20 MEQ TABLET.ER (FP) PO SCH (10:32)
[2018-01-30] MEDS: BETAMETHASONE VALERATE 0.1% CREAM 15 GM TUBE TP SCH (10:33)
[2018-01-30] MEDS: CHOLECALCIFEROL (VITAMIN D3) 1,000 UNIT TABLET (FP) PO SCH (10:33)
[2018-01-30] MEDS: BUDESONIDE/FORMETEROL FUMARATE 80/4.5 mcg INHALER IH SCH (10:33)
[2018-01-30] MEDS: RANITIDINE HCL 150 MG TABLET (FP) PO SCH (10:33)
== END 2018-01-30 15:25 | disposition short-term general hospital (02) | DRG 895 ==
LOC: YASAS 14:09 → Y3W 14:41
PROVIDERS: ADMIT Psychiatry & Neurology Psychiatry; ATTEND Psychiatry & Neurology Psychiatry
PROC: HZ42ZZZ Group Counseling for Substance Abuse Treatment, Cognitive-Behavioral (ICD-10-PCS; principal; 2018-01-25)
DX: F11.20 Opioid dependence, uncomplicated (principal); I50.23 Acute on chronic systolic (congestive) heart failure; F19.282 Other psychoactive substance dependence with psychoactive substance-induced sleep disorder; F10.20 Alcohol dependence, uncomplicated; F14.10 Cocaine abuse, uncomplicated; F17.210 Nicotine dependence, cigarettes, uncomplicated; I10 Essential (primary) hypertension; I25.2 Old myocardial infarction; J45.909 Unspecified asthma, uncomplicated; J44.9 Chronic obstructive pulmonary disease, unspecified; D50.9 Iron deficiency anemia, unspecified; M79.662 Pain in left lower leg; Z21 Asymptomatic human immunodeficiency virus [HIV] infection status; B18.2 Chronic viral hepatitis C; E78.5 Hyperlipidemia, unspecified; E11.9 Type 2 diabetes mellitus without complications; G62.9 Polyneuropathy, unspecified; L40.9 Psoriasis, unspecified; R06.02 Shortness of breath; Z79.4 Long term (current) use of insulin; Z95.810 Presence of automatic (implantable) cardiac defibrillator; Z88.5 Allergy status to narcotic agent; Z79.82 Long term (current) use of aspirin; Z79.01 Long term (current) use of anticoagulants
CPT/HCPCS: 36415; 71045-TC-FY; 80048; 80053; 81003; 81015; 82550; 82553; 82803; 82962; 83605; 83735; 83880; 84439; 84443; 84484; 85025; 85610; 93005; 93010; 93306-TC; 93970-TC; 94640; 99283-25

== ENCOUNTER 2018-01-30 06:40 | Inpatient (IN) | payer OTHER ==
[2018-01-30 06:47] VITALS: BMI 31.1
--- NOTE | 2018-01-30 07:29 | PDOC ---
Attending Attestation - HPI HPI: 01/30/18 07:49 The patient is a 67 year old male, with a significant past medical history of htn, hld, diabetes, HepC, HIV on [place], CHF s/p implantable pacemaker and defibrillator, who presents to the emergency department with sharp chest pain with associated SOB for about 2 hours sent from [facility] for ETOH and heroin today. He reports the pain radiates across his chest. He He states he was recently admitted a week ago for acute on chronic CHF exacerbation, discharged on 01/24/18. He states his symptoms today feel similarly to the symptoms which brought him to be admitted a week ago. Secondarily, he reports lower extremity edema which has been improving since his discharge. The patient denies headache and dizziness. The patient denies fever, chills, nausea, vomit, diarrhea and constipation. The patient denies dysuria, frequency , urgency and hematuria. Allergies: morphine, pork/porcine product - Medical Decision Making 01/30/18 07:49 Documentation prepared by Gisel Wellington, acting as medical or surgical instrument maker for Dorita Felix MD <Gisel Wellington - Last Filed: 01/30/18 07:49> - Resident Resident Name: Eben Malik - ED Attending Attestation I have performed the following: I have examined & evaluated the patient, The case was reviewed & discussed with the resident, I agree w/resident's findings & plan, Exceptions are as noted - Physicial Exam PE: GENERAL: Awake, alert, and fully oriented, in no acute distress HEAD: No signs of trauma EYES: PERRLA, EOMI, sclera anicteric, conjunctiva clear ENT: Auricles normal inspection, hearing grossly normal, nares patent, oropharynx clear without exudates. Moist mucosa NECK: Normal ROM, supple, no lymphadenopathy, JVD, or masses LUNGS: Good air entry B/L, +crackles mcc up lung carter B/L. HEART: Regular rate and rhythm, normal S1 and S2, no murmurs, rubs or gallops ABDOMEN: Soft, nontender, normoactive bowel sounds. No guarding, no rebound. No masses EXTREMITIES: Normal range of motion, 2+ pitting edema to BLE. No clubbing or cyanosis. No cords, erythema, or tenderness NEUROLOGICAL: Cranial nerves II through XII grossly intact. Normal speech, normal gait SKIN: Warm, Dry, normal turgor, no rashes or lesions noted. - Medical Decision Making Pt presenting with SOB and cp, history of CHF. He appears uncomfortable, O2Sat 93% on 3L NC. Will give nitro, aspirin, and lasix. Pt is detoxing from heroin, will avoid opioids for pain. Plan for admission. <Dorita Felix - Last Filed: 01/30/18 08:52>
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
[2018-01-30] MEDS ORDERED: NITROGLYCERIN SUBLINGUAL 1/150 0.4 MG TAB SL ONE (07:58)
[2018-01-30] MEDS ORDERED: FUROSEMIDE 40 MG/4 ML INJECTABLE VIAL IVPUSH ONE ×2 (07:58→10:42)
[2018-01-30] MEDS ORDERED: FUROSEMIDE 40 MG/4 ML INJECTABLE VIAL ONE (08:11)
[2018-01-30] MEDS ORDERED: NITROGLYCERIN SUBLINGUAL 1/150 0.4 MG TAB ONE (08:11)
[2018-01-30 08:20] LABS: BASO % 0.7 % (0-2.0); EOS % 2.2 % (0-4.5); HEMATOCRIT 33.4 % (35.4-49); HEMOGLOBIN 10.8 GM/dL (11.7-16.9); LYMPH % 18.7 % (8-40); MCHC 32.2 g/dl (32.0-35.9); MEAN CELL VOLUME 83.8 fl (80-96); MEAN PLT VOLUME 8.7 fl (7.5-11.1); MONO % 13.3 % (3.8-10.2); NEUT % 65.1 % (42.8-82.8); PLATELET COUNT 239 K/MM3 (134-434); RBC 3.99 M/mm3 (4.00-5.60); RDW 18.5 % (11.9-15.9); WHITE BLOOD COUNT 9.4 K/mm3 (4.0-10.0)
[2018-01-30] MEDS ORDERED: ASPIRIN 81 MG CHEWABLE TABLETS PO ONE (08:41)
[2018-01-30] MEDS ORDERED: ASPIRIN 325 MG ENTERIC COATED TABLET (FP) ONE (08:49)
[2018-01-30 08:51] LABS: ALBUMIN 2.6 g/dl (3.4-5.0); ANION GAP 8 (8-16); BILIRUBIN,TOTAL 0.3 mg/dL (0.2-1.0); BLOOD UREA NITROGEN 26 mg/dL (7-18); CALCIUM 7.6 mg/dL (8.5-10.1); CHLORIDE 110 mmol/L (98-107); CO2 26 mmol/L (21-32); CREATININE 1.6 mg/dL (0.7-1.3); GLUCOSE,RANDOM 107 mg/dL (74-106); POTASSIUM 4.8 mmol/L (3.5-5.1); SGOT/AST 30 U/L (15-37); SGPT/ALT 35 U/L (12-78); SODIUM 144 mmol/L (136-145); TOT PROT 6.3 g/dl (6.4-8.2)
[2018-01-30] MEDS ORDERED: ASPIRIN COATED 81 MG TABLET.EC ONE (08:51)
[2018-01-30 08:54] LABS: ALK PHOS 253 U/L (45-117); N-TERMINAL BNP 8669.81 pg/ml (5-125)
[2018-01-30] MEDS ORDERED: ACETAMINOPHEN 1000 MG/100 ML VIAL (NON FORMULARY) IVPB ONE (10:36)
[2018-01-30] MEDS ORDERED: traMADol HCL 50 MG TABLET PO PRN (10:36)
--- NOTE | 2018-01-30 11:04 | HP ---
Admitting History and Physical - Admission Chief Complaint: shortness of breath History of Present Illness: This is a 67 year old male with a history of HTN, HLD, Hep C, HIV (on HAART), CHF s/p ICD and pacemaker, substance abuse who presented from [facility] for evaluation of shortness of breath. The patient states for 2 days he has been increasingly short of breath and believe the rehab center was not giving him his appropriate medications including his HIV meds and lasix. Currently, he is on the medicine floor feeling weak and mildly tachypneic. He denies chest pain, he ate lunch and requests the nurse now help him change into his gown. History Source: Patient, Medical Record Limitations to Obtaining History: No Limitations - Past Medical History Cardiovascular: Yes: CHF, HTN, Hyperlipdemia Pulmonary: Yes: Asthma Hepatobiliary: Yes: Hepatitis C Heme/Onc: Yes: Anemia Infectious Disease: Yes: HIV Psych: Yes: Anxiety, Other (substance abuse) Endocrine: Yes: Diabetes Mellitus - Past Surgical History Past Surgical History: Yes: AICD (defibrillator), Cholecystectomy - Smoking History Smoking history: Never smoked Have you smoked in the past 12 months: No Aproximately how many cigarettes per day: 3 - Alcohol/Substance Use Hx Alcohol Use: No History of Substance Use: reports: Cocaine, Heroin Date of Last Use: 05/29/15 - Social History ADL: Independent History of Recent Travel: No Home Medications - Allergies Allergies/Adverse Reactions: Allergies Allergy/AdvReac Type Severity Reaction Status Date / Time morphine Allergy Severe Nausea Verified 01/30/18 06:44 Pork/Porcine Containing Allergy Mild Hives Verified 01/30/18 06:44 Products - Home Medications Home Medications: Ambulatory Orders Duloxetine HCl [Cymbalta -] 20 mg PO HS 08/18/16 Cholecalciferol (Vitamin D3) [Vitamin D3 -] 1,000 unit PO DAILY #30 tab Folic Acid - 1 mg PO DAILY #30 tablet 09/07/16 Furosemide [Lasix -] 20 mg PO BID #30 tablet 09/07/16 Potassium Chloride [Klor-Con M20] 20 meq PO DAILY 01/11/17 Albuterol Sulfate Inhaler - [Ventolin HFA Inhaler -] 2 inh PO Q4H PRN #1 inhaler 01/16/17 Aspirin [ASA -] 81 mg PO DAILY tab.chew 01/16/17 Betamethasone Valerate [Valisone 0.1% Cream -] 1 applic TP BID #1 01/16/17 Carvedilol [Coreg -] 25 mg PO BID #0 tablet 01/16/17 Clopidogrel Bisulfate [Plavix -] 75 mg PO DAILY #30 tablet 01/16/17 Darunavir Ethanolate [Prezista -] 600 mg PO BID tab 01/16/17 Ferrous Sulfate [Feosol] 325 mg PO BID #0 ud 01/16/17 Fluconazole [Diflucan -] 200 mg PO DAILY #0 tablet 01/16/17 Fluocinonide 0.05% Cream [Lidex 0.05% Cream -] 1 applic TP BID #1 tube 01/16/17 Polyvinyl Alcohol [Artificial Tears] 1 drop OU TID drops 01/16/17 Raltegravir [Isentress] 400 mg PO BID #0 tab 01/16/17 Ranitidine [Zantac -] 150 mg PO DAILY #60 tablet 01/16/17 Ritonavir [Norvir -] 100 mg PO BID #0 tab 01/16/17 Rosuvastatin [Crestor -] 10 mg PO HS #30 tablet 01/16/17 Insulin Aspart [Novolog] 0 unit SQ ACHS 02/02/17 Insulin Glargine,Hum.rec.anlog [Lantus] 30 unit SQ HS 01/11/18 Maraviroc [Selzentry] 150 mg PO BID 01/11/18 Losartan Potassium 50 mg PO DAILY #30 tablet 01/25/18 Budesonide/Formeterol Fumarate [SYMBICORT 160/4.5mcg -] 1 inh PO BID 01/30/18 Darunavir Ethanolate [Prezista -] 600 mg PO BID 01/30/18 Dextran 70/Hypromellose/Pf [Artificial Tears Drops] 1 each OU TID 01/30/18 Family Disease History - Family Disease History Family Disease History: Diabetes: Father (oct, 2000), Other: Father, Mother ( alive and well ) Review of Systems - Review of Systems Constitutional: reports: No Symptoms Eyes: reports: No Symptoms HENT: reports: No Symptoms Neck: reports: No Symptoms Cardiovascular: reports: Chest Pain, Shortness of Breath Respiratory: reports: SOB Gastrointestinal: reports: No Symptoms Genitourinary: reports: No Symptoms Musculoskeletal: reports: No Symptoms Integumentary: reports: No Symptoms Neurological: reports: No Symptoms Endocrine: reports: No Symptoms Hematology/Lymphatic: reports: No Symptoms Psychiatric: reports: No Symptoms Physical Examination Vital Signs: Vital Signs Temperature 97.6 F 01/30/18 07:23 Pulse Rate 61 01/30/18 07:23 Respiratory Rate 17 01/30/18 07:23 Blood Pressure 150/78 01/30/18 07:23 O2 Sat by Pulse Oximetry (%) 98 01/30/18 07:23 Constitutional: Yes: Well Nourished Eyes: Yes: Conjunctiva Clear Neck: Yes: WNL Cardiovascular: Yes: Regular Rate and Rhythm, S1, S2 Respiratory: Yes: Diminished, Rales, Tachypnea Gastrointestinal: Yes: Normal Bowel Sounds, Soft Renal/: Yes: WNL Extremities: Yes: WNL Edema: Yes Edema: LLE: 2+, RLE: 2+ Integumentary: Yes: Venous Stasis Changes (LLE) Neurological: Yes: Alert, Oriented, Cran Nerves II-XII Intact Labs: CBC, BMP 01/30/18 08:00 01/30/18 08:00 Imaging - Results Chest X-ray: Report Reviewed, Image Reviewed (vascular congestion) Problem List - Problems (1) Acute on chronic systolic CHF (congestive heart failure) Code(s): I50.23 - ACUTE ON CHRONIC SYSTOLIC (CONGESTIVE) HEART FAILURE (2) Cardiac defibrillator in place Code(s): Z95.810 - PRESENCE OF AUTOMATIC (IMPLANTABLE) CARDIAC DEFIBRILLATOR (3) HIV (human immunodeficiency virus infection) Code(s): Z21 - ASYMPTOMATIC HUMAN IMMUNODEFICIENCY VIRUS INFECTION STATUS (4) Hypertension Code(s): I10 - ESSENTIAL (PRIMARY) HYPERTENSION Qualifiers: Hypertension type: essential hypertension Qualified Code(s): I10 - Essential (primary) hypertension (5) IDDM (insulin dependent diabetes mellitus) Code(s): E11.9 - TYPE 2 DIABETES MELLITUS WITHOUT COMPLICATIONS; Z79.4 - ALF (CURRENT) USE OF INSULIN (6) Bilateral leg edema Code(s): R60.0 - LOCALIZED EDEMA (7) Type 2 diabetes mellitus Code(s): E11.9 - TYPE 2 DIABETES MELLITUS WITHOUT COMPLICATIONS Qualifiers: Diabetes mellitus local company intermodal truck driver insulin use: without local company intermodal truck driver use Diabetes mellitus complication status: without complication Qualified Code(s): E11.9 - Type 2 diabetes mellitus without complications Assessment/Plan Assessment: 67 year old male with pmhx of HTN, HLD, DM II, hepatitis C, HIV (on HAART), systolic CHF s/p ICD, asthma, Defib and pacemaker (2010), etoh and polysubstance abuse admitted from [facility] with worsening shortness of breath. Plan: 1. Acute on chronic systolic CHF exacerbation - s/p Lasix 40mg x2 IV in ED - Continue lasix 40mg IV BID - Continue losartan 50mg daily - Coreg 25mg BID - Daily weights - I's O's - ECHO 01/24/2018: LV mildly dilated, LVSF mod-severely reduced, severe global hypokinesis of LV, mod TR, MR mild pulm htn rvsp 30-40mmhg - Cardiology consulted 2. SOB - Due to above 3. CAD s/p defib and ppm - ASA - Plavix 75mg daily - Crestor 10mg HS - Has a [employer] single-chamber ICD installed at [facility] in 2010 4. HIV - Cont HAART meds 5. DM II - Levemir 35units HS - ISS, BGM ACHS 6. Polysubstance abuse - Clarify if pt continues cocaine abuse, will need to stop coreg Visit type - Emergency Visit Emergency Visit: Yes ED Registration Date: 01/30/18 Care time: The patient presented to the Emergency Department on the above date and was hospitalized for further evaluation of their emergent condition. - New Patient This patient is new to me today: Yes Date on this admission: 01/30/18 - Critical Care Critical Care patient: No Hospitalist Screening - Colonoscopy Questionnaire Colonoscopy Questionnaire: Colonoscopy Questionnaire - Patient: 50 - 75 years old and never had a screening colonoscopy: Unknown History of colon or rectal polyps, or CA: Unknown History of IBD, Crohn's disease or UC: Unknown History of abdominal radiation therapy as a child: Unknown - Relative: 1 with colon or rectal CA, or polyps at age 60 or younger: Unknown Colon or rectal CA diagnosed at age 45 or younger: Unknown Multiple relatives with colon or rectal CA: Unknown - Outcome: Screening Result: Negative Screen
--- NOTE | 2018-01-30 12:16 | EKG ---
Test Reason : Blood Pressure : / mmHG Vent. Rate : 062 BPM Atrial Rate : 062 BPM P-R Int : 140 ms QRS Dur : 108 ms QT Int : 488 ms P-R-T Axes : 049 -07 -70 degrees QTc Int : 495 ms NORMAL SINUS RHYTHM NONSPECIFIC T WAVE ABNORMALITY PROLONGED QT ABNORMAL ECG WHEN COMPARED WITH ECG OF 23-JAN-2018 04:25, NO SIGNIFICANT CHANGE WAS FOUND Confirmed by MD ARIEL, ROBYN ([id number]) on 01/30/2018 12:15:35 PM Referred By: Confirmed By:ROBYN GEORGE MD
--- NOTE | 2018-01-30 14:21 | CON.CARD ---
Consult Consult Specialty:: cardiology Reason for Consultation:: shortness of breath - History of Present Illness Chief Complaint: Pt Alert; sitting up at bedisde; cries when discussing how he had felt increasingly SOB x 3 days, but "they treated me badly" - History Source History Provided By: Patient, Medical Record Limitations to Obtaining History: Poor Historian - Past Medical History Cardio/Vascular: Yes: CHF, HTN, Hyperlipdemia Pulmonary: Yes: Asthma Hepatobiliary: Yes: Hepatitis C Infectious Disease: Yes: HIV Psych: Yes: Anxiety, Other (substance abuse) Endocrine: Yes: Diabetes Mellitus - Past Surgical History Past Surgical History: Yes: AICD (defibrillator), Cholecystectomy - Alcohol/Substance Use Hx Alcohol Use: No History of Substance Use: reports: Cocaine, Heroin Date of Last Use: 05/29/15 - Smoking History Smoking history: Never smoked Have you smoked in the past 12 months: No Aproximately how many cigarettes per day: 3 - Social History ADL: Independent History of Recent Travel: No Home Medications - Allergies Allergies/Adverse Reactions: Allergies Allergy/AdvReac Type Severity Reaction Status Date / Time morphine Allergy Severe Nausea Verified 01/30/18 06:44 Pork/Porcine Containing Allergy Mild Hives Verified 01/30/18 06:44 Products - Home Medications Home Medications: Ambulatory Orders Duloxetine HCl [Cymbalta -] 20 mg PO HS 08/18/16 Cholecalciferol (Vitamin D3) [Vitamin D3 -] 1,000 unit PO DAILY #30 tab Folic Acid - 1 mg PO DAILY #30 tablet 09/07/16 Furosemide [Lasix -] 20 mg PO BID #30 tablet 09/07/16 Potassium Chloride [Klor-Con M20] 20 meq PO DAILY 01/11/17 Albuterol Sulfate Inhaler - [Ventolin HFA Inhaler -] 2 inh PO Q4H PRN #1 inhaler 01/16/17 Aspirin [ASA -] 81 mg PO DAILY tab.chew 01/16/17 Betamethasone Valerate [Valisone 0.1% Cream -] 1 applic TP BID #1 01/16/17 Carvedilol [Coreg -] 25 mg PO BID #0 tablet 01/16/17 Clopidogrel Bisulfate [Plavix -] 75 mg PO DAILY #30 tablet 01/16/17 Darunavir Ethanolate [Prezista -] 600 mg PO BID tab 01/16/17 Ferrous Sulfate [Feosol] 325 mg PO BID #0 ud 01/16/17 Fluconazole [Diflucan -] 200 mg PO DAILY #0 tablet 01/16/17 Fluocinonide 0.05% Cream [Lidex 0.05% Cream -] 1 applic TP BID #1 tube 01/16/17 Polyvinyl Alcohol [Artificial Tears] 1 drop OU TID drops 01/16/17 Raltegravir [Isentress] 400 mg PO BID #0 tab 01/16/17 Ranitidine [Zantac -] 150 mg PO DAILY #60 tablet 01/16/17 Ritonavir [Norvir -] 100 mg PO BID #0 tab 01/16/17 Rosuvastatin [Crestor -] 10 mg PO HS #30 tablet 01/16/17 Insulin Aspart [Novolog] 0 unit SQ ACHS 02/02/17 Insulin Glargine,Hum.rec.anlog [Lantus] 30 unit SQ HS 01/11/18 Maraviroc [Selzentry] 150 mg PO BID 01/11/18 Losartan Potassium 50 mg PO DAILY #30 tablet 01/25/18 Budesonide/Formeterol Fumarate [SYMBICORT 160/4.5mcg -] 1 inh PO BID 01/30/18 Darunavir Ethanolate [Prezista -] 600 mg PO BID 01/30/18 Dextran 70/Hypromellose/Pf [Artificial Tears Drops] 1 each OU TID 01/30/18 Family Disease History - Family Disease History Family Disease History: Diabetes: Father (oct, 2000), Other: Father, Mother ( alive and well ) Vital Signs: Vital Signs Temperature 97.6 F 01/30/18 07:23 Pulse Rate 67 01/30/18 11:08 Respiratory Rate 20 01/30/18 11:08 Blood Pressure 146/93 01/30/18 11:08 O2 Sat by Pulse Oximetry (%) 98 01/30/18 11:08 - Other Data Labs, Other Data: CBC, BMP 01/30/18 08:00 01/30/18 08:00 Troponin, BNP 01/30/18 08:00 Troponin I 0.05 B-Natriuretic Peptide 8669.81 H Troponin, BNP 01/30/18 08:00 Troponin I 0.05 B-Natriuretic Peptide 8669.81 H Problem List - Problems (1) Acute on chronic systolic CHF (congestive heart failure) Assessment/Plan: BNP 8,669 (nearly double that of a week ago on last admission). +JVD; bilateral rales. CXR: vascular changes. ? compliance to medications and diet after recent discharge from [facility]. (Sees cardiac group ? at [facility], but has not returned since at least 08/2017). TNI 0.05 (relatviely unchanged from last week). ECHO 01/2018: moderate-severely reduced LVEF, mildly dilated LV. Continue carvedilol (pt insists he no longer uses cocaine) and losartan. Consider spironolactone, while closely following BUN/Cr and K+. IV furosemide: has received 80 mg today. F/u Is and Os, daily weight. Consider drug toxicology screen. Pt's insight into his condition appears poor. Code(s): I50.23 - ACUTE ON CHRONIC SYSTOLIC (CONGESTIVE) HEART FAILURE (2) Alcohol abuse Code(s): F10.10 - ALCOHOL ABUSE, UNCOMPLICATED (3) Anxiety Code(s): F41.9 - ANXIETY DISORDER, UNSPECIFIED (4) Insomnia Code(s): G47.00 - INSOMNIA, UNSPECIFIED (5) Nicotine dependence Code(s): F17.200 - NICOTINE DEPENDENCE, UNSPECIFIED, UNCOMPLICATED Qualifiers: Nicotine product type: cigarettes Substance use status: in withdrawal Qualified Code(s): F17.213 - Nicotine dependence, cigarettes, with withdrawal (6) Opioid dependence Code(s): F11.20 - OPIOID DEPENDENCE, UNCOMPLICATED Qualifiers: Substance use status: uncomplicated Qualified Code(s): F11.20 - Opioid dependence, uncomplicated (7) Anemia, iron deficiency Code(s): D50.9 - IRON DEFICIENCY ANEMIA, UNSPECIFIED (8) Bilateral leg edema Code(s): R60.0 - LOCALIZED EDEMA (9) COPD (chronic obstructive pulmonary disease) Code(s): J44.9 - CHRONIC OBSTRUCTIVE PULMONARY DISEASE, UNSPECIFIED Qualifiers: Emphysema type: unspecified (10) Cardiac defibrillator in place Code(s): Z95.810 - PRESENCE OF AUTOMATIC (IMPLANTABLE) CARDIAC DEFIBRILLATOR (11) Cocaine abuse Code(s): F14.10 - COCAINE ABUSE, UNCOMPLICATED (12) HIV (human immunodeficiency virus infection) Code(s): Z21 - ASYMPTOMATIC HUMAN IMMUNODEFICIENCY VIRUS INFECTION STATUS (13) Hepatitis C Code(s): B19.20 - UNSPECIFIED VIRAL HEPATITIS C WITHOUT HEPATIC COMA Qualifiers: Viral hepatitis chronicity: chronic Hepatic coma status: without hepatic coma Qualified Code(s): B18.2 - Chronic viral hepatitis C (14) Hyperlipidemia Code(s): E78.5 - HYPERLIPIDEMIA, UNSPECIFIED Qualifiers: Hyperlipidemia type: unspecified Qualified Code(s): E78.5 - Hyperlipidemia , unspecified (15) Hypertension Code(s): I10 - ESSENTIAL (PRIMARY) HYPERTENSION Qualifiers: Hypertension type: essential hypertension Qualified Code(s): I10 - Essential (primary) hypertension (16) IDDM (insulin dependent diabetes mellitus) Code(s): E11.9 - TYPE 2 DIABETES MELLITUS WITHOUT COMPLICATIONS; Z79.4 - BUDGET REPORT CLERK (CURRENT) USE OF INSULIN (17) Coronary atherosclerosis Assessment/Plan: Pt states he had a cardiac procedure (? angiogram) that lasted for hours last August at [facility] "and they said I still needed more work". Await records. Hx ICD placed ? 2013. Code(s): I25.10 - ATHSCL HEART DISEASE OF [place] CORONARY ARTERY W/O ANG PCTRS
[2018-01-30] MEDS: LOSARTAN POTASSIUM 50 MG TABLET (FP) PO SCH (14:23)
[2018-01-30] MEDS: FUROSEMIDE 40 MG/4 ML INJECTABLE VIAL IVPUSH SCH (14:23)
[2018-01-30] MEDS: FONDAPARINUX SODIUM 2.5 MG/0.5 ML DISP.SYRIN SQ SCH (14:23)
[2018-01-30] MEDS: INSULIN SLIDING SCALE (NOVOLOG) 1 VIAL SQ SCH ×2 (17:38→22:27)
[2018-01-30] MEDS: FERROUS SO4 325 MG TABLET (FP) PO SCH (17:38)
[2018-01-30] MEDS ORDERED: HEPARIN NA (PORCINE) 5,000 UNITS/ML 1ML VIAL SQ SCH (18:00)
[2018-01-30] MEDS: INSULIN DETEMIR 100 UNITS/ML MDV SQ SCH (22:22)
[2018-01-30] MEDS: CARVEDILOL 25 MG TABLET (FP) PO SCH (22:24)
[2018-01-30] MEDS: ROSUVASTATIN CA 10 MG TABLET (FP) PO SCH (22:25)
[2018-01-30] MEDS: RALTEGRAVIR POTASSIUM 400 MG TAB PO SCH (22:25)
[2018-01-30] MEDS: DULoxetine HCL 20 MG CAPSULE.DR (FP) PO SCH (22:25)
[2018-01-30] MEDS: RITONAVIR 100 MG TABLET PO SCH (22:26)
[2018-01-30] MEDS: DARUNAVIR ETHANOLATE 600 MG TAB PO SCH (22:26)
[2018-01-31] MEDS: BUDESONIDE/FORMETEROL FUMARATE 160/4.5 mcg INHALER IH SCH ×4 (00:47→21:44)
[2018-01-31] MEDS ORDERED: INSULIN (NOVOLOG) ASPART 100 UNITS/ML 10ML VIAL ONE ×2 (06:14→22:02)
[2018-01-31] MEDS: FUROSEMIDE 40 MG/4 ML INJECTABLE VIAL IVPUSH SCH ×2 (06:15→14:30)
[2018-01-31] MEDS: INSULIN SLIDING SCALE (NOVOLOG) 1 VIAL SQ SCH ×5 (06:16→21:50)
[2018-01-31] MEDS ORDERED: PT OWN MED DRAWER 7, Y5N ONE ×2 (09:38→17:20)
[2018-01-31] MEDS: CLOPIDOGREL BISULFATE 75 MG TABLET (FP) PO SCH (09:42)
[2018-01-31] MEDS: FOLIC ACID 1 MG TABLET (FP) PO SCH (09:42)
[2018-01-31] MEDS: CARVEDILOL 25 MG TABLET (FP) PO SCH ×2 (09:42→21:43)
[2018-01-31] MEDS: ASPIRIN 81 MG CHEWABLE TABLETS PO SCH (09:42)
[2018-01-31] MEDS: FERROUS SO4 325 MG TABLET (FP) PO SCH ×2 (09:42→17:21)
[2018-01-31] MEDS: DARUNAVIR ETHANOLATE 600 MG TAB PO SCH ×2 (09:43→21:43)
[2018-01-31] MEDS: RALTEGRAVIR POTASSIUM 400 MG TAB PO SCH ×2 (09:43→21:43)
[2018-01-31] MEDS: LOSARTAN POTASSIUM 50 MG TABLET (FP) PO SCH (09:43)
[2018-01-31] MEDS: RITONAVIR 100 MG TABLET PO SCH ×2 (09:44→21:43)
[2018-01-31] MEDS: FONDAPARINUX SODIUM 2.5 MG/0.5 ML DISP.SYRIN SQ SCH (09:46)
[2018-01-31 10:15] LABS: BASO % 1.1 % (0-2.0); EOS % 4.9 % (0-4.5); HEMATOCRIT 31.4 % (35.4-49); HEMOGLOBIN 10.3 GM/dL (11.7-16.9); LYMPH % 24.9 % (8-40); MCH 27.2 pg (25.7-33.7); MCHC 32.7 g/dl (32.0-35.9); MEAN CELL VOLUME 83.1 fl (80-96); MEAN PLT VOLUME 8.8 fl (7.5-11.1); MONO % 17.8 % (3.8-10.2); NEUT % 51.3 % (42.8-82.8); PLATELET COUNT 243 K/MM3 (134-434); RBC 3.78 M/mm3 (4.00-5.60); RDW 18.6 % (11.9-15.9); WHITE BLOOD COUNT 7.6 K/mm3 (4.0-10.0)
[2018-01-31 10:45] LABS: CHLORIDE 106 mmol/L (98-107); POTASSIUM 4.2 mmol/L (3.5-5.1); SODIUM 141 mmol/L (136-145)
--- NOTE | 2018-01-31 10:52 | PN ---
Progress Note, Physician - Current Medication List Current Medications: Active Medications Aspirin (Asa -) 81 mg PO DAILY [facility] Last Admin: 01/31/18 09:42 Dose: 81 mg Budesonide/Formoterol Fumarate (Symbicort 160/4.5mcg -) 1 puff IH BID [facility] Last Admin: 01/31/18 09:43 Dose: 1 puff Carvedilol (Coreg -) 25 mg PO BID [facility] Last Admin: 01/31/18 09:42 Dose: 25 mg Clopidogrel Bisulfate (Plavix -) 75 mg PO DAILY [facility] Last Admin: 01/31/18 09:42 Dose: 75 mg Darunavir (Prezista -) 600 mg PO BID [facility] Last Admin: 01/31/18 09:43 Dose: 600 mg Duloxetine HCl (Cymbalta -) 20 mg PO HS [facility] Last Admin: 01/30/18 22:25 Dose: 20 mg Ferrous Sulfate (Feosol -) 325 mg PO BIDWM [facility] Last Admin: 01/31/18 09:42 Dose: 325 mg Folic Acid (Folic Acid -) 1 mg PO DAILY [facility] Last Admin: 01/31/18 09:42 Dose: 1 mg Fondaparinux (Arixtra (Restricted) -) 2.5 mg SQ DAILY [facility] Last Admin: 01/31/18 09:46 Dose: 2.5 mg Furosemide (Lasix Injection -) 40 mg IVPUSH BID@0600,1400 [facility] Last Admin: 01/31/18 06:15 Dose: 40 mg Insulin Aspart (Novolog Vial Sliding Scale -) 1 vial SQ [facility] PRN Reason: Protocol Last Admin: 01/31/18 06:16 Dose: 4 units Insulin Detemir (Levemir Vial) 30 units SQ [facility] Last Admin: 01/30/18 22:22 Dose: 30 units Losartan Potassium (Cozaar -) 50 mg PO DAILY [facility] Last Admin: 01/31/18 09:43 Dose: 50 mg Raltegravir (Isentress -) 400 mg PO BID [facility] Last Admin: 01/31/18 09:43 Dose: 400 mg Ritonavir (Norvir -) 100 mg PO BID [facility] Last Admin: 01/31/18 09:44 Dose: 100 mg Rosuvastatin Calcium (Crestor -) 10 mg PO HS [facility] Last Admin: 01/30/18 22:25 Dose: 10 mg - Objective Vital Signs: Vital Signs Temperature 98.1 F 01/31/18 09:00 Pulse Rate 67 01/31/18 09:00 Respiratory Rate 18 01/31/18 09:00 Blood Pressure 115/51 01/31/18 09:00 O2 Sat by Pulse Oximetry (%) 95 01/30/18 23:00 Eyes: Yes: WNL, Conjunctiva Clear, EOM Intact HENT: Yes: WNL, Atraumatic, Normocephalic Neck: Yes: WNL, Supple, Trachea Midline Cardiovascular: Yes: WNL, Regular Rate and Rhythm Respiratory: Yes: WNL, Regular, CTA Bilaterally Gastrointestinal: Yes: WNL, Normal Bowel Sounds Genitourinary: Yes: WNL Musculoskeletal: Yes: WNL Extremities: Yes: WNL Edema: Yes Integumentary: Yes: WNL Neurological: Yes: WNL, Alert, Oriented ...Motor Strength: WNL Psychiatric: Yes: WNL Labs: CBC, BMP 01/31/18 09:45 01/31/18 09:45 Assessment/Plan (1) Acute on chronic systolic CHF (congestive heart failure) Assessment/Plan: BNP 8,669 (nearly double that of a week ago on last admission). +JVD; bilateral rales. CXR: vascular changes. ? compliance to medications and diet after recent discharge from [facility]. (Sees cardiac group ? at [facility], but has not returned since at least 08/2017). TNI 0.05 (relatviely unchanged from last week). ECHO 01/2018: moderate-severely reduced LVEF, mildly dilated LV. Continue carvedilol (pt insists he no longer uses cocaine) and losartan. Consider spironolactone, while closely following BUN/Cr and K+. IV furosemide: has received 80 mg today. F/u Is and Os, daily weight. Consider drug toxicology screen. Pt's insight into his condition appears poor. Code(s): I50.23 - ACUTE ON CHRONIC SYSTOLIC (CONGESTIVE) HEART FAILURE (2) Alcohol abuse Code(s): F10.10 - ALCOHOL ABUSE, UNCOMPLICATED (3) Anxiety Code(s): F41.9 - ANXIETY DISORDER, UNSPECIFIED (4) Insomnia Code(s): G47.00 - INSOMNIA, UNSPECIFIED (5) Nicotine dependence Code(s): F17.200 - NICOTINE DEPENDENCE, UNSPECIFIED, UNCOMPLICATED Qualifiers: Nicotine product type: cigarettes Substance use status: in withdrawal Qualified Code(s): F17.213 - Nicotine dependence, cigarettes, with withdrawal (6) Opioid dependence Code(s): F11.20 - OPIOID DEPENDENCE, UNCOMPLICATED Qualifiers: Substance use status: uncomplicated Qualified Code(s): F11.20 - Opioid dependence, uncomplicated (7) Anemia, iron deficiency Code(s): D50.9 - IRON DEFICIENCY ANEMIA, UNSPECIFIED (8) Bilateral leg edema Code(s): R60.0 - LOCALIZED EDEMA (9) COPD (chronic obstructive pulmonary disease) Code(s): J44.9 - CHRONIC OBSTRUCTIVE PULMONARY DISEASE, UNSPECIFIED Qualifiers: Emphysema type: unspecified (10) Cardiac defibrillator in place Code(s): Z95.810 - PRESENCE OF AUTOMATIC (IMPLANTABLE) CARDIAC DEFIBRILLATOR (11) Cocaine abuse Code(s): F14.10 - COCAINE ABUSE, UNCOMPLICATED (12) HIV (human immunodeficiency virus infection) Code(s): Z21 - ASYMPTOMATIC HUMAN IMMUNODEFICIENCY VIRUS INFECTION STATUS (13) Hepatitis C Code(s): B19.20 - UNSPECIFIED VIRAL HEPATITIS C WITHOUT HEPATIC COMA Qualifiers: Viral hepatitis chronicity: chronic Hepatic coma status: without hepatic coma Qualified Code(s): B18.2 - Chronic viral hepatitis C (14) Hyperlipidemia Code(s): E78.5 - HYPERLIPIDEMIA, UNSPECIFIED Qualifiers: Hyperlipidemia type: unspecified Qualified Code(s): E78.5 - Hyperlipidemia , unspecified (15) Hypertension Code(s): I10 - ESSENTIAL (PRIMARY) HYPERTENSION Qualifiers: Hypertension type: essential hypertension Qualified Code(s): I10 - Essential (primary) hypertension (16) IDDM (insulin dependent diabetes mellitus) Code(s): E11.9 - TYPE 2 DIABETES MELLITUS WITHOUT COMPLICATIONS; Z79.4 - NURSING HOME (CURRENT) USE OF INSULIN (17) Coronary atherosclerosis Assessment/Plan: Pt states he had a cardiac procedure (? angiogram) that lasted for hours last August at [facility] "and they said I still needed more work". Await records. Hx ICD placed ? 2013. Code(s): I25.10 - ATHSCL HEART DISEASE OF [place] CORONARY ARTERY W/O ANG PCTRS
[2018-01-31 11:03] LABS: ALBUMIN 2.2 g/dl (3.4-5.0); ALK PHOS 214 U/L (45-117); ANION GAP 11 (8-16); BILIRUBIN,TOTAL 0.6 mg/dL (0.2-1.0); BLOOD UREA NITROGEN 32 mg/dL (7-18); CALCIUM 7.9 mg/dL (8.5-10.1); CO2 24 mmol/L (21-32); CREATININE 1.7 mg/dL (0.7-1.3); GLUCOSE,RANDOM 125 mg/dL (74-106); SGOT/AST 20 U/L (15-37); SGPT/ALT 29 U/L (12-78); TOT PROT 5.7 g/dl (6.4-8.2)
--- NOTE | 2018-01-31 14:13 | PN ---
Progress Note (short form) - Note Progress Note: c/o dyspnea at rest. 3pillow orthopnea. has not gotten out of bed due to dyspnea. denies Cp, fever, chills, cough, N/V/C/D claims he been complaint [facility] medications. claims [facility] was only giving him lasix 20mg. Current Medications Generic Name Dose Route Start Last Admin Trade Name Kwabena PRN Reason Stop Dose Admin Aspirin 81 mg 01/31/18 10:00 01/31/18 09:42 Asa - PO 81 mg DAILY MIRTHA Administration Budesonide/Formoterol Fumarate 1 puff 01/30/18 22:00 01/31/18 09:43 Symbicort 160/4.5mcg - IH 1 puff BID MIRTHA Administration Carvedilol 25 mg 01/30/18 12:15 01/31/18 09:42 Coreg - PO 25 mg BID MIRTHA Administration Clopidogrel Bisulfate 75 mg 01/31/18 10:00 01/31/18 09:42 Plavix - PO 75 mg DAILY MIRTHA Administration Darunavir 600 mg 01/30/18 22:00 01/31/18 09:43 Prezista - PO 600 mg BID MIRTHA Administration Duloxetine HCl 20 mg 01/30/18 22:00 01/30/18 22:25 Cymbalta - PO 20 mg HS MIRTHA Administration Ferrous Sulfate 325 mg 01/30/18 17:30 01/31/18 09:42 Feosol - PO 325 mg BIDWM MIRTHA Administration Folic Acid 1 mg 01/31/18 10:00 01/31/18 09:42 Folic Acid - PO 1 mg DAILY MIRTHA Administration Fondaparinux 2.5 mg 01/30/18 13:30 01/31/18 09:46 Arixtra (Restricted) - SQ 2.5 mg DAILY MIRTHA Administration Furosemide 40 mg 01/30/18 14:00 01/31/18 06:15 Lasix Injection - IVPUSH 40 mg BID@0600,1400 [facility] Administration Insulin Aspart 1 vial 01/30/18 11:00 01/31/18 06:16 Novolog Vial Sliding Scale - SQ 4 units ACHS MIRTHA Administration Protocol Insulin Detemir 30 units 01/30/18 22:00 01/30/18 22:22 Levemir Vial SQ 30 units HS MIRTHA Administration Losartan Potassium 50 mg 01/30/18 12:00 01/31/18 09:43 Cozaar - PO 50 mg DAILY MIRTHA Administration Raltegravir 400 mg 01/30/18 22:00 01/31/18 09:43 Isentress - PO 400 mg BID MIRTHA Administration Ritonavir 100 mg 01/30/18 22:00 01/31/18 09:44 Norvir - PO 100 mg BID MIRTHA Administration Rosuvastatin Calcium 10 mg 01/30/18 22:00 01/30/18 22:25 Crestor - PO 10 mg HS MIRTHA Administration Last Vital Signs Temp Pulse Resp BP Pulse Ox 98.1 F 67 18 115/51 95 01/31/18 09:00 01/31/18 09:00 01/31/18 09:00 01/31/18 09:00 01/31/18 09:00 Intake & Output 01/28/18 01/29/18 01/30/18 01/31/18 23:59 23:59 23:59 23:59 Intake Total 900 400 Output Total 0 Balance 900 400 Weight 230 lb 242 lb 8 oz General NAD CV S1 S2 RRR no murmur/rub/gallop Lungs crackles B/L bases Abdomen soft NT/ND obese Extremities 1+ pitting edema B/L LE CBCD WBC 7.6 K/mm3 (4.0-10.0) 01/31/18 09:45 RBC 3.78 M/mm3 (4.00-5.60) L 01/31/18 09:45 Hgb 10.3 GM/dL (11.7-16.9) L 01/31/18 09:45 Hct 31.4 % (35.4-49) L 01/31/18 09:45 MCV 83.1 fl (80-96) 01/31/18 09:45 MCHC 32.7 g/dl (32.0-35.9) 01/31/18 09:45 RDW 18.6 % (11.9-15.9) H 01/31/18 09:45 Plt Count 243 K/MM3 (134-434) 01/31/18 09:45 MPV 8.8 fl (7.5-11.1) 01/31/18 09:45 CMP Sodium 141 mmol/L (136-145) 01/31/18 09:45 Potassium 4.2 mmol/L (3.5-5.1) 01/31/18 09:45 Chloride 106 mmol/L (98-107) 01/31/18 09:45 Carbon Dioxide 24 mmol/L (21-32) 01/31/18 09:45 Anion Gap 11 (8-16) 01/31/18 09:45 BUN 32 mg/dL (7-18) H D 01/31/18 09:45 Creatinine 1.7 mg/dL (0.7-1.3) H 01/31/18 09:45 Creat Clearance w eGFR 40.65 (>60) 01/31/18 09:45 Calcium 7.9 mg/dL (8.5-10.1) L 01/31/18 09:45 Total Bilirubin 0.6 mg/dL (0.2-1.0) D 01/31/18 09:45 AST 20 U/L (15-37) D 01/31/18 09:45 ALT 29 U/L (12-78) 01/31/18 09:45 Alkaline Phosphatase 214 U/L (45-117) H 01/31/18 09:45 Total Protein 5.7 g/dl (6.4-8.2) L 01/31/18 09:45 Albumin 2.2 g/dl (3.4-5.0) L 01/31/18 09:45 Assessment and Plan: 67 year old male with pmhx of HTN, HLD, DM II, hepatitis C,CKD, HIV (on HAART) , systolic CHF s/p ICD, asthma, Defib and pacemaker (2010), etoh and polysubstance abuse admitted from [facility] with worsening shortness of breath. 1. Acute on chronic systolic CHF exacerbation- states dry weight is 240lb. remains volume overloaded. cont lasix 40mg IV BID. strict I&O, daily weight, electrolyte monitoring. cardiology on board. 2. CAD -s/p AICD. cont asa/plavix 3. CKD- at baseline. 4. HIV - Cont HAART meds 5. DM II-controlled. cont levemir, iss, bgm 6. Polysubstance abuse -completed detox for heroin (snorts). claims stopped cocaine long time ago. desires to return to [facility] to complete inpatient rehab. will need to discuss with Dr Meza prior to discharge. 7. DVT ppx- fondaparinux. pork allergy Visit type - Emergency Visit Emergency Visit: Yes ED Registration Date: 01/30/18 Care time: The patient presented to the Emergency Department on the above date and was hospitalized for further evaluation of their emergent condition. - New Patient This patient is new to me today: Yes Date on this admission: 01/31/18 - Critical Care Critical Care patient: No - Discharge Referral Referred to [facility] Med P.C.: No
[2018-01-31] MEDS: DULoxetine HCL 20 MG CAPSULE.DR (FP) PO SCH (21:43)
[2018-01-31] MEDS: ROSUVASTATIN CA 10 MG TABLET (FP) PO SCH (21:43)
[2018-01-31] MEDS: INSULIN DETEMIR 100 UNITS/ML MDV SQ SCH (21:44)
[2018-02-01] MEDS: INSULIN SLIDING SCALE (NOVOLOG) 1 VIAL SQ SCH ×2 (06:21→11:41)
[2018-02-01] MEDS: FUROSEMIDE 40 MG/4 ML INJECTABLE VIAL IVPUSH SCH (06:22)
[2018-02-01 08:43] LABS: ANION GAP 7 (8-16); CALCIUM 7.4 mg/dL (8.5-10.1); CHLORIDE 109 mmol/L (98-107); CO2 25 mmol/L (21-32); GLUCOSE,RANDOM 101 mg/dL (74-106); POTASSIUM 4.1 mmol/L (3.5-5.1); SODIUM 141 mmol/L (136-145)
[2018-02-01 08:44] LABS: CREATININE 1.8 mg/dL (0.7-1.3)
[2018-02-01 08:53] LABS: BLOOD UREA NITROGEN 36 mg/dL (7-18)
[2018-02-01] MEDS ORDERED: PT OWN MED DRAWER 7, Y5N ONE (09:38)
[2018-02-01] MEDS: FERROUS SO4 325 MG TABLET (FP) PO SCH (09:42)
[2018-02-01] MEDS: LOSARTAN POTASSIUM 50 MG TABLET (FP) PO SCH (09:42)
[2018-02-01] MEDS: FOLIC ACID 1 MG TABLET (FP) PO SCH (09:42)
[2018-02-01] MEDS: CLOPIDOGREL BISULFATE 75 MG TABLET (FP) PO SCH (09:42)
[2018-02-01] MEDS: ASPIRIN 81 MG CHEWABLE TABLETS PO SCH (09:43)
[2018-02-01] MEDS: CARVEDILOL 25 MG TABLET (FP) PO SCH (09:44)
[2018-02-01] MEDS: RALTEGRAVIR POTASSIUM 400 MG TAB PO SCH (09:45)
[2018-02-01] MEDS: RITONAVIR 100 MG TABLET PO SCH (09:45)
[2018-02-01] MEDS: DARUNAVIR ETHANOLATE 600 MG TAB PO SCH (09:45)
[2018-02-01] MEDS: BUDESONIDE/FORMETEROL FUMARATE 160/4.5 mcg INHALER IH SCH (09:46)
[2018-02-01 12:12] VITALS: BP 138/66; PULSE 60
--- NOTE | 2018-02-01 13:37 | PN ---
Physical Exam: SUBJECTIVE: Patient seen and examined at the bedside. Still have shortness of breath at rest 89% at rest. OBJECTIVE: Increase to Lasix 60mg and please weigh daily Monitor intake and output Vital Signs Period Temp Pulse Resp BP Sys/Pandya Pulse Ox Last 24 Hr 98.2 F-98.6 F 58-63 20-22 124-150/59-86 96-98 GENERAL: The patient is awake, alert, and fully oriented, in mild respiratory distress HEAD: Normal with no signs of trauma. EYES: PERRL, extraocular movements intact, sclera anicteric, conjunctiva clear. No ptosis. ENT: Ears normal, nares patent, oropharynx clear without exudates, moist mucous membranes. NECK: Trachea midline, full range of motion, supple. LUNGS:diminshed bilaterally, short of breath with physical exertion ABDOMEN: Soft, nontender, nondistended, normoactive bowel sounds, no guarding, no rebound, no hepatosplenomegaly, no masses. EXTREMITIES: non pitting edema, left hand edema PSYCH: agitated SKIN: Warm, dry, normal turgor, no rashes or lesions noted Laboratory Results - last 24 hr 01/31/18 02/01/18 02/01/18 21:41 05:43 07:05 Sodium 141 Potassium 4.1 Chloride 109 H Carbon Dioxide 25 Anion Gap 7 L BUN 36 H Creatinine 1.8 H POC Glucometer 175 61 Random Glucose 101 Calcium 7.4 L Magnesium 2.0 02/01/18 11:24 Sodium Potassium Chloride Carbon Dioxide Anion Gap BUN Creatinine POC Glucometer 124 Random Glucose Calcium Magnesium Active Medications Generic Name Dose Route Start Last Admin Trade Name Suleimanq PRN Reason Stop Dose Admin Aspirin 81 mg 01/31/18 10:00 02/01/18 09:43 Asa - PO 81 mg DAILY MIRTHA Administration Budesonide/Formoterol Fumarate 1 puff 01/30/18 22:00 02/01/18 09:46 Symbicort 160/4.5mcg - IH 1 puff BID MIRTHA Administration Carvedilol 25 mg 01/30/18 12:15 02/01/18 09:44 Coreg - PO 25 mg BID MIRTHA Administration Clopidogrel Bisulfate 75 mg 01/31/18 10:00 02/01/18 09:42 Plavix - PO 75 mg DAILY MIRTHA Administration Darunavir 600 mg 01/30/18 22:00 02/01/18 09:45 Prezista - PO 600 mg BID MIRTHA Administration Duloxetine HCl 20 mg 01/30/18 22:00 01/31/18 21:43 Cymbalta - PO 20 mg HS MIRTHA Administration Ferrous Sulfate 325 mg 01/30/18 17:30 02/01/18 09:42 Feosol - PO 325 mg BIDWM MIRTHA Administration Folic Acid 1 mg 01/31/18 10:00 02/01/18 09:42 Folic Acid - PO 1 mg DAILY MIRTHA Administration Fondaparinux 2.5 mg 01/30/18 13:30 01/31/18 09:46 Arixtra (Restricted) - SQ 2.5 mg DAILY MIRTHA Administration Furosemide 40 mg 01/30/18 14:00 02/01/18 06:22 Lasix Injection - IVPUSH 40 mg BID@0600,1400 MIRTHA Administration Insulin Aspart 1 vial 01/30/18 11:00 02/01/18 11:41 Novolog Vial Sliding Scale - SQ Not Given ACHS [facility] Protocol Insulin Detemir 30 units 01/30/18 22:00 01/31/18 21:44 Levemir Vial SQ 30 units HS MIRTHA Administration Losartan Potassium 50 mg 01/30/18 12:00 02/01/18 09:42 Cozaar - PO 50 mg DAILY MIRTHA Administration Raltegravir 400 mg 01/30/18 22:00 02/01/18 09:45 Isentress - PO 400 mg BID MIRTHA Administration Ritonavir 100 mg 01/30/18 22:00 02/01/18 09:45 Norvir - PO 100 mg BID MIRTHA Administration Rosuvastatin Calcium 10 mg 01/30/18 22:00 01/31/18 21:43 Crestor - PO 10 mg HS MIRTHA Administration ASSESSMENT/PLAN: Elopement: Unfortunately, patient decided to leave the hospital. Received call by RN saying pt pulled out his saline lock and left On my previous exam, patient was upset that he was not able to go back to [facility]. I assured him that we will come up with a safe discharge plan but told him that he will not be discharged to day as he still needed the Lasix IV (which was increased today). I measured his oxygen at rest and it was 89% and I informed patient that he needed to apply the supplemental oxygen. Visit type - Emergency Visit Emergency Visit: Yes ED Registration Date: 01/30/18 Care time: The patient presented to the Emergency Department on the above date and was hospitalized for further evaluation of their emergent condition. - New Patient This patient is new to me today: No - Critical Care Critical Care patient: No - Discharge Referral Referred to [facility] Med P.C.: No
[2018-02-01] MEDS ORDERED: FUROSEMIDE 40 MG/4 ML INJECTABLE VIAL IVPUSH SCH (14:15)
[2018-02-01 14:57] VITALS: TEMP 98.4
--- NOTE | 2018-02-01 15:37 | PN ---
Progress Note, Physician - Current Medication List Current Medications: Active Medications Aspirin (Asa -) 81 mg PO DAILY [facility] Last Admin: 02/01/18 09:43 Dose: 81 mg Budesonide/Formoterol Fumarate (Symbicort 160/4.5mcg -) 1 puff IH BID [facility] Last Admin: 02/01/18 09:46 Dose: 1 puff Carvedilol (Coreg -) 25 mg PO BID [facility] Last Admin: 02/01/18 09:44 Dose: 25 mg Clopidogrel Bisulfate (Plavix -) 75 mg PO DAILY [facility] Last Admin: 02/01/18 09:42 Dose: 75 mg Darunavir (Prezista -) 600 mg PO BID [facility] Last Admin: 02/01/18 09:45 Dose: 600 mg Duloxetine HCl (Cymbalta -) 20 mg PO HS [facility] Last Admin: 01/31/18 21:43 Dose: 20 mg Ferrous Sulfate (Feosol -) 325 mg PO BIDWM [facility] Last Admin: 02/01/18 09:42 Dose: 325 mg Folic Acid (Folic Acid -) 1 mg PO DAILY [facility] Last Admin: 02/01/18 09:42 Dose: 1 mg Fondaparinux (Arixtra (Restricted) -) 2.5 mg SQ DAILY [facility] Last Admin: 01/31/18 09:46 Dose: 2.5 mg Furosemide (Lasix Injection -) 60 mg IVPUSH BID@0600,1400 [facility] Insulin Aspart (Novolog Vial Sliding Scale -) 1 vial SQ [facility] PRN Reason: Protocol Last Admin: 02/01/18 11:41 Dose: Not Given Insulin Detemir (Levemir Vial) 30 units SQ HS [facility] Last Admin: 01/31/18 21:44 Dose: 30 units Losartan Potassium (Cozaar -) 50 mg PO DAILY [facility] Last Admin: 02/01/18 09:42 Dose: 50 mg Raltegravir (Isentress -) 400 mg PO BID [facility] Last Admin: 02/01/18 09:45 Dose: 400 mg Ritonavir (Norvir -) 100 mg PO BID [facility] Last Admin: 02/01/18 09:45 Dose: 100 mg Rosuvastatin Calcium (Crestor -) 10 mg PO HS [facility] Last Admin: 01/31/18 21:43 Dose: 10 mg - Objective Vital Signs: Vital Signs Temperature 98.4 F 02/01/18 14:00 Pulse Rate 60 02/01/18 09:00 Respiratory Rate 20 02/01/18 09:00 Blood Pressure 138/66 02/01/18 09:00 O2 Sat by Pulse Oximetry (%) 98 02/01/18 09:00 Labs: CBC, BMP 01/31/18 09:45 02/01/18 07:05 Problem List - Problems (1) Acute on chronic systolic CHF (congestive heart failure) Assessment/Plan: Continue carvedilol (pt insists he no longer uses cocaine) and losartan. Start 25 mg daily of spironolactone, while closely following BUN/Cr and K+. IV furosemide: may increase to 80 mb bid. F/u Is and Os, daily weight. Code(s): I50.23 - ACUTE ON CHRONIC SYSTOLIC (CONGESTIVE) HEART FAILURE (2) Alcohol abuse Code(s): F10.10 - ALCOHOL ABUSE, UNCOMPLICATED (3) Anxiety Code(s): F41.9 - ANXIETY DISORDER, UNSPECIFIED (4) Insomnia Code(s): G47.00 - INSOMNIA, UNSPECIFIED (5) Nicotine dependence Code(s): F17.200 - NICOTINE DEPENDENCE, UNSPECIFIED, UNCOMPLICATED Qualifiers: Nicotine product type: cigarettes Substance use status: in withdrawal Qualified Code(s): F17.213 - Nicotine dependence, cigarettes, with withdrawal (6) Opioid dependence Code(s): F11.20 - OPIOID DEPENDENCE, UNCOMPLICATED Qualifiers: Substance use status: uncomplicated Qualified Code(s): F11.20 - Opioid dependence, uncomplicated (7) Anemia, iron deficiency Code(s): D50.9 - IRON DEFICIENCY ANEMIA, UNSPECIFIED (8) Bilateral leg edema Code(s): R60.0 - LOCALIZED EDEMA (9) COPD (chronic obstructive pulmonary disease) Code(s): J44.9 - CHRONIC OBSTRUCTIVE PULMONARY DISEASE, UNSPECIFIED Qualifiers: Emphysema type: unspecified (10) Cardiac defibrillator in place Code(s): Z95.810 - PRESENCE OF AUTOMATIC (IMPLANTABLE) CARDIAC DEFIBRILLATOR (11) Cocaine abuse Code(s): F14.10 - COCAINE ABUSE, UNCOMPLICATED (12) HIV (human immunodeficiency virus infection) Code(s): Z21 - ASYMPTOMATIC HUMAN IMMUNODEFICIENCY VIRUS INFECTION STATUS (13) Hepatitis C Code(s): B19.20 - UNSPECIFIED VIRAL HEPATITIS C WITHOUT HEPATIC COMA Qualifiers: Viral hepatitis chronicity: chronic Hepatic coma status: without hepatic coma Qualified Code(s): B18.2 - Chronic viral hepatitis C (14) Hyperlipidemia Code(s): E78.5 - HYPERLIPIDEMIA, UNSPECIFIED Qualifiers: Hyperlipidemia type: unspecified Qualified Code(s): E78.5 - Hyperlipidemia , unspecified (15) Hypertension Code(s): I10 - ESSENTIAL (PRIMARY) HYPERTENSION Qualifiers: Hypertension type: essential hypertension Qualified Code(s): I10 - Essential (primary) hypertension (16) IDDM (insulin dependent diabetes mellitus) Code(s): E11.9 - TYPE 2 DIABETES MELLITUS WITHOUT COMPLICATIONS; Z79.4 - INTERMEDIATE (CURRENT) USE OF INSULIN (17) Coronary atherosclerosis Code(s): I25.10 - ATHSCL HEART DISEASE OF [place] CORONARY ARTERY W/O ANG PCTRS
[2018-02-01] MEDS ORDERED: SPIRONOLACTONE 25 MG TABLET (FP) PO SCH (16:00)
== END 2018-02-01 16:27 | disposition short-term general hospital (02) | DRG 291 ==
LOC: JER 06:40 → JERBED 10:09 → J6S 11:35
PROVIDERS: ADMIT Internal Medicine; ATTEND Nurse Practitioner Family
DX: I13.0 Hypertensive heart and chronic kidney disease with heart failure and stage 1 through stage 4 chronic kidney disease, or unspecified chronic kidney disease (principal); I50.23 Acute on chronic systolic (congestive) heart failure; F17.213 Nicotine dependence, cigarettes, with withdrawal; F11.20 Opioid dependence, uncomplicated; E78.5 Hyperlipidemia, unspecified; B18.2 Chronic viral hepatitis C; I25.10 Atherosclerotic heart disease of native coronary artery without angina pectoris; F19.10 Other psychoactive substance abuse, uncomplicated; J45.909 Unspecified asthma, uncomplicated; F10.10 Alcohol abuse, uncomplicated; F41.9 Anxiety disorder, unspecified; D50.9 Iron deficiency anemia, unspecified; G47.00 Insomnia, unspecified; R60.0 Localized edema; E11.22 Type 2 diabetes mellitus with diabetic chronic kidney disease; N18.9 Chronic kidney disease, unspecified; Z21 Asymptomatic human immunodeficiency virus [HIV] infection status; Z95.810 Presence of automatic (implantable) cardiac defibrillator; Z79.4 Long term (current) use of insulin
CPT/HCPCS: 36415; 71045-TC-FY; 80048; 80053; 82550; 82553; 82962; 83735; 83880; 84484; 85025; 93005; 93010; 99285-25

== ENCOUNTER 2018-02-01 23:49 | Emergency (ER) | payer OTHER ==
[2018-02-02 00:22] VITALS: BP 129/81; PULSE 74; TEMP 97.5; BMI 30.4
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
== END 2018-02-02 07:07 | disposition home or self-care (01) ==
LOC: JER 23:49
DX: F11.10 Opioid abuse, uncomplicated (principal); I25.10 Atherosclerotic heart disease of native coronary artery without angina pectoris; I11.0 Hypertensive heart disease with heart failure; E11.9 Type 2 diabetes mellitus without complications; Z79.4 Long term (current) use of insulin; E78.00 Pure hypercholesterolemia, unspecified; D50.9 Iron deficiency anemia, unspecified; B18.2 Chronic viral hepatitis C; G47.00 Insomnia, unspecified; F41.9 Anxiety disorder, unspecified; J44.9 Chronic obstructive pulmonary disease, unspecified; Z21 Asymptomatic human immunodeficiency virus [HIV] infection status; Z95.810 Presence of automatic (implantable) cardiac defibrillator
CPT/HCPCS: 99282-25

== ENCOUNTER 2018-02-02 09:35 | Inpatient (IN) | payer OTHER ==
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
[2018-02-02] MEDS ORDERED: ASPIRIN 81 MG CHEWABLE TABLETS PO ONE (10:57)
[2018-02-02 11:01] LABS: BASO % 0.5 % (0-2.0); EOS % 1.3 % (0-4.5); HEMOGLOBIN 12.5 GM/dL (11.7-16.9); LYMPH % 9.6 % (8-40); MCH 26.7 pg (25.7-33.7); MCHC 31.4 g/dl (32.0-35.9); MEAN CELL VOLUME 85.3 fl (80-96); MEAN PLT VOLUME 8.1 fl (7.5-11.1); MONO % 13.8 % (3.8-10.2); NEUT % 74.8 % (42.8-82.8); PLATELET COUNT 240 K/MM3 (134-434); RBC 4.69 M/mm3 (4.00-5.60); RDW 18.7 % (11.9-15.9); WHITE BLOOD COUNT 14.7 K/mm3 (4.0-10.0)
[2018-02-02] MEDS ORDERED: ASPIRIN 81 MG CHEWABLE TABLETS ONE (11:08)
[2018-02-02 11:24] LABS: URINE APPEARANCE CLEAR; URINE BILIRUBIN NEGATIVE (NEGATIVE); URINE BLOOD 1+ (NEGATIVE); URINE COLOR YELLOW; URINE GLUCOSE (UA) 3+ (NEGATIVE); URINE KETONE NEGATIVE (NEGATIVE); URINE LEUK ESTERASE NEGATIVE (NEGATIVE); URINE NITRITE NEGATIVE (NEGATIVE)
[2018-02-02 11:25] LABS: ALBUMIN 3.3 g/dl (3.4-5.0); ANION GAP 12 (8-16); BILIRUBIN,TOTAL 0.5 mg/dL (0.2-1.0); BLOOD UREA NITROGEN 44 mg/dL (7-18); CHLORIDE 103 mmol/L (98-107); CO2 24 mmol/L (21-32); CREATININE 2.8 mg/dL (0.7-1.3); MAGNESIUM 2.8 mg/dL (1.8-2.4); PHOSPHOROUS 5.1 mg/dL (2.5-4.9); POTASSIUM 4.7 mmol/L (3.5-5.1); SGOT/AST 30 U/L (15-37); SGPT/ALT 43 U/L (12-78); SODIUM 139 mmol/L (136-145); TOT PROT 8.3 g/dl (6.4-8.2)
[2018-02-02 11:27] LABS: GLUCOSE,RANDOM 318 mg/dL (74-106)
[2018-02-02 11:29] LABS: ALK PHOS 241 U/L (45-117); N-TERMINAL BNP 6015.69 pg/ml (5-125)
[2018-02-02 11:32] LABS: URINE PROTEIN 3+ (NEGATIVE)
[2018-02-02 11:35] LABS: COCAINE, UR NEGATIVE ng/ml (CUTOFF=300); METHADONE, UR NEGATIVE ng/ml (CUTOFF=300); PHENCYCLIDINE,URINE NEGATIVE ng/ml (CUTOFF=25); URINE AMPHETAMINES NEGATIVE ng/ml (CUTOFF=500); URINE BARBITURATES NEGATIVE ng/ml (CUTOFF=200)
[2018-02-02 11:36] LABS: OPIATES, URI POSITIVE ng/ml (CUTOFF=300); URINE BENZODIAZEPINES POSITIVE ng/ml (CUTOFF=200)
[2018-02-02 11:54] LABS: EPI CELLS RARE /HPF (FEW); URINE HYALINE CAST 47 /lpf; URINE MUCUS RARE
[2018-02-02 11:58] LABS: INR 1.02 (0.82-1.09); PROTHROMBIN TIME (PATIENT) 11.5 SEC (9.98-11.88)
[2018-02-02] MEDS ORDERED: FUROSEMIDE 100 MG/10 ML INJECTABLE VIAL IVPB ONE ×2 (11:59→12:23)
[2018-02-02 12:01] LABS: ACTIVATED PTT 30.9 SECONDS (26.9-34.4)
[2018-02-02] MEDS ORDERED: FUROSEMIDE 40 MG/4 ML INJECTABLE VIAL ONE (12:29)
[2018-02-02] MEDS ORDERED: INSULIN REGULAR HUMAN 100 UNITS/ML *VIAL SQ ONE (12:31)
[2018-02-02] MEDS ORDERED: INSULIN REGULAR HUMAN 100 UNITS/ML *VIAL ONE (12:44)
--- NOTE | 2018-02-02 13:32 | PN ---
Physical Exam: SUBJECTIVE: Patient seen and examined OBJECTIVE: Vital Signs Period Temp Pulse Resp BP Sys/Pandya Pulse Ox Last 24 Hr 98.2 F 64-74 18-20 162-181/84-104 93-96 GENERAL: The patient is awake, alert, and fully oriented, in no acute distress. HEAD: Normal with no signs of trauma. EYES: PERRL, extraocular movements intact, sclera anicteric, conjunctiva clear. No ptosis. ENT: Ears normal, nares patent, oropharynx clear without exudates, moist mucous membranes. NECK: Trachea midline, full range of motion, supple. LUNGS: Breath sounds equal, clear to auscultation bilaterally, no wheezes, no crackles, no accessory muscle use. HEART: Regular rate and rhythm, S1, S2 without murmur, rub or gallop. ABDOMEN: Soft, nontender, nondistended, normoactive bowel sounds, no guarding, no rebound, no hepatosplenomegaly, no masses. EXTREMITIES: 2+ pulses, warm, well-perfused, no edema. NEUROLOGICAL: Cranial nerves II through XII grossly intact. Normal speech, gait not observed. PSYCH: Normal mood, normal affect. SKIN: Warm, dry, normal turgor, no rashes or lesions noted Laboratory Results - last 24 hr 02/02/18 02/02/18 02/02/18 10:50 10:50 10:50 WBC 14.7 H D RBC 4.69 D Hgb 12.5 D Hct 40.0 D MCV 85.3 MCH 26.7 MCHC 31.4 L RDW 18.7 H Plt Count 240 MPV 8.1 Neutrophils % 74.8 D Lymphocytes % 9.6 D Monocytes % 13.8 H Eosinophils % 1.3 Basophils % 0.5 PT with INR 11.50 INR 1.02 PTT (Actin FS) 30.9 Sodium 139 Potassium 4.7 Chloride 103 Carbon Dioxide 24 Anion Gap 12 BUN 44 H D Creatinine 2.8 H D Creat Clearance w eGFR 22.86 Random Glucose 318 H* D Calcium 9.0 D Phosphorus 5.1 H Magnesium 2.8 H D Total Bilirubin 0.5 AST 30 D ALT 43 D Alkaline Phosphatase 241 H Creatine Kinase 315 H Creatine Kinase Index 2.6 CK-MB (CK-2) 8.323 H Troponin I 0.06 H B-Natriuretic Peptide 6015.69 H Total Protein 8.3 H D Albumin 3.3 L D Urine Color Urine Appearance Urine pH Ur Specific [place] Urine Protein Urine Glucose (UA) Urine Ketones Urine Blood Urine Nitrite Urine Bilirubin Urine Urobilinogen Ur Leukocyte Esterase Urine WBC (Auto) Urine RBC (Auto) Ur Epithelial Cells Hyaline Casts Urine Mucus Opiates Screen Methadone Screen Barbiturate Screen Phencyclidine Screen Ur Amphetamines Screen MDMA (Ecstasy) Screen Benzodiazepines Screen Cocaine Screen U Marijuana (THC) Screen 02/02/18 02/02/18 11:19 11:19 WBC RBC Hgb Hct MCV MCH MCHC RDW Plt Count MPV Neutrophils % Lymphocytes % Monocytes % Eosinophils % Basophils % PT with INR INR PTT (Actin FS) Sodium Potassium Chloride Carbon Dioxide Anion Gap BUN Creatinine Creat Clearance w eGFR Random Glucose Calcium Phosphorus Magnesium Total Bilirubin AST ALT Alkaline Phosphatase Creatine Kinase Creatine Kinase Index CK-MB (CK-2) Troponin I B-Natriuretic Peptide Total Protein Albumin Urine Color Yellow Urine Appearance Clear Urine pH 5.0 D Ur Specific [place] 1.017 Urine Protein 3+ H Urine Glucose (UA) 3+ H Urine Ketones Negative Urine Blood 1+ H Urine Nitrite Negative Urine Bilirubin Negative Urine Urobilinogen 2.0 Ur Leukocyte Esterase Negative Urine WBC (Auto) 2 Urine RBC (Auto) 5 Ur Epithelial Cells Rare Hyaline Casts 47 Urine Mucus Rare Opiates Screen Positive Methadone Screen Negative Barbiturate Screen Negative Phencyclidine Screen Negative Ur Amphetamines Screen Negative MDMA (Ecstasy) Screen Negative Benzodiazepines Screen Positive Cocaine Screen Negative U Marijuana (THC) Screen Negative Active Medications Generic Name Dose Route Start Last Admin Trade Name Freq PRN Reason Stop Dose Admin Aspirin 81 mg 02/03/18 10:00 Asa - PO DAILY [facility] Budesonide/Formoterol Fumarate 1 puff 02/02/18 22:00 Symbicort 160/4.5mcg - IH BID [facility] Carvedilol 25 mg 02/02/18 22:00 Coreg - PO BID [facility] Cholecalciferol 1,000 unit 02/03/18 10:00 Vitamin D3 - PO DAILY [facility] Clopidogrel Bisulfate 75 mg 02/03/18 10:00 Plavix - PO DAILY [facility] Darunavir 600 mg 02/02/18 22:00 Prezista - PO BID [facility] Duloxetine HCl 20 mg 02/02/18 22:00 Cymbalta - PO HS [facility] Ferrous Sulfate 325 mg 02/02/18 22:00 Feosol - PO BID [facility] Folic Acid 1 mg 02/03/18 10:00 Folic Acid - PO DAILY [facility] Furosemide 60 mg 02/02/18 16:00 Lasix Injection - IVPUSH BID@0800,1600 [facility] Insulin Aspart 1 vial 02/02/18 16:30 Novolog Vial Sliding Scale - SQ ACHS [facility] Protocol Insulin Detemir 30 units 02/02/18 22:00 Levemir Vial SQ HS [facility] Losartan Potassium 50 mg 02/03/18 10:00 Cozaar - PO DAILY [facility] Non-Formulary Medication 150 mg 02/02/18 22:00 Maraviroc [Selzentry] PO BID [facility] Potassium Chloride 20 meq 02/03/18 10:00 K-Dur - PO DAILY [facility] Raltegravir 400 mg 02/02/18 22:00 Isentress - PO BID [facility] Ranitidine HCl 150 mg 02/03/18 10:00 Zantac - PO DAILY [facility] Ritonavir 100 mg 02/02/18 22:00 Norvir - PO BID [facility] Rosuvastatin Calcium 10 mg 02/02/18 22:00 Crestor - PO HS [facility] ASSESSMENT/PLAN:
--- NOTE | 2018-02-02 14:50 | EKG ---
Test Reason : Blood Pressure : / mmHG Vent. Rate : 075 BPM Atrial Rate : 075 BPM P-R Int : 214 ms QRS Dur : 110 ms QT Int : 448 ms P-R-T Axes : 077 -14 007 degrees QTc Int : 500 ms SINUS RHYTHM WITH 1ST DEGREE A-V BLOCK INCOMPLETE LEFT BUNDLE BRANCH BLOCK NONSPECIFIC ST AND T WAVE ABNORMALITY PROLONGED QT ABNORMAL ECG WHEN COMPARED WITH ECG OF 30-JAN-2018 08:40, [place] INTERVAL HAS INCREASED Confirmed by ZOLTAN VILA MD ([id number]) on 02/02/2018 2:50:32 PM Referred By: Confirmed By:ZOLTAN VILA MD
--- NOTE | 2018-02-02 14:52 | HP ---
CHIEF COMPLAINT: shortness of breath PCP: HISTORY OF PRESENT ILLNESS: Patient is a 67 year old male with a significant past medical history of hypertension, hyperlipidemia, diabetes, hepatitis C, HIV (on HAART), CHF, asthma , defib and pacemaker, etoh, anxiety and polysubstance abuse. He presented to the ED today with c/o of chest pain after using heroin. He was seen in the ED early this morning and was discharged, then returned a few hours later stating he had chest pain and shortness of breath. Patient was recently admitted on for acute CHF exacerbation. He was seen by cardiology and was started Lasix 60mg IV BID. Patient eloped yesterday after becoming agitated that [facility] would not allow him to return for rehab. His oxygen saturation before he eloped was noted to be 89% on room air. After eloping, patient admits to using "two bags of heroin" and the developed chest pain prompting him to come back to the Emergency Room. On exam, patient was calmer, stating he regrets leaving yesterday, states he wants to get clean. From the time of yesterday's departure to today's arrival in the ER, patient has not taken any of his medications. He is homeless and does not want to return to the [facility]. ER course was notable for: (1) ekg sinus rhythm with 1st degree av block, incomplete left bundble branch block, non specific and t wave abnormality, prolonged QT (2) bnp 6015, glucose 318, bun 44, creat 2.8 (3) + opiate screen, positive benzo screen Recent Travel: PAST MEDICAL HISTORY: hypertension, hyperlipidemia, diabetes, hepatitis C, HIV (on HAART), CHF, asthma, defib and pacemaker, etoh and polysubstance abuse. PAST SURGICAL HISTORY: Social History: Smoking: denies Alcohol: denies Drugs: admits to heroin use Family History: Allergies morphine Allergy (Severe, Verified 02/02/18 09:39) Nausea Pork/Porcine Containing Products Allergy (Mild, Verified 02/02/18 09:39) Hives HOME MEDICATIONS: Home Medications Medication Instructions Recorded Duloxetine HCl [Cymbalta -] 20 mg PO HS 08/18/16 Cholecalciferol (Vitamin D3) 1,000 unit PO DAILY #30 tab 09/07/16 [Vitamin D3 -] Folic Acid - 1 mg PO DAILY #30 tablet 09/07/16 Furosemide [Lasix -] 20 mg PO BID #30 tablet 09/07/16 Potassium Chloride [Klor-Con M20] 20 meq PO DAILY 01/11/17 Albuterol Sulfate Inhaler - 2 inh PO Q4H PRN #1 inhaler 01/16/17 [Ventolin HFA Inhaler -] Aspirin [ASA -] 81 mg PO DAILY tab.chew 01/16/17 Betamethasone Valerate [Valisone 1 applic TP BID #1 01/16/17 0.1% Cream -] Carvedilol [Coreg -] 25 mg PO BID #0 tablet 01/16/17 Clopidogrel Bisulfate [Plavix -] 75 mg PO DAILY #30 tablet 01/16/17 Darunavir Ethanolate [Prezista -] 600 mg PO BID tab 01/16/17 Ferrous Sulfate [Feosol] 325 mg PO BID #0 ud 01/16/17 Fluconazole [Diflucan -] 200 mg PO DAILY #0 tablet 01/16/17 Fluocinonide 0.05% Cream [Lidex 1 applic TP BID #1 tube 01/16/17 0.05% Cream -] Polyvinyl Alcohol [Artificial 1 drop OU TID drops 01/16/17 Tears] Raltegravir [Isentress] 400 mg PO BID #0 tab 01/16/17 Ranitidine [Zantac -] 150 mg PO DAILY #60 tablet 01/16/17 Ritonavir [Norvir -] 100 mg PO BID #0 tab 01/16/17 Rosuvastatin [Crestor -] 10 mg PO HS #30 tablet 01/16/17 Insulin Aspart [Novolog] 0 unit SQ ACHS 02/02/17 Insulin Glargine,Hum.rec.anlog 30 unit SQ HS 01/11/18 [Lantus] Maraviroc [Selzentry] 150 mg PO BID 01/11/18 Losartan Potassium 50 mg PO DAILY #30 tablet 01/25/18 Budesonide/Formeterol Fumarate 1 inh PO BID 01/30/18 [SYMBICORT 160/4.5mcg -] Dextran 70/Hypromellose/Pf 1 each OU TID 01/30/18 [Artificial Tears Drops] PHYSICAL EXAMINATION Vital Signs - 24 hr 02/02/18 02/02/18 02/02/18 09:35 10:56 11:19 Temperature 98.2 F Pulse Rate 74 Pulse Rate [ 64 Apical] Respiratory 20 18 Rate Blood Pressure 181/104 Blood Pressure 162/84 [Left Arm] O2 Sat by Pulse 93 L 96 96 Oximetry (%) 02/02/18 14:25 Temperature 97.9 F Pulse Rate Pulse Rate [ 64 Apical] Respiratory 20 Rate Blood Pressure Blood Pressure 140/79 [Left Arm] O2 Sat by Pulse 95 Oximetry (%) GENERAL: Awake, alert, and fully oriented, in no acute distress, agitated HEAD: Normal with no signs of trauma. EYES: Pupils equal, round and reactive to light, extraocular movements intact, sclera anicteric, conjunctiva clear. No lid lag. EARS, NOSE, THROAT: Ears normal, nares patent, oropharynx clear without exudates. Moist mucous membranes. NECK: Normal range of motion, supple without lymphadenopathy, JVD, or masses. LUNGS: diminished anteriorly, on supplemental oxygen, congestive changes seen on chest xray HEART: Regular rate and rhythm, pacemaker ABDOMEN: Soft, nontender, not distended, normoactive bowel sounds, no guarding, no rebound, no masses. No hepatomegaly or splenomegaly. MUSCULOSKELETAL: Normal range of motion at all joints. No bony deformities or tenderness. No CVA tenderness. LOWER EXTREMITIES: bilateral non pitting edema NEUROLOGICAL: Normal speech. Normal gait. PSYCHIATRIC: Cooperative. Good eye contact. Appropriate mood and affect. SKIN: Warm, dry, normal turgor, no rashes or lesions noted, normal capillary refill. Laboratory Results - last 24 hr 02/02/18 02/02/18 02/02/18 10:50 10:50 10:50 WBC 14.7 H D RBC 4.69 D Hgb 12.5 D Hct 40.0 D MCV 85.3 MCH 26.7 MCHC 31.4 L RDW 18.7 H Plt Count 240 MPV 8.1 Neutrophils % 74.8 D Lymphocytes % 9.6 D Monocytes % 13.8 H Eosinophils % 1.3 Basophils % 0.5 PT with INR 11.50 INR 1.02 PTT (Actin FS) 30.9 Sodium 139 Potassium 4.7 Chloride 103 Carbon Dioxide 24 Anion Gap 12 BUN 44 H D Creatinine 2.8 H D Creat Clearance w eGFR 22.86 POC Glucometer Random Glucose 318 H* D Calcium 9.0 D Phosphorus 5.1 H Magnesium 2.8 H D Total Bilirubin 0.5 AST 30 D ALT 43 D Alkaline Phosphatase 241 H Creatine Kinase 315 H Creatine Kinase Index 2.6 CK-MB (CK-2) 8.323 H Troponin I 0.06 H B-Natriuretic Peptide 6015.69 H Total Protein 8.3 H D Albumin 3.3 L D Urine Color Urine Appearance Urine pH Ur Specific Mcdade Urine Protein Urine Glucose (UA) Urine Ketones Urine Blood Urine Nitrite Urine Bilirubin Urine Urobilinogen Ur Leukocyte Esterase Urine WBC (Auto) Urine RBC (Auto) Ur Epithelial Cells Hyaline Casts Urine Mucus Opiates Screen Methadone Screen Barbiturate Screen Phencyclidine Screen Ur Amphetamines Screen MDMA (Ecstasy) Screen Benzodiazepines Screen Cocaine Screen U Marijuana (THC) Screen 02/02/18 02/02/18 02/02/18 11:19 11:19 14:18 WBC RBC Hgb Hct MCV MCH MCHC RDW Plt Count MPV Neutrophils % Lymphocytes % Monocytes % Eosinophils % Basophils % PT with INR INR PTT (Actin FS) Sodium Potassium Chloride Carbon Dioxide Anion Gap BUN Creatinine Creat Clearance w eGFR POC Glucometer [phone] Random Glucose Calcium Phosphorus Magnesium Total Bilirubin AST ALT Alkaline Phosphatase Creatine Kinase Creatine Kinase Index CK-MB (CK-2) Troponin I B-Natriuretic Peptide Total Protein Albumin Urine Color Yellow Urine Appearance Clear Urine pH 5.0 D Ur Specific Mcdade 1.017 Urine Protein 3+ H Urine Glucose (UA) 3+ H Urine Ketones Negative Urine Blood 1+ H Urine Nitrite Negative Urine Bilirubin Negative Urine Urobilinogen 2.0 Ur Leukocyte Esterase Negative Urine WBC (Auto) 2 Urine RBC (Auto) 5 Ur Epithelial Cells Rare Hyaline Casts 47 Urine Mucus Rare Opiates Screen Positive Methadone Screen Negative Barbiturate Screen Negative Phencyclidine Screen Negative Ur Amphetamines Screen Negative MDMA (Ecstasy) Screen Negative Benzodiazepines Screen Positive Cocaine Screen Negative U Marijuana (THC) Screen Negative ASSESSMENT/PLAN: Patient is a 67 year old male with a significant past medical history of hypertension, hyperlipidemia, diabetes, hepatitis C, HIV (on HAART), CHF, asthma , defib and pacemaker, etoh, anxiety and polysubstance abuse. He presented to the ED today with c/o of chest pain after using heroin. He was seen in the ED early this morning and was discharged, then returned a few hours later stating he had chest pain and shortness of breath. Patient was recently admitted on 3/ 13/18 for acute CHF exacerbation. He was seen by cardiology and was started Lasix 60mg IV BID. Patient eloped yesterday after becoming agitated that [facility] would not allow him to return for rehab. His oxygen saturation before he eloped was noted to be 89% on room air. After eloping, patient admits to using "two bags of heroin" and the developed chest pain prompting him to come back to the Emergency Room. On exam, patient was calmer, stating he regrets leaving yesterday, states he wants to get clean. From the time of yesterday's departure to today's arrival in the ER, patient has not taken any of his medications. He is homeless and does not want to return to the [facility]. Card: Acute on chronic systolic CHF Hypertension Rule out ACS Still having chest pain EKG as noted above Monitor on tele Trend troponins Echo from recent admission interrogation of ICD done on previous admission Monitor intake and output On Carvedilol 25mg BID with caution with recent polysubstance use Lasix 60mg IV daily Pulmonary COPD/Asthma history Hypoxia on admission Supplement oxygen @ 2 liters Not wheezing Maintain oxygen sats above 90% Ps[place] Polysubstance abuse from [facility] Followed by Dr Meza Will re-consult her for possible transfer to [facility] ID: Leukocytosis @ 14.7, will trend Blood cultures ordered No fevers HIV, chronic on HAART therapy Renal Acute on chronic MJ, creat 2.8 on admission This is higher than previous admission Trend and if continues to be elevated, will need renal consult His baseline is between 1.6-1.8 Vascular Bilateral lower ext edema Elevated, no calf pain Same as previous admissions Endocrine BGMs, Novolog, Levemir F.E.N. fluids: Po adequate Electrolyes: monitor Nutrition: diabetic Prophy: DVT: ambulation, SCDs GI: deferred. Disposition. full code. Hospitalist Screening - Colonoscopy Questionnaire Colonoscopy Questionnaire: Colonoscopy Questionnaire
[2018-02-02] MEDS ORDERED: FUROSEMIDE 40 MG/4 ML INJECTABLE VIAL IVPUSH SCH (16:00)
--- NOTE | 2018-02-02 17:23 | CON.CARD ---
Consult Consult Specialty:: Cardiology - History of Present Illness History of Present Illness: The patient is a 67 year old male, with a significant past medical history of HTN, CHF, substance abuse, anxiety, anemia, heart abuse, COPD, cardiac defibrillator, HIV, Hep C, HLD, CAD s/p AICD, and DM. , who presents to the emergency department with chest pain for several hours. The patient was recently admitted on 01/30/18 for acute CHF, where he was seen by and treated for heart failure with IV Lasix. According to previous documentation the patient left AMA on 02/01/18 in order to go to [facility] for detox. At the time of his discharge his O2 Sat was noted to be 89%. Patient was again seen on 02/02/18, earlier today at 6:00am, with complaints of I feel bad, but had no other symptoms. At the time he admitted to using heroin, patient was then discharged. Now returned to ER with complaints of chest pain. The patient reports as he was leaving the ER feeling dizzy, nauesa, and chest pain. He describes his chest pain as sharp and notes associated SOB. He denies any recent fevers, chills, headache. He denies any recent dysuria, frequency, urgency or hematuria. - History Source History Provided By: Patient, Medical Record - Past Medical History Cardio/Vascular: Yes: CHF, HTN, Hyperlipdemia Pulmonary: Yes: Asthma Hepatobiliary: Yes: Hepatitis C Infectious Disease: Yes: HIV Psych: Yes: Anxiety, Other (substance abuse) Endocrine: Yes: Diabetes Mellitus - Past Surgical History Past Surgical History: Yes: AICD (defibrillator), Cholecystectomy - Alcohol/Substance Use Hx Alcohol Use: No History of Substance Use: reports: Cocaine, Heroin Date of Last Use: 05/29/15 - Smoking History Smoking history: Current some day smoker Have you smoked in the past 12 months: Yes Aproximately how many cigarettes per day: 3 - Social History ADL: Independent History of Recent Travel: No Home Medications - Allergies Allergies/Adverse Reactions: Allergies Allergy/AdvReac Type Severity Reaction Status Date / Time morphine Allergy Severe Nausea Verified 02/02/18 09:39 Pork/Porcine Containing Allergy Mild Hives Verified 02/02/18 09:39 Products - Home Medications Home Medications: Ambulatory Orders Duloxetine HCl [Cymbalta -] 20 mg PO HS 08/18/16 Cholecalciferol (Vitamin D3) [Vitamin D3 -] 1,000 unit PO DAILY #30 tab Folic Acid - 1 mg PO DAILY #30 tablet 09/07/16 Furosemide [Lasix -] 20 mg PO BID #30 tablet 09/07/16 Potassium Chloride [Klor-Con M20] 20 meq PO DAILY 01/11/17 Albuterol Sulfate Inhaler - [Ventolin HFA Inhaler -] 2 inh PO Q4H PRN #1 inhaler 01/16/17 Aspirin [ASA -] 81 mg PO DAILY tab.chew 01/16/17 Betamethasone Valerate [Valisone 0.1% Cream -] 1 applic TP BID #1 01/16/17 Carvedilol [Coreg -] 25 mg PO BID #0 tablet 01/16/17 Clopidogrel Bisulfate [Plavix -] 75 mg PO DAILY #30 tablet 01/16/17 Darunavir Ethanolate [Prezista -] 600 mg PO BID tab 01/16/17 Ferrous Sulfate [Feosol] 325 mg PO BID #0 ud 01/16/17 Fluconazole [Diflucan -] 200 mg PO DAILY #0 tablet 01/16/17 Fluocinonide 0.05% Cream [Lidex 0.05% Cream -] 1 applic TP BID #1 tube 01/16/17 Polyvinyl Alcohol [Artificial Tears] 1 drop OU TID drops 01/16/17 Raltegravir [Isentress] 400 mg PO BID #0 tab 01/16/17 Ranitidine [Zantac -] 150 mg PO DAILY #60 tablet 01/16/17 Ritonavir [Norvir -] 100 mg PO BID #0 tab 01/16/17 Rosuvastatin [Crestor -] 10 mg PO HS #30 tablet 01/16/17 Insulin Aspart [Novolog] 0 unit SQ ACHS 02/02/17 Insulin Glargine,Hum.rec.anlog [Lantus] 30 unit SQ HS 01/11/18 Maraviroc [Selzentry] 150 mg PO BID 01/11/18 Losartan Potassium 50 mg PO DAILY #30 tablet 01/25/18 Budesonide/Formeterol Fumarate [SYMBICORT 160/4.5mcg -] 1 inh PO BID 01/30/18 Dextran 70/Hypromellose/Pf [Artificial Tears Drops] 1 each OU TID 01/30/18 Family Disease History - Family Disease History Family Disease History: Diabetes: Father (oct, 2000), Other: Father, Mother ( alive and well ) Review of Systems - Review of Systems Constitutional: reports: No Symptoms Eyes: reports: No Symptoms HENT: reports: No Symptoms Neck: reports: No Symptoms Cardiovascular: reports: Chest Pain Gastrointestinal: reports: No Symptoms Genitourinary: reports: No Symptoms Breasts: reports: No Symptoms Reported Musculoskeletal: reports: No Symptoms Integumentary: reports: No Symptoms Neurological: reports: No Symptoms Endocrine: reports: No Symptoms Hematology/Lymphatic: reports: No Symptoms Psychiatric: reports: No Symptoms Vital Signs: Vital Signs Temperature 97.5 F L 02/02/18 17:06 Pulse Rate 62 02/02/18 17:06 Respiratory Rate 18 02/02/18 17:06 Blood Pressure 145/87 02/02/18 17:06 O2 Sat by Pulse Oximetry (%) 96 02/02/18 17:06 Constitutional: Yes: Well Nourished, No Distress, Calm Eyes: Yes: WNL, Conjunctiva Clear, EOM Intact HENT: Yes: WNL, Atraumatic, Normocephalic Neck: Yes: WNL, Supple, Trachea Midline Respiratory: Yes: WNL, Regular, CTA Bilaterally Gastrointestinal: Yes: WNL, Normal Bowel Sounds Renal/: Yes: WNL Cardiovascular: Yes: WNL, Regular Rate and Rhythm Heart Sounds: Yes: S1, S2 Musculoskeletal: Yes: WNL Extremities: Yes: WNL Integumentary: Yes: WNL Neurological: Yes: WNL, Alert, Oriented ...Motor Strength: WNL Psychiatric: Yes: WNL, Alert, Oriented - Other Data Labs, Other Data: CBC, BMP 02/02/18 10:50 02/02/18 10:50 INR, PTT INR 1.02 (0.82-1.09) 02/02/18 10:50 Troponin, BNP 02/02/18 10:50 Troponin I 0.06 H B-Natriuretic Peptide 6015.69 H Troponin, BNP 02/02/18 10:50 Troponin I 0.06 H B-Natriuretic Peptide 6015.69 H Imaging - Results Chest X-ray: Image Reviewed (cm chf) EKG: Image Reviewed (sr rep incomplete LBBB) Problem List - Problems (1) Acute on chronic renal failure Code(s): N17.9 - ACUTE KIDNEY FAILURE, UNSPECIFIED; N18.9 - CHRONIC KIDNEY DISEASE, UNSPECIFIED Qualifiers: Acute renal failure type: unspecified Chronic kidney disease stage: unspecified stage Qualified Code(s): N17.9 - Acute kidney failure, unspecified ; N18.9 - Chronic kidney disease, unspecified; N18.9 - Chronic kidney disease, unspecified (2) Chest pain Code(s): R07.9 - CHEST PAIN, UNSPECIFIED Qualifiers: Chest pain type: unspecified Qualified Code(s): R07.9 - Chest pain, unspecified (3) Shortness of breath Code(s): R06.02 - SHORTNESS OF BREATH (4) Acute on chronic systolic CHF (congestive heart failure) Code(s): I50.23 - ACUTE ON CHRONIC SYSTOLIC (CONGESTIVE) HEART FAILURE (5) Alcohol abuse Code(s): F10.10 - ALCOHOL ABUSE, UNCOMPLICATED (6) Anxiety Code(s): F41.9 - ANXIETY DISORDER, UNSPECIFIED (7) Cocaine abuse Code(s): F14.10 - COCAINE ABUSE, UNCOMPLICATED (8) Cocaine dependence Code(s): F14.20 - COCAINE DEPENDENCE, UNCOMPLICATED (9) Coronary atherosclerosis Code(s): I25.10 - ATHSCL HEART DISEASE OF [place] CORONARY ARTERY W/O ANG PCTRS (10) Insomnia Code(s): G47.00 - INSOMNIA, UNSPECIFIED (11) Nicotine dependence Code(s): F17.200 - NICOTINE DEPENDENCE, UNSPECIFIED, UNCOMPLICATED Qualifiers: Nicotine product type: cigarettes Substance use status: in withdrawal Qualified Code(s): F17.213 - Nicotine dependence, cigarettes, with withdrawal (12) Opioid dependence Code(s): F11.20 - OPIOID DEPENDENCE, UNCOMPLICATED Qualifiers: Substance use status: uncomplicated Qualified Code(s): F11.20 - Opioid dependence, uncomplicated (13) Opioid dependence with withdrawal Code(s): F11.23 - OPIOID DEPENDENCE WITH WITHDRAWAL (14) Pain of left calf Code(s): M79.662 - PAIN IN LEFT LOWER LEG (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 Code(s): F13.20 - SEDATIVE, HYPNOTIC OR ANXIOLYTIC DEPENDENCE, UNCOMPLICATED (16) Sedative, hypnotic or anxiolytic dependence with withdrawal, uncomplicated Code(s): F13.230 - SEDATV/HYP/ANXIOLYTC DEPENDENCE W WITHDRAWAL, UNCOMPLICATED (17) Substance abuse Code(s): F19.10 - OTHER PSYCHOACTIVE SUBSTANCE ABUSE, UNCOMPLICATED (18) Substance induced mood disorder Code(s): F19.94 - OTH PSYCHOACTIVE SUBSTANCE USE, UNSP W MOOD DISORDER (19) Substance-induced sleep disorder Code(s): F19.982 - OTH PSYCHOACTIVE SUBSTANCE USE, UNSP W SLEEP DISORDER; T50.904A - [facility]/MEDS/BIOL SUBST, UNDETERMINED, INIT (20) Alcohol dependence Code(s): F10.20 - ALCOHOL DEPENDENCE, UNCOMPLICATED Qualifiers: Substance use status: uncomplicated Qualified Code(s): F10.20 - Alcohol dependence, uncomplicated (21) Anemia, iron deficiency Code(s): D50.9 - IRON DEFICIENCY ANEMIA, UNSPECIFIED (22) Asthma Code(s): J45.909 - UNSPECIFIED ASTHMA, UNCOMPLICATED Qualifiers: Asthma severity: mild Asthma persistence: unspecified Asthma complication type: uncomplicated Qualified Code(s): J45.909 - Unspecified asthma, uncomplicated (23) Bilateral leg edema Code(s): R60.0 - LOCALIZED EDEMA (24) CHF (congestive heart failure) Code(s): I50.9 - HEART FAILURE, UNSPECIFIED (25) COPD (chronic obstructive pulmonary disease) Code(s): J44.9 - CHRONIC OBSTRUCTIVE PULMONARY DISEASE, UNSPECIFIED Qualifiers: Emphysema type: unspecified (26) Cardiac defibrillator in place Code(s): Z95.810 - PRESENCE OF AUTOMATIC (IMPLANTABLE) CARDIAC DEFIBRILLATOR (27) Cocaine abuse Code(s): F14.10 - COCAINE ABUSE, UNCOMPLICATED (28) HIV (human immunodeficiency virus infection) Code(s): Z21 - ASYMPTOMATIC HUMAN IMMUNODEFICIENCY VIRUS INFECTION STATUS (29) Hepatitis C Code(s): B19.20 - UNSPECIFIED VIRAL HEPATITIS C WITHOUT HEPATIC COMA Qualifiers: Viral hepatitis chronicity: chronic Hepatic coma status: without hepatic coma Qualified Code(s): B18.2 - Chronic viral hepatitis C (30) Hyperlipidemia Code(s): E78.5 - HYPERLIPIDEMIA, UNSPECIFIED Qualifiers: Hyperlipidemia type: unspecified Qualified Code(s): E78.5 - Hyperlipidemia , unspecified (31) Hypertension Code(s): I10 - ESSENTIAL (PRIMARY) HYPERTENSION Qualifiers: Hypertension type: essential hypertension Qualified Code(s): I10 - Essential (primary) hypertension (32) IDDM (insulin dependent diabetes mellitus) Code(s): E11.9 - TYPE 2 DIABETES MELLITUS WITHOUT COMPLICATIONS; Z79.4 - FCI (CURRENT) USE OF INSULIN (33) Myocardial infarct, old Code(s): I25.2 - OLD MYOCARDIAL INFARCTION (34) Neuropathy Code(s): G62.9 - POLYNEUROPATHY, UNSPECIFIED (35) Nicotine dependence Code(s): F17.200 - NICOTINE DEPENDENCE, UNSPECIFIED, UNCOMPLICATED (36) Opioid dependence Code(s): F11.20 - OPIOID DEPENDENCE, UNCOMPLICATED Qualifiers: Substance use status: uncomplicated Qualified Code(s): F11.20 - Opioid dependence, uncomplicated (37) Psoriasis Code(s): L40.9 - PSORIASIS, UNSPECIFIED (38) Type 2 diabetes mellitus Code(s): E11.9 - TYPE 2 DIABETES MELLITUS WITHOUT COMPLICATIONS Qualifiers: Diabetes mellitus skilled nursing insulin use: without range mounter use Diabetes mellitus complication status: without complication Qualified Code(s): E11.9 - Type 2 diabetes mellitus without complications Assessment/Plan HTN, CHF systolic, substance abuse, non-complianceanxiety, anemia, heart abuse, COPD, cardiac defibrillator, HIV, Hep C, HLD, CAD s/p AICD, and DM. , who presents to the emergency department with chest pain for several hours associated with opiates use. Plan r/o mi lasix telemetry drug rehab add spironolacton old records from [facility] re status of A[facility]D ischemic vs nonischemic CMP
[2018-02-02 17:42] VITALS: BMI 33.0
[2018-02-02] MEDS: INSULIN SLIDING SCALE (NOVOLOG) 1 VIAL SQ SCH ×2 (17:46→22:29)
[2018-02-02] MEDS: FUROSEMIDE 40 MG/4 ML INJECTABLE VIAL IVPUSH SCH (17:55)
[2018-02-02] MEDS ORDERED: PT OWN MED DRAWER 7, Y5N ONE (21:42)
[2018-02-02] MEDS ORDERED: BETAMETHASONE VALERATE 0.1% CREAM 15 GM TUBE TP SCH (22:00)
[2018-02-02] MEDS: CARVEDILOL 25 MG TABLET (FP) PO SCH (22:24)
[2018-02-02] MEDS: DULoxetine HCL 20 MG CAPSULE.DR (FP) PO SCH (22:24)
[2018-02-02] MEDS: FERROUS SO4 325 MG TABLET (FP) PO SCH (22:24)
[2018-02-02] MEDS: BUDESONIDE/FORMETEROL FUMARATE 160/4.5 mcg INHALER IH SCH (22:25)
[2018-02-02] MEDS: RALTEGRAVIR POTASSIUM 400 MG TAB PO SCH (22:25)
[2018-02-02] MEDS: DARUNAVIR ETHANOLATE 600 MG TAB PO SCH (22:25)
[2018-02-02] MEDS: RITONAVIR 100 MG TABLET PO SCH (22:25)
[2018-02-02] MEDS: MARAVIROC 150 MG TAB PO SCH (22:25)
[2018-02-02] MEDS: INSULIN DETEMIR 100 UNITS/ML MDV SQ SCH (22:28)
[2018-02-02] MEDS: LORazepam 1 MG TABLET PO PRN (22:40)
[2018-02-02] MEDS: ROSUVASTATIN CA 10 MG TABLET (FP) PO SCH (23:00)
[2018-02-03] MEDS: INSULIN SLIDING SCALE (NOVOLOG) 1 VIAL SQ SCH ×4 (06:10→22:50)
[2018-02-03 06:18] LABS: BASO % 0.6 % (0-2.0); EOS % 4.3 % (0-4.5); HEMATOCRIT 31.1 % (35.4-49); HEMOGLOBIN 10.3 GM/dL (11.7-16.9); MCH 27.9 pg (25.7-33.7); MCHC 33.2 g/dl (32.0-35.9); MEAN PLT VOLUME 8.6 fl (7.5-11.1); NEUT % 53.1 % (42.8-82.8); PLATELET COUNT 174 K/MM3 (134-434); RDW 18.2 % (11.9-15.9)
[2018-02-03 06:44] LABS: ALBUMIN 2.1 g/dl (3.4-5.0); ANION GAP 10 (8-16); BILIRUBIN,TOTAL 0.3 mg/dL (0.2-1.0); BLOOD UREA NITROGEN 42 mg/dL (7-18); CALCIUM 7.7 mg/dL (8.5-10.1); CHLORIDE 110 mmol/L (98-107); CO2 25 mmol/L (21-32); CREATININE 2.3 mg/dL (0.7-1.3); GLUCOSE,RANDOM 161 mg/dL (74-106); MAGNESIUM 2.3 mg/dL (1.8-2.4); PHOSPHOROUS 3.7 mg/dL (2.5-4.9); POTASSIUM 4.4 mmol/L (3.5-5.1); SGOT/AST 17 U/L (15-37); SGPT/ALT 27 U/L (12-78); SODIUM 145 mmol/L (136-145); TOT PROT 5.4 g/dl (6.4-8.2)
[2018-02-03 06:45] LABS: ALK PHOS 191 U/L (45-117)
--- NOTE | 2018-02-03 09:11 | PN ---
Progress Note, Physician Chief Complaint: Pt denies chest pain; lying in bed. Restful night, without PND. History of Present Illness: The patient is a 67 year old black male, with a significant past medical history of HTN, mod-severe systolic CHF, substance abuse, anxiety, anemia,, COPD , HIV, Hep C, HLD, CAD s/p AICD, cigarettes, and DM. , who presents to the emergency department with chest pain for several hours. The patient was recently admitted on 01/30/18 for acute CHF, where he was seen by and treated for heart failure with IV Lasix. According to previous documentation the patient left AMA on 02/01/18 in order to go to [facility] for detox. At the time of his discharge his O2 Sat was noted to be 89%. Patient was again seen on 02/02/18, earlier today at 6:00am, with complaints of I feel bad, but had no other symptoms. At the time he admitted to using heroin, patient was then discharged. Now returned to ER with complaints of chest pain. The patient reports as he was leaving the ER feeling dizzy, nauesa, and chest pain. He describes his chest pain as sharp and notes associated SOB. He denies any recent fevers, chills, headache. He denies any recent dysuria, frequency, urgency or hematuria. Allergies: NKA Past surgical history: See HPI Social History: Polysubstance abuse (+) cigs, and heroin. - Current Medication List Current Medications: Active Medications Albuterol/Ipratropium (Duoneb -) 1 amp NEB Q6H PRN PRN Reason: SHORTNESS OF BREATH Aspirin (Asa -) 81 mg PO DAILY [facility] Budesonide/Formoterol Fumarate (Symbicort 160/4.5mcg -) 1 puff IH BID [facility] Last Admin: 02/02/18 22:25 Dose: 2 inh Carvedilol (Coreg -) 25 mg PO BID [facility] Last Admin: 02/02/18 22:24 Dose: 25 mg Cholecalciferol (Vitamin D3 -) 1,000 unit PO DAILY [facility] Clopidogrel Bisulfate (Plavix -) 75 mg PO DAILY [facility] Darunavir (Prezista -) 600 mg PO BID [facility] Last Admin: 02/02/18 22:25 Dose: 600 mg Duloxetine HCl (Cymbalta -) 20 mg PO HS [facility] Last Admin: 02/02/18 22:24 Dose: 20 mg Ferrous Sulfate (Feosol -) 325 mg PO BID [facility] Last Admin: 02/02/18 22:24 Dose: 325 mg Folic Acid (Folic Acid -) 1 mg PO DAILY [facility] Furosemide (Lasix Injection -) 60 mg IVPUSH BID@0800,1600 [facility] Last Admin: 02/02/18 17:55 Dose: 60 mg Insulin Aspart (Novolog Vial Sliding Scale -) 1 vial SQ ACHS [facility] PRN Reason: Protocol Last Admin: 02/03/18 06:10 Dose: 2 units Insulin Detemir (Levemir Vial) 30 units SQ HS [facility] Last Admin: 02/02/18 22:28 Dose: 30 units Lorazepam (Ativan -) 1 mg PO Q8H PRN PRN Reason: ANXIETY Last Admin: 02/02/18 22:40 Dose: 1 mg Losartan Potassium (Cozaar -) 50 mg PO DAILY [facility] Maraviroc (Selzentry -) 150 mg PO BID [facility] Last Admin: 02/02/18 22:25 Dose: 150 mg Potassium Chloride (K-Dur -) 20 meq PO DAILY [facility] Raltegravir (Isentress -) 400 mg PO BID [facility] Last Admin: 02/02/18 22:25 Dose: 400 mg Ranitidine HCl (Zantac -) 150 mg PO DAILY [facility] Ritonavir (Norvir -) 100 mg PO BID [facility] Last Admin: 02/02/18 22:25 Dose: 100 mg Rosuvastatin Calcium (Crestor -) 10 mg PO HS [facility] Last Admin: 02/02/18 23:00 Dose: 10 mg - Objective Vital Signs: Vital Signs Temperature 97.3 F L 02/03/18 03:00 Pulse Rate 56 L 02/03/18 03:00 Respiratory Rate 13 02/03/18 03:00 Blood Pressure 125/75 02/03/18 03:00 O2 Sat by Pulse Oximetry (%) 95 02/03/18 00:27 Labs: CBC, BMP 02/03/18 05:46 02/03/18 05:46 INR, PTT INR 1.02 (0.82-1.09) 02/02/18 10:50 Problem List - Problems (1) Acute on chronic renal failure Code(s): N17.9 - ACUTE KIDNEY FAILURE, UNSPECIFIED; N18.9 - CHRONIC KIDNEY DISEASE, UNSPECIFIED Qualifiers: Acute renal failure type: unspecified Chronic kidney disease stage: unspecified stage Qualified Code(s): N17.9 - Acute kidney failure, unspecified ; N18.9 - Chronic kidney disease, unspecified; N18.9 - Chronic kidney disease, unspecified (2) Shortness of breath Code(s): R06.02 - SHORTNESS OF BREATH (3) Acute on chronic systolic CHF (congestive heart failure) Assessment/Plan: On carvedilol, losartan, furosemide. Will start spironolactone; f/u BUN/Cr and electrolytes (will D/c KCl). Code(s): I50.23 - ACUTE ON CHRONIC SYSTOLIC (CONGESTIVE) HEART FAILURE (4) Alcohol abuse Code(s): F10.10 - ALCOHOL ABUSE, UNCOMPLICATED (5) Anxiety Code(s): F41.9 - ANXIETY DISORDER, UNSPECIFIED (6) Cocaine dependence Assessment/Plan: negativeon drug screen (aovid beta blockers if pt returns to abuse of cocaine; he denies having used it for months, and does not intend to restart). Code(s): F14.20 - COCAINE DEPENDENCE, UNCOMPLICATED (7) Insomnia Code(s): G47.00 - INSOMNIA, UNSPECIFIED (8) Nicotine dependence Assessment/Plan: Pt says he has reduced to less than 1/2 ppd cigarettes. Consdier nicotine patch 7 mg daily. 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 Code(s): F13.20 - SEDATIVE, HYPNOTIC OR ANXIOLYTIC DEPENDENCE, UNCOMPLICATED (11) Anemia, iron deficiency Code(s): D50.9 - IRON DEFICIENCY ANEMIA, UNSPECIFIED (12) Cardiac defibrillator in place Code(s): Z95.810 - PRESENCE OF AUTOMATIC (IMPLANTABLE) CARDIAC DEFIBRILLATOR (13) HIV (human immunodeficiency virus infection) Code(s): Z21 - ASYMPTOMATIC HUMAN IMMUNODEFICIENCY VIRUS INFECTION STATUS (14) Hepatitis C Code(s): B19.20 - UNSPECIFIED VIRAL HEPATITIS C WITHOUT HEPATIC COMA Qualifiers: Viral hepatitis chronicity: chronic Hepatic coma status: without hepatic coma Qualified Code(s): B18.2 - Chronic viral hepatitis C (15) Hyperlipidemia Code(s): E78.5 - HYPERLIPIDEMIA, UNSPECIFIED Qualifiers: Hyperlipidemia type: unspecified Qualified Code(s): E78.5 - Hyperlipidemia , unspecified (16) Hypertension Code(s): I10 - ESSENTIAL (PRIMARY) HYPERTENSION Qualifiers: Hypertension type: essential hypertension Qualified Code(s): I10 - Essential (primary) hypertension (17) IDDM (insulin dependent diabetes mellitus) Code(s): E11.9 - TYPE 2 DIABETES MELLITUS WITHOUT COMPLICATIONS; Z79.4 - DETENTION (CURRENT) USE OF INSULIN (18) Myocardial infarct, old Assessment/Plan: Pt reports undergoin two coronary stents 08/2017; was told at the time he had had an IN. Code(s): I25.2 - OLD MYOCARDIAL INFARCTION
[2018-02-03] MEDS ORDERED: POTASSIUM CHLORIDE TABS 20 MEQ TABLET.ER (FP) PO SCH (10:00)
[2018-02-03] MEDS ORDERED: LOSARTAN POTASSIUM 50 MG TABLET (FP) PO SCH (10:00)
[2018-02-03] MEDS: DARUNAVIR ETHANOLATE 600 MG TAB PO SCH ×2 (10:11→22:49)
[2018-02-03] MEDS: RALTEGRAVIR POTASSIUM 400 MG TAB PO SCH ×2 (10:11→22:50)
[2018-02-03] MEDS: RITONAVIR 100 MG TABLET PO SCH ×2 (10:11→22:50)
[2018-02-03] MEDS: BUDESONIDE/FORMETEROL FUMARATE 160/4.5 mcg INHALER IH SCH ×2 (10:11→22:51)
[2018-02-03] MEDS: MARAVIROC 150 MG TAB PO SCH ×2 (10:11→22:51)
[2018-02-03] MEDS: RANITIDINE HCL 150 MG TABLET (FP) PO SCH (10:20)
[2018-02-03] MEDS: ASPIRIN 81 MG CHEWABLE TABLETS PO SCH (10:20)
[2018-02-03] MEDS: CLOPIDOGREL BISULFATE 75 MG TABLET (FP) PO SCH (10:20)
[2018-02-03] MEDS: FERROUS SO4 325 MG TABLET (FP) PO SCH ×2 (10:20→21:38)
[2018-02-03] MEDS: CARVEDILOL 25 MG TABLET (FP) PO SCH ×2 (10:21→21:38)
[2018-02-03] MEDS: LORazepam 1 MG TABLET PO PRN ×2 (10:21→21:38)
[2018-02-03] MEDS: FOLIC ACID 1 MG TABLET (FP) PO SCH (10:21)
[2018-02-03] MEDS: CHOLECALCIFEROL (VITAMIN D3) 1,000 UNIT TABLET (FP) PO SCH (10:21)
[2018-02-03] MEDS: FUROSEMIDE 40 MG/4 ML INJECTABLE VIAL IVPUSH SCH ×2 (10:21→15:42)
[2018-02-03] MEDS: ALBUTEROL SO4 2.5/IPRATROPIUM 0.5 INH SOL 3 ML VIAL.NEB. NEB PRN (11:13)
[2018-02-03] MEDS: SPIRONOLACTONE 25 MG TABLET (FP) PO SCH (12:49)
[2018-02-03] MEDS ORDERED: LORazepam 1 MG TABLET PO ONE (14:29)
--- NOTE | 2018-02-03 18:54 | PN ---
Progress Note (short form) - Note Progress Note: Subjective: The patient was seen and examined at the bedside, he has no complaints at this time Current Medications Generic Name Dose Route Start Last Admin Trade Name Kwabena PRN Reason Stop Dose Admin Albuterol/Ipratropium 1 amp 02/02/18 21:34 02/03/18 11:13 Duoneb - NEB 1 amp Q6H PRN Administration SHORTNESS OF BREATH Aspirin 81 mg 02/03/18 10:00 02/03/18 10:20 Asa - PO 81 mg DAILY [facility] Administration Budesonide/Formoterol Fumarate 1 puff 02/02/18 22:00 02/03/18 10:11 Symbicort 160/4.5mcg - IH 1 inh BID [facility] Administration Carvedilol 25 mg 02/02/18 22:00 02/03/18 10:21 Coreg - PO 25 mg BID [facility] Administration Cholecalciferol 1,000 unit 02/03/18 10:00 02/03/18 10:21 Vitamin D3 - PO 1,000 unit DAILY [facility] Administration Clopidogrel Bisulfate 75 mg 02/03/18 10:00 02/03/18 10:20 Plavix - PO 75 mg DAILY [facility] Administration Darunavir 600 mg 02/02/18 22:00 02/03/18 10:11 Prezista - PO 600 mg BID [facility] Administration Duloxetine HCl 20 mg 02/02/18 22:00 02/02/18 22:24 Cymbalta - PO 20 mg HS [facility] Administration Ferrous Sulfate 325 mg 02/02/18 22:00 02/03/18 10:20 Feosol - PO 325 mg BID [facility] Administration Folic Acid 1 mg 02/03/18 10:00 02/03/18 10:21 Folic Acid - PO 1 mg DAILY [facility] Administration Furosemide 60 mg 02/02/18 16:00 02/03/18 15:42 Lasix Injection - IVPUSH 60 mg BID@0800,1600 [facility] Administration Insulin Aspart 1 vial 02/02/18 16:30 02/03/18 17:43 Novolog Vial Sliding Scale - SQ 2 units ACHS [facility] Administration Protocol Insulin Detemir 30 units 02/02/18 22:00 02/02/18 22:28 Levemir Vial SQ 30 units HS [facility] Administration Lorazepam 1 mg 02/02/18 18:46 02/03/18 10:21 Ativan - PO 1 mg Q8H PRN Administration ANXIETY Maraviroc 150 mg 02/02/18 22:00 02/03/18 10:11 Selzentry - PO 150 mg BID [facility] Administration Raltegravir 400 mg 02/02/18 22:00 02/03/18 10:11 Isentress - PO 400 mg BID [facility] Administration Ranitidine HCl 150 mg 02/03/18 10:00 02/03/18 10:20 Zantac - PO 150 mg DAILY [facility] Administration Ritonavir 100 mg 02/02/18 22:00 02/03/18 10:11 Norvir - PO 100 mg BID [facility] Administration Rosuvastatin Calcium 10 mg 02/02/18 22:00 02/02/18 23:00 Crestor - PO 10 mg HS [facility] Administration Spironolactone 25 mg 02/03/18 10:00 02/03/18 12:49 Aldactone - PO 25 mg DAILY [facility] Administration Objective: Vital Signs Period Temp Pulse Resp BP Sys/Pandya Pulse Ox Last 24 Hr 97.3 F-98.9 F 55-63 12-20 123-143/63-75 95-98 Physical Exam: General: NAD, A&Ox3 Lungs: CTA bilaterally Heart: RRR, S1S2 Abd: Soft, non-tender, non-distended. Normoactive bowel sounds Ext: B/l 1+ lower extremity edema CBCD WBC 8.0 K/mm3 (4.0-10.0) D 02/03/18 05:46 RBC 3.70 M/mm3 (4.00-5.60) L D 02/03/18 05:46 Hgb 10.3 GM/dL (11.7-16.9) L D 02/03/18 05:46 Hct 31.1 % (35.4-49) L D 02/03/18 05:46 MCV 84.0 fl (80-96) 02/03/18 05:46 MCHC 33.2 g/dl (32.0-35.9) 02/03/18 05:46 RDW 18.2 % (11.9-15.9) H 02/03/18 05:46 Plt Count 174 K/MM3 (134-434) D 02/03/18 05:46 MPV 8.6 fl (7.5-11.1) 02/03/18 05:46 CMP Sodium 145 mmol/L (136-145) 02/03/18 05:46 Potassium 4.4 mmol/L (3.5-5.1) 02/03/18 05:46 Chloride 110 mmol/L (98-107) H 02/03/18 05:46 Carbon Dioxide 25 mmol/L (21-32) 02/03/18 05:46 Anion Gap 10 (8-16) 02/03/18 05:46 BUN 42 mg/dL (7-18) H 02/03/18 05:46 Creatinine 2.3 mg/dL (0.7-1.3) H 02/03/18 05:46 Creat Clearance w eGFR 28.68 (>60) 02/03/18 05:46 Random Glucose 161 mg/dL (74-106) H D 02/03/18 05:46 Calcium 7.7 mg/dL (8.5-10.1) L 02/03/18 05:46 Total Bilirubin 0.3 mg/dL (0.2-1.0) D 02/03/18 05:46 AST 17 U/L (15-37) D 02/03/18 05:46 ALT 27 U/L (12-78) D 02/03/18 05:46 Alkaline Phosphatase 191 U/L (45-117) H D 02/03/18 05:46 Total Protein 5.4 g/dl (6.4-8.2) L D 02/03/18 05:46 Albumin 2.1 g/dl (3.4-5.0) L D 02/03/18 05:46 CARDIAC ENZYMES Creatine Kinase 110 IU/L (39-308) 02/03/18 09:42 Troponin I 0.05 ng/ml (0.00-0.05) 02/03/18 09:42 Assessment: This is a 67 year old male with PMHx of HTN, hyperlipidemia, DM, HCV , HIV (on HAART), Systolic CHF s/p ICD, asthma, ETOH abuse, polysubstance abuse , pacemaker Plan: 1) Acute on chronic systolic CHF exacerbation - Weight appears to be up from prior admissions - Remains volume overloaded - Continue Lasix 60mg IVP bid - Strict I&O - Daily weights - Started on spironolactone - Continue Coreg - Hold Losartan until MJ resolved - Appreciate cardiology consult 2) MJ on CKD - Improving - Cr ~ baseline (1.8) - Hold Losartan 3) SOB - Likely 2/2 CHF exacerbation - Improving with diuresis 4) CAD s/p ICD - ASA - Plavix - Crestor 5) HIV - Continue HAART 6) DM - BGM ACHS - ISS ACHS - Levemir 30u sq hs 7) Polysubstance abuse - No evidence of withdrawal - Appreciate detox consult 8) F/E/N: - Diabetic diet 9) Dispo: - Requires continued inpatient care CODE STATUS: FULL CODE
[2018-02-03] MEDS: DULoxetine HCL 20 MG CAPSULE.DR (FP) PO SCH (21:38)
[2018-02-03] MEDS ORDERED: PT OWN MED DRAWER 7, Y5N ONE (22:47)
[2018-02-03] MEDS: ROSUVASTATIN CA 10 MG TABLET (FP) PO SCH (22:49)
[2018-02-03] MEDS: INSULIN DETEMIR 100 UNITS/ML MDV SQ SCH (22:50)
[2018-02-04] MEDS: INSULIN SLIDING SCALE (NOVOLOG) 1 VIAL SQ SCH ×4 (06:14→22:27)
[2018-02-04] MEDS: LORazepam 1 MG TABLET PO PRN ×2 (06:17→13:26)
[2018-02-04] MEDS: FUROSEMIDE 40 MG/4 ML INJECTABLE VIAL IVPUSH SCH ×2 (08:36→17:16)
[2018-02-04 08:59] LABS: BASO % 0.8 % (0-2.0); EOS % 4.4 % (0-4.5); HEMATOCRIT 33.1 % (35.4-49); HEMOGLOBIN 10.6 GM/dL (11.7-16.9); LYMPH % 28.8 % (8-40); MCH 26.8 pg (25.7-33.7); MCHC 32.1 g/dl (32.0-35.9); MEAN CELL VOLUME 83.5 fl (80-96); MEAN PLT VOLUME 8.5 fl (7.5-11.1); MONO % 15.3 % (3.8-10.2); NEUT % 50.7 % (42.8-82.8); PLATELET COUNT 170 K/MM3 (134-434); RBC 3.97 M/mm3 (4.00-5.60); RDW 18.9 % (11.9-15.9); WHITE BLOOD COUNT 7.8 K/mm3 (4.0-10.0)
[2018-02-04] MEDS: ALBUTEROL SO4 2.5/IPRATROPIUM 0.5 INH SOL 3 ML VIAL.NEB. NEB PRN (08:59)
--- NOTE | 2018-02-04 09:09 | CONSULT ---
Consult Detox [facility] Reason for Current Admission/Consult: substance use Referred by:: anthony blancas - History History of Present Illness: 67 yo m wellknown to me from multiple hospital admissions was transferred from rehab for SOB now in ICU. Completed detox at [facility],no recent active drug use reported. Patient wishes to go to long term care social worker rehab [facility] when medicallys table. Informed he is too sick at thsi time to return to [facility] for rehab. - History Source History Provided By: Patient, Medical Record, Caregiver Limitations to Obtaining History: No Limitations - Alcohol/Substance Use Hx Alcohol Use: Yes Hx Substance Use: Yes Hx Substance Use Treatment: Yes (recent detox and rehab at [facility] from alcohol and heroin) - Past Medical History Cardio/Vascular: Yes: CHF, HTN, Hyperlipdemia Pulmonary: Yes: Asthma Hepatobiliary: Yes: Hepatitis C Infectious Disease: Yes: HIV Psych: Yes: Anxiety, Other (substance abuse) Endocrine: Yes: Diabetes Mellitus - Past Surgical History Past Surgical History: Yes: AICD (defibrillator), Cholecystectomy - Significant Medical Findings: 67 yo m s/o inpatient detox from heroin and alcohol trasnferred from inpatient rehab at [facility] for increeasing sob, now in icu. no recent substance use reported. Assessment Plan - Diagnosis (1) Acute on chronic renal failure Status: Acute Qualifiers: Acute renal failure type: unspecified Chronic kidney disease stage: unspecified stage Qualified Code(s): N17.9 - Acute kidney failure, unspecified ; N18.9 - Chronic kidney disease, unspecified; N18.9 - Chronic kidney disease, unspecified (2) Acute on chronic systolic CHF (congestive heart failure) Status: Acute (3) Cocaine dependence Status: Acute (4) Opioid dependence Status: Acute Qualifiers: Substance use status: uncomplicated Qualified Code(s): F11.20 - Opioid dependence, uncomplicated (5) Substance induced mood disorder Status: Acute (6) Substance-induced sleep disorder Status: Acute (7) Alcohol dependence Status: Chronic Qualifiers: Substance use status: uncomplicated Qualified Code(s): F10.20 - Alcohol dependence, uncomplicated (8) Hypertension Status: Chronic Qualifiers: Hypertension type: essential hypertension Qualified Code(s): I10 - Essential (primary) hypertension (9) IDDM (insulin dependent diabetes mellitus) Status: Chronic (10) Neuropathy Status: Chronic (11) Nicotine dependence Status: Chronic (12) Psoriasis Status: Chronic (13) Type 2 diabetes mellitus Status: Chronic Qualifiers: Diabetes mellitus intermediate insulin use: without long term care social worker use Diabetes mellitus complication status: without complication Qualified Code(s): E11.9 - Type 2 diabetes mellitus without complications Comment: last BGM 317 - Plan Plan: chart, imaging, labs reviewed, patietn examined,history taken. Recommend: 1. medical care as per [facility] team. 2. patient is too medically compromised to return to rehab at [facility], he is requesting intermediate rehab facility [facility] where plans shoud be made to send him 3. s/p detox, refusign any mat. 4. vitaminsi ordered. - Medication Detox Regimen/Protocol: Not Applicable
[2018-02-04 09:22] LABS: ALBUMIN 2.2 g/dl (3.4-5.0); ALK PHOS 172 U/L (45-117); ANION GAP 6 (8-16); BILIRUBIN,TOTAL 0.3 mg/dL (0.2-1.0); BLOOD UREA NITROGEN 35 mg/dL (7-18); CALCIUM 7.4 mg/dL (8.5-10.1); CHLORIDE 109 mmol/L (98-107); CO2 27 mmol/L (21-32); CREATININE 1.8 mg/dL (0.7-1.3); GLUCOSE,RANDOM 66 mg/dL (74-106); SGOT/AST 17 U/L (15-37); SGPT/ALT 23 U/L (12-78); SODIUM 142 mmol/L (136-145); TOT PROT 5.5 g/dl (6.4-8.2)
[2018-02-04] MEDS: BUDESONIDE/FORMETEROL FUMARATE 160/4.5 mcg INHALER IH SCH ×2 (10:00→22:34)
[2018-02-04] MEDS: CARVEDILOL 25 MG TABLET (FP) PO SCH ×2 (10:12→22:22)
[2018-02-04] MEDS: FERROUS SO4 325 MG TABLET (FP) PO SCH ×2 (10:12→22:23)
[2018-02-04] MEDS: RANITIDINE HCL 150 MG TABLET (FP) PO SCH (10:12)
[2018-02-04] MEDS: CLOPIDOGREL BISULFATE 75 MG TABLET (FP) PO SCH (10:12)
[2018-02-04] MEDS: FOLIC ACID 1 MG TABLET (FP) PO SCH (10:12)
[2018-02-04] MEDS: CHOLECALCIFEROL (VITAMIN D3) 1,000 UNIT TABLET (FP) PO SCH (10:12)
[2018-02-04] MEDS: ASPIRIN 81 MG CHEWABLE TABLETS PO SCH (10:12)
[2018-02-04] MEDS: DARUNAVIR ETHANOLATE 600 MG TAB PO SCH ×2 (10:13→22:27)
[2018-02-04] MEDS: RALTEGRAVIR POTASSIUM 400 MG TAB PO SCH ×2 (10:13→22:26)
[2018-02-04] MEDS: RITONAVIR 100 MG TABLET PO SCH ×2 (10:13→22:26)
[2018-02-04] MEDS: SPIRONOLACTONE 25 MG TABLET (FP) PO SCH (10:14)
[2018-02-04] MEDS: MARAVIROC 150 MG TAB PO SCH ×2 (13:09→22:28)
[2018-02-04] MEDS: PRENATAL VITAMINS W/ FOLIC ACID TABLET (FP) PO SCH (13:11)
--- NOTE | 2018-02-04 17:03 | PN ---
Progress Note (short form) - Note Progress Note: Subjective: The patient was seen and examined at the bedside, he states he "would like to be more sedated" Current Medications Generic Name Dose Route Start Last Admin Trade Name Kwabena PRN Reason Stop Dose Admin Albuterol/Ipratropium 1 amp 02/02/18 21:34 02/04/18 08:59 Duoneb - NEB 1 amp Q6H PRN Administration SHORTNESS OF BREATH Aspirin 81 mg 02/03/18 10:00 02/04/18 10:12 Asa - PO 81 mg DAILY [facility] Administration Budesonide/Formoterol Fumarate 1 puff 02/02/18 22:00 02/03/18 22:51 Symbicort 160/4.5mcg - IH 2 inh BID [facility] Administration Carvedilol 25 mg 02/02/18 22:00 02/04/18 10:12 Coreg - PO 25 mg BID [facility] Administration Cholecalciferol 1,000 unit 02/03/18 10:00 02/04/18 10:12 Vitamin D3 - PO 1,000 unit DAILY [facility] Administration Clopidogrel Bisulfate 75 mg 02/03/18 10:00 02/04/18 10:12 Plavix - PO 75 mg DAILY [facility] Administration Darunavir 600 mg 02/02/18 22:00 02/04/18 10:13 Prezista - PO 600 mg BID [facility] Administration Duloxetine HCl 20 mg 02/02/18 22:00 02/03/18 21:38 Cymbalta - PO 20 mg HS [facility] Administration Ferrous Sulfate 325 mg 02/02/18 22:00 02/04/18 10:12 Feosol - PO 325 mg BID [facility] Administration Folic Acid 1 mg 02/03/18 10:00 02/04/18 10:12 Folic Acid - PO 1 mg DAILY [facility] Administration Furosemide 60 mg 02/02/18 16:00 02/04/18 08:36 Lasix Injection - IVPUSH 60 mg BID@0800,1600 [facility] Administration Insulin Aspart 1 vial 02/02/18 16:30 02/04/18 13:27 Novolog Vial Sliding Scale - SQ Not Given [facility] Protocol Insulin Detemir 30 units 02/02/18 22:00 02/03/18 22:50 Levemir Vial SQ 30 units HS [facility] Administration Lorazepam 1 mg 02/04/18 22:00 Ativan - PO BID [facility] Maraviroc 150 mg 02/02/18 22:00 02/04/18 13:09 Selzentry - PO 150 mg BID [facility] Administration Multivit/Folic Acid/Iron 1 tab 02/04/18 10:00 02/04/18 13:11 Vitamins (Sjr) - PO 1 tab DAILY [facility] Administration Raltegravir 400 mg 02/02/18 22:00 02/04/18 10:13 Isentress - PO 400 mg BID [facility] Administration Ranitidine HCl 150 mg 02/03/18 10:00 02/04/18 10:12 Zantac - PO 150 mg DAILY [facility] Administration Ritonavir 100 mg 02/02/18 22:00 02/04/18 10:13 Norvir - PO 100 mg BID [facility] Administration Rosuvastatin Calcium 10 mg 02/02/18 22:00 02/03/18 22:49 Crestor - PO 10 mg HS [facility] Administration Spironolactone 25 mg 02/03/18 10:00 02/04/18 10:14 Aldactone - PO 25 mg DAILY [facility] Administration Thiamine HCl 100 mg 02/04/18 22:00 Vitamin B1 - PO HS [facility] Objective: Vital Signs Period Temp Pulse Resp BP Sys/Pandya Pulse Ox Last 24 Hr 97.5 F-98.5 F 53-112 19-23 150-168/71-90 96-96 Physical Exam: General: NAD, A&Ox3 Lungs: CTA bilaterally Heart: RRR, S1S2 Abd: Soft, non-tender, non-distended. Normoactive bowel sounds Ext: B/l 1+ lower extremity edema CBCD WBC 7.8 K/mm3 (4.0-10.0) 02/04/18 08:08 RBC 3.97 M/mm3 (4.00-5.60) L 02/04/18 08:08 Hgb 10.6 GM/dL (11.7-16.9) L 02/04/18 08:08 Hct 33.1 % (35.4-49) L 02/04/18 08:08 MCV 83.5 fl (80-96) 02/04/18 08:08 MCHC 32.1 g/dl (32.0-35.9) 02/04/18 08:08 RDW 18.9 % (11.9-15.9) H 02/04/18 08:08 Plt Count 170 K/MM3 (134-434) 02/04/18 08:08 MPV 8.5 fl (7.5-11.1) 02/04/18 08:08 CMP Sodium 142 mmol/L (136-145) 02/04/18 08:08 Potassium 4.0 mmol/L (3.5-5.1) 02/04/18 08:08 Chloride 109 mmol/L (98-107) H 02/04/18 08:08 Carbon Dioxide 27 mmol/L (21-32) 02/04/18 08:08 Anion Gap 6 (8-16) L 02/04/18 08:08 BUN 35 mg/dL (7-18) H 02/04/18 08:08 Creatinine 1.8 mg/dL (0.7-1.3) H D 02/04/18 08:08 Creat Clearance w eGFR 38.06 (>60) 02/04/18 08:08 Random Glucose 66 mg/dL (74-106) L D 02/04/18 08:08 Calcium 7.4 mg/dL (8.5-10.1) L 02/04/18 08:08 Total Bilirubin 0.3 mg/dL (0.2-1.0) 02/04/18 08:08 AST 17 U/L (15-37) 02/04/18 08:08 ALT 23 U/L (12-78) 02/04/18 08:08 Alkaline Phosphatase 172 U/L (45-117) H 02/04/18 08:08 Total Protein 5.5 g/dl (6.4-8.2) L 02/04/18 08:08 Albumin 2.2 g/dl (3.4-5.0) L 02/04/18 08:08 CARDIAC ENZYMES Creatine Kinase 110 IU/L (39-308) 02/03/18 09:42 Troponin I 0.05 ng/ml (0.00-0.05) 02/03/18 09:42 Microbiology 02/03/18 09:42 Blood - Peripheral Venous Blood Culture - Preliminary NO GROWTH OBTAINED AFTER 24 HOURS, INCUBATION TO CONTINUE FOR 4 DAYS. 02/03/18 05:46 Blood - Peripheral Venous Blood Culture - Preliminary NO GROWTH OBTAINED AFTER 24 HOURS, INCUBATION TO CONTINUE FOR 4 DAYS. Assessment: This is a 67 year old male with PMHx of HTN, hyperlipidemia, DM, HCV , HIV (on HAART), Systolic CHF s/p ICD, asthma, ETOH abuse, polysubstance abuse , pacemaker Plan: 1) Acute on chronic systolic CHF exacerbation - Weight appears to be up from prior admissions - Remains volume overloaded - Continue Lasix 60mg IVP bid - Strict I&O - Daily weights - Started on spironolactone - Continue Coreg - Hold Losartan until MJ resolved - Appreciate cardiology consult 2) MJ on CKD - Improving - Cr ~ baseline (1.8) - Will resume Losartan in AM if Cr continues to improve 3) SOB - Likely 2/2 CHF exacerbation - Improving with diuresis 4) CAD s/p ICD - ASA - Plavix - Crestor 5) HIV - Continue HAART 6) DM - BGM ACHS - ISS ACHS - Levemir 30u sq hs 7) Polysubstance abuse - No evidence of withdrawal - Appreciate detox consult 8) F/E/N: - Diabetic diet 9) Prophylaxis: - Fondaparinux (pork allergy) for DVT prophylaxis 10) Dispo: - Requires continued inpatient care CODE STATUS: FULL CODE Visit type - Emergency Visit Emergency Visit: Yes ED Registration Date: 02/02/18 Care time: The patient presented to the Emergency Department on the above date and was hospitalized for further evaluation of their emergent condition. - New Patient This patient is new to me today: No - Critical Care Critical Care patient: No
--- NOTE | 2018-02-04 18:28 | PN ---
Progress Note, Physician Chief Complaint: Pt denies chest pain; lying in bed. Restful night, without PND. History of Present Illness: The patient is a 67 year old black male, with a significant past medical history of HTN, mod-severe systolic CHF, substance abuse, anxiety, anemia,, COPD , HIV, Hep C, HLD, CAD s/p AICD, cigarettes, and DM. , who presents to the emergency department with chest pain for several hours. The patient was recently admitted on 01/30/18 for acute CHF, where he was seen by and treated for heart failure with IV Lasix. According to previous documentation the patient left AMA on 02/01/18 in order to go to [facility] for detox. At the time of his discharge his O2 Sat was noted to be 89%. Patient was again seen on 02/02/18, earlier today at 6:00am, with complaints of I feel bad, but had no other symptoms. At the time he admitted to using heroin, patient was then discharged. Now returned to ER with complaints of chest pain. The patient reports as he was leaving the ER feeling dizzy, nauesa, and chest pain. He describes his chest pain as sharp and notes associated SOB. He denies any recent fevers, chills, headache. He denies any recent dysuria, frequency, urgency or hematuria. Allergies: NKA Past surgical history: See HPI Social History: Polysubstance abuse (+) cigs, and heroin. - Current Medication List Current Medications: Active Medications Albuterol/Ipratropium (Duoneb -) 1 amp NEB Q6H PRN PRN Reason: SHORTNESS OF BREATH Last Admin: 02/04/18 08:59 Dose: 1 amp Aspirin (Asa -) 81 mg PO DAILY [facility] Last Admin: 02/04/18 10:12 Dose: 81 mg Budesonide/Formoterol Fumarate (Symbicort 160/4.5mcg -) 1 puff IH BID [facility] Last Admin: 02/04/18 10:00 Dose: 1 inh Carvedilol (Coreg -) 25 mg PO BID [facility] Last Admin: 02/04/18 10:12 Dose: 25 mg Cholecalciferol (Vitamin D3 -) 1,000 unit PO DAILY [facility] Last Admin: 02/04/18 10:12 Dose: 1,000 unit Clopidogrel Bisulfate (Plavix -) 75 mg PO DAILY [facility] Last Admin: 02/04/18 10:12 Dose: 75 mg Darunavir (Prezista -) 600 mg PO BID [facility] Last Admin: 02/04/18 10:13 Dose: 600 mg Duloxetine HCl (Cymbalta -) 20 mg PO HS [facility] Last Admin: 02/03/18 21:38 Dose: 20 mg Ferrous Sulfate (Feosol -) 325 mg PO BID [facility] Last Admin: 02/04/18 10:12 Dose: 325 mg Folic Acid (Folic Acid -) 1 mg PO DAILY [facility] Last Admin: 02/04/18 10:12 Dose: 1 mg Fondaparinux (Arixtra (Restricted) -) 2.5 mg SQ DAILY [facility] Furosemide (Lasix Injection -) 60 mg IVPUSH BID@0800,1600 [facility] Last Admin: 02/04/18 17:16 Dose: 60 mg Insulin Aspart (Novolog Vial Sliding Scale -) 1 vial SQ [facility] PRN Reason: Protocol Last Admin: 02/04/18 17:25 Dose: 2 units Insulin Detemir (Levemir Vial) 30 units SQ [facility] Last Admin: 02/03/18 22:50 Dose: 30 units Lorazepam (Ativan -) 1 mg PO BID [facility] Maraviroc (Selzentry -) 150 mg PO BID [facility] Last Admin: 02/04/18 13:09 Dose: 150 mg Multivit/Folic Acid/Iron ( Vitamins (Sjr) -) 1 tab PO DAILY [facility] Last Admin: 02/04/18 13:11 Dose: 1 tab Raltegravir (Isentress -) 400 mg PO BID [facility] Last Admin: 02/04/18 10:13 Dose: 400 mg Ranitidine HCl (Zantac -) 150 mg PO DAILY [facility] Last Admin: 02/04/18 10:12 Dose: 150 mg Ritonavir (Norvir -) 100 mg PO BID [facility] Last Admin: 02/04/18 10:13 Dose: 100 mg Rosuvastatin Calcium (Crestor -) 10 mg PO [facility] Last Admin: 02/03/18 22:49 Dose: 10 mg Spironolactone (Aldactone -) 25 mg PO DAILY [facility] Last Admin: 02/04/18 10:14 Dose: 25 mg Thiamine HCl (Vitamin B1 -) 100 mg PO [facility] - Objective Vital Signs: Vital Signs Temperature 97.5 F L 02/04/18 10:00 Pulse Rate 112 H 02/04/18 10:00 Respiratory Rate 20 02/04/18 10:00 Blood Pressure 168/90 02/04/18 10:00 O2 Sat by Pulse Oximetry (%) 96 02/04/18 09:00 Labs: CBC, BMP 02/04/18 08:08 02/04/18 08:08 INR, PTT INR 1.02 (0.82-1.09) 02/02/18 10:50 Problem List - Problems (1) Acute on chronic renal failure Code(s): N17.9 - ACUTE KIDNEY FAILURE, UNSPECIFIED; N18.9 - CHRONIC KIDNEY DISEASE, UNSPECIFIED Qualifiers: Acute renal failure type: unspecified Chronic kidney disease stage: unspecified stage Qualified Code(s): N17.9 - Acute kidney failure, unspecified ; N18.9 - Chronic kidney disease, unspecified; N18.9 - Chronic kidney disease, unspecified (2) Shortness of breath Code(s): R06.02 - SHORTNESS OF BREATH (3) Acute on chronic systolic CHF (congestive heart failure) Code(s): I50.23 - ACUTE ON CHRONIC SYSTOLIC (CONGESTIVE) HEART FAILURE (4) Alcohol abuse Code(s): F10.10 - ALCOHOL ABUSE, UNCOMPLICATED (5) Anxiety Code(s): F41.9 - ANXIETY DISORDER, UNSPECIFIED (6) Cocaine dependence Code(s): F14.20 - COCAINE DEPENDENCE, UNCOMPLICATED (7) Insomnia Code(s): G47.00 - INSOMNIA, UNSPECIFIED (8) Nicotine dependence 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 Code(s): F13.20 - SEDATIVE, HYPNOTIC OR ANXIOLYTIC DEPENDENCE, UNCOMPLICATED (11) Anemia, iron deficiency Code(s): D50.9 - IRON DEFICIENCY ANEMIA, UNSPECIFIED (12) Cardiac defibrillator in place Code(s): Z95.810 - PRESENCE OF AUTOMATIC (IMPLANTABLE) CARDIAC DEFIBRILLATOR (13) HIV (human immunodeficiency virus infection) Code(s): Z21 - ASYMPTOMATIC HUMAN IMMUNODEFICIENCY VIRUS INFECTION STATUS (14) Hepatitis C Code(s): B19.20 - UNSPECIFIED VIRAL HEPATITIS C WITHOUT HEPATIC COMA Qualifiers: Viral hepatitis chronicity: chronic Hepatic coma status: without hepatic coma Qualified Code(s): B18.2 - Chronic viral hepatitis C (15) Hyperlipidemia Code(s): E78.5 - HYPERLIPIDEMIA, UNSPECIFIED Qualifiers: Hyperlipidemia type: unspecified Qualified Code(s): E78.5 - Hyperlipidemia , unspecified (16) Hypertension Code(s): I10 - ESSENTIAL (PRIMARY) HYPERTENSION Qualifiers: Hypertension type: essential hypertension Qualified Code(s): I10 - Essential (primary) hypertension (17) IDDM (insulin dependent diabetes mellitus) Code(s): E11.9 - TYPE 2 DIABETES MELLITUS WITHOUT COMPLICATIONS; Z79.4 - L[employer]OGR[employer] (CURRENT) USE OF INSULIN (18) Myocardial infarct, old Code(s): I25.2 - OLD MYOCARDIAL INFARCTION
[2018-02-04] MEDS ORDERED: PT OWN MED DRAWER 7, Y5N ONE ×2 (22:18→22:29)
[2018-02-04] MEDS: THIAMINE HCL 100 MG TABLET (FP) PO SCH (22:21)
[2018-02-04] MEDS: DULoxetine HCL 20 MG CAPSULE.DR (FP) PO SCH (22:22)
[2018-02-04] MEDS: LORazepam 1 MG TABLET PO SCH (22:22)
[2018-02-04] MEDS: ROSUVASTATIN CA 10 MG TABLET (FP) PO SCH (22:25)
[2018-02-04] MEDS: INSULIN DETEMIR 100 UNITS/ML MDV SQ SCH (22:26)
[2018-02-05] MEDS: INSULIN SLIDING SCALE (NOVOLOG) 1 VIAL SQ SCH ×4 (06:50→21:24)
[2018-02-05 06:52] LABS: ANION GAP 11 (8-16); BLOOD UREA NITROGEN 30 mg/dL (7-18); CALCIUM 8.7 mg/dL (8.5-10.1); CHLORIDE 104 mmol/L (98-107); CO2 26 mmol/L (21-32); GLUCOSE,RANDOM 64 mg/dL (74-106); POTASSIUM 3.7 mmol/L (3.5-5.1); SODIUM 141 mmol/L (136-145)
[2018-02-05 06:54] LABS: CREATININE 1.7 mg/dL (0.7-1.3)
--- NOTE | 2018-02-05 09:05 | PN ---
Progress Note, Physician History of Present Illness: The patient is a 67 year old male, with a significant past medical history of HTN, CHF, substance abuse, anxiety, anemia, heart abuse, COPD, cardiac defibrillator, HIV, Hep C, HLD, CAD s/p AICD, and DM. , who presents to the emergency department with chest pain for several hours. The patient was recently admitted on 01/30/18 for acute CHF, where he was seen by and treated for heart failure with IV Lasix. According to previous documentation the patient left [place] on 02/01/18 in order to go to [facility] for detox. At the time of his discharge his O2 Sat was noted to be 89%. Patient was again seen on 02/02/18, earlier today at 6:00am, with complaints of I feel bad, but had no other symptoms. At the time he admitted to using heroin, patient was then discharged. Now returned to ER with complaints of chest pain. The patient reports as he was leaving the ER feeling dizzy, nauesa, and chest pain. He describes his chest pain as sharp and notes associated SOB. He denies any recent fevers, chills, headache. He denies any recent dysuria, frequency, urgency or hematuria. - Current Medication List Current Medications: Active Medications Albuterol/Ipratropium (Duoneb -) 1 amp NEB Q6H PRN PRN Reason: SHORTNESS OF BREATH Last Admin: 02/04/18 08:59 Dose: 1 amp Aspirin (Asa -) 81 mg PO DAILY [facility] Last Admin: 02/04/18 10:12 Dose: 81 mg Budesonide/Formoterol Fumarate (Symbicort 160/4.5mcg -) 1 puff IH BID [facility] Last Admin: 02/04/18 22:34 Dose: 1 inh Carvedilol (Coreg -) 25 mg PO BID [facility] Last Admin: 02/04/18 22:22 Dose: 25 mg Cholecalciferol (Vitamin D3 -) 1,000 unit PO DAILY [facility] Last Admin: 02/04/18 10:12 Dose: 1,000 unit Clopidogrel Bisulfate (Plavix -) 75 mg PO DAILY [facility] Last Admin: 02/04/18 10:12 Dose: 75 mg Darunavir (Prezista -) 600 mg PO BID [facility] Last Admin: 02/04/18 22:27 Dose: 600 mg Duloxetine HCl (Cymbalta -) 20 mg PO HS [facility] Last Admin: 02/04/18 22:22 Dose: 20 mg Ferrous Sulfate (Feosol -) 325 mg PO BID [facility] Last Admin: 02/04/18 22:23 Dose: 325 mg Folic Acid (Folic Acid -) 1 mg PO DAILY [facility] Last Admin: 02/04/18 10:12 Dose: 1 mg Fondaparinux (Arixtra (Restricted) -) 2.5 mg SQ DAILY [facility] Furosemide (Lasix Injection -) 60 mg IVPUSH BID@0800,1600 [facility] Last Admin: 02/04/18 17:16 Dose: 60 mg Insulin Aspart (Novolog Vial Sliding Scale -) 1 vial SQ [facility] PRN Reason: Protocol Last Admin: 02/05/18 06:50 Dose: Not Given Insulin Detemir (Levemir Vial) 30 units SQ HS [facility] Last Admin: 02/04/18 22:26 Dose: 30 units Lorazepam (Ativan -) 1 mg PO BID [facility] Last Admin: 02/04/18 22:22 Dose: 1 mg Maraviroc (Selzentry -) 150 mg PO BID [facility] Last Admin: 02/04/18 22:28 Dose: 150 mg Multivit/Folic Acid/Iron ( Vitamins (Sjr) -) 1 tab PO DAILY [facility] Last Admin: 02/04/18 13:11 Dose: 1 tab Raltegravir (Isentress -) 400 mg PO BID [facility] Last Admin: 02/04/18 22:26 Dose: 400 mg Ranitidine HCl (Zantac -) 150 mg PO DAILY [facility] Last Admin: 02/04/18 10:12 Dose: 150 mg Ritonavir (Norvir -) 100 mg PO BID [facility] Last Admin: 02/04/18 22:26 Dose: 100 mg Rosuvastatin Calcium (Crestor -) 10 mg PO HS [facility] Last Admin: 02/04/18 22:25 Dose: 10 mg Spironolactone (Aldactone -) 25 mg PO DAILY [facility] Last Admin: 02/04/18 10:14 Dose: 25 mg Thiamine HCl (Vitamin B1 -) 100 mg PO HS [facility] Last Admin: 02/04/18 22:21 Dose: 100 mg - Objective Vital Signs: Vital Signs Temperature 98 F 02/05/18 05:51 Pulse Rate 62 02/05/18 08:15 Respiratory Rate 18 02/05/18 08:15 Blood Pressure 155/84 02/05/18 08:15 O2 Sat by Pulse Oximetry (%) 98 02/04/18 22:00 Eyes: Yes: WNL, Conjunctiva Clear, EOM Intact HENT: Yes: WNL, Atraumatic, Normocephalic Neck: Yes: WNL, Supple, Trachea Midline Cardiovascular: Yes: WNL, Regular Rate and Rhythm Respiratory: Yes: WNL, Regular, CTA Bilaterally Gastrointestinal: Yes: WNL, Normal Bowel Sounds Genitourinary: Yes: WNL Musculoskeletal: Yes: WNL Extremities: Yes: WNL Edema: No Integumentary: Yes: WNL Neurological: Yes: WNL, Alert, Oriented ...Motor Strength: WNL Psychiatric: Yes: WNL Labs: CBC, BMP 02/04/18 08:08 02/05/18 05:40 INR, PTT INR 1.02 (0.82-1.09) 02/02/18 10:50 Problem List - Problems (1) Acute on chronic renal failure Code(s): N17.9 - ACUTE KIDNEY FAILURE, UNSPECIFIED; N18.9 - CHRONIC KIDNEY DISEASE, UNSPECIFIED Qualifiers: Qualified Code(s): N17.9 - Acute kidney failure, unspecified; N18.9 - Chronic kidney disease, unspecified; N18.9 - Chronic kidney disease, unspecified (2) Chest pain Code(s): R07.9 - CHEST PAIN, UNSPECIFIED Qualifiers: Qualified Code(s): R07.9 - Chest pain, unspecified (3) Shortness of breath Code(s): R06.02 - SHORTNESS OF BREATH (4) Acute on chronic systolic CHF (congestive heart failure) Code(s): I50.23 - ACUTE ON CHRONIC SYSTOLIC (CONGESTIVE) HEART FAILURE (5) Alcohol abuse Code(s): F10.10 - ALCOHOL ABUSE, UNCOMPLICATED (6) Anxiety Code(s): F41.9 - ANXIETY DISORDER, UNSPECIFIED (7) Cocaine abuse Code(s): F14.10 - COCAINE ABUSE, UNCOMPLICATED (8) Cocaine dependence Code(s): F14.20 - COCAINE DEPENDENCE, UNCOMPLICATED (9) Coronary atherosclerosis Code(s): I25.10 - ATHSCL HEART DISEASE OF [place] CORONARY ARTERY W/O ANG PCTRS (10) Insomnia Code(s): G47.00 - INSOMNIA, UNSPECIFIED (11) Nicotine dependence Code(s): F17.200 - NICOTINE DEPENDENCE, UNSPECIFIED, UNCOMPLICATED Qualifiers: Qualified Code(s): F17.213 - Nicotine dependence, cigarettes, with withdrawal (12) Opioid dependence Code(s): F11.20 - OPIOID DEPENDENCE, UNCOMPLICATED Qualifiers: Qualified Code(s): F11.20 - Opioid dependence, uncomplicated (13) Opioid dependence with withdrawal Code(s): F11.23 - OPIOID DEPENDENCE WITH WITHDRAWAL (14) Pain of left calf Code(s): M79.662 - PAIN IN LEFT LOWER LEG (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 Code(s): F13.20 - SEDATIVE, HYPNOTIC OR ANXIOLYTIC DEPENDENCE, UNCOMPLICATED (16) Sedative, hypnotic or anxiolytic dependence with withdrawal, uncomplicated Code(s): F13.230 - SEDATV/HYP/ANXIOLYTC DEPENDENCE W WITHDRAWAL, UNCOMPLICATED (17) Substance abuse Code(s): F19.10 - OTHER PSYCHOACTIVE SUBSTANCE ABUSE, UNCOMPLICATED (18) Substance induced mood disorder Code(s): F19.94 - OTH PSYCHOACTIVE SUBSTANCE USE, UNSP W MOOD DISORDER (19) Substance-induced sleep disorder Code(s): F19.982 - OTH PSYCHOACTIVE SUBSTANCE USE, UNSP W SLEEP DISORDER; T50.904A - POISONING BY UNSP DRUG/MEDS/BIOL SUBST, UNDETERMINED, INIT (20) Alcohol dependence Code(s): F10.20 - ALCOHOL DEPENDENCE, UNCOMPLICATED Qualifiers: Qualified Code(s): F10.20 - Alcohol dependence, uncomplicated (21) Anemia, iron deficiency Code(s): D50.9 - IRON DEFICIENCY ANEMIA, UNSPECIFIED (22) Asthma Code(s): J45.909 - UNSPECIFIED ASTHMA, UNCOMPLICATED Qualifiers: Qualified Code(s): J45.909 - Unspecified asthma, uncomplicated (23) Bilateral leg edema Code(s): R60.0 - LOCALIZED EDEMA (24) CHF (congestive heart failure) Code(s): I50.9 - HEART FAILURE, UNSPECIFIED (25) COPD (chronic obstructive pulmonary disease) Code(s): J44.9 - CHRONIC OBSTRUCTIVE PULMONARY DISEASE, UNSPECIFIED Qualifiers: Qualified Code(s): J43.9 - Emphysema, unspecified (26) Cardiac defibrillator in place Code(s): Z95.810 - PRESENCE OF AUTOMATIC (IMPLANTABLE) CARDIAC DEFIBRILLATOR (27) Cocaine abuse Code(s): F14.10 - COCAINE ABUSE, UNCOMPLICATED (28) HIV (human immunodeficiency virus infection) Code(s): Z21 - ASYMPTOMATIC HUMAN IMMUNODEFICIENCY VIRUS INFECTION STATUS (29) Hepatitis C Code(s): B19.20 - UNSPECIFIED VIRAL HEPATITIS C WITHOUT HEPATIC COMA Qualifiers: Qualified Code(s): B18.2 - Chronic viral hepatitis C (30) Hyperlipidemia Code(s): E78.5 - HYPERLIPIDEMIA, UNSPECIFIED Qualifiers: Qualified Code(s): E78.5 - Hyperlipidemia, unspecified (31) Hypertension Code(s): I10 - ESSENTIAL (PRIMARY) HYPERTENSION Qualifiers: Qualified Code(s): I10 - Essential (primary) hypertension (32) IDDM (insulin dependent diabetes mellitus) Code(s): E11.9 - TYPE 2 DIABETES MELLITUS WITHOUT COMPLICATIONS; Z79.4 - BELLY PACKER (CURRENT) USE OF INSULIN (33) Myocardial infarct, old Code(s): I25.2 - OLD MYOCARDIAL INFARCTION (34) Neuropathy Code(s): G62.9 - POLYNEUROPATHY, UNSPECIFIED (35) Nicotine dependence Code(s): F17.200 - NICOTINE DEPENDENCE, UNSPECIFIED, UNCOMPLICATED (36) Opioid dependence Code(s): F11.20 - OPIOID DEPENDENCE, UNCOMPLICATED Qualifiers: Qualified Code(s): F11.20 - Opioid dependence, uncomplicated (37) Psoriasis Code(s): L40.9 - PSORIASIS, UNSPECIFIED (38) Type 2 diabetes mellitus Code(s): E11.9 - TYPE 2 DIABETES MELLITUS WITHOUT COMPLICATIONS Qualifiers: Qualified Code(s): E11.9 - Type 2 diabetes mellitus without complications Assessment/Plan - Problems (1) Acute on chronic renal failure Code(s): N17.9 - ACUTE KIDNEY FAILURE, UNSPECIFIED; N18.9 - CHRONIC KIDNEY DISEASE, UNSPECIFIED Qualifiers: Acute renal failure type: unspecified Chronic kidney disease stage: unspecified stage Qualified Code(s): N17.9 - Acute kidney failure, unspecified ; N18.9 - Chronic kidney disease, unspecified; N18.9 - Chronic kidney disease, unspecified (2) Shortness of breath Code(s): R06.02 - SHORTNESS OF BREATH (3) Acute on chronic systolic CHF (congestive heart failure) Code(s): I50.23 - ACUTE ON CHRONIC SYSTOLIC (CONGESTIVE) HEART FAILURE (4) Alcohol abuse Code(s): F10.10 - ALCOHOL ABUSE, UNCOMPLICATED (5) Anxiety Code(s): F41.9 - ANXIETY DISORDER, UNSPECIFIED (6) Cocaine dependence Code(s): F14.20 - COCAINE DEPENDENCE, UNCOMPLICATED (7) Insomnia Code(s): G47.00 - INSOMNIA, UNSPECIFIED (8) Nicotine dependence 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 Code(s): F13.20 - SEDATIVE, HYPNOTIC OR ANXIOLYTIC DEPENDENCE, UNCOMPLICATED (11) Anemia, iron deficiency Code(s): D50.9 - IRON DEFICIENCY ANEMIA, UNSPECIFIED (12) Cardiac defibrillator in place Code(s): Z95.810 - PRESENCE OF AUTOMATIC (IMPLANTABLE) CARDIAC DEFIBRILLATOR (13) HIV (human immunodeficiency virus infection) Code(s): Z21 - ASYMPTOMATIC HUMAN IMMUNODEFICIENCY VIRUS INFECTION STATUS (14) Hepatitis C Code(s): B19.20 - UNSPECIFIED VIRAL HEPATITIS C WITHOUT HEPATIC COMA Qualifiers: Viral hepatitis chronicity: chronic Hepatic coma status: without hepatic coma Qualified Code(s): B18.2 - Chronic viral hepatitis C (15) Hyperlipidemia Code(s): E78.5 - HYPERLIPIDEMIA, UNSPECIFIED Qualifiers: Hyperlipidemia type: unspecified Qualified Code(s): E78.5 - Hyperlipidemia , unspecified (16) Hypertension Code(s): I10 - ESSENTIAL (PRIMARY) HYPERTENSION Qualifiers: Hypertension type: essential hypertension Qualified Code(s): I10 - Essential (primary) hypertension (17) IDDM (insulin dependent diabetes mellitus) Code(s): E11.9 - TYPE 2 DIABETES MELLITUS WITHOUT COMPLICATIONS; Z79.4 - BELLY PACKER (CURRENT) USE OF INSULIN (18) Myocardial infarct, old Code(s): I25.2 - OLD MYOCARDIAL INFARCTION
[2018-02-05] MEDS: CHOLECALCIFEROL (VITAMIN D3) 1,000 UNIT TABLET (FP) PO SCH (09:59)
[2018-02-05] MEDS: FUROSEMIDE 40 MG/4 ML INJECTABLE VIAL IVPUSH SCH ×2 (09:59→18:10)
[2018-02-05] MEDS: LORazepam 1 MG TABLET PO SCH ×2 (10:00→21:31)
[2018-02-05] MEDS: BUDESONIDE/FORMETEROL FUMARATE 160/4.5 mcg INHALER IH SCH ×2 (10:00→21:35)
[2018-02-05] MEDS: CLOPIDOGREL BISULFATE 75 MG TABLET (FP) PO SCH (10:00)
[2018-02-05] MEDS: FERROUS SO4 325 MG TABLET (FP) PO SCH ×2 (10:01→21:31)
[2018-02-05] MEDS: DARUNAVIR ETHANOLATE 600 MG TAB PO SCH ×2 (10:01→21:34)
[2018-02-05] MEDS: FOLIC ACID 1 MG TABLET (FP) PO SCH (10:01)
[2018-02-05] MEDS: ASPIRIN 81 MG CHEWABLE TABLETS PO SCH (10:01)
[2018-02-05] MEDS: RANITIDINE HCL 150 MG TABLET (FP) PO SCH (10:01)
[2018-02-05] MEDS: RALTEGRAVIR POTASSIUM 400 MG TAB PO SCH ×2 (10:01→21:32)
[2018-02-05] MEDS: CARVEDILOL 25 MG TABLET (FP) PO SCH ×2 (10:01→21:31)
[2018-02-05] MEDS: RITONAVIR 100 MG TABLET PO SCH ×2 (10:02→21:33)
[2018-02-05] MEDS: PRENATAL VITAMINS W/ FOLIC ACID TABLET (FP) PO SCH (10:02)
[2018-02-05] MEDS: SPIRONOLACTONE 25 MG TABLET (FP) PO SCH (10:02)
[2018-02-05] MEDS: FONDAPARINUX SODIUM 2.5 MG/0.5 ML DISP.SYRIN SQ SCH (10:03)
[2018-02-05] MEDS: MARAVIROC 150 MG TAB PO SCH ×2 (10:03→21:34)
--- NOTE | 2018-02-05 13:01 | PN ---
Physical Exam: SUBJECTIVE: Patient seen and examined at the bedside. Feels better, still on supplemental oxygen. Demanding more Ativan OBJECTIVE: Vital Signs Period Temp Pulse Resp BP Sys/Pandya Pulse Ox Last 24 Hr 97.6 F-98.5 F 51-65 18-22 140-156/70-84 96-98 GENERAL: Awake, alert, and fully oriented, in no acute distress, agitated HEAD: Normal with no signs of trauma. EYES: Pupils equal, round and reactive to light, extraocular movements intact, sclera anicteric, conjunctiva clear. No lid lag. EARS, NOSE, THROAT: Ears normal, nares patent, oropharynx clear without exudates. Moist mucous membranes. NECK: Normal range of motion, supple without lymphadenopathy, JVD, or masses. LUNGS: diminished anteriorly, on supplemental oxygen, congestive changes seen on chest xray HEART: Regular rate and rhythm, pacemaker ABDOMEN: Soft, nontender, not distended, normoactive bowel sounds, no guarding, no rebound, no masses. No hepatomegaly or splenomegaly. MUSCULOSKELETAL: Normal range of motion at all joints. No bony deformities or tenderness. No CVA tenderness. LOWER EXTREMITIES: bilateral non pitting edema NEUROLOGICAL: Normal speech. Normal gait. PSYCHIATRIC: Cooperative. Good eye contact. Appropriate mood and affect. SKIN: Warm, dry, normal turgor, no rashes or lesions noted, normal capillary refill. Laboratory Results - last 24 hr 02/04/18 02/04/18 02/04/18 13:13 17:11 21:36 Sodium Potassium Chloride Carbon Dioxide Anion Gap BUN Creatinine POC Glucometer 208.95356 169.53849 167.19371 Random Glucose Calcium 02/05/18 02/05/18 02/05/18 05:24 05:40 06:39 Sodium 141 Potassium 3.7 Chloride 104 Carbon Dioxide 26 Anion Gap 11 BUN 30 H Creatinine 1.7 H POC Glucometer 57.36588 183.37203 Random Glucose 64 L Calcium 8.7 02/05/18 11:26 Sodium Potassium Chloride Carbon Dioxide Anion Gap BUN Creatinine POC Glucometer 153.24476 Random Glucose Calcium Active Medications Generic Name Dose Route Start Last Admin Trade Name Freq PRN Reason Stop Dose Admin Albuterol/Ipratropium 1 amp 02/02/18 21:34 02/04/18 08:59 Duoneb - NEB 1 amp Q6H PRN Administration SHORTNESS OF BREATH Aspirin 81 mg 02/03/18 10:00 02/05/18 10:01 Asa - PO 81 mg DAILY MIRTHA Administration Budesonide/Formoterol Fumarate 1 puff 02/02/18 22:00 02/05/18 10:00 Symbicort 160/4.5mcg - IH 1 inh BID MIRTHA Administration Carvedilol 25 mg 02/02/18 22:00 02/05/18 10:01 Coreg - PO 25 mg BID MIRTHA Administration Cholecalciferol 1,000 unit 02/03/18 10:00 02/05/18 09:59 Vitamin D3 - PO 1,000 unit DAILY MIRTHA Administration Clopidogrel Bisulfate 75 mg 02/03/18 10:00 02/05/18 10:00 Plavix - PO 75 mg DAILY MIRTHA Administration Darunavir 600 mg 02/02/18 22:00 02/05/18 10:01 Prezista - PO 600 mg BID MIRTHA Administration Duloxetine HCl 20 mg 02/02/18 22:00 02/04/18 22:22 Cymbalta - PO 20 mg HS MIRTHA Administration Ferrous Sulfate 325 mg 02/02/18 22:00 02/05/18 10:01 Feosol - PO 325 mg BID MIRTHA Administration Folic Acid 1 mg 02/03/18 10:00 02/05/18 10:01 Folic Acid - PO 1 mg DAILY MIRTHA Administration Fondaparinux 2.5 mg 02/05/18 10:00 02/05/18 10:03 Arixtra (Restricted) - SQ 2.5 mg DAILY MIRTHA Administration Furosemide 60 mg 02/02/18 16:00 02/05/18 09:59 Lasix Injection - IVPUSH 60 mg BID@0800,1600 MIRTHA Administration Insulin Aspart 1 vial 02/02/18 16:30 02/05/18 11:27 Novolog Vial Sliding Scale - SQ Not Given [facility] Protocol Insulin Detemir 30 units 02/02/18 22:00 02/04/18 22:26 Levemir Vial SQ 30 units HS MIRTHA Administration Lorazepam 1 mg 02/04/18 22:00 02/05/18 10:00 Ativan - PO 1 mg BID MITRHA Administration Maraviroc 150 mg 02/02/18 22:00 02/05/18 10:03 Selzentry - PO 150 mg BID MIRTHA Administration Multivit/Folic Acid/Iron 1 tab 02/04/18 10:00 02/05/18 10:02 Vitamins (Sjr) - PO 1 tab DAILY MIRTHA Administration Raltegravir 400 mg 02/02/18 22:00 02/05/18 10:01 Isentress - PO 400 mg BID MIRTHA Administration Ranitidine HCl 150 mg 02/03/18 10:00 02/05/18 10:01 Zantac - PO 150 mg DAILY MIRTHA Administration Ritonavir 100 mg 02/02/18 22:00 02/05/18 10:02 Norvir - PO 100 mg BID MIRTHA Administration Rosuvastatin Calcium 10 mg 02/02/18 22:00 02/04/18 22:25 Crestor - PO 10 mg HS MIRTHA Administration Spironolactone 25 mg 02/03/18 10:00 02/05/18 10:02 Aldactone - PO 25 mg DAILY MIRTHA Administration Thiamine HCl 100 mg 02/04/18 22:00 02/04/18 22:21 Vitamin B1 - PO 100 mg HS MIRTHA Administration ASSESSMENT/PLAN: Patient is a 67 year old male with a significant past medical history of hypertension, hyperlipidemia, diabetes, hepatitis C, HIV (on HAART), CHF, asthma , defib and pacemaker, etoh, anxiety and polysubstance abuse. He presented to the ED today with c/o of chest pain after using heroin. He was seen in the ED early this morning and was discharged, then returned a few hours later stating he had chest pain and shortness of breath. Patient was recently admitted on for acute CHF exacerbation. He was seen by cardiology and was started Lasix 60mg IV BID. Patient eloped yesterday after becoming agitated that [facility] would not allow him to return for rehab. His oxygen saturation before he eloped was noted to be 89% on room air. After eloping, patient admits to using "two bags of heroin" and the developed chest pain prompting him to come back to the Emergency Room. Card: Acute on chronic systolic CHF Hypertension Chest pain resolved EKG noted Monitor on tele Trops negative Echo from recent admission Daily weights, strict intake and output On Sprinolactone, Coreq Losartan on hold d/t MJ Cardiology following interrogation of ICD done on previous admission Pulmonary COPD/Asthma history Supplement oxygen @ 2 liters Not wheezing Maintain oxygen sats above 90% Psyche Polysubstance abuse from [facility] Followed by Dr Meza Will re-consult her for possible transfer to [facility] ID: Leukocytosis, resolved Blood cultures ordered No fevers HIV, chronic on HAART therapy Renal Acute on chronic MJ, creat 2.8 on admission, now 1.7 (@ baseline) Vascular Bilateral lower ext edema Elevated, no calf pain Same as previous admissions Endocrine BGMs, Novolog, Levemir F.E.N. fluids: Po adequate Electrolyes: monitor Nutrition: diabetic Prophy: DVT: ambulation, SCDs GI: deferred. Disposition. full code.
[2018-02-05] MEDS ORDERED: PT OWN MED DRAWER 7, Y5N ONE ×2 (13:56→21:28)
[2018-02-05] MEDS ORDERED: LORazepam 1 MG TABLET PO ONE ×2 (17:30→23:51)
[2018-02-05] MEDS: INSULIN DETEMIR 100 UNITS/ML MDV SQ SCH (21:23)
[2018-02-05] MEDS: DULoxetine HCL 20 MG CAPSULE.DR (FP) PO SCH (21:31)
[2018-02-05] MEDS: THIAMINE HCL 100 MG TABLET (FP) PO SCH (21:31)
[2018-02-05] MEDS: ROSUVASTATIN CA 10 MG TABLET (FP) PO SCH (21:31)
[2018-02-06] MEDS: INSULIN SLIDING SCALE (NOVOLOG) 1 VIAL SQ SCH ×3 (06:24→17:31)
[2018-02-06] MEDS: FUROSEMIDE 40 MG/4 ML INJECTABLE VIAL IVPUSH SCH ×2 (08:46→16:36)
[2018-02-06] MEDS: LORazepam 1 MG TABLET PO SCH (09:32)
[2018-02-06] MEDS: CLOPIDOGREL BISULFATE 75 MG TABLET (FP) PO SCH (09:32)
[2018-02-06] MEDS: ASPIRIN 81 MG CHEWABLE TABLETS PO SCH (09:32)
[2018-02-06] MEDS: FERROUS SO4 325 MG TABLET (FP) PO SCH (09:32)
[2018-02-06] MEDS: CHOLECALCIFEROL (VITAMIN D3) 1,000 UNIT TABLET (FP) PO SCH (09:32)
[2018-02-06] MEDS: CARVEDILOL 25 MG TABLET (FP) PO SCH (09:32)
[2018-02-06] MEDS: RANITIDINE HCL 150 MG TABLET (FP) PO SCH (09:32)
[2018-02-06] MEDS: RITONAVIR 100 MG TABLET PO SCH (09:33)
[2018-02-06] MEDS: DARUNAVIR ETHANOLATE 600 MG TAB PO SCH (09:34)
[2018-02-06] MEDS: RALTEGRAVIR POTASSIUM 400 MG TAB PO SCH (09:36)
[2018-02-06] MEDS: SPIRONOLACTONE 25 MG TABLET (FP) PO SCH (09:37)
[2018-02-06] MEDS: FONDAPARINUX SODIUM 2.5 MG/0.5 ML DISP.SYRIN SQ SCH (09:38)
[2018-02-06] MEDS: MARAVIROC 150 MG TAB PO SCH (09:39)
[2018-02-06] MEDS: PRENATAL VITAMINS W/ FOLIC ACID TABLET (FP) PO SCH (09:39)
[2018-02-06] MEDS: BUDESONIDE/FORMETEROL FUMARATE 160/4.5 mcg INHALER IH SCH (09:40)
[2018-02-06 10:50] LABS: BASO % 1.5 % (0-2.0); EOS % 3.9 % (0-4.5); HEMATOCRIT 40.5 % (35.4-49); HEMOGLOBIN 13.1 GM/dL (11.7-16.9); LYMPH % 19.9 % (8-40); MCHC 32.4 g/dl (32.0-35.9); MEAN CELL VOLUME 83.4 fl (80-96); MEAN PLT VOLUME 8.6 fl (7.5-11.1); MONO % 12.6 % (3.8-10.2); NEUT % 62.1 % (42.8-82.8); PLATELET COUNT 191 K/MM3 (134-434); RBC 4.86 M/mm3 (4.00-5.60); RDW 18.8 % (11.9-15.9); WHITE BLOOD COUNT 7.8 K/mm3 (4.0-10.0)
[2018-02-06 11:19] LABS: ALBUMIN 2.8 g/dl (3.4-5.0); ALK PHOS 200 U/L (45-117); ANION GAP 12 (8-16); BILIRUBIN,TOTAL 0.3 mg/dL (0.2-1.0); BLOOD UREA NITROGEN 36 mg/dL (7-18); CALCIUM 8.7 mg/dL (8.5-10.1); CHLORIDE 105 mmol/L (98-107); CO2 24 mmol/L (21-32); CREATININE 1.8 mg/dL (0.7-1.3); GLUCOSE,RANDOM 130 mg/dL (74-106); MAGNESIUM 2.2 mg/dL (1.8-2.4); POTASSIUM 4.4 mmol/L (3.5-5.1); SGOT/AST 34 U/L (15-37); SGPT/ALT 33 U/L (12-78); SODIUM 141 mmol/L (136-145)
--- NOTE | 2018-02-06 17:59 | PN ---
Physical Exam: SUBJECTIVE: Patient seen and examined at the bedside. Wants to go to rehab, has done research and has picked two rehab facilities. OBJECTIVE: Discharge once cleared by cardiology [facility] Vital Signs Period Temp Pulse Resp BP Sys/Pandya Pulse Ox Last 24 Hr 97.7 F-98.7 F 51-59 16-18 129-161/63-82 98-98 GENERAL: Awake, alert, and fully oriented, in no acute distress, agitated HEAD: Normal with no signs of trauma. EYES: Pupils equal, round and reactive to light, extraocular movements intact, sclera anicteric, conjunctiva clear. No lid lag. EARS, NOSE, THROAT: Ears normal, nares patent, oropharynx clear without exudates. Moist mucous membranes. NECK: Normal range of motion, supple without lymphadenopathy, JVD, or masses. LUNGS: diminished anteriorly, on supplemental oxygen, congestive changes seen on chest xray HEART: Regular rate and rhythm, pacemaker ABDOMEN: Soft, nontender, not distended, normoactive bowel sounds, no guarding, no rebound, no masses. No hepatomegaly or splenomegaly. MUSCULOSKELETAL: Normal range of motion at all joints. No bony deformities or tenderness. No CVA tenderness. LOWER EXTREMITIES: bilateral non pitting edema NEUROLOGICAL: Normal speech. Normal gait. PSYCHIATRIC: Cooperative. Good eye contact. Appropriate mood and affect. SKIN: Warm, dry, normal turgor, no rashes or lesions noted, normal capillary refill. Laboratory Results - last 24 hr 02/05/18 02/05/18 02/06/18 16:32 21:22 06:00 WBC RBC Hgb Hct MCV MCH MCHC RDW Plt Count MPV Neutrophils % Lymphocytes % Monocytes % Eosinophils % Basophils % Sodium Potassium Chloride Carbon Dioxide Anion Gap BUN Creatinine Creat Clearance w eGFR POC Glucometer 262.03874 147.09611 107.89402 Random Glucose Calcium Magnesium Total Bilirubin AST ALT Alkaline Phosphatase Total Protein Albumin 02/06/18 02/06/18 02/06/18 10:30 10:30 11:35 WBC 7.8 RBC 4.86 D Hgb 13.1 D Hct 40.5 D MCV 83.4 MCH 27.0 MCHC 32.4 RDW 18.8 H Plt Count 191 MPV 8.6 Neutrophils % 62.1 D Lymphocytes % 19.9 D Monocytes % 12.6 H Eosinophils % 3.9 Basophils % 1.5 Sodium 141 Potassium 4.4 Chloride 105 Carbon Dioxide 24 Anion Gap 12 BUN 36 H Creatinine 1.8 H Creat Clearance w eGFR 38.06 POC Glucometer 133.25370 Random Glucose 130 H D Calcium 8.7 Magnesium 2.2 Total Bilirubin 0.3 AST 34 D ALT 33 D Alkaline Phosphatase 200 H Total Protein 7.0 D Albumin 2.8 L D Active Medications Generic Name Dose Route Start Last Admin Trade Name Freq PRN Reason Stop Dose Admin Albuterol/Ipratropium 1 amp 02/02/18 21:34 02/04/18 08:59 Duoneb - NEB 1 amp Q6H PRN Administration SHORTNESS OF BREATH Aspirin 81 mg 02/03/18 10:00 02/06/18 09:32 Asa - PO 81 mg DAILY MIRTHA Administration Budesonide/Formoterol Fumarate 1 puff 02/02/18 22:00 02/06/18 09:40 Symbicort 160/4.5mcg - IH 1 inh BID MIRTHA Administration Carvedilol 25 mg 02/02/18 22:00 02/06/18 09:32 Coreg - PO 25 mg BID MIRTHA Administration Cholecalciferol 1,000 unit 02/03/18 10:00 02/06/18 09:32 Vitamin D3 - PO 1,000 unit DAILY MIRTHA Administration Clopidogrel Bisulfate 75 mg 02/03/18 10:00 02/06/18 09:32 Plavix - PO 75 mg DAILY MIRTHA Administration Darunavir 600 mg 02/02/18 22:00 02/06/18 09:34 Prezista - PO 600 mg BID MIRTHA Administration Duloxetine HCl 20 mg 02/02/18 22:00 02/05/18 21:31 Cymbalta - PO 20 mg HS MIRTHA Administration Ferrous Sulfate 325 mg 02/02/18 22:00 02/06/18 09:32 Feosol - PO 325 mg BID MIRTHA Administration Fondaparinux 2.5 mg 02/05/18 10:00 02/06/18 09:38 Arixtra (Restricted) - SQ 2.5 mg DAILY MIRTHA Administration Furosemide 60 mg 02/02/18 16:00 02/06/18 16:36 Lasix Injection - IVPUSH 60 mg BID@0800,1600 MIRTHA Administration Insulin Aspart 1 vial 02/02/18 16:30 02/06/18 17:31 Novolog Vial Sliding Scale - SQ 2 units ACHS MIRTHA Administration Protocol Insulin Detemir 30 units 02/02/18 22:00 02/05/18 21:23 Levemir Vial SQ 30 units HS MIRTHA Administration Lorazepam 1 mg 02/04/18 22:00 02/06/18 09:32 Ativan - PO 1 mg BID MIRTHA Administration Maraviroc 150 mg 02/02/18 22:00 02/06/18 09:39 Selzentry - PO 150 mg BID MIRTHA Administration Multivit/Folic Acid/Iron 1 tab 02/04/18 10:00 02/06/18 09:39 Vitamins (Sjr) - PO 1 tab DAILY MIRTHA Administration Raltegravir 400 mg 02/02/18 22:00 02/06/18 09:36 Isentress - PO 400 mg BID MIRTHA Administration Ranitidine HCl 150 mg 02/03/18 10:00 02/06/18 09:32 Zantac - PO 150 mg DAILY MIRTHA Administration Ritonavir 100 mg 02/02/18 22:00 02/06/18 09:33 Norvir - PO 100 mg BID MIRTHA Administration Rosuvastatin Calcium 10 mg 02/02/18 22:00 02/05/18 21:31 Crestor - PO 10 mg HS MIRTHA Administration Spironolactone 25 mg 02/03/18 10:00 02/06/18 09:37 Aldactone - PO 25 mg DAILY MIRTHA Administration Thiamine HCl 100 mg 02/04/18 22:00 02/05/18 21:31 Vitamin B1 - PO 100 mg HS MIRTHA Administration ASSESSMENT/PLAN: Patient is a 67 year old male with a significant past medical history of hypertension, hyperlipidemia, diabetes, hepatitis C, HIV (on HAART), CHF, asthma , defib and pacemaker, etoh, anxiety and polysubstance abuse. He presented to the ED today with c/o of chest pain after using heroin. He was seen in the ED early this morning and was discharged, then returned a few hours later stating he had chest pain and shortness of breath. Patient was recently admitted on for acute CHF exacerbation. He was seen by cardiology and was started Lasix 60mg IV BID. Patient eloped yesterday after becoming agitated that [facility] would not allow him to return for rehab. His oxygen saturation before he eloped was noted to be 89% on room air. After eloping, patient admits to using "two bags of heroin" and the developed chest pain prompting him to come back to the Emergency Room. Card: Acute on chronic systolic CHF On Lasix 60mg IV BID Weight is close to his dry weight Tolerating room air, less dyspnea with ambulation Daily weight, monitor on tele interrogation of ICD done on previous admission Await cardiology recommendations on switching to PO Lasix Hypertension, improved Losartan on hold 12/22 to MJ Creat back to baseline On Sprinolactone, Coreq 25mg PO BID Chest pain, resolved Trops negative Echo reviewed from recent admission Pulmonary COPD/Asthma history Supplement oxygen @ 2 liters PRN Not wheezing Maintain oxygen sats above 90% Psyche Polysubstance abuse from [facility] Followed by Dr Meza Patient wants to go to rehab, SW following Patient is currently homeless ID: Leukocytosis, resolved HIV, chronic on HAART therapy Renal Acute on chronic MJ, creat 2.8 on admission, now 1.8 baseline is apx 1.6-1.7) Vascular Bilateral lower ext edema, improving with diuretics Endocrine BGMs, Novolog, Levemir F.E.N. fluids: Po adequate Electrolyes: monitor Nutrition: diabetic Prophy: DVT: ambulation, SCDs GI: deferred. Disposition. full code. Discharge likely to rehab facility. Awaiting SW input on same. Discharge once cleared by cardiology.
[2018-02-07 00:12] VITALS: PULSE 58
[2018-02-07] MEDS: CARVEDILOL 25 MG TABLET (FP) PO SCH (00:12)
[2018-02-07] MEDS: DULoxetine HCL 20 MG CAPSULE.DR (FP) PO SCH (00:12)
[2018-02-07] MEDS: LORazepam 1 MG TABLET PO SCH (00:12)
[2018-02-07] MEDS: ROSUVASTATIN CA 10 MG TABLET (FP) PO SCH (00:12)
[2018-02-07] MEDS: RITONAVIR 100 MG TABLET PO SCH (00:13)
[2018-02-07] MEDS: INSULIN DETEMIR 100 UNITS/ML MDV SQ SCH (00:13)
[2018-02-07] MEDS: BUDESONIDE/FORMETEROL FUMARATE 160/4.5 mcg INHALER IH SCH (00:13)
[2018-02-07] MEDS: RALTEGRAVIR POTASSIUM 400 MG TAB PO SCH (00:13)
[2018-02-07] MEDS: INSULIN SLIDING SCALE (NOVOLOG) 1 VIAL SQ SCH ×4 (00:13→12:00)
[2018-02-07] MEDS: THIAMINE HCL 100 MG TABLET (FP) PO SCH (00:13)
[2018-02-07] MEDS: DARUNAVIR ETHANOLATE 600 MG TAB PO SCH (00:13)
[2018-02-07] MEDS: FERROUS SO4 325 MG TABLET (FP) PO SCH (00:13)
[2018-02-07] MEDS: MARAVIROC 150 MG TAB PO SCH (00:58)
[2018-02-07 06:34] VITALS: BP 153/76; TEMP 97.8
[2018-02-07] MEDS: FUROSEMIDE 40 MG/4 ML INJECTABLE VIAL IVPUSH SCH (10:00)
[2018-02-07 10:47] LABS: BASO % 1.2 % (0-2.0); EOS % 4.7 % (0-4.5); HEMATOCRIT 38.7 % (35.4-49); HEMOGLOBIN 12.6 GM/dL (11.7-16.9); LYMPH % 26.7 % (8-40); MCH 27.2 pg (25.7-33.7); MCHC 32.7 g/dl (32.0-35.9); MEAN CELL VOLUME 83.3 fl (80-96); MEAN PLT VOLUME 8.4 fl (7.5-11.1); MONO % 13.1 % (3.8-10.2); NEUT % 54.3 % (42.8-82.8); PLATELET COUNT 171 K/MM3 (134-434); RBC 4.65 M/mm3 (4.00-5.60); WHITE BLOOD COUNT 7.7 K/mm3 (4.0-10.0)
[2018-02-07 11:13] LABS: ALBUMIN 2.4 g/dl (3.4-5.0); ANION GAP 11 (8-16); BLOOD UREA NITROGEN 29 mg/dL (7-18); CALCIUM 8.4 mg/dL (8.5-10.1); CHLORIDE 104 mmol/L (98-107); CO2 25 mmol/L (21-32); CREATININE 1.6 mg/dL (0.7-1.3); GLUCOSE,RANDOM 185 mg/dL (74-106); MAGNESIUM 2.1 mg/dL (1.8-2.4); POTASSIUM 3.9 mmol/L (3.5-5.1); SGOT/AST 24 U/L (15-37); SODIUM 140 mmol/L (136-145)
[2018-02-07 11:28] LABS: ALK PHOS 188 U/L (45-117); BILIRUBIN,TOTAL 0.3 mg/dL (0.2-1.0); SGPT/ALT 33 U/L (12-78); TOT PROT 6.2 g/dl (6.4-8.2)
[2018-02-07] MEDS: SPIRONOLACTONE 25 MG TABLET (FP) PO SCH (12:00)
[2018-02-07] MEDS: FONDAPARINUX SODIUM 2.5 MG/0.5 ML DISP.SYRIN SQ SCH (12:00)
== END 2018-02-07 14:02 | disposition left against medical advice (07) | DRG 291 ==
LOC: JER 09:35 → JERBED 12:25 → J2W 17:20
PROVIDERS: ADMIT Internal Medicine; ATTEND Nurse Practitioner Acute Care
DX: I13.0 Hypertensive heart and chronic kidney disease with heart failure and stage 1 through stage 4 chronic kidney disease, or unspecified chronic kidney disease (principal); I50.23 Acute on chronic systolic (congestive) heart failure; N17.9 Acute kidney failure, unspecified; F11.20 Opioid dependence, uncomplicated; F14.20 Cocaine dependence, uncomplicated; F13.20 Sedative, hypnotic or anxiolytic dependence, uncomplicated; Z21 Asymptomatic human immunodeficiency virus [HIV] infection status; E78.5 Hyperlipidemia, unspecified; E11.9 Type 2 diabetes mellitus without complications; R07.9 Chest pain, unspecified; D72.829 Elevated white blood cell count, unspecified; N18.9 Chronic kidney disease, unspecified; D50.9 Iron deficiency anemia, unspecified; G62.9 Polyneuropathy, unspecified; I25.2 Old myocardial infarction; Z72.0 Tobacco use; Z95.0 Presence of cardiac pacemaker; F10.10 Alcohol abuse, uncomplicated
CPT/HCPCS: 36415; 71045-TC-FY; 80048; 80053; 80307; 81003; 81015; 82550; 82553; 82962; 83735; 83880; 84100; 84484; 85025; 85610; 85730; 87040; 93005; 93010; 94640; 99282-25; 99285-25